=== PATIENT | male | born 1945 | race Caucasian/White ===

== ENCOUNTER 2016-09-30 23:04 | Emergency (ER) | payer MEDICARE, OTHER ==
[2016-09-30 23:34] VITALS: O2SAT 98
[2016-10-01] MEDS ORDERED: Zofran 4 MG/2 ML VIAL IV ONE (00:10)
[2016-10-01] MEDS ORDERED: MORPHINE SULFATE 4 MG INJ IV ONE ×2 (00:10→00:24)
[2016-10-01] MEDS ORDERED: Zofran 4 MG/2 ML VIAL ONE (00:13)
[2016-10-01] MEDS ORDERED: MORPHINE SULFATE 4 MG INJ ONE ×2 (00:13→00:43)
[2016-10-01] MEDS ORDERED: Sodium Chloride 0.9% 1000 ML 1,000 ML ONE (00:13)
[2016-10-01] MEDS ORDERED: Sodium Chloride 0.9% 1000 ML 1,000 ML IV SCH (00:15)
--- NOTE | 2016-10-01 00:23 | ERPHSYRPT ---
- History of Present Illness Time Seen by Provider: 09/30/16 23:47 Source: patient, family () Patient Subjective Stated Complaint: reports having back surgery today per Dr. De Guzman and since awaking from anesthesia he has had unbearable right leg pain that radiates down the foot - states that he has had his post-op medication and does not feel any better Triage Nursing Assessment: ambulatory to treatment area with cane and assistance from - unsteady, limping gait - moves all extremities with some rigidity and disability but moderate strength. alert/oriented - cantakerous affect. skin flushed/warm/dry - no rash/injury appreciated - bandage to incision site CDI with no appreciated drainage. pt unable to lay down flat Physician History: CC: right leg pain Hx: 71 y/o patient of Dr De Guzman had back surgery yesterday at [facility]. He went home this AM. He had right leg pain and numbness after awakening from surgery. In the hospital it was helped by morphine. Normal urination. No fever or chills. Went home this AM. Pain in right leg and numbness prevents sleep and persists. Rated as severe. No fall or new injury. The back pain is now gone. Uses pain tablets at home. Timing/Duration: yesterday Severity: severe Allergies/Adverse Reactions: No Known Drug Allergies Allergy (Verified 09/30/16 23:33) Home Medications: Bupropion HCl [Wellbutrin Xl] 300 mg PO DAILY 01/11/15 [History] Gemfibrozil 600 mg [Lopid 600 mg] 600 mg PO BID 01/11/15 [History] Lisinopril [Zestril] 2.5 mg PO DAILY 01/11/15 [History] Metformin HCl 850 mg PO DAILY 01/11/15 [History] Omeprazole 20 MG [Prilosec 20 mg] 20 mg PO DAILY 01/11/15 [History] Oxcarbazepine 300 mg [Trileptal 300 MG Tablet] 300 mg PO DAILY 01/11/15 [ History] Pramipexole Di-HCl [Mirapex] 5 mg PO HS 01/11/15 [History] Acetaminophen with Codeine [Tylenol #3 (Acetaminophen-Cod #3) Tablet] 1 ea DAILY 08/16/15 [History] Aspirin [Aspir-Low] 81 mg DAILY 08/16/15 [History] Hx Tetanus, Diphtheria Vaccination/Date Given: Yes Hx Influenza Vaccination/Date Given: No Hx Pneumococcal Vaccination/Date Given: No Immunizations Up to Date: Yes - Review of Systems Constitutional: Malaise, No Fever, No Chills Eyes: No Symptoms Ears, Nose, & Throat: No Symptoms Respiratory: No Cough, No Dyspnea Cardiac: No Chest Pain Abdominal/Gastrointestinal: No Abdominal Pain, No Nausea, No Vomiting Genitourinary Symptoms: No Dysuria, No Hematuria Musculoskeletal: No Back Pain (gone) Skin: No Rash Neurological: Parasthesia (right leg), No Focal Weakness, No Headache All Other Systems: Reviewed and Negative - Past Medical History Pertinent Past Medical History: Yes Neurological History: No Pertinent History ENT History: No Pertinent History Cardiac History: Hypertension, Peripheral Vascular Disease Respiratory History: No Pertinent History Endocrine Medical History: Diabetes Type II Musculoskeletal History: Arthritis GI Medical History: No Pertinent History History: No Pertinent History Psycho-Social History: No Pertinent History Male Reproductive Disorders: No Pertinent History Other Medical History: RLS - Past Surgical History Past Surgical History: Yes Neuro Surgical History: No Pertinent History Cardiac: Cardiac Catheterization, Other Respiratory: No Pertinent History Gastrointestinal: No Pertinent History Genitourinary: No Pertinent History Musculoskeletal: Other Male Surgical History: No Pertinent History Other Surgical History: [facility] back surgery with cyst removal and spur shaved,heart caths and cardiac ablation 15-20yrs ago,BACK SURG 08/03 - Social History Smoking Status: Never smoker How long have you smoked: 55 Exposure to second hand smoke: No Alcohol Use: None Drug Use: none Patient Lives Alone: No - Nursing Vital Signs Nursing Vital Signs: Initial Vital Signs Temperature 99.8 F Temperature Source Rectal Pulse Rate 58 Respiratory Rate 20 Blood Pressure [Right Arm] 101/37 Pain Intensity 7 - Physical Exam General Appearance: alert Eye Exam: PERRL/EOMI Ears, Nose, Throat Exam: moist mucous membranes Neck Exam: normal inspection, non-tender, supple Respiratory Exam: normal breath sounds Cardiovascular Exam: regular rate/rhythm Gastrointestinal/Abdomen Exam: soft, No tenderness, No distention Male Genitalia Exam: normal genitalia Rectal Exam: normal rectal tone Back Exam: normal inspection (stapled incision appears well without redness or drng) Extremity Exam: normal inspection, normal range of motion Neurologic Exam: alert, oriented x 3, cooperative, billet inspector II-XII nml as tested, sensory deficit (subjective right leg sensory decreased), No motor deficits Skin Exam: warm, dry, No rash SpO2 Interpretation: normal SpO2: 98 Oxygen Delivery: Room Air - Course Nursing assessment & vital signs reviewed: Yes Ordered Tests: Active Orders 24 hr Category Date Time Status Clean Catch Urine Specimen STAT Care 10/01/16 00:11 Active IV Insertion STAT Care 10/01/16 00:08 Active BMP Stat Lab 10/01/16 00:10 Completed CBC W DIFF Stat Lab 10/01/16 00:10 Completed UA W/RFX UR CULTURE Stat Lab 10/01/16 00:11 Ordered Medication Summary Generic Name Dose Route Start Last Admin Trade Name Freq PRN Reason Stop Dose Admin Sodium Chloride 1,000 mls @ 100 mls/hr 10/01/16 00:15 10/01/16 00:21 Sodium Chloride 0.9% 1000 Ml IV 10/31/16 00:14 100 mls/hr .Q10H MELITA Administration Discontinued Medications Generic Name Dose Route Start Last Admin Trade Name Freq PRN Reason Stop Dose Admin Diphenhydramine HCl 25 mg 10/01/16 00:24 10/01/16 00:46 Benadryl 50 Mg/Ml IV 10/01/16 00:25 25 mg STAT ONE Administration Diphenhydramine HCl Confirm 10/01/16 00:43 Benadryl 50 Mg/Ml Administered 10/01/16 00:44 Dose 50 mg .ROUTE .STK-MED ONE Morphine Sulfate 4 mg 10/01/16 00:10 10/01/16 00:21 Morphine Sulfate 4 Mg Inj IV 10/01/16 00:11 4 mg STAT ONE Administration Morphine Sulfate Confirm 10/01/16 00:13 Morphine Sulfate 4 Mg Inj Administered 10/01/16 00:14 Dose 4 mg .ROUTE .STK-MED ONE Morphine Sulfate 4 mg 10/01/16 00:24 10/01/16 00:46 Morphine Sulfate 4 Mg Inj IV 10/01/16 00:25 4 mg STAT ONE Administration Morphine Sulfate Confirm 10/01/16 00:43 Morphine Sulfate 4 Mg Inj Administered 10/01/16 00:44 Dose 4 mg .ROUTE .STK-MED ONE Ondansetron HCl 4 mg 10/01/16 00:10 10/01/16 00:21 Zofran 4 Mg/2 Ml Vial IV 10/01/16 00:11 4 mg STAT ONE Administration Ondansetron HCl Confirm 10/01/16 00:13 Zofran 4 Mg/2 Ml Vial Administered 10/01/16 00:14 Dose 4 mg .ROUTE .STK-MED ONE Lab/Rad Data: Laboratory Result Diagrams 10/01/16 00:10 10/01/16 00:10 Laboratory Results 10/01/16 10/01/16 Range/Units 00:10 00:10 WBC 9.7 (4.0-10.5) K/mm3 RBC 3.48 L (4.1-5.6) M/mm3 Hgb 10.7 L (12.5-18.0) gm/dl Hct 32.2 L (42-50) % MCV 92.5 (78-100) fl MCH 30.7 (26-32) pg MCHC 33.2 (32-36) g/dl RDW 13.8 (11.5-14.0) % Plt Count 180 (150-450) K/mm3 MPV 10.6 H (6-9.5) fl Gran % 67.8 H (36.0-66.0) % Lymphocytes % 16.8 L (24.0-44.0) % Monocytes % 12.1 H (0.0-12.0) % Eosinophils % 3.0 (0.00-5.0) % Basophils % 0.3 (0.0-0.4) % Basophils # 0.03 (0-0.4) Sodium 140 (136-145) mEq/L Potassium 4.0 (3.5-5.1) mEq/L Chloride 107 (98-107) mEq/L Carbon Dioxide 25.9 (21-32) mEq/L Anion Gap 11.4 (5-15) MEQ/L BUN 19 (9-20) mg/dL Creatinine 0.81 (0.55-1.30) mg/dl Estimated GFR > 60 ML/MIN Glucose 150 H (70-110) MG/DL Calcium 7.7 L (8.5-10.1) mg/dL - Progress Progress Note: 06/14/17 00:57 Pt was medicated. He has ambulated to BR. He wants to go home and feels better. CAlled Dr De Guzman. Pt will go home and call office in AM with report and to obtain further instructions. Counseled pt/family regarding: lab results, diagnosis, need for follow-up - Departure Time of Disposition: 00:58 Departure Disposition: Home Clinical Impression: post lumbar surgery right leg pain Neuropraxia of right lower extremity Qualifiers: Encounter type: initial encounter Qualified Code(s): S84.91XA - Injury of unspecified nerve at lower leg level, right leg, initial encounter Condition: Stable Critical Care Time: No Referrals: NOREEN DE GUZMAN [ACTIVE STAFF] - Instructions: Back Pain With Sciatica Additional Instructions: No driving and stay with family. Take your norco as already directed. Call Dr De Guzman office in AM for further instructions and to obtain close follow up. Return for fever, worsening, trouble urinatiing, or concerns.
[2016-10-01] MEDS ORDERED: BENADRYL 50 MG/ML IV ONE (00:24)
[2016-10-01 00:30] LABS: BASOPHIL % 0.3 % (0.0-0.4); Granulocytes % 67.8 % (36.0-66.0); Lymphocytes % 16.8 % (24.0-44.0); Mean Cell Volume 92.5 fl (78-100); Mean Corpuscular Hemoglobin 30.7 pg (26-32); Mean Platelet Volume 10.6 fl (6-9.5); Monocytes % 12.1 % (0.0-12.0); Platelet Count 180 K/mm3 (150-450); Red Blood Count 3.48 M/mm3 (4.1-5.6); Red Cell Distribution Width 13.8 % (11.5-14.0); White Blood Count 9.7 K/mm3 (4.0-10.5)
[2016-10-01 00:40] LABS: ANION GAP 11.4 MEQ/L (5-15); BLOOD UREA NITROGEN 19 mg/dL (9-20); CHLORIDE 107 mEq/L (98-107); Carbon Dioxide 25.9 mEq/L (21-32); Glucose 150 MG/DL (70-110); SODIUM 140 mEq/L (136-145)
[2016-10-01] MEDS ORDERED: BENADRYL 50 MG/ML ONE (00:43)
[2016-10-01 00:53] VITALS: BP 101/37; PULSE 58
[2016-10-01 01:15] LABS: ADD URINE CULTURE? NO (NO); COMPLETE URINE MICROSCOPIC? YES; Collection Type CLEAN CATCH; Epithelial Cells FEW /HPF (FEW); Ph 5.5 (5-6)
== END 2016-10-01 01:26 | disposition home or self-care (01) ==
LOC: ED 23:04
DX: S84.91XA Injury of unspecified nerve at lower leg level, right leg, initial encounter (principal); Z98.890 Other specified postprocedural states; Z79.899 Other long term (current) drug therapy; I10 Essential (primary) hypertension; E11.9 Type 2 diabetes mellitus without complications
CPT/HCPCS: 36000; 36415; 80048; 81000; 85025; 96360; 96361; 96374; 96375; 99284; J1200; J2270; J2405

== ENCOUNTER 2016-10-21 03:40 | Emergency (ER) | payer MEDICARE, OTHER ==
[2012-01-21 13:41] VITALS: BP 129/70
--- NOTE | 2016-10-21 04:13 | ERPHSYRPT ---
- History of Present Illness Time Seen by Provider: 10/21/16 03:57 Source: patient Exam Limitations: no limitations Patient Subjective Stated Complaint: norco at 0100 Triage Nursing Assessment: pt alert and oriented, answers questions approp. pt ambulatory with limping gait noted. uses cane for ambulation. respirations nonlabored with lungs cta. back with large bandage noted. pt states was changed today. pt states he has infected surgical site. no drainage noted on drsg. cap refill, pedal pulse wnl. pt c/o pins and needles sensation in rt foot and sesitivity. Physician History: PT HAD LOW BACK SURGERY BY DR PALAFOX ON 09/29/16, 10/01/16 AND 10/03/16. PT HAS BEEN ON NORCO SINCE FOR RIGHT LOWER EXTREMITY PAIN BUT RAN OUT THIS AM AND IS REQUESTING PAIN PILLS UNTIL HIS APPOINTMENT WITH DR PALAFOX IN 2 DAYS. PT STATES HE HAS HAD TINGLING IN HIS RIGHT FOOT SINCE SURGERY. PT DENIES FEVER, VOMITING, CHEST PAIN, SHORTNESS OF AIR, ABDOMINAL PAIN. Allergies/Adverse Reactions: No Known Drug Allergies Allergy (Verified 10/18/16 06:21) Home Medications: Bupropion HCl [Wellbutrin Xl] 300 mg PO DAILY 01/11/15 [History] Gemfibrozil 600 mg [Lopid 600 mg] 600 mg PO DAILY 01/11/15 [History] Lisinopril [Zestril] 2.5 mg PO DAILY 01/11/15 [History] Metformin HCl 850 mg PO DAILY 01/11/15 [History] Omeprazole 20 MG [Prilosec 20 mg] 20 mg PO DAILY 01/11/15 [History] Oxcarbazepine 300 mg [Trileptal 300 MG Tablet] 300 mg PO DAILY 01/11/15 [ History] Pramipexole Di-HCl [Mirapex] 5 mg PO HS 01/11/15 [History] Acetaminophen with Codeine [Tylenol #3 (Acetaminophen-Cod #3) Tablet] 1 ea BID 08/16/15 [History] Aspirin [Aspir-Low] 81 mg DAILY 08/16/15 [History] Hx Tetanus, Diphtheria Vaccination/Date Given: Yes Hx Influenza Vaccination/Date Given: No Hx Pneumococcal Vaccination/Date Given: No Immunizations Up to Date: Yes - Review of Systems Musculoskeletal: Other (RIGHT LOWER EXTREMITY PAIN) All Other Systems: Reviewed and Negative - Past Medical History Pertinent Past Medical History: Yes Neurological History: No Pertinent History ENT History: Cataracts Cardiac History: High Cholesterol, Hypertension, Peripheral Vascular Disease Respiratory History: No Pertinent History Endocrine Medical History: Diabetes Type II Musculoskeletal History: Arthritis, Degenerative Disk Disease GI Medical History: No Pertinent History History: No Pertinent History Psycho-Social History: No Pertinent History Male Reproductive Disorders: Prostate Cancer Other Medical History: RLS - Past Surgical History Past Surgical History: Yes Neuro Surgical History: No Pertinent History Cardiac: Cardiac Catheterization, Other Respiratory: No Pertinent History Gastrointestinal: No Pertinent History Genitourinary: No Pertinent History Musculoskeletal: Other Male Surgical History: No Pertinent History Other Surgical History: [facility] with cyst removal and spur shaved,heart caths and cardiac ablation 15-20yrs ago,BACK SURG 08/03, back surgery 2013, 09/29/16,09/30/16,10/01/16 back surgery r/t infection in surgical site. bilar rcr - Social History Smoking Status: Current every day smoker How long have you smoked: 55 years Exposure to second hand smoke: Yes Alcohol Use: None Drug Use: none Patient Lives Alone: No - Nursing Vital Signs Nursing Vital Signs: Initial Vital Signs Temperature 98.0 F Temperature Source Oral Pulse Rate 98 Respiratory Rate 22 Blood Pressure [Right Arm] 132/84 Pain Intensity 10 - Physical Exam General Appearance: alert Eye Exam: PERRL/EOMI Ears, Nose, Throat Exam: pharynx normal, moist mucous membranes Neck Exam: normal inspection Respiratory Exam: lungs clear Cardiovascular Exam: normal heart sounds Gastrointestinal/Abdomen Exam: soft, normal bowel sounds Back Exam: other (HEALING VERTICAL MIDLINE INCISION OVER LUMBAR SPINE WITHOUT EXUDATE OR ERYTHEMA.) Extremity Exam: normal inspection, normal range of motion, No swelling Neurologic Exam: alert, cooperative Skin Exam: warm, dry SpO2 Interpretation: normal SpO2: 100 Oxygen Delivery: Room Air - Course Nursing assessment & vital signs reviewed: Yes - Departure Time of Disposition: 04:18 Departure Disposition: Home Clinical Impression: RIGHT LOWER EXTREMITY PAIN, S/P LOW BACK SURGERY(X3) SEPTEMBER 2016. Condition: Stable Critical Care Time: No Instructions: Chronic Pain -- Adult Additional Instructions: FOLLOW UP WITH DR PALAFOX ON 10/23/16 PRE-SCHEDULED. DO NOT LIFT, BEND OR TWIST TORSO. Prescriptions: Hydrocodone Bit/Acetaminophen [[employer] 7.5-325 Tablet] 1 each PO Q6H PRN PRN #14 tablet PRN Reason: Pain
[2016-10-21] MEDS ORDERED: NORCO 5/325 MG PO ONE (04:18)
[2016-10-21] MEDS ORDERED: Hydromorphone 1 mg/ml Ampule IM ONE (04:19)
[2016-10-21] MEDS ORDERED: Phenergan 25 MG INJ IV ONE (04:19)
[2016-10-21] MEDS ORDERED: Phenergan 25 MG INJ IM ONE (04:23)
[2016-10-21] MEDS ORDERED: Hydromorphone 1 mg/ml Ampule ONE (04:24)
[2016-10-21] MEDS ORDERED: Phenergan 25 MG INJ ONE (04:24)
[2016-10-21] MEDS ORDERED: NORCO 5/325 MG ONE (04:24)
[2016-10-21 04:55] VITALS: BP 116/47; PULSE 85; O2SAT 98
== END 2016-10-21 04:56 | disposition home or self-care (01) ==
LOC: ED 03:40
DX: M79.604 Pain in right leg (principal); Z98.890 Other specified postprocedural states
CPT/HCPCS: 96372; 99284; J1170; J2550; A9270-GY

== ENCOUNTER 2016-10-23 03:05 | Emergency (ER) | payer MEDICARE, OTHER ==
[2012-01-21 13:41] VITALS: BP 129/70
[2016-10-23] MEDS ORDERED: Hydromorphone 1 mg/ml Ampule IM ONE (03:23)
[2016-10-23] MEDS ORDERED: DECADRON 10MG INJ. IM ONE (03:25)
[2016-10-23] MEDS ORDERED: Phenergan 25 MG INJ IM ONE (03:25)
[2016-10-23] MEDS ORDERED: DECADRON 10MG INJ. ONE (03:32)
[2016-10-23] MEDS ORDERED: Hydromorphone 1 mg/ml Ampule ONE (03:32)
[2016-10-23] MEDS ORDERED: Phenergan 25 MG INJ ONE (03:32)
--- NOTE | 2016-10-23 03:34 | ERPHSYRPT ---
- History of Present Illness Time Seen by Provider: 10/23/16 03:28 Source: patient, family Exam Limitations: no limitations Patient Subjective Stated Complaint: pt states he has increased pain from his lower back down his rt leg. Triage Nursing Assessment: pt alert and oriented, asnwers questions approp. pt transfers to stretcher from bed with minimal assist. respirations nonlabored iwht lungs cta. skin warm and dry. drsg to lower back clean and dry- dated at 1700. pedal pulse, cap refill to rt foot wnl. Physician History: The patient is a 71-year-old male with his complaining of severe low back pain radiating down his right leg for the last several days. He had back surgery on September 29, , and . There were problems with the initial back surgery and thinks had to be repeated. He now has an infection in his low back that is being treated twice today with vancomycin injections by IV. The back pain has been increasing and is severe. He ran out of his analgesics given to him by the back surgeon and he came into the ER on October 20 for more narcotics. At that time he was given an IM Dilaudid 1 mg and Phenergan 12.5 mg with good relief. He requests a similar pain relief tonight. In about 12 hours he visits his back surgeon. His past medical history is significant for back pain with back surgery, diabetes, hypertension, hyperlipidemia, and depression. Timing/Duration: today, worse Method of Injury: other (back surgery) Quality: sharp Back Pain Location: lumbar spine Back Pain Radiation: upper legs, lower legs Severity of Pain-Max: severe Severity of Pain-Current: severe Modifying Factors: Improves With: pain medication Associated Symptoms: denies symptoms Previous symptoms: same symptoms as today Allergies/Adverse Reactions: No Known Drug Allergies Allergy (Verified 10/23/16 03:20) Home Medications: Bupropion HCl [Wellbutrin Xl] 300 mg PO DAILY 01/11/15 [History] Gemfibrozil 600 mg [Lopid 600 mg] 600 mg PO DAILY 01/11/15 [History] Lisinopril [Zestril] 2.5 mg PO DAILY 01/11/15 [History] Metformin HCl 850 mg PO DAILY 01/11/15 [History] Omeprazole 20 MG [Prilosec 20 mg] 20 mg PO DAILY 01/11/15 [History] Oxcarbazepine 300 mg [Trileptal 300 MG Tablet] 300 mg PO DAILY 01/11/15 [ History] Pramipexole Di-HCl [Mirapex] 5 mg PO HS 01/11/15 [History] Acetaminophen with Codeine [Tylenol #3 (Acetaminophen-Cod #3) Tablet] 1 ea BID 08/16/15 [History] Aspirin [Aspir-Low] 81 mg DAILY 08/16/15 [History] Hx Tetanus, Diphtheria Vaccination/Date Given: Yes Hx Influenza Vaccination/Date Given: No Hx Pneumococcal Vaccination/Date Given: No Immunizations Up to Date: Yes - Review of Systems Constitutional: No Fever, No Chills Eyes: No Symptoms Ears, Nose, & Throat: No Symptoms Respiratory: No Cough, No Dyspnea Cardiac: No Chest Pain, No Edema, No Syncope Abdominal/Gastrointestinal: No Abdominal Pain, No Nausea, No Vomiting, No Diarrhea Genitourinary Symptoms: No Dysuria Musculoskeletal: Back Pain Skin: No Rash Neurological: No Dizziness, No Focal Weakness, No Sensory Changes Psychological: No Symptoms Endocrine: No Symptoms Hematologic/Lymphatic: No Symptoms Immunological/Allergic: No Symptoms All Other Systems: Reviewed and Negative - Past Medical History Pertinent Past Medical History: Yes Neurological History: No Pertinent History ENT History: Cataracts Cardiac History: High Cholesterol, Hypertension, Peripheral Vascular Disease Respiratory History: No Pertinent History Endocrine Medical History: Diabetes Type II Musculoskeletal History: Arthritis, Degenerative Disk Disease GI Medical History: No Pertinent History History: No Pertinent History Psycho-Social History: No Pertinent History Male Reproductive Disorders: Prostate Cancer Other Medical History: RLS - Past Surgical History Past Surgical History: Yes Neuro Surgical History: No Pertinent History Cardiac: Cardiac Catheterization, Other Respiratory: No Pertinent History Gastrointestinal: No Pertinent History Genitourinary: No Pertinent History Musculoskeletal: Other Male Surgical History: No Pertinent History Other Surgical History: [facility] with cyst removal and spur shaved,heart caths and cardiac ablation 15-20yrs ago,BACK SURG 08/03, back surgery 2013, 09/29/16,09/30/16,10/01/16 back surgery r/t infection in surgical site. bilar rcr - Social History Smoking Status: Current every day smoker How long have you smoked: 55 years Exposure to second hand smoke: Yes Alcohol Use: None Drug Use: none Patient Lives Alone: No - Nursing Vital Signs Nursing Vital Signs: Initial Vital Signs Temperature 97.7 F Temperature Source Oral Pulse Rate 97 Respiratory Rate 22 Blood Pressure [Right Arm] 162/70 Pain Intensity [Right Foot] 10 Pain Intensity 10 - Physical Exam General Appearance: moderate distress Eye Exam: PERRL/EOMI, eyes nml inspection Ears, Nose, Throat Exam: normal ENT inspection Neck Exam: normal inspection, non-tender, supple, full range of motion, No meningismus, No midline tenderness Respiratory Exam: normal breath sounds, lungs clear, No respiratory distress Cardiovascular Exam: regular rate/rhythm, normal heart sounds Gastrointestinal Exam: soft, No tenderness, No mass Rectal Exam: not done Back Exam: other (Examination of the low back reveals a bandage over the low back from the prior surgery.) Extremity Exam: limited range of motion (There is limited straight leg raise the right leg to about 25 or 30.), No calf tenderness, No pedal edema Neurologic Exam: alert, oriented x 3, cooperative, optimization specialist II-XII nml as tested, normal mood/affect, nml station & gait, sensation nml, No motor deficits Skin Exam: normal color, warm, dry, No rash SpO2 Interpretation: normal SpO2: 98 Oxygen Delivery: Room Air Ordered Tests: Medication Summary Generic Name Dose Route Start Last Admin Trade Name Juanita PRN Reason Stop Dose Admin Dexamethasone Sodium Phosphate 10 mg 10/23/16 03:25 Decadron 10mg Inj. IM 10/23/16 03:26 STAT ONE Hydromorphone HCl 1 mg 10/23/16 03:23 Hydromorphone 1 Mg/Ml Ampule IM 10/23/16 03:24 STAT ONE Promethazine HCl 25 mg 10/23/16 03:25 Phenergan 25 Mg Inj IM 10/23/16 03:26 STAT ONE - Progress Progress: improved Progress Note: 10/23/16 03:35 After IM injections of Decadron 10 mg, Phenergan 25 mg, and Dilaudid 1 mg, patient is beginning to feel better. Counseled pt/family regarding: diagnosis, need for follow-up - Departure Time of Disposition: 03:35 Departure Disposition: Home Clinical Impression: Back pain Condition: Stable Critical Care Time: No Additional Instructions: You are having back pain that is associated with recent back surgery. The [place] as you have been taking have not been enough to give adequate pain relief. You were given Dilaudid 1 mg, Phenergan 25 mg, and Decadron 10 mg by IM injection in the ER. Continue to take the [place] as directed if needed. Follow-up later today at 3 PM as scheduled with your back doctor. Continue to obtain the twice a day antibiotic therapy for your infection. Do not hesitate to return to the ER if condition worsens significantly.
[2016-10-23 04:07] VITALS: BP 135/67; PULSE 83; O2SAT 96
== END 2016-10-23 04:06 | disposition home or self-care (01) ==
LOC: ED 03:05
DX: M54.9 Dorsalgia, unspecified (principal); M54.5 Low back pain; Z98.890 Other specified postprocedural states; E11.9 Type 2 diabetes mellitus without complications; I10 Essential (primary) hypertension; E78.5 Hyperlipidemia, unspecified; F32.9 Major depressive disorder, single episode, unspecified; Z79.899 Other long term (current) drug therapy; Z79.84 Long term (current) use of oral hypoglycemic drugs; E78.00 Pure hypercholesterolemia, unspecified
CPT/HCPCS: 96372; 99284; J1100; J1170; J2550

== ENCOUNTER 2016-10-27 13:10 | Observation (INO) | payer MEDICARE, OTHER ==
[2016-10-27] MEDS ORDERED: DILAUDID 2 MG INJECTION IV STA (13:25)
--- NOTE | 2016-10-27 13:25 | ERPHSYRPT ---
- History of Present Illness Time Seen by Provider: 10/27/16 13:20 Source: patient, family, EMS Exam Limitations: no limitations Physician History: The patient is a 71-year-old male accompanied by his who arrives by ambulance complaining of severe low back pain. I saw the same patient on October 23 for the same problem. He was treated at that time with dexamethasone 10 mg, Dilaudid 1 mg, and Phenergan 25 mg by IV with good temporary results. The patient had back surgery on September 29, , and . There were problems with the initial surgery on the that resulted in infection and having the hardware removed from his back. He is being treated twice a day with vancomycin IV for the infection. He tells me that he is to see the back surgeon tomorrow. His past medical history is significant for back pain with back surgery and infection, diabetes, hypertension, hyperlipidemia, depression, and anxiety. Timing/Duration: today Method of Injury: prior injury, twisted Quality: sharp Back Pain Location: lumbar spine Severity of Pain-Max: severe Severity of Pain-Current: severe Modifying Factors: Improves With: pain medication Associated Symptoms: lower back pain Previous symptoms: same symptoms as today Allergies/Adverse Reactions: No Known Drug Allergies Allergy (Verified 10/23/16 03:20) Home Medications: Bupropion HCl [Wellbutrin Xl] 150 mg PO DAILY 01/11/15 [History] Lisinopril [Zestril] 2.5 mg PO DAILY 01/11/15 [History] Metformin HCl 850 mg PO BID 01/11/15 [History] Omeprazole 20 MG [Prilosec 20 mg] 20 mg PO DAILY 01/11/15 [History] Oxcarbazepine 300 mg [Trileptal 300 MG Tablet] 300 mg PO TID 01/11/15 [ History] Pramipexole Di-HCl [Mirapex] 1 tab PO HS 01/11/15 [History] Aspirin [Aspir-Low] 81 mg PO DAILY 08/16/15 [History] Lorazepam 1 mg [Ativan 1 MG] 1 mg PO HS 10/27/16 [History] Tamsulosin HCl 0.4 mg [Flomax 0.4 MG] 0.4 mg PO HS 10/27/16 [History] Tizanidine HCl 4 mg [Zanaflex 4 MG] 4 mg PO Q8H 10/27/16 [History] Hx Tetanus, Diphtheria Vaccination/Date Given: Yes Hx Influenza Vaccination/Date Given: No Hx Pneumococcal Vaccination/Date Given: No - Review of Systems Constitutional: No No Symptoms, No Fever, No Chills Eyes: No Symptoms Ears, Nose, & Throat: No Symptoms Respiratory: No Cough, No Dyspnea Cardiac: No Chest Pain, No Edema, No Syncope Abdominal/Gastrointestinal: No Abdominal Pain, No Nausea, No Vomiting, No Diarrhea Genitourinary Symptoms: No Dysuria Musculoskeletal: Back Pain Skin: No Rash Neurological: No Dizziness, No Focal Weakness, No Sensory Changes Psychological: No Symptoms Endocrine: No Symptoms Hematologic/Lymphatic: No Symptoms Immunological/Allergic: No Symptoms All Other Systems: Reviewed and Negative - Past Medical History Pertinent Past Medical History: Yes Neurological History: No Pertinent History ENT History: Cataracts Cardiac History: High Cholesterol, Hypertension, Peripheral Vascular Disease Respiratory History: No Pertinent History Endocrine Medical History: Diabetes Type II Musculoskeletal History: Arthritis, Degenerative Disk Disease GI Medical History: No Pertinent History History: No Pertinent History Psycho-Social History: No Pertinent History Male Reproductive Disorders: Prostate Cancer Other Medical History: RLS - Past Surgical History Past Surgical History: Yes Neuro Surgical History: No Pertinent History Cardiac: Cardiac Catheterization, Other Respiratory: No Pertinent History Gastrointestinal: No Pertinent History Genitourinary: No Pertinent History Musculoskeletal: Other Male Surgical History: No Pertinent History Other Surgical History: july states back surgery with cyst removal and spur shaved,heart caths and cardiac ablation 15-20yrs ago,BACK SURG 08/03, back surgery 2013, 09/29/16,09/30/16,10/01/16 back surgery r/t infection in surgical site. bilar rcr - Social History Smoking Status: Current every day smoker How long have you smoked: 55 years Exposure to second hand smoke: Yes Alcohol Use: None Drug Use: none Patient Lives Alone: No - Nursing Vital Signs Nursing Vital Signs: Initial Vital Signs Temperature 99.5 F Temperature Source Oral Pulse Rate 82 Respiratory Rate 18 Blood Pressure [Right Arm] 148/72 Pain Intensity 8 - Physical Exam General Appearance: severe distress Eye Exam: PERRL/EOMI, eyes nml inspection Ears, Nose, Throat Exam: normal ENT inspection Neck Exam: normal inspection, non-tender, supple, full range of motion, No meningismus, No midline tenderness Respiratory Exam: normal breath sounds, lungs clear, No respiratory distress Cardiovascular Exam: regular rate/rhythm, normal heart sounds Gastrointestinal Exam: soft, No tenderness, No mass Rectal Exam: not done Back Exam: vertebral tenderness, point tenderness Extremity Exam: normal inspection, normal range of motion, No calf tenderness, No pedal edema Neurologic Exam: alert, oriented x 3, cooperative, 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 tested, normal mood/affect, nml station & gait, sensation nml, No motor deficits Skin Exam: normal color, warm, dry, No rash SpO2 Interpretation: normal Ordered Tests: Active Orders 24 hr Category Date Time Status BMP Stat Lab 10/27/16 13:43 Completed CBC W DIFF Stat Lab 10/27/16 13:43 Completed Medication Summary Discontinued Medications Generic Name Dose Route Start Last Admin Trade Name Freq PRN Reason Stop Dose Admin Diazepam 10 mg 10/27/16 14:10 10/27/16 14:13 Valium 10 Mg/2 Ml Syringe IV 10/27/16 14:11 10 mg STAT ONE Administration Diazepam Confirm 10/27/16 14:12 Valium 10 Mg/2 Ml Syringe Administered 10/27/16 14:13 Dose 10 mg .ROUTE .STK-MED ONE Hydromorphone HCl 2 mg 10/27/16 13:25 10/27/16 13:45 Dilaudid 2 Mg Injection IV 10/27/16 13:26 2 mg Q4H PRN STA Administration Hydromorphone HCl Confirm 10/27/16 13:31 Hydromorphone 1 Mg/Ml Ampule Administered 10/27/16 13:32 Dose 2 mg .ROUTE .STK-MED ONE Lorazepam 2 mg 10/27/16 14:04 10/27/16 14:24 Ativan 2 Mg/1 Ml Vial IV 10/27/16 14:05 Not Given STAT ONE Promethazine HCl 25 mg 10/27/16 13:26 10/27/16 13:35 Phenergan 25 Mg Inj IV 10/27/16 13:27 25 mg STAT ONE Administration Promethazine HCl Confirm 10/27/16 13:31 Phenergan 25 Mg Inj Administered 10/27/16 13:32 Dose 25 mg .ROUTE .STK-MED ONE Lab/Rad Data: Laboratory Result Diagrams 10/27/16 13:43 10/27/16 13:43 Laboratory Results 10/27/16 10/27/16 Range/Units 13:43 13:43 WBC 9.8 (4.0-10.5) K/mm3 RBC 3.66 L (4.1-5.6) M/mm3 Hgb 10.7 L (12.5-18.0) gm/dl Hct 33.3 L (42-50) % MCV 91.0 (78-100) fl MCH 29.2 (26-32) pg MCHC 32.1 (32-36) g/dl RDW 14.2 H (11.5-14.0) % Plt Count 289 (150-450) K/mm3 MPV 9.7 H (6-9.5) fl Gran % 78.1 H (36.0-66.0) % Lymphocytes % 12.3 L (24.0-44.0) % Monocytes % 7.1 (0.0-12.0) % Eosinophils % 2.2 (0.00-5.0) % Basophils % 0.3 (0.0-0.4) % Basophils # 0.03 (0-0.4) Sodium 140 (136-145) mEq/L Potassium 4.2 (3.5-5.1) mEq/L Chloride 105 (98-107) mEq/L Carbon Dioxide 23.0 (21-32) mEq/L Anion Gap 16.2 H (5-15) MEQ/L BUN 26 H (9-20) mg/dL Creatinine 1.08 (0.55-1.30) mg/dl Estimated GFR > 60 ML/MIN Glucose 207 H (70-110) MG/DL Calcium 9.1 (8.5-10.1) mg/dL - Progress Progress: improved, pain not gone completely Progress Note: 10/27/16 15:02 Pt care discussed with Dr Haider and Dr Ryan, and pt to be admitted for pain control. Dr Haider to see pt tomorrow. Discussed with .: Shelby Will see patient in: hospital (observation) Counseled pt/family regarding: diagnosis - Departure Time of Disposition: 15:03 Departure Disposition: Observation (per DR Ryan) Clinical Impression: Back pain Condition: Stable Critical Care Time: No
[2016-10-27] MEDS ORDERED: Phenergan 25 MG INJ IV ONE (13:26)
[2016-10-27] MEDS ORDERED: Hydromorphone 1 mg/ml Ampule ONE (13:31)
[2016-10-27] MEDS ORDERED: Phenergan 25 MG INJ ONE (13:31)
[2016-10-27] MEDS ORDERED: Ativan 2 MG/1 ML VIAL IV ONE (14:04)
[2016-10-27 14:07] LABS: BASOPHIL % 0.3 % (0.0-0.4); Eosinophil % 2.2 % (0.00-5.0); Granulocytes % 78.1 % (36.0-66.0); Lymphocytes % 12.3 % (24.0-44.0); Mean Corpuscular Hemoglobin 29.2 pg (26-32); Mean Platelet Volume 9.7 fl (6-9.5); Monocytes % 7.1 % (0.0-12.0); Platelet Count 289 K/mm3 (150-450); Red Blood Count 3.66 M/mm3 (4.1-5.6); Red Cell Distribution Width 14.2 % (11.5-14.0); White Blood Count 9.8 K/mm3 (4.0-10.5)
[2016-10-27 14:09] LABS: ANION GAP 16.2 MEQ/L (5-15); BLOOD UREA NITROGEN 26 mg/dL (9-20); CHLORIDE 105 mEq/L (98-107); Glucose 207 MG/DL (70-110); Potassium 4.2 mEq/L (3.5-5.1); SODIUM 140 mEq/L (136-145)
[2016-10-27] MEDS ORDERED: VALIUM 10 MG/2 ML SYRINGE IV ONE (14:10)
[2016-10-27] MEDS ORDERED: VALIUM 10 MG/2 ML SYRINGE ONE (14:12)
[2016-10-27] MEDS ORDERED: Zofran 4 MG/2 ML VIAL IV PRN (15:57)
[2016-10-27] MEDS: Morphine PCA 1 MG/ML 30 ML IV PRN (16:38)
[2016-10-27] MEDS: VALIUM 10 MG/2 ML SYRINGE IV PRN ×2 (17:30→22:10)
[2016-10-27] MEDS: VANCOCIN 1 GM VIAL*** 1.25 GM in Sodium Chloride 0.9% 250 ML 250 ML IV SCH (17:54)
[2016-10-27] MEDS ORDERED: Wellbutrin SR 150 MG ONE (21:49)
[2016-10-27] MEDS ORDERED: Wellbutrin XL 150 MG PO ONE (22:00)
[2016-10-27] MEDS ORDERED: Protonix 40MG Tablet PO ONE (22:00)
[2016-10-27] MEDS ORDERED: Trileptal 300 MG Tablet PO ONE (22:00)
[2016-10-27] MEDS ORDERED: Zanaflex 4 MG PO SCH (22:00)
[2016-10-27] MEDS ORDERED: Zestril 5 MG PO ONE (22:00)
[2016-10-27] MEDS: Flomax 0.4 MG PO SCH (22:07)
[2016-10-27] MEDS: Mirapex 0.5 MG Tablet PO SCH (22:07)
[2016-10-27] MEDS ORDERED: Trileptal 300 MG Tablet ONE (22:21)
[2016-10-27] MEDS: Ativan 1 MG PO SCH (22:27)
--- NOTE | 2016-10-27 23:35 | PCM.HP ---
History of Present Illness - Chief Complaint Chief Complaint: back pain History of Present Illness: is a 71 year old male.came to ER with back pain - Review of Systems Constitutional: No Fever, No Chills Eyes: No Symptoms Ears, Nose, & Throat: No Symptoms Respiratory: No Cough, No Short Of Breath Cardiac: No Chest Pain, No Edema, No Syncope Abdominal/Gastrointestinal: No Abdominal Pain, No Nausea, No Vomiting, No Diarrhea Genitourinary Symptoms: No Dysuria Musculoskeletal: Back Pain, No Neck Pain Skin: No Rash Neurological: No Dizziness, No Focal Weakness, No Sensory Changes Psychological: No Symptoms Endocrine: No Symptoms Hematologic/Lymphatic: No Symptoms Immunological/Allergic: No Symptoms Medications & Allergies Home Medications: Home Medication List Bupropion HCl [Wellbutrin Xl] 150 mg PO DAILY 01/11/15 [History Confirmed ] Lisinopril [Zestril] 2.5 mg PO DAILY 01/11/15 [History Confirmed 10/27/16] Metformin HCl 850 mg PO DAILY 01/11/15 [History Confirmed 10/27/16] Omeprazole 20 MG [Prilosec 20 mg] 20 mg PO DAILY 01/11/15 [History Confirmed 02/03] Oxcarbazepine 300 mg [Trileptal 300 MG Tablet] 300 mg PO DAILY 01/11/15 [ History Confirmed 10/27/16] Pramipexole Di-HCl [Mirapex] 1 tab PO HS 01/11/15 [History Confirmed 10/27/16] Aspirin [Aspir-Low] 81 mg PO DAILY 08/16/15 [History Confirmed 10/27/16] Hydrocodone/Acetaminophen [[place] 5-325 Tablet] 1 each PO Q6H PRN 10/27/16 [ History Confirmed 10/27/16] Lorazepam 1 mg [Ativan 1 MG] 1 mg PO HS 10/27/16 [History Confirmed ] Tamsulosin HCl 0.4 mg [Flomax 0.4 MG] 0.4 mg PO HS 10/27/16 [History Confirmed 10/27/16] Tizanidine HCl 4 mg [Zanaflex 4 MG] 4 mg PO HS 10/27/16 [History Confirmed 10/27/16] Allergies/Adverse Reactions: Allergies Allergy/AdvReac Type Severity Reaction Status Date / Time No Known Drug Allergies Allergy Verified 10/23/16 03:20 - Past Medical History Past Medical History: Yes Neurological History: No Pertinent History ENT History: Cataracts Cardiac History: High Cholesterol, Hypertension, Peripheral Vascular Disease Respiratory History: No Pertinent History Endocrine Medical History: Diabetes Type II Musculoskelatal History: Arthritis, Degenerative Disk Disease GI Medical History: No Pertinent History History: No Pertinent History Pyscho-Social History: No Pertinent History Male Reproductive Disorders: Prostate Cancer Comment: heart ablation 20 years ago - Past Surgical History Past Surgical History: Yes Neuro Surgical History: No Pertinent History Cardiac History: Cardiac Catheterization, Other Respiratory Surgery: No Pertinent History GI Surgical History: No Pertinent History Genitourinary Surgical Hx: No Pertinent History Musculskeletal Surgical Hx: Other Male Surgical History: No Pertinent History Other Surgical History: july states back surgery with cyst removal and spur shaved,heart caths and cardiac ablation 15-20yrs ago,BACK SURG 08/03, back surgery 2013, 09/29/16,09/30/16,10/01/16 back surgery r/t infection in surgical site. bilar rcr - Social History Smoking Status: Current every day smoker How long have you smoked: 55 Exposure to second hand smoke: Yes Alcohol: None Drug Use: none - Physical Exam Vital Signs: Vital Signs - 24 hr Temp Pulse Resp BP Pulse Ox 10/27/16 20:30 97.9 F 77 24 127/61 97 10/27/16 17:00 97.6 F 80 16 132/5 97 10/27/16 16:38 97 10/27/16 14:26 98 10/27/16 14:24 82 18 148/72 98 10/27/16 13:11 99.5 F 93 H 20 150/59 98 Oxygen-Last 24 hours O2 Percentage 2 Liters = 28% O2 Percentage 2 Liters = 28% General Appearance: no apparent distress, alert Neurologic Exam: alert, oriented x 3, cooperative, normal mood/affect, nml cerebellar function, nml station & gait, sensation nml, No motor deficits Eye Exam: PERRL/EOMI, eyes nml inspection Ears, Nose, Throat Exam: normal ENT inspection, TMs normal, pharynx normal, moist mucous membranes Neck Exam: normal inspection, non-tender, supple, full range of motion Respiratory Exam: normal breath sounds, lungs clear, No respiratory distress Cardiovascular Exam: regular rate/rhythm, normal heart sounds, normal peripheral pulses Gastrointestinal/Abdomen Exam: soft, normal bowel sounds, No tenderness, No mass Back Exam: normal inspection, normal range of motion, No CVA tenderness, No vertebral tenderness Extremity Exam: normal inspection, normal range of motion, pelvis stable Skin Exam: normal color, warm, dry, No rash Lymphatic Exam: No adenopathy Assessment/Plan (1) Back pain Current Visit: Yes Status: Acute Qualifiers: Back pain location: low back pain Chronicity: acute Back pain laterality : bilateral Sciatica presence: with sciatica Sciatica laterality: bilateral sciatica Qualified Code(s): M54.42 - Lumbago with sciatica, left side; M54.41 - Lumbago with sciatica, right side Code(s): M54.9 - DORSALGIA, UNSPECIFIED (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
[2016-10-28] MEDS: Morphine PCA 1 MG/ML 30 ML IV PRN ×3 (00:04→22:20)
[2016-10-28] MEDS: NORCO 5/325 MG PO PRN ×2 (01:58→10:13)
[2016-10-28] MEDS: VANCOCIN 1 GM VIAL*** 1.25 GM in Sodium Chloride 0.9% 250 ML 250 ML IV SCH ×2 (05:45→17:42)
[2016-10-28 07:12] LABS: BASOPHIL % 0.3 % (0.0-0.4); Eosinophil % 3.2 % (0.00-5.0); Granulocytes % 66.8 % (36.0-66.0); Lymphocytes % 17.9 % (24.0-44.0); Mean Cell Volume 90.6 fl (78-100); Mean Platelet Volume 10.1 fl (6-9.5); Monocytes % 11.8 % (0.0-12.0); Platelet Count 279 K/mm3 (150-450); Red Blood Count 3.85 M/mm3 (4.1-5.6); Red Cell Distribution Width 14.2 % (11.5-14.0); White Blood Count 10.6 K/mm3 (4.0-10.5)
[2016-10-28 07:17] LABS: Mean Corpuscular Hemoglobin 29.3 pg (26-32)
[2016-10-28 07:30] LABS: ANION GAP 15.2 MEQ/L (5-15); BLOOD UREA NITROGEN 17 mg/dL (9-20); CHLORIDE 102 mEq/L (98-107); Carbon Dioxide 27.3 mEq/L (21-32); Glucose 132 MG/DL (70-110); Potassium 4.7 mEq/L (3.5-5.1); SODIUM 140 mEq/L (136-145)
[2016-10-28] MEDS ORDERED: PHARMACY DOSING REQUIRED: MORPHINE PCA IV ONE (09:18)
[2016-10-28] MEDS ORDERED: MORPHINE SULFATE 4 MG INJ IV PRN (09:43)
[2016-10-28] MEDS ORDERED: ECOTRIN 81 MG PO SCH (10:00)
[2016-10-28] MEDS: Glucophage 850 MG PO SCH (11:52)
[2016-10-28] MEDS: Sodium Chloride 0.9% 500 ML 500 ML IV SCH (15:51)
--- NOTE | 2016-10-28 16:46 | XRAY ---
Exam: CT of the lumbar spine with IV contrast from 10/28/2016. CTDI: 45.22 Comparison: 3 view lumbar spine series from 10/14/2016 and MRI of the lumbar spine without IV contrast from 05/15/2011. Indication: Long history of low back pain, history of prior laminectomy and 2 other "back surgeries", complains of right hip pain and low back pain. Technique: Axial images were obtained throughout the lumbar spine during automated injection of 80 cc of Isovue-370 contrast material. Reconstructed coronal and sagittal images were created and reviewed. In addition, angled axial images were obtained parallel to each interspace from T12-L1 down to L5-S1. Findings: A spacer device is seen overlying the left aspect of L5-S1. It appears there has been a hemilaminectomy at L5 on the left. There has been prior resection of the L4 and L5 spinous processes with partial resection of the L3 spinous process. There is increased soft tissue thickening in the posterior lower lumbar soft tissues across the midline. In addition, I note an elongated elliptical soft tissue fluid pocket containing some bubbles of air density within it, centered about 1.5 cm deep to the posterior skin surface in the midline extending from the lower level of L3 down to the upper aspect of L5. On sagittal image #31 this measures about 5.3 cm in length and a maximum of 1.45 cm in AP depth. On the coronal images, this measures about 1.0 cm in maximum width. Correlate clinically as to whether this represents expected postoperative changes. A soft tissue abscess or infected hematoma cannot be excluded from a radiographic standpoint. I am told of the patient's last lumbar surgery was 09/29/2016. On the sagittal images, there is mild narrowing of the L2-L3 interspace height associated with vacuum phenomena and marginal vertebral endplate spurring suggesting mild degenerative disc disease at this level. There is also evidence of moderate to marked degenerative disc disease along the right side of L5-S1 manifested by significant interspace narrowing, vacuum disc phenomena, sclerosis of the opposing endplates, and prominent spurring. The L3-L4 and L4-L5 interspace heights appear fairly well-maintained. I note a small amount of vacuum phenomena within the anterior right aspect of the L-1L2 disc indicating early degenerative disc disease at this level. In addition, I believe there is slight anterior subluxation of the L3 vertebral body with respect at both L-2 and L4 on midline sagittal image #31. In retrospect, I believe this is unchanged from the plain films of 10/14/2016. No definite spondylolysis is seen. There is a suggestion of subtle anterolisthesis of L4 over L5 on the midline sagittal images as well representing no change. Some vacuum disc phenomena and posterior vertebral endplate spurring are seen at L5-S1. Atherosclerotic vascular calcification is seen within the abdominal aorta. No aneurysm is seen. At T12-L1, prominent anterior lateral vertebral endplate spurring is seen. The disc and thecal sac appear unremarkable. No disc protrusion or central canal stenosis is seen. The neural foramen appear patent bilaterally. Some vacuum phenomena is seen at the right costovertebral angle. At L1-L2, I note mild circumferential bulging of the disc with some vacuum phenomena anterior laterally on the right and moderate anterior lateral vertebral endplate spurring. Advanced facet arthropathy is seen posteriorly. I see no focal disc protrusion, but there appears to be a mild central canal spinal stenosis at L1-L2. See axial image #11 of series #202. The lateral foramen appear open. At L2-L3, there is about 3 mm anterior subluxation of L3 with respect to L2, as seen earlier. I also note mild to moderate degenerative disc disease with central vacuum disc phenomena and marginal vertebral endplate spurring. On axial images #10 through #14 there appears to be a large posterior disc extrusion which causes severe central canal stenosis and marked effacement upon the anterior left aspect of the spinal sac, most pronounced on axial image #12 and #13 of series #203. This large disc extrusion is also seen on sagittal images #31 through #33. Hypertrophy of the ligamentum flavum and mild facet joint arthropathy are seen. The neural foramen above the disc level appear open, although there is marked compromise of the lower aspect of the neural foramen at the disc level due to hypertrophic spurring/bony changes. For example, see sagittal image #24 on the right and sagittal image #11 on the left. At L3-L4, there is again noted to be minimal anterior subluxation of L3 over L4. Moderate diffuse bulging of the disc is seen. I note marked facet joint arthropathy bilaterally. I do not see a disc protrusion, but the spinal sac reveals a mild to moderate central canal stenosis. For example, the spinal sac measures about 12 mm in AP dimension and 10 mm in width on angled axial image #9 of series #204. Again, the neural foramen above the disc level appear open, but there is marked compromise of the inferior aspect of the L3-L4 neural foramen at the disc level due to the bulging disc and hypertrophic bony changes. At L4-L5, there is moderate diffuse bulging of the disc. Marked posterior facet joint arthropathy is seen. There is mild relative diastasis of the left L4-L5 facet joint. There appears to be marked hypertrophy of the ligamentum flavum and a marked central canal stenosis, best seen on angled axial images #11 and #12. The left neural foramen appears open above the disc level, although there is compromise of the inferior aspect of the left L4-L5 neural foramen due to the bulging disc and hypertrophic facet joint changes at the disc level. The right neural foramen is at least mildly narrowed above the disc level, but markedly compromised at its inferior aspect at the disc level due to the bulging L4-L5 disc and significant marginal spurring of the vertebral endplates and facet joint. At L5-S1, I again see a spacer device posteriorly on the left, extensive vacuum disc phenomena within the right aspect of L5-S1, and prominent marginal vertebral endplate spurring. There is extensive high attenuation soft tissue density with a couple bubbles of air occluding the right neural foramen and right lateral recess which could be due to herniated disc and/or fibrosis. See angled axial images #2 through #9 on the right. This soft tissue density causes some mass effect upon the anterior right aspect of the thecal sac. I believe there is a marked central canal spinal stenosis at this level measuring about 7.6 mm in AP dimension and 8.5 mm in width on angled axial image #11 of series #206. The left neural foramen appears unremarkable. The right S1 nerve root is not well delineated below the L5-S1 level. I note some air density within the distal right S1 nerve root path. The left S1 nerve root appears unremarkable. Impression: 1. There is an elongated fluid pocket containing some bubbles of air within it posterior to the lower lumbar spine near the midline centered at the L4 level. I'm told the patient's prior surgery was 09/29/2016. Correlate clinically as to whether this represents expected postoperative changes. From an imaging standpoint,, a soft tissue abscess or infected hematoma cannot be excluded. 2. There is minimal anterior subluxation of L3 with respect to L2 and L4 which I believe is unchanged. There is also a suggestion of slight anterior subluxation of L4 over L5 which I believe is unchanged. No spondylolysis is seen. This is believed to be due to degenerative changes. 3. There is mild to moderate degenerative disc disease at L2-L3 and marked degenerative disc disease along the right aspect of L5-S1. 4. At L2-L3, there appears to be a large left posterior lateral disc extrusion, as described above. This is causing a severe central lumbar canal spinal stenosis at this level. 5. At L5-S1, there is extensive high attenuation soft tissue density with some bubbles of air occluding the lateral recess on the right as well as the right neural foramen. For example, see axial images number or and #5 of series #206. This may represent recurrent disc herniation and/or fibrosis. Correlate clinically. I also note indistinctness of the right S1 nerve root with some bubbles of air along its distribution. 6. Multilevel lumbar canal spinal stenosis is seen, as described above. 7. Evidence of lower lumbar spine surgery, as described above.
--- NOTE | 2016-10-28 21:50 | PCM.NOTE ---
Date and Time: 10/28/162148 Subjective Assessment: c/o pain in right leg, overall pain is improved - Review of Systems Constitutional: No Fever, No Chills Eyes: No Symptoms Ears, Nose, & Throat: No Symptoms Respiratory: No Cough, No Short Of Breath Cardiac: No Chest Pain, No Edema, No Syncope Abdominal/Gastrointestinal: No Abdominal Pain, No Nausea, No Vomiting, No Diarrhea Genitourinary Symptoms: No Dysuria Musculoskeletal: Back Pain, No Neck Pain Skin: No Symptoms, No Rash Neurological: No Dizziness, No Focal Weakness, No Sensory Changes Psychological: No Symptoms Endocrine: No Symptoms Hematologic/Lymphatic: No Symptoms Immunological/Allergic: No Symptoms Objective Exam General Appearance: no apparent distress, alert Neurologic Exam: alert, oriented x 3, cooperative, normal mood/affect, nml cerebellar function, sensation nml, No motor deficits Skin Exam: normal color, warm, dry Eye Exam: PERRL, EOMI, eyes nml inspection Ears, Nose, Throat Exam: normal ENT inspection, pharynx normal, moist mucous membranes Neck Exam: normal inspection, non-tender, supple, full range of motion Respiratory Exam: normal breath sounds, lungs clear, No respiratory distress Cardiovascular Exam: regular rate/rhythm, normal heart sounds Gastrointestinal/Abdomen Exam: soft, No tenderness, No mass Extremity Exam: normal inspection, normal range of motion, parasthesia (right lower extrimity) Back Exam: normal inspection, normal range of motion, No CVA tenderness, No vertebral tenderness Male Genitalia Exam: deferred Rectal Exam: deferred OBJECTIVE DATA Vital Signs: Vital Signs - 24 hr Temp Pulse Resp BP Pulse Ox 10/28/16 19:36 99.4 F 103 H 17 131/61 94 L 10/28/16 16:00 99.1 F 92 H 18 128/63 93 L 10/28/16 15:51 92 L 10/28/16 12:22 98.3 F 98 H 22 146/65 92 L 10/28/16 07:50 98.1 F 88 22 117/58 93 L 10/28/16 04:04 95 10/28/16 04:00 98.3 F 95 H 18 127/58 95 10/28/16 00:38 94 L 10/28/16 00:04 97 10/28/16 00:00 98.7 F 92 H 22 146/65 93 L Pain Assessment - Last Documented Pain Intensity 0 Pain Scale Used 0-10 Pain Scale Intake and Output: Intake & Output 10/26/16 10/27/16 10/28/16 10/29/16 11:59 11:59 11:59 11:59 Intake Total 1023 1199 Output Total 2450 1050 Balance -1427 149 Weight 80.331 kg Lab Results: Accuchecks Date 10/28/16 Date 10/28/16 Date 10/28/16 Time 16:30 Time 11:30 Time 07:30 Accucheck Value: 132 Accucheck Value: 162 Accucheck Value: 140 Lab Results-Last 24 Hours 10/28/16 10/28/16 10/28/16 Range/Units 05:00 05:00 05:00 WBC 10.6 H (4.0-10.5) K/mm3 RBC 3.85 L (4.1-5.6) M/mm3 Hgb 11.3 L (12.5-18.0) gm/dl Hct 34.9 L (42-50) % MCV 90.6 (78-100) fl MCH 29.3 (26-32) pg MCHC 32.4 (32-36) g/dl RDW 14.2 H (11.5-14.0) % Plt Count 279 (150-450) K/mm3 MPV 10.1 H (6-9.5) fl Gran % 66.8 H (36.0-66.0) % Lymphocytes % 17.9 L (24.0-44.0) % Monocytes % 11.8 (0.0-12.0) % Eosinophils % 3.2 (0.00-5.0) % Basophils % 0.3 (0.0-0.4) % Basophils # 0.03 (0-0.4) ESR 65 H (0-15) mm/hr Sodium 140 (136-145) mEq/L Potassium 4.7 (3.5-5.1) mEq/L Chloride 102 (98-107) mEq/L Carbon Dioxide 27.3 (21-32) mEq/L Anion Gap 15.2 H (5-15) MEQ/L BUN 17 (9-20) mg/dL Creatinine 0.90 (0.55-1.30) mg/dl Estimated GFR > 60 ML/MIN Glucose 132 H (70-110) MG/DL Calcium 9.2 (8.5-10.1) mg/dL Vancomycin Trough (10-20) UG/ML 10/28/16 Range/Units 17:45 WBC (4.0-10.5) K/mm3 RBC (4.1-5.6) M/mm3 Hgb (12.5-18.0) gm/dl Hct (42-50) % MCV (78-100) fl MCH (26-32) pg MCHC (32-36) g/dl RDW (11.5-14.0) % Plt Count (150-450) K/mm3 MPV (6-9.5) fl Gran % (36.0-66.0) % Lymphocytes % (24.0-44.0) % Monocytes % (0.0-12.0) % Eosinophils % (0.00-5.0) % Basophils % (0.0-0.4) % Basophils # (0-0.4) ESR (0-15) mm/hr Sodium (136-145) mEq/L Potassium (3.5-5.1) mEq/L Chloride (98-107) mEq/L Carbon Dioxide (21-32) mEq/L Anion Gap (5-15) MEQ/L BUN (9-20) mg/dL Creatinine (0.55-1.30) mg/dl Estimated GFR ML/MIN Glucose (70-110) MG/DL Calcium (8.5-10.1) mg/dL Vancomycin Trough 12.6 (10-20) UG/ML Radiology Exams: Radiology Procedures Category Date Time Status LUMBAR SPINE WITH [CT] Urgent Exams 10/28/16 12:37 Completed Assessment/Plan (1) Back pain Current Visit: Yes Status: Acute Qualifiers: Back pain location: low back pain Chronicity: acute Back pain laterality : bilateral Sciatica presence: with sciatica Sciatica laterality: bilateral sciatica Qualified Code(s): M54.42 - Lumbago with sciatica, left side; M54.41 - Lumbago with sciatica, right side Code(s): M54.9 - DORSALGIA, UNSPECIFIED (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
[2016-10-28] MEDS ORDERED: Trileptal 300 MG Tablet PO SCH (22:00)
[2016-10-28] MEDS ORDERED: BUPROPION HCL 150 MG PO SCH (22:00)
[2016-10-28] MEDS ORDERED: Protonix 40MG Tablet PO SCH (22:00)
[2016-10-28] MEDS ORDERED: NON-FORMULARY ITEM (Omeprazole 20 Mg [Prilosec 20 Mg] 20 MG) PO SCH (22:00)
[2016-10-28] MEDS ORDERED: NON-FORMULARY ITEM (Lisinopril [Zestril] 2.5 MG) PO SCH (22:00)
[2016-10-28] MEDS ORDERED: Zanaflex 4 MG PO SCH (22:00)
[2016-10-28] MEDS ORDERED: Zestril 5 MG PO SCH (22:00)
[2016-10-28] MEDS ORDERED: Wellbutrin XL 150 MG PO SCH (22:00)
[2016-10-28] MEDS ORDERED: NovoLOG Insulin SQ PRN (22:09)
[2016-10-28] MEDS: Ativan 1 MG PO SCH (22:37)
[2016-10-28] MEDS: Flomax 0.4 MG PO SCH (22:37)
[2016-10-28] MEDS: Mirapex 0.5 MG Tablet PO SCH (22:37)
[2016-10-29] MEDS: VANCOCIN 1 GM VIAL*** 1.25 GM in Sodium Chloride 0.9% 250 ML 250 ML IV SCH (05:18)
[2016-10-29] MEDS: Morphine PCA 1 MG/ML 30 ML IV PRN ×2 (08:21→15:35)
[2016-10-29] MEDS: Glucophage 850 MG PO SCH (12:33)
[2016-10-29 12:58] VITALS: BP 128/60; PULSE 114
[2016-10-29] MEDS: Sodium Chloride 0.9% 500 ML 500 ML IV SCH (13:00)
[2016-10-29] MEDS: NORCO 5/325 MG PO PRN (14:57)
[2016-10-29 15:38] VITALS: O2SAT 94
== END 2016-10-29 15:30 | disposition short-term general hospital (02) ==
LOC: ED 13:10 → MED SURG 15:54
PROVIDERS: ADMIT General Practice; ATTEND General Practice
DX: M54.42 Lumbago with sciatica, left side (principal); M54.41 Lumbago with sciatica, right side; S84.91XA Injury of unspecified nerve at lower leg level, right leg, initial encounter; I10 Essential (primary) hypertension; E11.9 Type 2 diabetes mellitus without complications; Z79.4 Long term (current) use of insulin; E78.5 Hyperlipidemia, unspecified; Z79.899 Other long term (current) drug therapy; Z85.46 Personal history of malignant neoplasm of prostate; I73.9 Peripheral vascular disease, unspecified
CPT/HCPCS: 36415; 72131; 80048; 80202; 82962; 85025; 85652; 86140; 93268; 94760; 96365; 96366; 96374; 96375; 99285; G0378; J1170; J2270; J2405; J2550; J3360; J3370; A9270-GY

== ENCOUNTER 2016-11-06 17:36 | Emergency (ER) | payer MEDICARE, OTHER ==
[2016-11-06] MEDS ORDERED: TYLENOL 325 MG PO STA (18:06)
--- NOTE | 2016-11-06 18:12 | ERPHSYRPT ---
- History of Present Illness Time Seen by Provider: 11/06/16 18:00 Source: patient, old records, other (Dr Palafox) Exam Limitations: no limitations Physician History: patient brought to ED from [facility] because of fever and tachycardia; Dr Palafox called ahead and gave a report; patient had L/S surgery- developed a wound infection; hardware taken out; started on VAnc; [facility]; doing well at home; visiting rn noted fever today; went to infusion ; nurses concerned because had fever and tachycardia; patient feels the best he has in months; no pain or paraesthsias; no travel; no esposures; no symptoms; today in car hasd some nausea and dry heaves thatr resolved and feels good now Timing/Duration: today, gradual onset Fever Severity: moderate Fever Therapy ADJUDICATION SPECIALIST: none Associated Symptoms: denies symptoms International travel in last 2 weeks: No Allergies/Adverse Reactions: No Known Drug Allergies Allergy (Verified 10/23/16 03:20) Home Medications: Bupropion HCl [Wellbutrin Xl] 150 mg PO DAILY 01/11/15 [History] Lisinopril [Zestril] 2.5 mg PO DAILY 01/11/15 [History] Metformin HCl 850 mg PO DAILY 01/11/15 [History] Omeprazole 20 MG [Prilosec 20 mg] 20 mg PO DAILY 01/11/15 [History] Oxcarbazepine 300 mg [Trileptal 300 MG Tablet] 300 mg PO DAILY 01/11/15 [ History] Pramipexole Di-HCl [Mirapex] 1 tab PO HS 01/11/15 [History] Aspirin [Aspir-Low] 81 mg PO DAILY 08/16/15 [History] Hydrocodone/Acetaminophen [[place] 5-325 Tablet] 1 each PO Q6H PRN 10/27/16 [ History] Lorazepam 1 mg [Ativan 1 MG] 1 mg PO HS 10/27/16 [History] Tamsulosin HCl 0.4 mg [Flomax 0.4 MG] 0.4 mg PO HS 10/27/16 [History] Tizanidine HCl 4 mg [Zanaflex 4 MG] 4 mg PO HS 10/27/16 [History] Hx Tetanus, Diphtheria Vaccination/Date Given: Yes Hx Influenza Vaccination/Date Given: No Hx Pneumococcal Vaccination/Date Given: No - Review of Systems Constitutional: Fever Eyes: No Symptoms Ears, Nose, & Throat: No Symptoms Respiratory: No Cough, No Dyspnea, No Wheezing Cardiac: No Chest Pain, No Edema, No Palpitations, No Syncope Abdominal/Gastrointestinal: Nausea, No Abdominal Pain, No Vomiting, No Diarrhea Genitourinary Symptoms: Urgency, No Dysuria, No Hesitancy, No Incontinence Musculoskeletal: No Symptoms Skin: Other (possible wound infection) Neurological: No Symptoms Psychological: No Symptoms Endocrine: No Symptoms Hematologic/Lymphatic: No Symptoms Immunological/Allergic: No Symptoms - Past Medical History Pertinent Past Medical History: Yes Neurological History: No Pertinent History ENT History: Cataracts Cardiac History: High Cholesterol, Hypertension, Peripheral Vascular Disease Respiratory History: No Pertinent History Endocrine Medical History: Diabetes Type II Musculoskeletal History: Arthritis, Degenerative Disk Disease GI Medical History: No Pertinent History History: No Pertinent History Psycho-Social History: No Pertinent History Male Reproductive Disorders: Prostate Cancer Other Medical History: heart ablation 20 years ago - Past Surgical History Past Surgical History: Yes Neuro Surgical History: No Pertinent History Cardiac: Cardiac Catheterization, Other Respiratory: No Pertinent History Gastrointestinal: No Pertinent History Genitourinary: No Pertinent History Musculoskeletal: Other Male Surgical History: No Pertinent History Other Surgical History: july states back surgery with cyst removal and spur shaved,heart caths and cardiac ablation 15-20yrs ago,BACK SURG 08/03, back surgery 2013, 09/29/16,09/30/16,10/01/16 back surgery r/t infection in surgical site. bilar rcr - Social History Smoking Status: Current every day smoker How long have you smoked: 55 Exposure to second hand smoke: Yes Alcohol Use: None Drug Use: none Patient Lives Alone: No Significant Family History: no pertinent family hx - Nursing Vital Signs Nursing Vital Signs: Initial Vital Signs Pulse Rate 98 H 11/06/16 17:36 Respiratory Rate 20 11/06/16 17:36 Blood Pressure 146/59 11/06/16 17:36 O2 Sat by Pulse Oximetry 98 11/06/16 17:36 Pain Scale Pain Intensity 0 - Physical Exam General Appearance: mild distress, alert Eye Exam: PERRL/EOMI, eyes nml inspection, No photophobia ENT Exam: normal ENT inspection, no apparent trauma, hearing grossly normal, TMs normal, pharynx normal, airway intact Neck Exam: normal inspection, non-tender, supple, full range of motion, trachea midline, No JVD, No Brudzinski's sign Respiratory Exam: normal breath sounds, chest non-tender, lungs clear, no respiratory distress, No crackles/rales, No rhonchi, No stridor, No wheezing Cardiovascular/Chest Exam: normal heart sounds, regular rate/rhythm, normal peripheral pulses, tachycardia, No murmur Gastrointestinal/Abdominal Exam: soft, non tender, no guarding, no organomegaly , no pulsatile mass, normal bowel sounds, No rebound Rectal Exam: deferred Extremity Exam: non-tender, normal range of motion, normal inspection, normal capillary refill, no calf tenderness, no pedal edema Neurologic Exam: alert, oriented x 3, cooperative, printing roller handler II-XII nml as tested, normal mood/affect, nml cerebellar function, sensation nml Skin Exam: normal color, warm, dry, other (incision healing well; non-tender; no d/c no redness), No rash Lymphatic: No adenopathy - Course Nursing assessment & vital signs reviewed: Yes - Radiology Exams Chest X-ray Interpretation: Interpreted by me, Negative, No Pneumonia, No Pneumothorax , Nml Heart Size, No Infiltrates Ordered Tests: Active Orders 24 hr Category Date Time Status Accucheck STAT Care 11/06/16 18:06 Active Stamp Maker STAT Care 11/06/16 18:06 Active IV Insertion STAT Care 11/06/16 18:21 Active Pulse Oximetry (ED) STAT Care 11/06/16 18:06 Active Re-Check Vital Signs STAT Care 11/06/16 18:06 Active Rectal Temperature STAT Care 11/06/16 18:06 Active CHEST 1 VIEW (PORTABLE) Stat Exams 11/06/16 18:06 Taken BLOOD CULTURE Stat Lab 11/06/16 18:30 Received CBC W DIFF Stat Lab 11/06/16 18:20 Completed CMP Stat Lab 11/06/16 18:20 Completed CULTURE,URINE Stat Lab 11/06/16 18:20 Received Lactic Acid Stat Lab 11/06/16 18:06 Completed UA W/ MICROSCOPIC Stat Lab 11/06/16 18:20 Completed Medication Summary Generic Name Dose Route Start Last Admin Trade Name Freq PRN Reason Stop Dose Admin Sodium Chloride 1,000 mls @ 500 mls/hr 11/06/16 18:15 11/06/16 18:20 Sodium Chloride 0.9% 1000 Ml IV 12/06/16 18:14 100 mls/hr .Q2H MELITA Administration Discontinued Medications Generic Name Dose Route Start Last Admin Trade Name Juanita PRN Reason Stop Dose Admin Acetaminophen 650 mg 11/06/16 18:06 11/06/16 18:19 Tylenol 325 Mg PO 11/06/16 18:07 650 mg STAT STA Administration Acetaminophen Confirm 11/06/16 18:15 Tylenol 325 Mg Administered 11/06/16 18:16 Dose 650 mg .ROUTE .[employer] ONE Lab/Rad Data: Laboratory Result Diagrams 11/06/16 18:20 11/06/16 18:20 Laboratory Results 11/06/16 11/06/16 11/06/16 Range/Units 18:20 18:20 18:20 WBC 11.3 H (4.0-10.5) K/mm3 RBC 3.12 L (4.1-5.6) M/mm3 Hgb 9.1 L (12.5-18.0) gm/dl Hct 27.8 L (42-50) % MCV 89.1 (78-100) fl MCH 29.1 (26-32) pg MCHC 32.7 (32-36) g/dl RDW 14.4 H (11.5-14.0) % Plt Count 220 (150-450) K/mm3 MPV 9.8 H (6-9.5) fl Gran % 87.5 H (36.0-66.0) % Lymphocytes % 6.8 L (24.0-44.0) % Monocytes % 4.7 (0.0-12.0) % Eosinophils % 0.8 (0.00-5.0) % Basophils % 0.2 (0.0-0.4) % Basophils # 0.02 (0-0.4) Sodium 133 L (136-145) mEq/L Potassium 3.8 (3.5-5.1) mEq/L Chloride 98 (98-107) mEq/L Carbon Dioxide 24.6 (21-32) mEq/L Anion Gap 14.3 (5-15) MEQ/L BUN 23 H (9-20) mg/dL Creatinine 0.96 (0.55-1.30) mg/dl Estimated GFR > 60 ML/MIN Glucose 147 H (70-110) MG/DL Lactic Acid (0.4-2.0) Calcium 8.8 (8.5-10.1) mg/dL Total Bilirubin 0.20 (0.2-1.0) mg/dL AST 12 L (15-37) U/L ALT 16 (12-78) U/L Alkaline Phosphatase 83 (46-116) U/L Serum Total Protein 6.8 (6.4-8.2) gm/dL Albumin 2.6 L (3.4-5.0) g/dL Ur Collection Type CLEAN CATCH Urine Color YELLOW (YELLOW) Urine Appearance CLOUDY (CLEAR) Urine pH 5.0 (5-6) Ur Specific [place] 1.020 (1.005-1.025) Urine Protein 30 (Negative) Urine Ketones NEGATIVE (NEGATIVE) Urine Blood 50 (0-5) Yair/ul Urine Nitrite POSITIVE (NEGATIVE) Urine Bilirubin NEGATIVE (NEGATIVE) Urine Urobilinogen NORMAL (0-1) mg/dL Ur Leukocyte Esterase 2+ (NEGATIVE) Urine Microscopic RBC 5-10 (0-2) /HPF Urine Microscopic WBC 25-50 (0-5) /HPF Ur Epithelial Cells FEW (FEW) /HPF Urine Bacteria MANY (NEGATIVE) /HPF Urine Glucose 100 (NEGATIVE) mg/dL Specimen Received 11/06/16 1830 11/06/16 Range/Units 18:06 WBC (4.0-10.5) K/mm3 RBC (4.1-5.6) M/mm3 Hgb (12.5-18.0) gm/dl Hct (42-50) % MCV (78-100) fl MCH (26-32) pg MCHC (32-36) g/dl RDW (11.5-14.0) % Plt Count (150-450) K/mm3 MPV (6-9.5) fl Gran % (36.0-66.0) % Lymphocytes % (24.0-44.0) % Monocytes % (0.0-12.0) % Eosinophils % (0.00-5.0) % Basophils % (0.0-0.4) % Basophils # (0-0.4) Sodium (136-145) mEq/L Potassium (3.5-5.1) mEq/L Chloride (98-107) mEq/L Carbon Dioxide (21-32) mEq/L Anion Gap (5-15) MEQ/L BUN (9-20) mg/dL Creatinine (0.55-1.30) mg/dl Estimated GFR ML/MIN Glucose (70-110) MG/DL Lactic Acid 1.9 (0.4-2.0) Calcium (8.5-10.1) mg/dL Total Bilirubin (0.2-1.0) mg/dL AST (15-37) U/L ALT (12-78) U/L Alkaline Phosphatase (46-116) U/L Serum Total Protein (6.4-8.2) gm/dL Albumin (3.4-5.0) g/dL Ur Collection Type Urine Color (YELLOW) Urine Appearance (CLEAR) Urine pH (5-6) Ur Specific [place] (1.005-1.025) Urine Protein (Negative) Urine Ketones (NEGATIVE) Urine Blood (0-5) Yair/ul Urine Nitrite (NEGATIVE) Urine Bilirubin (NEGATIVE) Urine Urobilinogen (0-1) mg/dL Ur Leukocyte Esterase (NEGATIVE) Urine Microscopic RBC (0-2) /HPF Urine Microscopic WBC (0-5) /HPF Ur Epithelial Cells (FEW) /HPF Urine Bacteria (NEGATIVE) /HPF Urine Glucose (NEGATIVE) mg/dL Specimen Received reviewed - Progress Progress: improved (with iv fluids and meds), re-examined (after lab and xr done ) Progress Note: 11/06/16 18:14 will do septic workup and follow up with Dr Palafox and recheck 11/06/16 18:45 started IV for hydration and in case septic; CBC wbc 11.3 Hb 9.1 and Hct 27.8 slight shift; gave tylenol for fever; lactic 1.9; will monitor and recheck 11/06/16 19:34 VAnc infusion still going; at bedside; patietn looks and feels better after tylenol and IV fluids; Dr Palafox paged for disposition; UA shows infection - patient had catheter when hospitalized; VS improved and normal; fever gone; color good; no complaints at this time. 11/06/16 19:42 Dr Palafox consulted and patient will be hydrated and Vanc infusion finished; patient will be released on Zofran for N&V and Bactrim to cover the UTI; he is to continue other meds and treatments as before and keep all appts and RT if problems; treatment plan and instructions given to patient and he understand and concurs Discussed with Dr.: Meliza (Called with report ) Counseled pt/family regarding: lab results, diagnosis, need for follow-up, rad results - Departure Time of Disposition: 20:15 Departure Disposition: Home Clinical Impression: FUO (fever of unknown origin), UTI (urinary tract infection) Condition: Stable Critical Care Time: No Referrals: MATIAS DWYER [Primary Care Provider] - NOREEN PALAFOX [ACTIVE STAFF] - Instructions: Fever (Symptom) -- Adult, Urinary Tract Infection (UTI) Additional Instructions: continue home meds and treatments including infusion; keep all appts; RT if problems; take tylenol or motrin for fever Follow-up with family doctor as directed. Call for appointment. Return if any problems. If you smoke please stop. Call or follow up with your family doctor for assistance if you need it to stop. Please wear your seatbelt when driving. Have a nice day. Thank you for allowing us to participate in your care today. :o) Dr Alvaro Sanchez Prescriptions: Ondansetron [Zofran Odt] 4 mg PO Q4-6HPRN PRN #10 tab.rapdis PRN Reason: Nausea Smz/Tmp Ds Tablet [Bactrim Ds Tablet] 1 udtab PO BID #20 tablet
[2016-11-06] MEDS ORDERED: Sodium Chloride 0.9% 1000 ML 1,000 ML ONE (18:15)
[2016-11-06] MEDS ORDERED: Sodium Chloride 0.9% 1000 ML 1,000 ML IV SCH (18:15)
[2016-11-06] MEDS ORDERED: TYLENOL 325 MG ONE (18:15)
[2016-11-06 18:34] LABS: BASOPHIL % 0.2 % (0.0-0.4); Eosinophil % 0.8 % (0.00-5.0); Granulocytes % 87.5 % (36.0-66.0); Lymphocytes % 6.8 % (24.0-44.0); Mean Cell Volume 89.1 fl (78-100); Mean Platelet Volume 9.8 fl (6-9.5); Monocytes % 4.7 % (0.0-12.0); Platelet Count 220 K/mm3 (150-450); Red Blood Count 3.12 M/mm3 (4.1-5.6); Red Cell Distribution Width 14.4 % (11.5-14.0); White Blood Count 11.3 K/mm3 (4.0-10.5)
[2016-11-06 18:41] LABS: Mean Corpuscular Hemoglobin 29.1 pg (26-32)
[2016-11-06 18:58] LABS: ALBUMIN 2.6 g/dL (3.4-5.0); ALKALINE PHOSPHATASE 83 U/L (46-116); ANION GAP 14.3 MEQ/L (5-15); BLOOD UREA NITROGEN 23 mg/dL (9-20); Bacteria MANY /HPF (NEGATIVE); Bilirubin NEGATIVE (NEGATIVE); Blood 50 Ery/ul (0-5); CHLORIDE 98 mEq/L (98-107); COMPLETE URINE MICROSCOPIC? YES; Carbon Dioxide 24.6 mEq/L (21-32); Collection Type CLEAN CATCH; Epithelial Cells FEW /HPF (FEW); Glucose 100 mg/dL (NEGATIVE); Glucose 147 MG/DL (70-110); Leukocyte Esterase 2+ (NEGATIVE); Potassium 3.8 mEq/L (3.5-5.1); SGOT/AST 12 U/L (15-37); SGPT/ALT 16 U/L (12-78); SODIUM 133 mEq/L (136-145); Total Protein 6.8 gm/dL (6.4-8.2); WBC 25-50 /HPF (0-5)
[2016-11-06 18:59] LABS: ADD URINE CULTURE? NO (NO)
[2016-11-06 21:16] VITALS: BP 146/66; PULSE 90; O2SAT 97
--- NOTE | 2016-11-07 08:58 | XRAY ---
Indication: Fever unknown origin. Comparison: February 03, 2016. Portable chest remains hyperinflated without focal infiltrate, consolidation, or large effusion. Heart and mediastinal structures within normal limits for AP portable technique. New left arm PICC line with the tip projecting over the SVC. Bony thorax intact again with mild degenerative changes. Impression: Stable nonacute chest with new left arm PICC line.
== END 2016-11-06 21:14 | disposition home or self-care (01) ==
LOC: ED 17:36
DX: R50.9 Fever, unspecified (principal); N39.0 Urinary tract infection, site not specified; R00.0 Tachycardia, unspecified; Z98.890 Other specified postprocedural states; E78.00 Pure hypercholesterolemia, unspecified; I10 Essential (primary) hypertension; E11.9 Type 2 diabetes mellitus without complications
CPT/HCPCS: 36000; 36415; 71010; 80053; 81000; 82962; 83605; 85025; 87040; 87077; 87086; 87186; 93041; 96360; 96361; 96365; 99284; 99285; A9270-GY

== ENCOUNTER 2017-01-24 01:43 | Observation (INO) | payer MEDICARE, OTHER ==
[2017-01-24] MEDS ORDERED: Ativan 2 MG/1 ML VIAL IV ONE ×2 (01:51→02:06)
[2017-01-24] MEDS ORDERED: Sodium Chloride 0.9% 1000 ML 1,000 ML IV STA ×3 (01:51→02:23)
[2017-01-24] MEDS ORDERED: Ativan 2 MG/1 ML VIAL ONE ×2 (01:53→02:07)
[2017-01-24] MEDS ORDERED: Sodium Chloride 0.9% 1000 ML 1,000 ML ONE ×4 (01:55→03:20)
--- NOTE | 2017-01-24 02:18 | ERPHSYRPT ---
- History of Present Illness Time Seen by Provider: 01/24/17 02:13 Source: family, EMS Exam Limitations: clinical condition Patient Subjective Stated Complaint: per ems pt has been confused and combative. states pt was hitting himself in the face and saying he wants to go the shop. told ems that pt started lyrica tonight. Triage Nursing Assessment: pt awake and alert. will answer some questions, oriented to person only. pt combative and uncooperative at this time. repetitive speech. handcuffs on bilat per law enforcement. indentations noted to bilat wrists. pt pulling at handcuffs and hitting himself. Physician History: 71-year-old male with significant past medical history of back surgery complicated with methicillin-resistant Staphylococcus aureus infection followed by 6 weeks of vancomycin therapy, was recently seen by primary care physician and was started on lady, for his generalized muscle ache and leg cramps. First dose was given tonight and after that in couple hours patient started complaining of headache and confusion and become combative, so his called him up ambulance and was brought into the emergency room. In the emergency room. Patient was combative and complaining of headache initially. Patient was restrained for initial treatment, 2 mg IV, lorazepam. But patient become much more alert and responsive and was able to answer all the questions. His main complaint was leg cramps and headache. Timing/Duration: today Character of Deficits: other Deficits: no difficulties Baseline/Normal Cognition: alert but confused Current Cognition: alert but confused Associated Symptoms: confusion, muscle spasms, headache, No slurred speech, No trouble walking, No chest pain Allergies/Adverse Reactions: No Known Drug Allergies Allergy (Verified 10/23/16 03:20) Home Medications: Bupropion HCl [Wellbutrin Xl] 150 mg PO HS 01/11/15 [History] Lisinopril [Zestril] 2.5 mg PO HS 01/11/15 [History] Metformin HCl 850 mg PO DAILY 01/11/15 [History] Omeprazole 20 MG [Prilosec 20 mg] 20 mg PO HS 01/11/15 [History] Oxcarbazepine 300 mg [Trileptal 300 MG Tablet] 300 mg PO HS 01/11/15 [ History] Pramipexole Di-HCl [Mirapex] 1 tab PO HS 01/11/15 [History] Tamsulosin HCl 0.4 mg [Flomax 0.4 MG] 0.4 mg PO HS 10/27/16 [History] Tizanidine HCl 4 mg [Zanaflex 4 MG] 4 mg PO HS 10/27/16 [History] Gemfibrozil 600 mg [Lopid 600 mg] 600 mg PO HS 01/24/17 [History] Hydrocodone Bit/Acetaminophen [Hydrocodon-Acetaminoph 7.5-325] 1 each PO Q6H PRN PRN 01/24/17 [History] Magnesium Oxide 400 mg [Mag-Ox 400] 400 mg PO HS 01/24/17 [History] Tizanidine HCl 4 mg [Zanaflex 4 MG] 4 mg PO HS 01/24/17 [History] Hx Tetanus, Diphtheria Vaccination/Date Given: Yes Hx Influenza Vaccination/Date Given: No Hx Pneumococcal Vaccination/Date Given: No Immunizations Up to Date: Yes - Review of Systems Constitutional: Malaise Eyes: No Symptoms Ears, Nose, & Throat: No Symptoms Respiratory: No Cough, No Dyspnea Cardiac: No Chest Pain, No Edema, No Syncope Abdominal/Gastrointestinal: No Abdominal Pain, No Nausea, No Vomiting, No Diarrhea Genitourinary Symptoms: No Dysuria Musculoskeletal: No Back Pain, No Neck Pain Skin: No Symptoms, No Rash Neurological: Irritability, No Dizziness, No Focal Weakness, No Sensory Changes Psychological: No Symptoms Endocrine: No Symptoms All Other Systems: Reviewed and Negative - Past Medical History Pertinent Past Medical History: Yes Neurological History: No Pertinent History ENT History: Cataracts Cardiac History: High Cholesterol, Hypertension, Peripheral Vascular Disease Respiratory History: No Pertinent History Endocrine Medical History: Diabetes Type II Musculoskeletal History: Arthritis, Degenerative Disk Disease GI Medical History: No Pertinent History History: No Pertinent History Psycho-Social History: No Pertinent History Male Reproductive Disorders: Prostate Cancer Other Medical History: heart ablation 20 years ago. pt unable to give hx at this time - Past Surgical History Past Surgical History: Yes Neuro Surgical History: No Pertinent History Cardiac: Cardiac Catheterization, Other Respiratory: No Pertinent History Gastrointestinal: No Pertinent History Genitourinary: No Pertinent History Musculoskeletal: Other Male Surgical History: No Pertinent History Other Surgical History: july states back surgery with cyst removal and spur shaved,heart caths and cardiac ablation 15-20yrs ago,BACK SURG 08/03, back surgery 2013, 09/29/16,09/30/16,10/01/16 back surgery r/t infection in surgical site. bilar rcr - Social History Smoking Status: Current every day smoker How long have you smoked: 55 Exposure to second hand smoke: Yes Alcohol Use: None Drug Use: none Patient Lives Alone: No Significant Family History: no pertinent family hx - Nursing Vital Signs Nursing Vital Signs: Initial Vital Signs Pulse Rate 85 01/24/17 01:57 Respiratory Rate 24 01/24/17 01:57 Blood Pressure 144/60 01/24/17 01:57 O2 Sat by Pulse Oximetry 97 01/24/17 01:57 - Preet Coma Scale Best Eye Response ([place]): (4) open spontaneously Best Verbal Response ([place]): (5) oriented Best Motor Response ([place]): (6) obeys commands Preet Total: 15 - Physical Exam General Appearance: no apparent distress, alert Eye Exam: bilateral eye: PERRL, EOMI Ears, Nose, Throat Exam: normal ENT inspection, moist mucous membranes Neck Exam: normal inspection, non-tender, supple Respiratory: normal breath sounds, lungs clear, airway intact, No respiratory distress Cardiovascular: regular rate/rhythm, No edema Gastrointestinal: soft, No tenderness, No distention Back Exam: normal inspection Extremity Exam: normal inspection, No pedal edema Mental Status: alert, oriented x 3, 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 Exam: normal speech, PERRL, tongue midline Motor/Sensory: no motor deficit, no sensory deficit Skin Exam: normal color, warm, dry, No rash SpO2 Interpretation: normal SpO2: 97 Oxygen Delivery: Room Air - Course Nursing assessment & vital signs reviewed: Yes EKG Interpreted by Me: Sinus Rhythm - Radiology Exams Chest X-ray Interpretation: Reviewed by me - CT Exams Head CT Interpretation: Tele-radiologist Report Ordered Tests: Active Orders 24 hr Category Date Time Status Accucheck STAT Care 01/24/17 01:51 Active EKG-ER Only STAT Care 01/24/17 01:51 Active Oxygen-ED Only NASAL CANNULA 2 lpm Care 01/24/17 01:51 Active CHEST 1 VIEW (PORTABLE) Stat Exams 01/24/17 01:52 Taken HEAD WITHOUT CONTRAST [CT] Stat Exams 01/24/17 01:52 Taken BLOOD CULTURE Stat Lab 01/24/17 02:10 Received CBC W DIFF Stat Lab 01/24/17 02:14 Completed CMP Stat Lab 01/24/17 02:14 Completed CULTURE,URINE Stat Lab 01/24/17 01:51 Ordered Lactic Acid Stat Lab 01/24/17 02:15 Results UA W/RFX UR CULTURE Stat Lab 01/24/17 01:51 Ordered Medication Summary Generic Name Dose Route Start Last Admin Trade Name Freq PRN Reason Stop Dose Admin Vancomycin HCl 250 mls @ 167 mls/hr 01/24/17 02:22 01/24/17 03:03 Vancomycin 1gm/ Ns 250ml IV 01/24/17 03:51 167 mls/hr STAT ONE Administration Sodium Chloride 1,000 mls @ 100 mls/hr 01/24/17 02:30 01/24/17 03:21 Sodium Chloride 0.9% 1000 Ml IV 02/23/17 02:29 100 mls/hr .Q10H MELITA Administration Discontinued Medications Generic Name Dose Route Start Last Admin Trade Name Freq PRN Reason Stop Dose Admin Sodium Chloride 1,000 mls @ 999 mls/hr 01/24/17 01:51 01/24/17 01:56 Sodium Chloride 0.9% 1000 Ml IV 01/24/17 02:51 999 mls/hr .Q1H1M STA Administration Sodium Chloride Confirm 01/24/17 01:55 Sodium Chloride 0.9% 1000 Ml Administered 01/24/17 01:56 Dose 1,000 mls @ ud .ROUTE .STK-MED ONE Sodium Chloride 1,000 mls @ 999 mls/hr 01/24/17 02:09 01/24/17 02:17 Sodium Chloride 0.9% 1000 Ml IV 01/24/17 03:09 999 mls/hr .Q1H1M STA Administration Sodium Chloride Confirm 01/24/17 02:13 Sodium Chloride 0.9% 1000 Ml Administered 01/24/17 02:14 Dose 1,000 mls @ ud .ROUTE .STK-MED ONE Meropenem 1 g/ Sodium Chloride 100 mls @ 200 mls/hr 01/24/17 02:21 01/24/17 03:03 IV 01/24/17 02:50 200 mls/hr STAT ONE Administration Sodium Chloride 1,000 mls @ 999 mls/hr 01/24/17 02:23 01/24/17 03:20 Sodium Chloride 0.9% 1000 Ml IV 01/24/17 03:23 999 mls/hr .Q1H1M STA Administration Vancomycin HCl Confirm 01/24/17 02:26 Vancomycin 1gm/ Ns 250ml Administered 01/24/17 02:27 Dose 250 mls @ ud IV .STK-MED ONE Sodium Chloride Confirm 01/24/17 02:28 Sodium Chloride 0.9% 100 Ml Ivpb Administered 01/24/17 02:29 Dose 100 mls @ ud IV .STK-MED ONE Lorazepam 2 mg 01/24/17 01:51 01/24/17 01:56 Ativan 2 Mg/1 Ml Vial IV 01/24/17 01:52 2 mg STAT ONE Administration Lorazepam Confirm 01/24/17 01:53 Ativan 2 Mg/1 Ml Vial Administered 01/24/17 01:54 Dose 2 mg .ROUTE .STK-MED ONE Lorazepam 1 mg 01/24/17 02:06 01/24/17 02:09 Ativan 2 Mg/1 Ml Vial IV 01/24/17 02:07 1 mg STAT ONE Administration Lorazepam Confirm 01/24/17 02:07 Ativan 2 Mg/1 Ml Vial Administered 01/24/17 02:08 Dose 2 mg .ROUTE .STK-MED ONE Meropenem Confirm 01/24/17 02:27 Merrem 1 Gm Administered 01/24/17 02:28 Dose 1 g IV .STK-MED ONE Lab/Rad Data: Laboratory Result Diagrams 01/24/17 02:14 01/24/17 02:14 Laboratory Results 01/24/17 01/24/17 01/24/17 Range/Units 02:15 02:14 02:14 WBC 10.1 (4.0-10.5) K/mm3 RBC 4.09 L (4.1-5.6) M/mm3 Hgb 11.3 L (12.5-18.0) gm/dl Hct 34.6 L (42-50) % MCV 84.6 (78-100) fl MCH 27.6 (26-32) pg MCHC 32.7 (32-36) g/dl RDW 16.3 H (11.5-14.0) % Plt Count 212 (150-450) K/mm3 MPV 9.5 (6-9.5) fl Gran % 65.8 (36.0-66.0) % Lymphocytes % 20.5 L (24.0-44.0) % Monocytes % 10.9 (0.0-12.0) % Eosinophils % 2.5 (0.00-5.0) % Basophils % 0.3 (0.0-0.4) % Basophils # 0.03 (0-0.4) Sodium 143 (136-145) mEq/L Potassium 3.6 (3.5-5.1) mEq/L Chloride 109 H (98-107) mEq/L Carbon Dioxide 24.8 (21-32) mEq/L Anion Gap 12.6 (5-15) MEQ/L BUN 21 H (9-20) mg/dL Creatinine 0.90 (0.55-1.30) mg/dl Estimated GFR > 60 ML/MIN Glucose 104 (70-110) MG/DL Lactic Acid 4.6 H (0.4-2.0) Calcium 8.7 (8.5-10.1) mg/dL Total Bilirubin 0.10 L (0.2-1.0) mg/dL AST 21 (15-37) U/L ALT 21 (12-78) U/L Alkaline Phosphatase 99 (46-116) U/L Serum Total Protein 6.6 (6.4-8.2) gm/dL Albumin 3.5 (3.4-5.0) g/dL - Progress Progress: improved Progress Note: 01/24/17 03:27 doing better, confusion improved Discussed with : Hermelindo Dwyer Will see patient in: hospital (observation) Counseled pt/family regarding: lab results, diagnosis, need for follow-up, rad results - Departure Time of Disposition: 03:28 Departure Disposition: Observation Clinical Impression: Confusion caused by a drug Condition: Fair Critical Care Time: Yes Critical Care Time(excluding separately billable procedures): 30-74 minutes Referrals: MATIAS DWYER [Primary Care Provider] -
[2017-01-24 02:20] LABS: Lactic Acid 4.6 (0.4-2.0)
[2017-01-24] MEDS ORDERED: Merrem 1 GM 1 G in Sodium Chloride 100ML MINI-BAG PLUS 100 ML IV ONE (02:21)
[2017-01-24 02:22] LABS: BASOPHIL % 0.3 % (0.0-0.4); Eosinophil % 2.5 % (0.00-5.0); Granulocytes % 65.8 % (36.0-66.0); Lymphocytes % 20.5 % (24.0-44.0); Mean Cell Volume 84.6 fl (78-100); Mean Corpuscular Hemoglobin 27.6 pg (26-32); Mean Platelet Volume 9.5 fl (6-9.5); Monocytes % 10.9 % (0.0-12.0); Platelet Count 212 K/mm3 (150-450); Red Blood Count 4.09 M/mm3 (4.1-5.6); Red Cell Distribution Width 16.3 % (11.5-14.0); White Blood Count 10.1 K/mm3 (4.0-10.5)
[2017-01-24] MEDS ORDERED: Vancomycin 1GM/ Ns 250ML*** 250 ML IV ONE ×2 (02:22→02:26)
[2017-01-24] MEDS ORDERED: Merrem 1 GM IV ONE (02:27)
[2017-01-24] MEDS ORDERED: Sodium Chloride 0.9% 100 ML IVPB 100 ML IV ONE (02:28)
[2017-01-24] MEDS ORDERED: Sodium Chloride 0.9% 1000 ML 1,000 ML IV SCH ×2 (02:30→04:55)
[2017-01-24 02:45] LABS: ALBUMIN 3.5 g/dL (3.4-5.0); ALKALINE PHOSPHATASE 99 U/L (46-116); ANION GAP 12.6 MEQ/L (5-15); BLOOD UREA NITROGEN 21 mg/dL (9-20); CHLORIDE 109 mEq/L (98-107); Carbon Dioxide 24.8 mEq/L (21-32); Glucose 104 MG/DL (70-110); Potassium 3.6 mEq/L (3.5-5.1); SGOT/AST 21 U/L (15-37); SGPT/ALT 21 U/L (12-78); SODIUM 143 mEq/L (136-145); Total Protein 6.6 gm/dL (6.4-8.2)
[2017-01-24 03:44] LABS: ADD URINE CULTURE? NO (NO); Bilirubin NEGATIVE (NEGATIVE); Blood NEGATIVE Ery/ul (0-5); COMPLETE URINE MICROSCOPIC? NO; Collection Type CATH; Glucose NEGATIVE (NEGATIVE); Leukocyte Esterase NEGATIVE (NEGATIVE)
[2017-01-24] MEDS ORDERED: TYLENOL 325 MG PO PRN (04:55)
--- NOTE | 2017-01-24 07:08 | PCM.HP ---
History of Present Illness - Chief Complaint Chief Complaint: confusion for 5-6 hours History of Present Illness: 71-year-old male with significant past medical history of back surgery complicated with methicillin-resistant Staphylococcus aureus infection followed by 6 weeks of vancomycin therapy, was recently seen by primary care physician and was started on lady, for his generalized muscle ache and leg cramps. First dose was given tonight and after that in couple hours patient started complaining of headache and confusion and become combative, so his called him up ambulance and was brought into the emergency room. In the emergency room. Patient was combative and complaining of headache initially. Patient was restrained for initial treatment, 2 mg IV, lorazepam. But patient become much more alert and responsive and was able to answer all the questions. His main complaint was leg cramps and headache. - Review of Systems Constitutional: No Fever, No Chills Eyes: No Symptoms Ears, Nose, & Throat: No Symptoms Respiratory: No Cough, No Short Of Breath Cardiac: No Chest Pain, No Edema, No Syncope Abdominal/Gastrointestinal: No Abdominal Pain, No Nausea, No Vomiting, No Diarrhea Genitourinary Symptoms: No Dysuria Musculoskeletal: No Back Pain, No Neck Pain Skin: No Rash Neurological: No Dizziness, No Focal Weakness, No Sensory Changes Psychological: No Symptoms Endocrine: No Symptoms Hematologic/Lymphatic: No Symptoms Immunological/Allergic: No Symptoms Medications & Allergies Home Medications: Home Medication List Bupropion HCl [Wellbutrin Xl] 150 mg PO HS 01/11/15 [History Confirmed 01/24/17] Lisinopril [Zestril] 2.5 mg PO HS 01/11/15 [History Confirmed 01/24/17] Metformin HCl 850 mg PO DAILY 01/11/15 [History Confirmed 01/24/17] Omeprazole 20 MG [Prilosec 20 mg] 20 mg PO HS 01/11/15 [History Confirmed ] Oxcarbazepine 300 mg [Trileptal 300 MG Tablet] 300 mg PO HS 01/11/15 [ History Confirmed 01/24/17] Pramipexole Di-HCl [Mirapex] 1 tab PO HS 01/11/15 [History Confirmed 01/24/17] Tamsulosin HCl 0.4 mg [Flomax 0.4 MG] 0.4 mg PO HS 10/27/16 [History Confirmed 01/24/17] Tizanidine HCl 4 mg [Zanaflex 4 MG] 4 mg PO HS 10/27/16 [History Confirmed 01/24/17] Gemfibrozil 600 mg [Lopid 600 mg] 600 mg PO HS 01/24/17 [History Confirmed 01/24/17] Hydrocodone Bit/Acetaminophen [Hydrocodon-Acetaminoph 7.5-325] 1 each PO Q6H PRN PRN 01/24/17 [History Confirmed 01/24/17] Magnesium Oxide 400 mg [Mag-Ox 400] 400 mg PO HS 01/24/17 [History Confirmed 01/24/17] Pregabalin [Lyrica 100Mg] 100 mg PO UD 01/24/17 [History Confirmed 01/24/17] Tizanidine HCl 4 mg [Zanaflex 4 MG] 4 mg PO HS 01/24/17 [History Confirmed 01/24/17] Allergies/Adverse Reactions: Allergies Allergy/AdvReac Type Severity Reaction Status Date / Time No Known Drug Allergies Allergy Verified 10/23/16 03:20 - Past Medical History Past Medical History: Yes Neurological History: No Pertinent History ENT History: Cataracts Cardiac History: High Cholesterol, Hypertension, Peripheral Vascular Disease Respiratory History: No Pertinent History Endocrine Medical History: Diabetes Type II Musculoskelatal History: Arthritis, Degenerative Disk Disease GI Medical History: No Pertinent History History: No Pertinent History Pyscho-Social History: No Pertinent History Male Reproductive Disorders: Prostate Cancer Comment: heart ablation 20 years ago. pt unable to give hx at this time - Past Surgical History Past Surgical History: Yes Neuro Surgical History: No Pertinent History Cardiac History: Cardiac Catheterization, Other Respiratory Surgery: No Pertinent History GI Surgical History: No Pertinent History Genitourinary Surgical Hx: No Pertinent History Musculskeletal Surgical Hx: Other Male Surgical History: No Pertinent History Other Surgical History: july states back surgery with cyst removal and spur shaved,heart caths and cardiac ablation 15-20yrs ago,BACK SURG 08/03, back surgery 2013, 09/29/16,09/30/16,10/01/16 back surgery r/t infection in surgical site. bilar rcr - Social History Smoking Status: Current every day smoker How long have you smoked: 55 Exposure to second hand smoke: Yes Alcohol: None Drug Use: none Significant Family History: no pertinent family hx - Physical Exam Vital Signs: Vital Signs - 24 hr Temp Pulse Resp BP Pulse Ox 01/24/17 05:00 97.7 F 80 17 127/59 93 L 01/24/17 04:51 97.7 F 80 17 127/59 93 L 01/24/17 03:28 97 01/24/17 03:17 76 16 146/64 98 01/24/17 01:57 85 24 144/60 97 Oxygen-Last 24 hours O2 Percentage 2 Liters = 28% O2 Percentage 2 Liters = 28% General Appearance: no apparent distress, alert Neurologic Exam: alert, oriented x 3, cooperative, normal mood/affect, nml cerebellar function, nml station & gait, sensation nml, No motor deficits Eye Exam: PERRL/EOMI, eyes nml inspection Ears, Nose, Throat Exam: normal ENT inspection, TMs normal, pharynx normal, moist mucous membranes Neck Exam: normal inspection, non-tender, supple, full range of motion Respiratory Exam: normal breath sounds, lungs clear, No respiratory distress Cardiovascular Exam: regular rate/rhythm, normal heart sounds, normal peripheral pulses Gastrointestinal/Abdomen Exam: soft, normal bowel sounds, No tenderness, No mass Back Exam: normal inspection, normal range of motion, No CVA tenderness, No vertebral tenderness Extremity Exam: normal inspection, normal range of motion, pelvis stable Skin Exam: normal color, warm, dry, No rash Lymphatic Exam: No adenopathy Results - Labs Lab/Micro Results: Lab Results-Last 24 Hours 01/24/17 Range/Units 05:10 Lactic Acid 1.6 (0.4-2.0) Assessment/Plan (1) Confusion caused by a drug Current Visit: Yes Status: Acute Assessment & Plan: resolving Last Vital Signs Temp 97.7 F 01/24/17 05:00 Pulse 80 01/24/17 05:00 Resp 17 01/24/17 05:00 BP 127/59 01/24/17 05:00 Pulse Ox 93 L 01/24/17 05:00 Allergies No Known Drug Allergies Allergy (Verified 10/23/16 03:20) Active Medications Acetaminophen (Tylenol 325 Mg) 650 mg PO Q4H PRN PRN PRN Reason: PAIN AND/OR FEVER Stop: 02/23/17 04:54 Sodium Chloride (Sodium Chloride 0.9% 1000 Ml) 1,000 mls @ 100 mls/hr IV .Q10H MELITA Stop: 02/23/17 04:54 Intake & Output 01/23/17 01/24/17 11:59 11:59 Weight 78.103 kg Orders 01/24/17 01:52 CHEST 1 VIEW (PORTABLE) Stat HEAD WITHOUT CONTRAST [CT] Stat 01/24/17 02:10 BLOOD CULTURE Stat 01/24/17 03:40 CULTURE,URINE Stat 01/24/17 04:55 Accucheck ACHS Admission/Status Order ROUTINE Code Status Order ROUTINE Fall Protocol ROUTINE IV Care Q6H Miscellaneous Nursing Order ROUTINE Neuro Checks Q2H Mary Khan ROUTINE Acetaminophen 325 mg [Tylenol 325 mg] 650 mg PO Q4H PRN PRN NaCl 0.9% 1000 ml [Sodium Chloride 0.9% 1000 ML] 1,000 ml IV 100 mls/hr 01/24/17 Breakfast 1800 Calorie ADA Lab Tests 01/24/17 01/24/17 01/24/17 02:14 02:14 02:15 WBC 10.1 RBC 4.09 L Hgb 11.3 L Hct 34.6 L MCV 84.6 MCH 27.6 MCHC 32.7 RDW 16.3 H Plt Count 212 MPV 9.5 Gran % 65.8 Lymphocytes % 20.5 L Monocytes % 10.9 Eosinophils % 2.5 Basophils % 0.3 Basophils # 0.03 Sodium 143 Potassium 3.6 Chloride 109 H Carbon Dioxide 24.8 Anion Gap 12.6 BUN 21 H Creatinine 0.90 Estimated GFR > 60 Glucose 104 Lactic Acid 4.6 H Calcium 8.7 Total Bilirubin 0.10 L AST 21 ALT 21 Alkaline Phosphatase 99 Serum Total Protein 6.6 Albumin 3.5 Ur Collection Type Urine Color Urine Appearance Urine pH Ur Specific [place] Urine Protein Urine Ketones Urine Blood Urine Nitrite Urine Bilirubin Urine Urobilinogen Ur Leukocyte Esterase Urine Culture Reflexed Urine Glucose Specimen Received 01/24/17 01/24/17 03:40 05:10 WBC RBC Hgb Hct MCV MCH MCHC RDW Plt Count MPV Gran % Lymphocytes % Monocytes % Eosinophils % Basophils % Basophils # Sodium Potassium Chloride Carbon Dioxide Anion Gap BUN Creatinine Estimated GFR Glucose Lactic Acid 1.6 Calcium Total Bilirubin AST ALT Alkaline Phosphatase Serum Total Protein Albumin Ur Collection Type CATH Urine Color YELLOW Urine Appearance CLEAR Urine pH 5.0 Ur Specific [place] 1.015 Urine Protein NEGATIVE Urine Ketones NEGATIVE Urine Blood NEGATIVE Urine Nitrite NEGATIVE Urine Bilirubin NEGATIVE Urine Urobilinogen NORMAL Ur Leukocyte Esterase NEGATIVE Urine Culture Reflexed NO Urine Glucose NEGATIVE Specimen Received [id number] Code(s): F19.921 - OTH PSYCHOACTIVE SUBSTANCE USE, UNSP W INTOX W DELIRIUM (2) Type 2 diabetes mellitus treated without insulin Current Visit: Yes Status: Chronic Code(s): E11.9 - TYPE 2 DIABETES MELLITUS WITHOUT COMPLICATIONS
[2017-01-24] MEDS ORDERED: NORCO 7.5/325 MG TAB PO PRN (08:51)
--- NOTE | 2017-01-24 09:38 | XRAY ---
Indication: Confusion. Multiple contiguous axial images obtained through the head without contrast. Comparison: November 26, 2015. Study slightly degraded by motion artifact even with repeat CT. Stable age-appropriate global atrophy and minimal periventricular degenerative micro-ischemia. No acute intracranial hemorrhage, abnormal extra-axial fluid collection, or mass effect. Fourth ventricle is midline without hydrocephalus. Bony calvarium intact. Mild mucosal thickening of both ethmoid and maxillary sinuses. Mastoid air cells clear. Impression: 1. Stable nonacute senile brain. 2. Incidental paranasal sinus disease. Comment: Preliminary interpretation was made by [facility]. No discrepancy. CTDI 59.13
--- NOTE | 2017-01-24 09:38 | XRAY ---
Indication: Confusion. Comparison: November 06, 2016. Portable chest remains hyperinflated and clear. Heart is not enlarged. Bony thorax intact again with mild osteopenia, degenerative changes, and left shoulder surgery. Impression: Stable nonacute chest with chronic features.
[2017-01-24] MEDS ORDERED: Glucophage 850 MG PO SCH (10:00)
[2017-01-24 12:26] VITALS: BP 117/84; PULSE 70; O2SAT 94
[2017-01-24] MEDS ORDERED: Wellbutrin XL 150 MG PO SCH (22:00)
[2017-01-24] MEDS ORDERED: NON-FORMULARY ITEM (Omeprazole 20 Mg [Prilosec 20 Mg] 20 MG) PO SCH (22:00)
[2017-01-24] MEDS ORDERED: Zanaflex 4 MG PO SCH (22:00)
[2017-01-24] MEDS ORDERED: Protonix 40MG Tablet PO SCH (22:00)
[2017-01-24] MEDS ORDERED: MAG-OX 400 PO SCH (22:00)
[2017-01-24] MEDS ORDERED: PRAMIPEXOLE DI HCL PO SCH (22:00)
[2017-01-24] MEDS ORDERED: BUPROPION HCL 150 MG PO SCH (22:00)
[2017-01-24] MEDS ORDERED: Zestril 5 MG PO SCH (22:00)
[2017-01-24] MEDS ORDERED: Trileptal 300 MG Tablet PO SCH (22:00)
[2017-01-24] MEDS ORDERED: LOPID 600 MG PO SCH (22:00)
[2017-01-24] MEDS ORDERED: Flomax 0.4 MG PO SCH (22:00)
[2017-01-24] MEDS ORDERED: Mirapex 0.5 MG Tablet PO SCH (22:00)
[2017-01-24] MEDS ORDERED: NON-FORMULARY ITEM (Lisinopril [Zestril] 2.5 MG) PO SCH (22:00)
== END 2017-01-24 13:50 | disposition home or self-care (01) ==
LOC: ED 01:43 → MED SURG 04:33
PROVIDERS: ADMIT General Practice; ATTEND General Practice
DX: R41.0 Disorientation, unspecified (principal); R51 Headache; T42.6X5A Adverse effect of other antiepileptic and sedative-hypnotic drugs, initial encounter; Y92.009 Unspecified place in unspecified non-institutional (private) residence as the place of occurrence of the external cause; R25.2 Cramp and spasm; E11.9 Type 2 diabetes mellitus without complications
CPT/HCPCS: 36000; 36415; 70450; 71010; 80053; 81002; 82962; 83605; 85025; 87040; 87086; 93005; 96360; 96361; 96365; 96366; 96368; 96374; 96376; 99285; G0378; J2060; J3370; A9270-GY

== ENCOUNTER 2020-03-02 18:23 | Emergency (ER) | payer MEDICARE, OTHER ==
[2020-03-02] MEDS ORDERED: Adacel Vial IM ONE ×2 (18:30→19:26)
[2020-03-02 18:33] VITALS: O2SAT 98
--- NOTE | 2020-03-02 18:36 | ERPHSYRPT ---
<ALESSANDRO,RAUL - Last Filed: 03/02/20 19:52> - History of Present Illness Source: patient, family Exam Limitations: no limitations Occurred: just prior to arrival Severity: moderate Head Injury Location: parietal Method of Injury: fell Loss of Consciousness: no loss of consciousness Associated Symptoms: abdominal pain Hx Tetanus, Diphtheria Vaccination/Date Given: Yes Hx Influenza Vaccination/Date Given: No Hx Pneumococcal Vaccination/Date Given: No <MIKE PINTO - Last Filed: 03/04/20 08:43> - History of Present Illness Time Seen by Provider: 03/02/20 18:25 Physician History: 74 years old male with history of hypertension, hyperlipidemia, diabetes mellitus, issues with balance, multiple falls in the past presented in the ER after he tried to get up and lost his balance, fell, on the way down hit his head against a TV stand causing a laceration on the top of the head without loss of consciousness. He is complaining of mild dull aching headache around area of laceration. There was bleeding initially but stopped with applying pressure. He denies any neck pain chest pain palpitations or shortness of breath. He was able to get up and ambulate immediately after that. Denies any dizziness or lightheadedness before or after the fall. Patient is complaining of mild right- sided flank pain which according to him he hit his elbow against it while going down. No nausea or vomiting. Abdominal pain is mild and hurts only with palpation. (MIKE PINTO) Allergies/Adverse Reactions: No Known Drug Allergies Allergy (Verified 10/23/16 03:20) Home Medications: Bupropion HCl [Wellbutrin Xl] 150 mg PO HS 01/11/15 [History] Metformin HCl 850 mg PO DAILY 01/11/15 [History] Omeprazole 20 MG [Prilosec 20 mg] 20 mg PO HS 01/11/15 [History] Oxcarbazepine 300 mg [Trileptal 300 MG Tablet] 300 mg PO HS 01/11/15 [History] Pramipexole Di-HCl [Mirapex] 1 tab PO HS 01/11/15 [History] lisinopriL [Zestril] 2.5 mg PO HS 01/11/15 [History] Tamsulosin HCl 0.4 mg [Flomax 0.4 MG] 0.4 mg PO HS 10/27/16 [History] Gemfibrozil 600 mg [Lopid 600 mg] 600 mg PO HS 01/24/17 [History] Hydrocodone Bit/Acetaminophen [Hydrocodon-Acetaminoph 7.5-325] 1 each PO Q6H PRN PRN 01/24/17 [History] Magnesium Oxide 400 mg [Mag-Ox 400] 400 mg PO HS 01/24/17 [History] Tizanidine HCl 4 mg [Zanaflex 4 MG] 4 mg PO HS 01/24/17 [History] - Review of Systems Constitutional: No Symptoms Eyes: No Symptoms Ears, Nose, & Throat: No Symptoms Respiratory: No Symptoms Cardiac: No Symptoms Abdominal/Gastrointestinal: Abdominal Pain Genitourinary Symptoms: No Symptoms Skin: Skin Lesions Neurological: Headache Psychological: No Symptoms Endocrine: No Symptoms Hematologic/Lymphatic: No Symptoms Immunological/Allergic: No Symptoms <MIKE PINTO - Last Filed: 03/04/20 08:43> - Past Medical History Pertinent Past Medical History: Yes Neurological History: No Pertinent History ENT History: Cataracts Cardiac History: High Cholesterol, Hypertension, Peripheral Vascular Disease Respiratory History: No Pertinent History Endocrine Medical History: Diabetes Type II Musculoskeletal History: Arthritis, Degenerative Disk Disease GI Medical History: No Pertinent History History: No Pertinent History Psycho-Social History: No Pertinent History Male Reproductive Disorders: Prostate Cancer Other Medical History: heart ablation 20 years ago. pt unable to give hx at this time - Past Surgical History Past Surgical History: Yes Neuro Surgical History: No Pertinent History Cardiac: Cardiac Catheterization, Other Respiratory: No Pertinent History Gastrointestinal: No Pertinent History Genitourinary: No Pertinent History Musculoskeletal: Other Male Surgical History: No Pertinent History Other Surgical History: july states back surgery with cyst removal and spur shaved,heart caths and cardiac ablation 15-20yrs ago,BACK SURG 08/03, back surgery 2013, 09/29/16,09/30/16,10/01/16 back surgery r/t infection in surgical site. bilar rcr - Social History Smoking Status: Current every day smoker How long have you smoked: 55 Exposure to second hand smoke: Yes Alcohol Use: None Drug Use: none Patient Lives Alone: No Significant Family History: no pertinent family hx <RAINA PINTOR - Last Filed: 03/04/20 08:43> - Preet Coma Score Best Eye Response ([place]): (4) open spontaneously Best Verbal Response ([place]): (5) oriented Best Motor Response ([place]): (6) obeys commands [place] Total: 15 - Physical Exam General Appearance: no apparent distress, alert Head Injury: lacerations (5 cm old laceration in the mid posterior parietal area with no active bleeding or spurting. 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 dumper Exam: normal hearing, normal speech, PERRL Coordination/Gait Exam: normal finger to nose, normal cerebellar function, abnormal gait Motor/Sensory Exam: no motor deficit, no sensory deficit, no pronator drift Skin Exam: normal color SpO2 Interpretation: normal O2 Delivery: Room Air <RAINA PINTOR - Last Filed: 03/04/20 08:43> - Nursing Vital Signs Nursing Vital Signs: Initial Vital Signs Temperature 97.8 F 03/02/20 18:29 Pulse Rate 75 03/02/20 18:29 Respiratory Rate 20 03/02/20 18:29 Blood Pressure 153/77 03/02/20 18:29 O2 Sat by Pulse Oximetry 98 03/02/20 18:29 Pain Scale Pain Intensity 2 Procedures - Laceration/Wound Repair Parietal Wound Location: head Wound Length (cm): 5 Wound's Depth, Shape: superficial Wound Explored: clean Irrigated: Yes Hibiclens Prep: Yes Wound Repaired With: Steri-strips, Dermabond <RAUL FRANCOIS - Last Filed: 03/02/20 19:52> - Course Nursing assessment & vital signs reviewed: Yes - CT Exams Head CT Interpretation: Tele-radiologist Report (negative), No Fracture Cervical Spine CT Interpretation: Tele-radiologist Report, No Fracture <ALESSANDRO,RAUL - Last Filed: 03/02/20 19:52> Ordered Tests: Medication Summary Discontinued Medications Generic Name Dose Route Start Last Admin Trade Name Freq PRN Reason Stop Dose Admin Diphtheria/Tetanus/Acell Pertussis 0.5 ml 03/02/20 18:30 03/02/20 19:27 Adacel Vial IM 03/02/20 18:31 0.5 ml .ONCE ONE Administration Diphtheria/Tetanus/Acell Pertussis Confirm 03/02/20 19:26 Adacel Vial Administered 03/02/20 19:27 Dose 0.5 ml IM .STK-MED ONE Lab/Rad Data: Laboratory Result Diagrams 03/02/20 19:25 03/02/20 19:25 Laboratory Results 03/02/20 03/02/20 03/02/20 Range/Units 19:55 19:25 19:25 WBC (4.0-10.5) K/mm3 RBC (4.1-5.6) M/mm3 Hgb (12.5-18.0) gm/dl Hct (42-50) % MCV (78-100) fl MCH (26-32) pg MCHC (32-36) g/dl RDW (11.5-14.0) % Plt Count (150-450) K/mm3 MPV (7.5-11.0) fl Gran % (36.0-66.0) % Eos # (Auto) (0-0.5) Absolute Lymphs (auto) (1.0-4.6) Absolute Monos (auto) (0.0-1.3) Lymphocytes % (24.0-44.0) % Monocytes % (0.0-12.0) % Eosinophils % (0.00-5.0) % Basophils % (0.0-0.4) % Absolute Granulocytes (1.4-6.9) Basophils # (0-0.4) Sodium 136 L (137-145) mmol/L Potassium 4.3 (3.5-5.1) mmol/L Chloride 104 (98-107) mmol/L Carbon Dioxide 24 (22-30) mmol/L Anion Gap 12.8 (5-15) MEQ/L BUN 18 (9-20) mg/dL Creatinine 0.64 L (0.66-1.25) mg/dL Estimated GFR > 60.0 ML/MIN Glucose 212 H (74-106) mg/dL Calcium 9.3 (8.4-10.2) mg/dL Total Bilirubin 0.20 (0.2-1.3) mg/dL AST 22 (17-59) U/L ALT 18 (0-50) U/L Alkaline Phosphatase 123 (38-126) U/L Troponin I < 0.012 (0.000-0.034) ng/mL Serum Total Protein 7.5 (6.3-8.2) g/dL Albumin 4.4 (3.5-5.0) g/dL Urine Color STRAW (YELLOW) Urine Appearance CLEAR (CLEAR) Urine pH 5.0 (5-6) Ur Specific [place] 1.009 (1.005-1.025) Urine Protein NEGATIVE (Negative) Urine Ketones NEGATIVE (NEGATIVE) Urine Blood NEGATIVE (0-5) Yair/ul Urine Nitrite NEGATIVE (NEGATIVE) Urine Bilirubin NEGATIVE (NEGATIVE) Urine Urobilinogen NEGATIVE (0-1) mg/dL Ur Leukocyte Esterase NEGATIVE (NEGATIVE) Urine WBC (Auto) NONE (0-5) /HPF Urine RBC (Auto) NONE (0-2) /HPF U Epithel Cells (Auto) NONE (FEW) /HPF Urine Bacteria (Auto) NONE (NEGATIVE) /HPF Urine Culture Reflexed NO (NO) Urine Glucose 50 (NEGATIVE) mg/dL 03/02/20 Range/Units 19:25 WBC 7.8 (4.0-10.5) K/mm3 RBC 4.28 (4.1-5.6) M/mm3 Hgb 12.9 (12.5-18.0) gm/dl Hct 38.9 L (42-50) % MCV 90.9 (78-100) fl MCH 30.1 (26-32) pg MCHC 33.2 (32-36) g/dl RDW 13.9 (11.5-14.0) % Plt Count 220 (150-450) K/mm3 MPV 10.0 (7.5-11.0) fl Gran % 58.3 (36.0-66.0) % Eos # (Auto) 0.28 (0-0.5) Absolute Lymphs (auto) 2.14 (1.0-4.6) Absolute Monos (auto) 0.77 (0.0-1.3) Lymphocytes % 27.6 (24.0-44.0) % Monocytes % 9.9 (0.0-12.0) % Eosinophils % 3.6 (0.00-5.0) % Basophils % 0.6 (0.0-0.4) % Absolute Granulocytes 4.52 (1.4-6.9) Basophils # 0.05 (0-0.4) Sodium (137-145) mmol/L Potassium (3.5-5.1) mmol/L Chloride (98-107) mmol/L Carbon Dioxide (22-30) mmol/L Anion Gap (5-15) MEQ/L BUN (9-20) mg/dL Creatinine (0.66-1.25) mg/dL Estimated GFR ML/MIN Glucose (74-106) mg/dL Calcium (8.4-10.2) mg/dL Total Bilirubin (0.2-1.3) mg/dL AST (17-59) U/L ALT (0-50) U/L Alkaline Phosphatase (38-126) U/L Troponin I (0.000-0.034) ng/mL Serum Total Protein (6.3-8.2) g/dL Albumin (3.5-5.0) g/dL Urine Color (YELLOW) Urine Appearance (CLEAR) Urine pH (5-6) Ur Specific [place] (1.005-1.025) Urine Protein (Negative) Urine Ketones (NEGATIVE) Urine Blood (0-5) Yair/ul Urine Nitrite (NEGATIVE) Urine Bilirubin (NEGATIVE) Urine Urobilinogen (0-1) mg/dL Ur Leukocyte Esterase (NEGATIVE) Urine WBC (Auto) (0-5) /HPF Urine RBC (Auto) (0-2) /HPF U Epithel Cells (Auto) (FEW) /HPF Urine Bacteria (Auto) (NEGATIVE) /HPF Urine Culture Reflexed (NO) Urine Glucose (NEGATIVE) mg/dL - Progress Progress: improved Counseled pt/family regarding: lab results, diagnosis, need for follow-up, rad results <RAUL FRANCOIS - Last Filed: 03/02/20 19:52> <MIKE PINTO - Last Filed: 03/04/20 08:43> - Progress Progress Note: 03/02/20 18:56 Work-up is pending care is transferred to Dr. Francois at shift change. (MIKE PINTO) - Departure Departure Disposition: Home Critical Care Time: No <RAUL FRANCOIS - Last Filed: 03/02/20 19:52> <MIKE PINTO - Last Filed: 03/04/20 08:43> - Departure Clinical Impression: Abrasion head Qualifiers: Encounter type: initial encounter Qualified Code(s): S00.91XA - Abrasion of unspecified part of head, initial encounter Head injury without concussion or intracranial hemorrhage Qualifiers: Encounter type: initial encounter Qualified Code(s): S09.90XA - Unspecified injury of head, initial encounter Fall at home Qualifiers: Encounter type: initial encounter Qualified Code(s): W19.XXXA - Unspecified fall, initial encounter Laceration of head Qualifiers: Encounter type: initial encounter Location of open wound of head: scalp Foreign body presence: without foreign body Qualified Code(s): S01.01XA - Laceration without foreign body of scalp, initial encounter Condition: Stable Referrals: MATIAS DWYER [Primary Care Provider] - Instructions: Contusion (DC), Preventing Falls Additional Instructions: Discharge/Care Plan LAWRENCE MCGEE was seen on 03/02/20 in the Emergency Room. The patient was counseled regarding Diagnosis,Lab results, Imaging studies, need for follow up and when to return to the Emergency Room. Prescriptions given: Discharge Note I have spoken with the patient and/or caregivers. I have explained the patient's condition, diagnosis and treatment plan based on the information available to me at this time. I have answered the patient's and/or caregiver's questions and addressed any concerns. The patient and/or caregivers have as good understanding of the patient's diagnosis, condition and treatment plan as can be expected at this point. The vital signs have been stable. The patient's condition is stable and appropriate for discharge from the emergency department. The patient will pursue further outpatient evaluation with the primary care physician or other designated or consulting physician as outlined in the discharge instructions. The patient and/or caregivers are agreeable to this plan of care and follow-up instructions have been explained in detail. The patient and/or caregivers have received these instruction. The patient/and or caregivers are aware that any significant change in condition or worsening of symptoms should prompt an immediate return to this or the closest emergency department or call 911. LAWRENCE MCGEE was seen on 03/02/20 n the Emergency Room. At that time you were treated for an emergent condition, during your visit Laboratory, Radiology and/or other procedures may have been ordered. It is very important that you follow-up with your Primary Care Physician MATIAS DWYER within the next 24-48 hours to review your Emergency Room visit and the final results of testing that was ordered. Some test results such as Urine Cultures, Blood Cultures, and other cultures if ordered will not be finalized for 24-48 hours. If you do not have a Primary Care Provider please call the medical records department at [phone] ext [phone] to obtain a copy of your results or you may sign into our patient portal to obtain these results by visiting us @ [email or web address] and completing the following steps: 1. Click on the Patient Portal link 2. Click the Patient Self Enrollment Link to complete the enrollment form and entering your 3. Once the enrollment form is completed you will receive an email with a temporary ID and password at the email address you provided. 4. Next choose a user name and password. Your user name must be at least 4 c haracters long and your password must be at least 4 characters long. 5. Choose a security question from the list and provide your answer to the question. If you already have signed into the Health Portal you may access your Health Care Information 10/11 by the following steps: 1. Login to our website @ [email or web address] 2. Enter your original user name and password. FAQS The [facility] Health Portal is an online tool that contains your Lab Results, Radiology Reports, Visit History, Discharge Instructions and Health Summary Lab and Radiology Results will not be available for 72 hours on the portal. The Portal is a secure site, passwords are encryted and URLs are re-written so they cannot be copied and pasted. You and authorized family members are the only ones who can access your Portal. Also there is a timeout feature that protects your information if you leave the Portal page open. If you have technical difficulty please use the Contact Us link on the page this will allow you to submit any questions you have regarding the Portal or you may contact the Medical Record Department at [phone] ext [phone].
[2020-03-02 19:29] LABS: Absolute Neutrophil Ct (ANC) 4.52 (1.4-6.9); BASOPHIL % 0.6 % (0.0-0.4); Basophil (Absolute #) 0.05 (0-0.4); Eosinophil % 3.6 % (0.00-5.0); Eosinophil (Absolute #) 0.28 (0-0.5); Hematocrit 38.9 % (42-50); Hemoglobin 12.9 gm/dl (12.5-18.0); Lymphocyte (Absolute #) 2.14 (1.0-4.6); Lymphocytes % 27.6 % (24.0-44.0); Mean Cell Volume 90.9 fl (78-100); Mean Corpuscular Hemoglobin 30.1 pg (26-32); Mean Corpuscular Hgb Concent. 33.2 g/dl (32-36); Monocyte (Absolute #) 0.77 (0.0-1.3); Monocytes % 9.9 % (0.0-12.0); Neutrophil % 58.3 % (36.0-66.0); Platelet Count 220 K/mm3 (150-450); Red Blood Count 4.28 M/mm3 (4.1-5.6); Red Cell Distribution Width 13.9 % (11.5-14.0); White Blood Count 7.8 K/mm3 (4.0-10.5)
[2020-03-02 19:40] LABS: ALBUMIN 4.4 g/dL (3.5-5.0); ALKALINE PHOSPHATASE 123 U/L (38-126); ANION GAP 12.8 MEQ/L (5-15); BLOOD UREA NITROGEN 18 mg/dL (9-20); CHLORIDE 104 mmol/L (98-107); Calcium 9.3 mg/dL (8.4-10.2); Carbon Dioxide 24 mmol/L (22-30); Creatinine 1 0.64 mg/dL (0.66-1.25); EST GLOMERULAR FILTRATION RATE > 60.0 ML/MIN; Glucose 212 mg/dL (74-106); Potassium 4.3 mmol/L (3.5-5.1); SGOT/AST 22 U/L (17-59); SGPT/ALT 18 U/L (0-50); SODIUM 136 mmol/L (137-145); Total Protein 7.5 g/dL (6.3-8.2)
[2020-03-02 20:01] LABS: Appearance CLEAR (CLEAR); Bilirubin NEGATIVE (NEGATIVE); Blood NEGATIVE Ery/ul (0-5); Glucose 50 mg/dL (NEGATIVE); Ketones NEGATIVE (NEGATIVE); Leukocyte Esterase NEGATIVE (NEGATIVE); Nitrite NEGATIVE (NEGATIVE); Protein,Urine Dip NEGATIVE (Negative); Specific Gravity 1.009 (1.005-1.025); Urobilinogen NEGATIVE mg/dL (0-1)
[2020-03-02 20:11] VITALS: PULSE 74
[2020-03-02 20:25] VITALS: BP 154/69
--- NOTE | 2020-03-03 07:43 | XRAY ---
Indication: Neck and shoulder pain following fall. Multiple contiguous axial images obtained through the cervical spine. Sagittal and coronal reformatted images obtained. Comparison: None. 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 No acute fracture, suspicious bony lesions, or spinal canal stenosis. Mild/moderate multilevel endplate spurring and C5-C6/C7-T1 degenerative vacuum disc phenomena. Also mild/moderate multilevel bilateral degenerative facet hypertrophy, left greater than right. Sagittal and coronal reformatted images demonstrate normal alignment with C6-T1 disc space loss. No acute compression fracture, subluxation, or jumped facet. Normal appearing craniocervical junction. Visualized noncontrasted soft tissues demonstrates moderate scattered carotid calcifications bilaterally. Lung apices demonstrate bilateral subpleural cystic changes. Impression: 1. Negative acute fracture/subluxation. 2. Incidental multilevel degenerative changes, nonunited posterior arch C1, and scattered carotid calcifications.
--- NOTE | 2020-03-03 07:44 | XRAY ---
Indication: Head injury/laceration following fall. Multiple contiguous axial images obtained through the head without contrast. Comparison: January 24, 2017. Stable age-appropriate global atrophy and minimal periventricular degenerative micro-ischemia. No acute internal hemorrhage, abnormal extra-axial fluid collection, or mass effect. Fourth ventricle is midline without hydrocephalus. Bony calvarium intact. Remains mild mucosal thickening of both maxillary sinuses. Mastoid air cells are clear. Impression: 1. Continued nonacute senile brain. 2. Incidental paranasal sinus disease.
--- NOTE | 2020-03-03 07:51 | XRAY ---
Indication: Status post fall. Comparison: September 21, 2019. Portable chest remains clear. Heart is not enlarged again with vascular calcifications. Bony thorax intact again with mild osteopenia, degenerative changes, and left shoulder surgery. No new/acute findings. Impression: Nonacute chest with chronic features.
== END 2020-03-02 20:19 | disposition home or self-care (01) ==
LOC: ED 18:23
DX: S01.01XA Laceration without foreign body of scalp, initial encounter (principal); S00.81XA Abrasion of other part of head, initial encounter; W18.30XA Fall on same level, unspecified, initial encounter; I10 Essential (primary) hypertension; E78.5 Hyperlipidemia, unspecified; E11.9 Type 2 diabetes mellitus without complications; R51.9 Headache, unspecified; R10.31 Right lower quadrant pain; Z91.81 History of falling; Z79.899 Other long term (current) drug therapy; F17.210 Nicotine dependence, cigarettes, uncomplicated
CPT/HCPCS: 36000; 36415; 70450; 71045; 72125; 80053; 81001; 84484; 85025; 90471; 90715; 93005; 99284

== ENCOUNTER 2021-02-17 21:13 | Emergency (ER) | payer MEDICARE, OTHER ==
[2021-02-17] MEDS ORDERED: Sodium Chloride 0.9% 1000 ML 1,000 ML IV STA (21:25)
[2021-02-17] MEDS ORDERED: Zofran 4 MG/2 ML VIAL IV ONE (21:25)
[2021-02-17] MEDS ORDERED: Hydromorphone 1 mg/ml Injection IV ONE (21:25)
--- NOTE | 2021-02-17 21:38 | ERPHSYRPT ---
- History of Present Illness Time Seen by Provider: 02/17/21 21:15 Source: patient Exam Limitations: no limitations Physician History: Location: head Quality: laceration Radiation: none Severity: moderate Duration: today Timing: after fall this evening Modifying factors/associated signs and symptoms: none tried Patient had a mechanical fall just prior to arrival. He is on a blood thinner. He is unsure what blood thinner. Patient has a large contusion over his fo rehead. He arrives in a c-collar and backboarded. Also complains of left shoulder and left humerus pain. He believes that he is up-to-date on his tetanus shot. He complains of no other injuries. No chest pain, shortness of breath, abdominal pain, back pain. Timing/Duration: today Severity: moderate Modifying Factors: Improves With: other Associated Symptoms: denies symptoms Allergies/Adverse Reactions: pregabalin [From Lyrica] Allergy (Severe, Verified 02/17/21 21:17) Difficulty Breathing Home Medications: Omeprazole 20 MG [Prilosec 20 mg] 20 mg PO HS 01/11/15 [History] Pramipexole Di-HCl [Mirapex] 1 tab PO HS 01/11/15 [History] Tamsulosin HCl 0.4 mg [Flomax 0.4 MG] 0.4 mg PO HS 10/27/16 [History] Gemfibrozil 600 mg [Lopid 600 mg] 600 mg PO BID 01/24/17 [History] Aspirin EC 81 mg [Ecotrin 81 mg] 81 mg PO DAILY 02/17/21 [History] Diltiazem HCl [Dilt-Xr] 120 mg PO DAILY 02/17/21 [History] Duloxetine HCl 60 mg PO DAILY 02/17/21 [History] Glimepiride 2 mg [Amaryl 2 MG] 2 mg PO DAILY 02/17/21 [History] Metformin HCl [Metformin ER Osmotic] 1,000 mg PO BID 02/17/21 [History] Methocarbamol 500 mg [Robaxin 500 MG] 500 mg PO QID PRN 02/17/21 [History] Tolterodine Tartrate [Tolterodine Tartrate ER] 4 mg PO DAILY 02/17/21 [History] Hx Tetanus, Diphtheria Vaccination/Date Given: Yes Hx Influenza Vaccination/Date Given: No Hx Pneumococcal Vaccination/Date Given: No - Review of Systems Constitutional: Other (Large head contusion, left arm pain), No Fever, No Chills Eyes: No Symptoms Ears, Nose, & Throat: No Symptoms Respiratory: No Cough, No Dyspnea Cardiac: No Chest Pain, No Edema, No Syncope Abdominal/Gastrointestinal: No Abdominal Pain, No Nausea, No Vomiting, No Diarrhea Genitourinary Symptoms: No Dysuria Musculoskeletal: Other Skin: No Rash Neurological: No Dizziness, No Focal Weakness, No Sensory Changes Psychological: No Symptoms Endocrine: No Symptoms All Other Systems: Reviewed and Negative - Past Medical History Pertinent Past Medical History: Yes Neurological History: No Pertinent History ENT History: Cataracts Cardiac History: High Cholesterol, Hypertension, Peripheral Vascular Disease Respiratory History: No Pertinent History Endocrine Medical History: Diabetes Type II Musculoskeletal History: Arthritis, Degenerative Disk Disease GI Medical History: No Pertinent History History: No Pertinent History Psycho-Social History: No Pertinent History Male Reproductive Disorders: Prostate Cancer Other Medical History: heart ablation 20 years ago. pt unable to give hx at this time - Past Surgical History Past Surgical History: Yes Neuro Surgical History: No Pertinent History Cardiac: Cardiac Catheterization, Other Respiratory: No Pertinent History Gastrointestinal: No Pertinent History Genitourinary: No Pertinent History Musculoskeletal: Other Male Surgical History: No Pertinent History Other Surgical History: july states back surgery with cyst removal and spur shaved,heart caths and cardiac ablation 15-20yrs ago,BACK SURG 08/03, back surgery 2013, 09/29/16,09/30/16,10/01/16 back surgery r/t infection in surgical site. bilar rcr - Social History Smoking Status: Current every day smoker How long have you smoked: 55 Exposure to second hand smoke: Yes Alcohol Use: None Drug Use: none Patient Lives Alone: No Significant Family History: no pertinent family hx - Nursing Vital Signs Nursing Vital Signs: Initial Vital Signs Temperature 98.6 F 02/17/21 21:15 Pulse Rate 70 02/17/21 21:15 Respiratory Rate 20 02/17/21 21:15 Blood Pressure 161/74 02/17/21 21:15 O2 Sat by Pulse Oximetry 95 02/17/21 21:15 Pain Scale Pain Intensity 6 - Physical Exam SpO2 Interpretation: normal Comments: 10/31/21 21:36 Physical Exam Vitals signsand nursing notereviewed. Constitutional: Appearance: he is well-developed. HENT: Head: Normocephalicand atraumatic. Eyes: Conjunctiva/sclera: Conjunctivae normal. Neck: Musculoskeletal: Normal range of motion. Trachea: No tracheal deviation. Cardiovascular: Rate and Rhythm: Normal rate. Pulmonary: Effort: Pulmonary effort is normal. Norespiratory distress. Abdominal: Palpations: Abdomen is soft. Musculoskeletal: General: No deformity. Skin: General: Skin is warmand dry. Neurological: Mental Status: he is alertand oriented to person, place, and time. Psychiatric: Behavior: Behaviornormal. Large forehead contusion, with laceration. No T-spine, L-spine, C-spine tenderness. No step-offs no deformities. Left humerus tenderness, left elbow tenderness with no obvious deformities. Full range of motion with pain. 2+ distal pulses. 02/18/21 00:07 7 cm laceration on the forehead with surrounding road rash, abrasion Procedures - Laceration/Wound Repair Face Time of Procedure: 00:07 Wound Location: face Wound Length (cm): 7 Wound's Depth, Shape: stellate Wound Explored: clean Irrigated: Yes Hibiclens Prep: Yes Anesthesia: 1% lidocaine w/ Epi Wound Debrided: minimal Wound Repaired With: sutures Suture Size/Type: 5-0, 4-0, chromic gut, ethilon Number of Sutures: 17 Layer Closure?: Yes Deep Layer Suture Size/Type: 4:0, chromic Number Deep Layer Sutures: 3 Sterile Dressing Applied?: Yes - Course Nursing assessment & vital signs reviewed: Yes Ordered Tests: Active Orders 24 hr Category Date Time Status EKG-ER Only STAT Care 02/17/21 21:25 Active IV Insertion STAT Care 02/17/21 21:25 Active NPO (ED) STAT Care 02/17/21 21:25 Active ABDOMEN AND PELVIS W CONTRAST [CT] Stat Exams 02/17/21 21:25 Taken CERVICAL SPINE WO CONTRAST [CT] Stat Exams 02/17/21 21:24 Taken CHEST WITH CONTRAST [CT] Stat Exams 02/17/21 21:25 Taken ELBOW (2 VIEW) Stat Exams 02/17/21 Taken HEAD WITHOUT CONTRAST [CT] Stat Exams 02/17/21 21:24 Taken HUMERUS Stat Exams 02/17/21 Taken CBC W DIFF Stat Lab 02/17/21 21:46 Completed CMP Stat Lab 02/17/21 21:46 Completed Medication Summary Discontinued Medications Generic Name Dose Route Start Last Admin Trade Name Juanita PRN Reason Stop Dose Admin Hydromorphone HCl 1 mg 02/17/21 21:25 02/17/21 21:49 Hydromorphone 1 Mg/1ml Inj 1 Mg/Ml Syringe IV 02/17/21 21:26 1 mg STAT ONE Administration Hydromorphone HCl Confirm 02/17/21 21:46 Hydromorphone 1 Mg/1ml Inj 1 Mg/Ml Syringe Administered 02/17/21 21:47 Dose 1 mg .ROUTE .STK-MED ONE Sodium Chloride 1,000 mls @ 999 mls/hr 02/17/21 21:25 Sodium Chloride 0.9% 1000 Ml IV 02/17/21 22:25 .Q1H1M STA Lidocaine/Epinephrine Confirm 02/17/21 23:22 Lidocaine Hcl/Epinephrine 1% 20 Ml Administered 02/17/21 23:23 Dose 20 ml .ROUTE .STK-MED ONE Ondansetron HCl 4 mg 02/17/21 21:25 02/17/21 21:48 Ondansetron Hcl 4 Mg/2 Ml Vial IV 02/17/21 21:26 4 mg STAT ONE Administration Ondansetron HCl Confirm 02/17/21 21:46 Ondansetron Hcl 4 Mg/2 Ml Vial Administered 02/17/21 21:47 Dose 4 mg .ROUTE .STK-MED ONE Lab/Rad Data: Laboratory Result Diagrams 02/17/21 21:46 02/17/21 21:46 Laboratory Results 02/17/21 02/17/21 Range/Units 21:46 21:46 WBC 9.3 (4.0-10.5) K/mm3 RBC 3.90 L (4.1-5.6) M/mm3 Hgb 11.6 L (12.5-18.0) gm/dl Hct 35.3 L (42-50) % MCV 90.5 (78-100) fl MCH 29.7 (26-32) pg MCHC 32.9 (32-36) g/dl RDW 13.7 (11.5-14.0) % Plt Count 194 (150-450) K/mm3 MPV 9.8 (7.5-11.0) fl Gran % 60.0 (36.0-66.0) % Eos # (Auto) 0.23 (0-0.5) Absolute Lymphs (auto) 2.58 (1.0-4.6) Absolute Monos (auto) 0.83 (0.0-1.3) Lymphocytes % 27.9 (24.0-44.0) % Monocytes % 9.0 (0.0-12.0) % Eosinophils % 2.5 (0.00-5.0) % Basophils % 0.6 (0.0-0.4) % Absolute Granulocytes 5.56 (1.4-6.9) Basophils # 0.06 (0-0.4) Sodium 138 (137-145) mmol/L Potassium 4.3 (3.5-5.1) mmol/L Chloride 107 (98-107) mmol/L Carbon Dioxide 21 L (22-30) mmol/L Anion Gap 14.7 (5-15) MEQ/L BUN 25 H (9-20) mg/dL Creatinine 0.78 (0.66-1.25) mg/dL Estimated GFR > 60.0 ML/MIN Glucose 170 H (74-106) mg/dL Calcium 8.6 (8.4-10.2) mg/dL Total Bilirubin 0.30 (0.2-1.3) mg/dL AST 27 (17-59) U/L ALT 22 (0-50) U/L Alkaline Phosphatase 96 (38-126) U/L Serum Total Protein 6.6 (6.3-8.2) g/dL Albumin 3.9 (3.5-5.0) g/dL - Progress Progress: improved Progress Note: 02/17/21 21:37 We will obtain head CT, CT C-spine, CT chest abdomen pelvis given the degree of injury. X-rays left humerus and left elbow. Fluids, pain control, basic labs and EKG. 02/18/21 00:08 Imaging returned mostly negative outside of a minimally displaced fracture of the left sublime tubercle of the left elbow. Will place patient in a sling he can follow-up with our orthopedic surgeons here. Head laceration was repaired. See procedure note for full details. X-ray demonstrated no fracture of the humerus. CT scans were read as normal by radiology. Patient overall feeling improved. Most likely has a concussion as well. Will discharge patient home at this point in time.. I had my usual head injury conversation with patient and family. I discussed return precautions, follow-up, and when to see a primary care provider. I had an in depth conversation on expectations, prognosis, and strict return precautions. No return to sports or strenuous exertion until follow up and clearance. - Departure Departure Disposition: Home Clinical Impression: Facial laceration, Concussion, Elbow fracture, left Condition: Stable Critical Care Time: No Referrals: MATIAS DWYER [Primary Care Provider] - Instructions: Contusion (DC), Preventing Falls Additional Instructions: CR orthopedic follow-up in the next 1 to 2 days for elbow reexam and possible splint placement.
[2021-02-17] MEDS ORDERED: Hydromorphone 1 mg/ml Injection ONE (21:46)
[2021-02-17] MEDS ORDERED: Zofran 4 MG/2 ML VIAL ONE (21:46)
[2021-02-17 21:50] LABS: Absolute Neutrophil Ct (ANC) 5.56 (1.4-6.9); BASOPHIL % 0.6 % (0.0-0.4); Basophil (Absolute #) 0.06 (0-0.4); Eosinophil % 2.5 % (0.00-5.0); Eosinophil (Absolute #) 0.23 (0-0.5); Hematocrit 35.3 % (42-50); Hemoglobin 11.6 gm/dl (12.5-18.0); Lymphocyte (Absolute #) 2.58 (1.0-4.6); Lymphocytes % 27.9 % (24.0-44.0); Mean Cell Volume 90.5 fl (78-100); Mean Corpuscular Hemoglobin 29.7 pg (26-32); Mean Corpuscular Hgb Concent. 32.9 g/dl (32-36); Mean Platelet Volume 9.8 fl (7.5-11.0); Monocyte (Absolute #) 0.83 (0.0-1.3); Platelet Count 194 K/mm3 (150-450); Red Cell Distribution Width 13.7 % (11.5-14.0); White Blood Count 9.3 K/mm3 (4.0-10.5)
[2021-02-17 22:01] LABS: ALBUMIN 3.9 g/dL (3.5-5.0); ALKALINE PHOSPHATASE 96 U/L (38-126); ANION GAP 14.7 MEQ/L (5-15); BLOOD UREA NITROGEN 25 mg/dL (9-20); CHLORIDE 107 mmol/L (98-107); Calcium 8.6 mg/dL (8.4-10.2); Carbon Dioxide 21 mmol/L (22-30); Creatinine 1 0.78 mg/dL (0.66-1.25); EST GLOMERULAR FILTRATION RATE > 60.0 ML/MIN; Glucose 170 mg/dL (74-106); Potassium 4.3 mmol/L (3.5-5.1); SGOT/AST 27 U/L (17-59); SGPT/ALT 22 U/L (0-50); SODIUM 138 mmol/L (137-145); Total Protein 6.6 g/dL (6.3-8.2)
[2021-02-17] MEDS ORDERED: XYLOCAINE 1%/Epi 1:100000 MDV 20 ML ONE (23:22)
[2021-02-18 01:15] VITALS: O2SAT 97
[2021-02-18 01:17] VITALS: BP 141/82; PULSE 74
--- NOTE | 2021-02-18 08:49 | XRAY ---
Indication: Pain following fall. Comparison: None 2 view left humerus demonstrates osteopenia, previous rotator cuff repair surgery, moderate acromioclavicular degenerative arthropathy, tiny distal acromial spur, and small medial epicondyle heterotopic ossification. No other bony, articular, or soft tissue abnormalities. Elbow reported separately. Comment: Preliminary interpretation made by C. No critical discrepancy.
--- NOTE | 2021-02-18 08:49 | XRAY ---
Indication: Pain following fall. Comparison: None 2 view left elbow demonstrates tiny nondisplaced fracture coronoid process. Elsewhere incidental osteopenia and small medial epicondyle heterotopic ossification. No other bony, articular, or soft tissue abnormalities. Humerus reported separately. Comment: Preliminary interpretation made by C. No critical discrepancy.
--- NOTE | 2021-02-18 08:51 | XRAY ---
Indication: Trauma following fall. Multiple contiguous axial images obtained through the head without contrast. Comparison: November 29, 2020. Grossly stable age-appropriate global atrophy and minimal periventricular degenerative micro-ischemia. No acute intracranial hemorrhage, abnormal extra-axial fluid collection, or mass effect. Fourth ventricle is midline without hydrocephalus. New moderate right frontal scalp hematoma. Bony calvarium intact. Moderate right maxillary and minimal left maxillary sinus mucosal thickening. Mastoid air cells are clear. Impression: 1. New right frontal scalp hematoma. No underlying fracture or acute intracranial abnormalities. 2. Continue normal aging brain and incidental paranasal sinus disease. Comment: Preliminary interpretation made by [facility]. No critical discrepancy.
--- NOTE | 2021-02-18 08:53 | XRAY ---
Indication: Trauma following fall. Multiple contiguous axial images obtained through the cervical spine. Sagittal and coronal reformatted images obtained. Comparison: March 02, 2020. Axial images again demonstrates normal variant for nonunited posterior arch of C1. No acute fracture, suspicious bony lesions, or spinal canal stenosis. There remains mild/moderate multilevel endplate spurring and multilevel bilateral degenerative facet hypertrophy. Sagittal and coronal reformatted images demonstrates normal alignment with stable C6-T1 degenerative disc space loss. No acute compression fracture, subluxation, or jumped facet. Normal appearing craniocervical junction. Visualized noncontrasted soft tissues again demonstrates moderate bilateral carotid calcifications and biapical subpleural cystic changes. Impression: 1. Continued negative acute fracture/subluxation. 2. Again incidental multilevel degenerative changes, nonunited posterior arch C1, and scattered carotid calcifications. Comment: Preliminary interpretation made by C. No critical discrepancy.
--- NOTE | 2021-02-18 08:57 | XRAY ---
Indication: Trauma following fall. Multiple contiguous axial images obtained through the chest using 80 cc Isovue 370 contrast. Comparison: September 26, 2019. Lungs are inflated again with minimal biapical subpleural cystic changes and tiny right upper lobe calcified granuloma. New minimal bilateral dependent atelectasis. No new pulmonary mass/nodule, infiltrate, or effusion. Heart is not enlarged. Aorta remains mildly arteriosclerotic without aneurysm/dissection. Stable tiny mediastinal calcified nodes. No pathologic mediastinal/hilar lymphadenopathy. Bony thorax again demonstrates osteopenia and moderate degenerative changes throughout the spine. CT abdomen/pelvis reported separately. Impression: 1. Stable minimal biapical subpleural cystic changes, chronic bony findings, and old granulomatous disease. 2. Remaining CT chest with contrast exam is negative. Comment: Preliminary interpretation made by [facility]. No critical discrepancy.
--- NOTE | 2021-02-18 09:01 | XRAY ---
Indication: Trauma following fall. Multiple contiguous axial images obtained through the abdomen and pelvis using 80 cc Isovue 370 contrast. Comparison: CT abdomen September 26, 2019. CT chest reported separately. Noncontrasted stomach and bowel loops appear nonobstructed. There is now mild diffuse scattered colonic fecal debris throughout. No free fluid/air. Urinary bladder moderately distended concerning for outlet obstruction versus neurogenic bladder. Again mild diffuse fatty liver and previous cholecystectomy. Remaining liver, pancreas, spleen, adrenal glands, kidneys, ureters, and bladder are unremarkable. There remains moderate scattered aortoiliac calcifications. No AAA or pathologic retroperitoneal lymphadenopathy. Osseous structures again demonstrates osteopenia, moderate degenerative changes throughout the thoracolumbar spine, and L5-S1 posterior fusion hardware. Incidental left total hip arthroplasty with intact bipolar prosthesis. Impression: 1. New diffuse fecal stasis. 2. Moderately distended urinary bladder. Rule out outlet obstruction versus neurogenic bladder. 3. Again fatty liver and chronic bony findings. Comment: Preliminary interpretation made by C. No critical discrepancy.
== END 2021-02-18 01:15 | disposition home or self-care (01) ==
LOC: ED 21:13
DX: S01.81XA Laceration without foreign body of other part of head, initial encounter (principal); S06.0X9A Concussion with loss of consciousness of unspecified duration, initial encounter; W18.30XA Fall on same level, unspecified, initial encounter; Y93.9 Activity, unspecified; S42.402A Unspecified fracture of lower end of left humerus, initial encounter for closed fracture; I73.9 Peripheral vascular disease, unspecified; M79.602 Pain in left arm; E11.9 Type 2 diabetes mellitus without complications; Z79.01 Long term (current) use of anticoagulants
CPT/HCPCS: 12014; 36000; 36415; 70450; 71260; 72125; 73060; 73070; 74177; 80053; 85025; 93005; 96374; 96375; 99285; J1170; J2405

== ENCOUNTER 2021-03-16 08:27 | Emergency (ER) | payer MEDICARE, OTHER ==
[2021-03-16 09:46] VITALS: BP 142/72
[2021-03-16 09:46] LABS: Absolute Neutrophil Ct (ANC) 8.07 (1.4-6.9); BASOPHIL % 0.5 % (0.0-0.4); Basophil (Absolute #) 0.06 (0-0.4); Eosinophil % 2.9 % (0.00-5.0); Eosinophil (Absolute #) 0.38 (0-0.5); Hematocrit 39.6 % (42-50); Hemoglobin 12.8 gm/dl (12.5-18.0); Lymphocyte (Absolute #) 3.19 (1.0-4.6); Lymphocytes % 24.6 % (24.0-44.0); Mean Cell Volume 89.8 fl (78-100); Mean Corpuscular Hgb Concent. 32.3 g/dl (32-36); Mean Platelet Volume 10.3 fl (7.5-11.0); Monocyte (Absolute #) 1.28 (0.0-1.3); Monocytes % 9.9 % (0.0-12.0); Neutrophil % 62.1 % (36.0-66.0); Platelet Count 231 K/mm3 (150-450); Red Blood Count 4.41 M/mm3 (4.1-5.6)
[2021-03-16 09:50] LABS: ALBUMIN 4.6 g/dL (3.5-5.0); ALKALINE PHOSPHATASE 126 U/L (38-126); ANION GAP 16.6 MEQ/L (5-15); BLOOD UREA NITROGEN 38 mg/dL (9-20); CHLORIDE 107 mmol/L (98-107); Calcium 9.5 mg/dL (8.4-10.2); Carbon Dioxide 19 mmol/L (22-30); Creatinine 1 0.97 mg/dL (0.66-1.25); EST GLOMERULAR FILTRATION RATE > 60.0 ML/MIN; Glucose 203 mg/dL (74-106); Potassium 3.9 mmol/L (3.5-5.1); SGOT/AST 29 U/L (17-59); SGPT/ALT 27 U/L (0-50); SODIUM 139 mmol/L (137-145); Total Protein 7.7 g/dL (6.3-8.2)
[2021-03-16 10:30] VITALS: PULSE 78; O2SAT 98
--- NOTE | 2021-03-16 18:06 | XRAY ---
Indication: Weakness and pain. Bilateral hand and feet numbness. Comparison: March 02, 2020. PA/lateral chest remains clear. Heart and mediastinal structures within normal limits. Bony thorax intact again with mild osteopenia, degenerative changes, and left shoulder surgery. Impression: Continued nonacute chest with chronic features.
--- NOTE | 2021-03-16 18:09 | XRAY ---
Indication: Weakness. Bilateral hand and feet numbness. Multiple contiguous axial images obtained through the head without contrast. Comparison: February 17, 2021. There remains grossly stable age-appropriate global atrophy and minimal periventricular degenerative micro-ischemia. No acute intracranial hemorrhage, abnormal extra-axial fluid collection, or mass effect. Fourth ventricle is midline without hydrocephalus. Bony calvarium intact. Again mild mucosal thickening both maxillary sinuses. Mastoid air cells are clear. Impression: Continued nonacute senile brain with incidental paranasal sinus disease. Comment: Preliminary interpretation made by [facility]. No critical discrepancy.
--- NOTE | 2021-03-20 10:06 | ER REPORT ---
HISTORY OF PRESENT ILLNESS: He was in the emergency room. They had called up and asked that I see him there and I met him there. I have known him for quite a few years. He said he could not walk or use his hands. He denied any fever, chills, exposure to COVID. He had COVID vaccines some time ago. He just feels tired. It started three weeks ago with feeling of tingling and burning in his feet and that he got so he was having trouble controlling them and has to use walking cane often. Now the last two days his hands are shaking and trembling. He has a hard time picking up a fork and eating. He denies any real pain in his neck, chest or abdomen. He never had any spells like this. No trauma. Vital signs are all normal. He had CT of the head which was normal. The CBC and CMP was normal. On neurological exam his contact center representative was about equal about half of what it used to be, I believe. His reflexes are slightly decreased. He is only able to get off of the cart in the emergency room with great difficulty but he could walk out of the hospital. We discussed possibly Guillain-[place] Syndrome and will try to get him in to see a neurologist. It is Thursday morning right now and it would be impossible right now. Appointment in April was the earliest they could get one. I would probably try [facility] on Thursday. He is stable now. I told him if he became short of breath get an ambulance and return to the emergency room. 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
== END 2021-03-16 10:31 | disposition home or self-care (01) ==
LOC: ED 08:27
DX: M50.00 Cervical disc disorder with myelopathy, unspecified cervical region (principal); R26.2 Difficulty in walking, not elsewhere classified; G83.9 Paralytic syndrome, unspecified
CPT/HCPCS: 36415; 70460; 71046; 80053; 85025; 99284

== ENCOUNTER 2021-05-24 16:02 | Emergency (ER) | payer MEDICARE, OTHER ==
[2021-05-24 16:21] VITALS: BP 99/64; PULSE 89; O2SAT 98
--- NOTE | 2021-05-24 16:53 | ERPHSYRPT ---
- History of Present Illness Time Seen by Provider: 05/24/21 16:49 Source: patient Exam Limitations: no limitations Patient Subjective Stated Complaint: Pt had his right hip replaced last week by Dr. Don and today he fell injuring the hip and his right knee Triage Nursing Assessment: Pt brought to the ER by his son, hypotensive, rates pain as 9/10, right knee swollen with yellow bruising, right leg edema, severe pain when attempting to stand, pulses normal, denies hitting head or LOC, denies any other issues Physician History: Patient is a 75-year-old male who had a right hip replacement 1 week ago. He fell at home and presents with a complaint of pain primarily in the right hip and in the right knee. He denies other injury. Method of Injury: fell Occurred: just prior to arrival Quality: aching Severity of Pain-Max: moderate Severity of Pain-Current: moderate Lower Extremities Pain: hip: right, knee: right Modifying Factors: Improves With: movement Associated Symptoms: unable to bear weight Allergies/Adverse Reactions: pregabalin [From Lyrica] Allergy (Severe, Verified 05/24/21 16:21) Difficulty Breathing Home Medications: Omeprazole 20 MG [Prilosec 20 mg] 20 mg PO HS 01/11/15 [History] Pramipexole Di-HCl [Mirapex] 1 tab PO HS 01/11/15 [History] Tamsulosin HCl 0.4 mg [Flomax 0.4 MG] 0.4 mg PO HS 10/27/16 [History] Gemfibrozil 600 mg [Lopid 600 mg] 600 mg PO BID 01/24/17 [History] Aspirin EC 81 mg [Ecotrin 81 mg] 81 mg PO DAILY 02/17/21 [History] Diltiazem HCl [Dilt-Xr] 120 mg PO DAILY 02/17/21 [History] Duloxetine HCl 60 mg PO DAILY 02/17/21 [History] Glimepiride 2 mg [Amaryl 2 MG] 2 mg PO DAILY 02/17/21 [History] Metformin HCl [Metformin ER Osmotic] 1,000 mg PO BID 02/17/21 [History] Methocarbamol 500 mg [Robaxin 500 MG] 500 mg PO QID PRN 02/17/21 [History] Tolterodine Tartrate [Tolterodine Tartrate ER] 4 mg PO DAILY 02/17/21 [History] Hx Tetanus, Diphtheria Vaccination/Date Given: Yes Hx Influenza Vaccination/Date Given: No Hx Pneumococcal Vaccination/Date Given: No Travel Risk - International Travel Have you traveled outside of the country in past 3 weeks: No - Coronavirus Screening Are you exhibiting any of the following symptoms?: No Close contact with a COVID-19 positive Pt in past 14-21 Days: No - Vaccine Status Have you recieved a Covid-19 vaccination: Yes [employer]: Moderna - Vaccination Dates Date of 2cond Vaccination (if applicable): UNKNOWN Comment: Patient states he has had both shots of Moderna and is waiting to get booster but doesn't remember dates. - Past Medical History Pertinent Past Medical History: Yes Neurological History: Other ENT History: Cataracts Cardiac History: Arrhythmia, Hypertension Respiratory History: COPD Endocrine Medical History: Diabetes Type II Musculoskeletal History: Other GI Medical History: No Pertinent History History: No Pertinent History Psycho-Social History: No Pertinent History Male Reproductive Disorders: Prostate Cancer Other Medical History: HX CARDIAC ABLATION; R EDWAR - Past Surgical History Past Surgical History: Yes Neuro Surgical History: No Pertinent History Cardiac: Cardiac Catheterization, Other Respiratory: No Pertinent History Gastrointestinal: No Pertinent History Genitourinary: No Pertinent History Musculoskeletal: Other Male Surgical History: No Pertinent History Other Surgical History: july states back surgery with cyst removal and spur shaved,heart caths and cardiac ablation 15-20yrs ago,BACK SURG 08/03, back surgery 2013, 09/29/16,09/30/16,10/01/16 back surgery r/t infection in surgical site. bilar rcr - Social History Smoking Status: Current every day smoker How long have you smoked: 55 Exposure to second hand smoke: Yes Alcohol Use: None Drug Use: none Patient Lives Alone: No Significant Family History: no pertinent family hx - Nursing Vital Signs Nursing Vital Signs: Initial Vital Signs Temperature 97.1 F 05/24/21 16:11 Pulse Rate 89 05/24/21 16:11 Blood Pressure 99/64 05/24/21 16:11 O2 Sat by Pulse Oximetry 98 05/24/21 16:11 Pain Scale Pain Intensity 9 - Physical Exam General Appearance: alert Eyes, Ears, Nose, Throat Exam: moist mucous membranes Neck Exam: non-tender, supple Cardiovascular/Respiratory Exam: chest non-tender, normal breath sounds, regular rate/rhythm, no respiratory distress Gastrointestinal/Abdominal Exam: non-tender, guarding Back Exam: normal inspection, No vertebral tenderness Hips Exam: right: bone tenderness, limited range of motion, pain Knees Exam: right knee: bone tenderness, pain, swelling Ankle Exam: right ankle: non-tender, normal inspection, normal range of motion, no evidence of injury Foot Exam: right foot: non-tender, normal inspection, normal range of motion, no evidence of injury Neuro/Tendon Exam: normal sensation, normal motor functions Mental Status Exam: alert, oriented x 3, cooperative Skin Exam: normal color, warm, dry SpO2: 98 - Course Nursing assessment & vital signs reviewed: Yes - Radiology Exams Other X-ray Interpretation: Interpreted by me (X-rays of the patient's pelvis hip femur and knee on the right demonstrate no obvious fracture or dislocation.) Ordered Tests: Active Orders 24 hr Category Date Time Status FEMUR Stat Exams 05/24/21 17:10 Taken HIP UNI (2V) INCL PEL IF DONE Stat Exams 05/24/21 17:10 Taken KNEE (1 OR 2 VIEW) Stat Exams 05/24/21 17:10 Taken - Progress Progress: unchanged, pain not gone completely - Departure Departure Disposition: Home Clinical Impression: Contusion of right hip, Contusion of right knee Condition: Stable Critical Care Time: No Referrals: MATIAS DWYER [Primary Care Provider] - Follow up/PCP as directed Additional Instructions: Patient sees his orthopedic surgeon on Thursday morning we will supplement his pain medicine until then. Prescriptions: Oxycodone HCl/Acetaminophen [Percocet 7.5-325 mg Tablet] 1 each PO Q6H 3 Days #12 tablet MDD 4
--- NOTE | 2021-05-24 18:12 | XRAY ---
Indication: Pain following fall. Status post hip surgery one week. Comparison: None 2 view right femur demonstrates osteopenia, total hip arthroplasty with intact bipolar prosthesis/acetabular screws, lateral hip drainage tubing with cutaneous yasmany, minimal tricompartmental knee degenerative changes, and mild scattered vascular calcifications. No other bony, articular, or soft tissue abnormalities.
--- NOTE | 2021-05-24 18:12 | XRAY ---
Indication: Pain following fall. Status post hip surgery one week. Comparison: None 2 view right knee demonstrates osteopenia, minimal tricompartmental knee degenerative changes, and mild scattered vascular calcifications. No other bony, articular, or soft tissue abnormalities.
--- NOTE | 2021-05-24 18:15 | XRAY ---
Indication: Pain following fall. Status post hip surgery one week. Comparison: None AP pelvis and 2 view right hip demonstrates osteopenia, bilateral total hip arthroplasty with intact bipolar prosthesis/acetabular screws, moderate lower lumbar degenerative spondylosis, lumbosacral junction fusion hardware, and right lateral drainage tubing with cutaneous yasmany. No other bony, articular, or soft tissue abnormalities.
== END 2021-05-24 18:11 | disposition home or self-care (01) ==
LOC: ED 16:02
DX: S70.01XA Contusion of right hip, initial encounter (principal); S80.01XA Contusion of right knee, initial encounter; W19.XXXA Unspecified fall, initial encounter; Y92.009 Unspecified place in unspecified non-institutional (private) residence as the place of occurrence of the external cause; Z96.641 Presence of right artificial hip joint; I10 Essential (primary) hypertension; E11.9 Type 2 diabetes mellitus without complications; Z79.84 Long term (current) use of oral hypoglycemic drugs; J44.9 Chronic obstructive pulmonary disease, unspecified; Z72.0 Tobacco use; Z79.899 Other long term (current) drug therapy; Z79.891 Long term (current) use of opiate analgesic
CPT/HCPCS: 73502; 73552; 73560; 99283

== ENCOUNTER 2021-11-04 03:46 | Inpatient (IN) | payer MEDICARE, OTHER ==
[2021-11-04] MEDS ORDERED: Zithromax 500 MG/ 250 ML NaCl Premix 500 MG/250 ML IVPB IV STA (04:00)
[2021-11-04] MEDS ORDERED: DUONEB 0.5-3 MG/3 ml Neb IH ONE ×2 (04:00→04:18)
[2021-11-04] MEDS ORDERED: PIPERACILLIN/TAZOBACTAM 3.375 GM in Sodium Chloride 100ML MINI-BAG PLUS 100 ML IV ONE (04:01)
[2021-11-04] MEDS ORDERED: Sodium Chloride 0.9% 500 ML 500 ML IV ONE ×3 (04:02→06:40)
[2021-11-04] MEDS ORDERED: PIPERACILLIN/TAZOBACTAM IV ONE (04:09)
[2021-11-04] MEDS ORDERED: Sodium Chloride 100ML MINI-BAG PLUS 100 ML IV ONE (04:10)
[2021-11-04] MEDS ORDERED: FEVERALL 650 MG PR STA (04:12)
[2021-11-04] MEDS ORDERED: Sodium Chloride 0.9% 1000 ML 1,000 ML IV STA (04:12)
[2021-11-04 04:14] LABS: A-aADO2 70; ABG HEMOGLOBIN 12.7; ABG POTASSIUM 3.3 (3.5-5.1); ABG SITE LEFT RADIAL; ALLEN TEST OK? YES; ARTERIAL BLD GAS O2 SATURATION 96.6 % (95-100); ARTERIAL BLOOD GAS BASE EXCESS 1.6 (-2.0-2.0); ARTERIAL BLOOD GAS FIO2 28 %; ARTERIAL BLOOD GAS PCO2 33 mmHg (35-45); ARTERIAL BLOOD GAS PO2 88 mmHg (75-100); ARTERIAL BLOOD GAS pH 7.48 (7.35-7.45); CARBOXYHEMOGLOBIN 0.1 % THgb (0.0-6.9); HCO3- 24.6 (22-28); HGB O2 SAT 96.1 g/dF (94-100); Methhemoglobin 0.3 % (1.4-1.5)
[2021-11-04] MEDS ORDERED: Sodium Chloride 0.9% 1000 ML 1,000 ML ONE (04:19)
[2021-11-04] MEDS ORDERED: FEVERALL 650 MG ONE (04:29)
[2021-11-04 04:30] LABS: Absolute Neutrophil Ct (ANC) 5.41 x10^3/uL (1.4-6.9); Basophil (Absolute #) 0.04 x10^3/uL (0-0.4); Eosinophil % 1.4 % (0.00-5.0); Hematocrit 37.2 % (42-50); Hemoglobin 11.9 g/dL (12.5-18.0); Lymphocyte (Absolute #) 0.73 x10^3/uL (1.0-4.6); Lymphocytes % 10.4 % (24.0-44.0); Mean Cell Volume 80.3 fL (78-100); Mean Corpuscular Hemoglobin 25.7 pg (26-32); Mean Platelet Volume 9.9 fL (7.5-11.0); Monocyte (Absolute #) 0.69 x10^3/uL (0.0-1.3); Monocytes % 9.9 % (0.0-12.0); Neutrophil % 77.4 % (36.0-66.0); Platelet Count 186 x10^3/uL (150-450); Red Blood Count 4.63 x10^6/uL (4.1-5.6); Red Cell Distribution Width 17.4 % (11.5-14.0)
[2021-11-04] MEDS ORDERED: Zithromax 500 MG/ 250 ML NaCl Premix 500 MG/250 ML IVPB IV ONE (04:43)
[2021-11-04 04:51] LABS: ALBUMIN 3.6 g/dL (3.5-5.0); ALKALINE PHOSPHATASE 75 U/L (38-126); ANION GAP 12.2 MEQ/L (5-15); BLOOD UREA NITROGEN 20 mg/dL (9-20); CHLORIDE 102 mmol/L (98-107); Calcium 8.4 mg/dL (8.4-10.2); Carbon Dioxide 22 mmol/L (22-30); Creatinine 1 1.03 mg/dL (0.66-1.25); EST GLOMERULAR FILTRATION RATE > 60.0 ML/MIN; Glucose 108 mg/dL (74-106); MAGNESIUM 1.4 mg/dL (1.6-2.3); NT PRO BNP 2050 pg/mL (0-1800); Potassium 3.7 mmol/L (3.5-5.1); SGOT/AST 45 U/L (17-59); SGPT/ALT 18 U/L (0-50); SODIUM 132 mmol/L (137-145); Total Protein 6.9 g/dL (6.3-8.2)
[2021-11-04 05:06] LABS: INFLUENZA A NEGATIVE (NEGATIVE); INFLUENZA B NEGATIVE (NEGATIVE); RESPIRATORY SYNCTIAL VIRUS NEGATIVE (Negative)
[2021-11-04 05:27] LABS: SARS-CoV-2 Xpert Express POSITIVE (NEGATIVE)
[2021-11-04] MEDS ORDERED: REMDESIVIR 200 MG in Sodium Chloride 0.9% 250 ML 250 ML IV ONE (05:32)
[2021-11-04] MEDS ORDERED: Magnesium 1 Gm / 100 Ml D5W*** 200 ML IV ONE (06:00)
[2021-11-04] MEDS: Magnesium 1 Gm / 100 Ml D5W*** 100 ML IV SCH ×2 (06:05→06:37)
--- NOTE | 2021-11-04 06:44 | ERPHSYRPT ---
- History of Present Illness Time Seen by Provider: 11/04/21 03:55 Source: patient, EMS Exam Limitations: clinical condition Patient Subjective Stated Complaint: per ems, pt has been awake for last 3 days, unable to sleep. has been feeling unwell and short of breath for last 4 days. increasingly short of breath tonight Triage Nursing Assessment: pt very drowsy, wakes to name. answers questions approp, falls back asleep very quickly. respirations irregular. lung sounds diminished. skin clammy, pale. heart rate irregular, afib on monitor. Physician History: 76-year-old male with history of hypertension, hyperlipidemia, atrial fibrillation, diabetes mellitus presented to the ER via EMS with 4-day history of progressively increasing cough and shortness of breath along with fever and chills. Patient has a fever of 101 on presentation to the ER. He has received DuoNeb and Solu-Medrol in route to ER. Patient per report is not able to sleep well for the last 3 days and currently feeling sleepy, arousable to verbal commands and answers questions appropriately and falls back asleep. Denies any chest pain but shortness of breath. No nausea or vomiting reported. Patient is maintaining oxygen saturation around mid 90s and little tachypneic, placed on 2 L for comfort. Patient is in A. fib rate in low 100s Timing/Duration: day(s) (4), gradual onset, worse Activities at Onset: rest Severity of Dyspnea-Max: moderate Severity of Dyspnea-Current: moderate Possible Cause: unknown cause Modifying Factors: Improves With: exertion. Worsens With: coughing Associated Symptoms: cough, fever, chills, heaviness, productive cough, tightnes s Allergies/Adverse Reactions: pregabalin [From Lyrica] Allergy (Severe, Verified 11/04/21 04:31) Difficulty Breathing Home Medications: Omeprazole 20 MG [Prilosec 20 mg] 20 mg PO HS 01/11/15 [History] Pramipexole Di-HCl [Mirapex] 1 tab PO HS 01/11/15 [History] Gemfibrozil [Lopid] 600 mg PO BID 01/24/17 [History] Aspirin EC 81 mg [Ecotrin 81 mg] 81 mg PO HS 02/17/21 [History] Duloxetine HCl 60 mg PO HS 02/17/21 [History] Glimepiride 2 mg [Amaryl 2 MG] 2 mg PO HS 02/17/21 [History] Metformin HCl [Metformin ER Osmotic] 1,000 mg PO BID 02/17/21 [History] dilTIAZem HCL [Diltiazem 24Hr ER (Xr)] 120 mg PO HS 11/04/21 [History] Hx Tetanus, Diphtheria Vaccination/Date Given: Yes Hx Influenza Vaccination/Date Given: No Hx Pneumococcal Vaccination/Date Given: No Immunizations Up to Date: Yes Travel Risk - International Travel Have you traveled outside of the country in past 3 weeks: No - Coronavirus Screening Are you exhibiting any of the following symptoms?: Yes Symptoms: Fever, Cough: New Onset, Shortness of Breath Close contact with a COVID-19 positive Pt in past 14-21 Days: No - Vaccine Status Have you recieved a Covid-19 vaccination: Yes Physical Education Specialist: Moderna - Vaccination Dates Date of 2cond Vaccination (if applicable): UNKNOWN - Review of Systems Constitutional: No Symptoms All Other Systems: Unable due to condition - Past Medical History Pertinent Past Medical History: Yes Neurological History: Other ENT History: Cataracts Cardiac History: Arrhythmia, Hypertension Respiratory History: COPD Endocrine Medical History: Diabetes Type II Musculoskeletal History: Other GI Medical History: No Pertinent History History: No Pertinent History Psycho-Social History: No Pertinent History Male Reproductive Disorders: Prostate Cancer Other Medical History: HX CARDIAC ABLATION; R EDWAR - Past Surgical History Past Surgical History: Yes Neuro Surgical History: No Pertinent History Cardiac: Cardiac Catheterization, Other Respiratory: No Pertinent History Gastrointestinal: No Pertinent History Genitourinary: No Pertinent History Musculoskeletal: Other Male Surgical History: No Pertinent History Other Surgical History: july states back surgery with cyst removal and spur shaved,heart caths and cardiac ablation 15-20yrs ago,BACK SURG 08/03, back surgery 2013, 09/29/16,09/30/16,10/01/16 back surgery r/t infection in surgical site. bilar rcr - Social History Smoking Status: Current every day smoker How long have you smoked: 55 Exposure to second hand smoke: Yes Alcohol Use: None Drug Use: none Patient Lives Alone: No Significant Family History: no pertinent family hx - Nursing Vital Signs Nursing Vital Signs: Initial Vital Signs Temperature 101.9 F 11/04/21 03:48 Pulse Rate 109 H 11/04/21 03:48 Respiratory Rate 20 11/04/21 03:48 Blood Pressure 85/59 11/04/21 03:48 O2 Sat by Pulse Oximetry 95 11/04/21 03:48 Pain Scale Pain Intensity 0 - Physical Exam General Appearance: mild distress Eye Exam: PERRL/EOMI, eyes nml inspection Ears, Nose, Throat Exam: hearing grossly normal, pharyngeal erythema Neck Exam: normal inspection, supple, full range of motion Respiratory Exam: diminished breath sounds, crackles/rales, rhonchi, wheezing Cardiovascular/Chest Exam: normal heart sounds, tachycardia, irregular Abdominal/Gastrointestinal Exam: soft, No tenderness Extremity Exam: non-tender, normal range of motion Neurologic Exam: alert, oriented x 3, cooperative Skin Exam: normal color SpO2 Interpretation: normal SpO2: 95 O2 Delivery: Room Air - Course EKG Interpreted by Me: RATE (101), A-fib, NORMAL INTERVALS, Right Bundle Branch Block, Non-specific ST Changes Ordered Tests: Medication Summary Discontinued Medications Generic Name Dose Route Start Last Admin Trade Name Juanita PRN Reason Stop Dose Admin Acetaminophen 975 mg 11/04/21 04:12 11/04/21 04:29 Acetaminophen 650 Mg Supp.Rect IN 11/04/21 04:13 975 mg STAT STA Administration Acetaminophen Confirm 11/04/21 04:29 Acetaminophen 650 Mg Supp.Rect Administered 11/04/21 04:30 Dose 1,300 mg .ROUTE .STK-MED ONE Albuterol/Ipratropium 3 ml 11/04/21 04:00 11/04/21 04:24 Ipratropium/Albuterol Sulfate 3 Ml Ampul.Neb IH 11/04/21 04:01 3 ml STAT ONE Administration Albuterol/Ipratropium Confirm 11/04/21 04:18 Ipratropium/Albuterol Sulfate 3 Ml Ampul.Neb Administered 11/04/21 04:19 Dose 3 ml IH .STK-MED ONE Albuterol/Ipratropium 3 ml 11/04/21 09:32 11/04/21 11:53 Ipratropium/Albuterol Sulfate 3 Ml Ampul.Neb IH 12/04/21 09:31 3 ml Q4HRT MELITA Administration Albuterol/Ipratropium 3 ml 11/05/21 10:00 11/06/21 07:25 Ipratropium/Albuterol Sulfate 3 Ml Ampul.Neb IH 12/05/21 09:59 3 ml DAILY MELITA Administration Albuterol/Ipratropium Confirm 11/05/21 06:50 Ipratropium/Albuterol Sulfate 3 Ml Ampul.Neb Administered 11/05/21 06:51 Dose 3 ml IH .STK-MED ONE Dexamethasone Sodium Phosphate 6 mg 11/04/21 12:00 11/06/21 08:22 Dexamethasone Sod Phosphate 10 Mg/Ml IV 12/04/21 11:59 6 mg DAILY MELITA Administration Diltiazem HCl 120 mg 11/04/21 22:00 11/05/21 21:34 Diltiazem Hcl Cd 120 Mg Cap.Sr.24h PO 12/04/21 21:59 120 mg HS MELITA Administration Duloxetine HCl 60 mg 11/04/21 15:00 11/04/21 15:36 Duloxetine Hcl 30 Mg Cap PO 12/04/21 14:59 Not Given DAILY MELITA Duloxetine HCl 60 mg 11/04/21 22:00 11/05/21 21:35 Duloxetine Hcl 30 Mg Cap PO 12/04/21 21:59 60 mg HS MELITA Administration Enoxaparin Sodium 40 mg 11/04/21 10:00 11/06/21 08:21 Enoxaparin Sodium 40 Mg/0.4 Ml Syringe SQ 12/04/21 09:59 40 mg DAILY MELITA Administration Gemfibrozil 600 mg 11/04/21 22:00 11/06/21 08:22 Gemfibrozil 600 Mg Tablet PO 12/04/21 21:59 600 mg BID MELITA Administration Glimepiride 2 mg 11/04/21 22:00 11/05/21 21:35 Glimepiride 2 Mg Tablet PO 12/04/21 21:59 2 mg HS MELITA Administration Azithromycin 500 mg in 250 mls @ 250 mls/hr 11/04/21 04:00 11/04/21 06:12 Zithromax 500 Mg/ 250 Ml Nacl Premix IV 11/04/21 04:59 Infused STAT STA Infusion Piperacillin Sod/Tazobactam 100 mls @ 200 mls/hr 11/04/21 04:01 11/04/21 04:13 Sod 3.375 gm/ Sodium Chloride IV 11/04/21 04:30 200 mls/hr STAT ONE Administration Sodium Chloride 500 mls @ 500 mls/hr 11/04/21 04:02 11/04/21 04:12 Sodium Chloride 0.9% 500 Ml IV 11/04/21 05:01 Not Given .Q1H ONE Sodium Chloride Confirm 11/04/21 04:10 Sodium Chloride 100ml Mini-Bag Plus Administered 11/04/21 04:11 Dose 100 mls @ ud IV .STK-MED ONE Sodium Chloride Confirm 11/04/21 04:10 Sodium Chloride 0.9% 500 Ml Administered 11/04/21 04:11 Dose 500 mls @ ud IV .STK-MED ONE Sodium Chloride 1,000 mls @ 999 mls/hr 11/04/21 04:12 11/04/21 06:13 Sodium Chloride 0.9% 1000 Ml IV 11/04/21 05:12 Infused .Q1H1M STA Infusion Sodium Chloride Confirm 11/04/21 04:19 Sodium Chloride 0.9% 1000 Ml Administered 11/04/21 04:20 Dose 1,000 mls @ ud .ROUTE .STK-MED ONE Azithromycin Confirm 11/04/21 04:43 Zithromax 500 Mg/ 250 Ml Nacl Premix Administered 11/04/21 04:44 Dose 500 mg in 250 mls @ ud IV .STK-MED ONE Remdesivir 200 mg/ Sodium 250 mls @ 125 mls/hr 11/04/21 05:32 11/04/21 06:05 Chloride IV 11/04/21 07:31 125 mls/hr ONCE ONE Administration Magnesium Sulfate/Dextrose 100 mls @ 100 mls/hr 11/04/21 05:45 11/04/21 06:37 Magnesium 1 Gm / 100 Ml D5w IV 11/04/21 07:44 100 mls/hr Q1H MELITA Administration Sodium Chloride 500 mls @ 500 mls/hr 11/04/21 06:40 11/04/21 06:41 Sodium Chloride 0.9% 500 Ml IV 11/04/21 07:39 500 mls/hr .Q1H ONE Administration Magnesium Sulfate/Dextrose Confirm 11/04/21 06:00 Magnesium 1 Gm / 100 Ml D5w Administered 11/04/21 06:01 Dose 200 mls @ ud IV .STK-MED ONE Azithromycin 500 mg in 250 mls @ 250 mls/hr 11/04/21 22:00 11/04/21 22:14 Zithromax 500 Mg/ 250 Ml Nacl Premix IV 12/04/21 21:59 250 mls/hr HS MELITA Administration Piperacillin Sod/Tazobactam 100 mls @ 200 mls/hr 11/04/21 12:00 11/05/21 05:54 Sod 3.375 gm/ Sodium Chloride IV 11/07/21 11:59 200 mls/hr Q6HT MELITA Administration Remdesivir 100 mg/ Sodium 100 mls @ 100 mls/hr 11/05/21 10:00 11/06/21 08:21 Chloride IV 11/08/21 10:59 100 mls/hr DAILY MELITA Administration Insulin Human Lispro 0 unit 11/04/21 09:32 11/05/21 21:34 Insulin Lispro 1 Unit SQ 12/04/21 09:31 6 unit UD PRN Administration HYPERGLYCEMIA Lorazepam 0.5 mg 11/04/21 15:52 11/05/21 21:34 Lorazepam 0.5 Mg Tablet PO 12/04/21 15:51 0.5 mg TID PRN PRN Administration ANXIETY Metformin HCl 1,000 mg 11/04/21 17:00 11/06/21 08:21 Metformin Hcl Er 500 Mg Tab PO 12/04/21 16:59 1,000 mg BIDWM MELITA Administration Pantoprazole Sodium 40 mg 11/04/21 10:00 11/04/21 12:06 Pantoprazole 40 Mg Vial IV 12/04/21 09:59 40 mg Q24H10 MELITA Administration Pantoprazole Sodium 40 mg 11/04/21 22:00 11/05/21 21:35 Protonix (Pantoprazole) 40 Mg Tablet PO 12/04/21 21:59 40 mg HS MELITA Administration Piperacillin Sod/Tazobactam Sod Confirm 11/04/21 04:09 Piperacillin/Tazobactam Sodium 3.375 Gm Vial Administered 11/04/21 04:10 Dose 3.375 gm IV .STK-MED ONE Pramipexole Dihydrochloride 1 mg 11/04/21 22:00 11/05/21 21:35 Pramipexole Di-Hcl 0.5 Mg Tab PO 12/04/21 21:59 1 mg HS MELITA Administration Lab/Rad Data: Laboratory Result Diagrams 11/04/21 04:20 11/04/21 04:20 Laboratory Results 11/04/21 11/04/21 11/04/21 Range/Units 07:49 07:20 06:17 WBC (4.0-10.5) x10^3/uL RBC (4.1-5.6) x10^6/uL Hgb (12.5-18.0) g/dL Hct (42-50) % MCV (78-100) fL MCH (26-32) pg MCHC (32-36) g/dL RDW (11.5-14.0) % Plt Count (150-450) x10^3/uL MPV (7.5-11.0) fL Gran % (36.0-66.0) % Immature Gran % (Auto) (0.00-0.4) % Nucleat RBC Rel Count (0.00-0.1) % Eos # (Auto) (0-0.5) x10^3/uL Immature Gran # (Auto) (0.00-0.03) x10^3u/L Absolute Lymphs (auto) (1.0-4.6) x10^3/uL Absolute Monos (auto) (0.0-1.3) x10^3/uL Absolute Nucleated RBC (0.00-0.01) x10^3u/L Lymphocytes % (24.0-44.0) % Monocytes % (0.0-12.0) % Eosinophils % (0.00-5.0) % Basophils % (0.0-0.4) % Absolute Granulocytes (1.4-6.9) x10^3/uL Basophils # (0-0.4) x10^3/uL D-Dimer 0.81 H* (0.0-0.50) mg/L Puncture Site pCO2 (35-45) mmHg pO2 (75-100) mmHg Base Excess (-2.0-2.0) O2 Saturation (94-100) g/dF ABG pH (7.35-7.45) ABG HCO3 (22-28) ABG O2 Sat (Measured) (95-100) % Greg Test A-a Gradient a/A Ratio Hemoglobin Carboxyhemoglobin (0.0-6.9) % THgb Methemoglobin (1.4-1.5) % Potassium (3.5-5.1) Temperature C POC O2 Flow Rate % Sodium (137-145) mmol/L Chloride (98-107) mmol/L Carbon Dioxide (22-30) mmol/L Anion Gap (5-15) MEQ/L BUN (9-20) mg/dL Creatinine (0.66-1.25) mg/dL Estimated GFR ML/MIN Glucose (74-106) mg/dL Lactic Acid (0.4-2.0) Calcium (8.4-10.2) mg/dL Magnesium (1.6-2.3) mg/dL Total Bilirubin (0.2-1.3) mg/dL AST (17-59) U/L ALT (0-50) U/L Alkaline Phosphatase (38-126) U/L Troponin I 0.043 H* (0.000-0.034) ng/mL NT-Pro-B Natriuret Pep (0-1800) pg/mL Serum Total Protein (6.3-8.2) g/dL Albumin (3.5-5.0) g/dL Procalcitonin (0.030-0.080) ng/mL Urinalys Dipstick Clnc MAIN LAB Urine Color YELLOW (YELLOW) Urine Appearance CLEAR (CLEAR) Urine pH 5.5 (5-6) Ur Specific Mcclure 1.015 (1.005-1.025) POC Urine Protein Conf TRACE (Negative) Urine Ketones NEGATIVE (NEGATIVE) Urine Nitrite NEGATIVE (NEGATIVE) Urine Bilirubin NEGATIVE (NEGATIVE) Urine Urobilinogen 0.2 (0-1) mg/dL Urine Leukocytes NEGATIVE (NEGATIVE) Urine WBC (Auto) NONE (0-5) /HPF Urine RBC (Auto) NONE (0-2) /HPF U Epithel Cells (Auto) NONE (FEW) /HPF Urine Bacteria (Auto) NONE (NEGATIVE) /HPF Urine RBC NEGATIVE (0-5) Yair/ul Ur Culture Indicated? NO Urine Glucose NEGATIVE (NEGATIVE) mg/dL Influenza Type A Ag (NEGATIVE) Influenza Type B Ag (NEGATIVE) RSV (PCR) (Negative) SARS-CoV-2 (PCR) (NEGATIVE) 11/04/21 11/04/21 11/04/21 Range/Units 04:25 04:20 04:20 WBC (4.0-10.5) x10^3/uL RBC (4.1-5.6) x10^6/uL Hgb (12.5-18.0) g/dL Hct (42-50) % MCV (78-100) fL MCH (26-32) pg MCHC (32-36) g/dL RDW (11.5-14.0) % Plt Count (150-450) x10^3/uL MPV (7.5-11.0) fL Gran % (36.0-66.0) % Immature Gran % (Auto) (0.00-0.4) % Nucleat RBC Rel Count (0.00-0.1) % Eos # (Auto) (0-0.5) x10^3/uL Immature Gran # (Auto) (0.00-0.03) x10^3u/L Absolute Lymphs (auto) (1.0-4.6) x10^3/uL Absolute Monos (auto) (0.0-1.3) x10^3/uL Absolute Nucleated RBC (0.00-0.01) x10^3u/L Lymphocytes % (24.0-44.0) % Monocytes % (0.0-12.0) % Eosinophils % (0.00-5.0) % Basophils % (0.0-0.4) % Absolute Granulocytes (1.4-6.9) x10^3/uL Basophils # (0-0.4) x10^3/uL D-Dimer (0.0-0.50) mg/L Puncture Site pCO2 (35-45) mmHg pO2 (75-100) mmHg Base Excess (-2.0-2.0) O2 Saturation (94-100) g/dF ABG pH (7.35-7.45) ABG HCO3 (22-28) ABG O2 Sat (Measured) (95-100) % Greg Test A-a Gradient a/A Ratio Hemoglobin Carboxyhemoglobin (0.0-6.9) % THgb Methemoglobin (1.4-1.5) % Potassium 3.7 (3.5-5.1) Temperature C POC O2 Flow Rate % Sodium 132 L (137-145) mmol/L Chloride 102 (98-107) mmol/L Carbon Dioxide 22 (22-30) mmol/L Anion Gap 12.2 (5-15) MEQ/L BUN 20 (9-20) mg/dL Creatinine 1.03 (0.66-1.25) mg/dL Estimated GFR > 60.0 ML/MIN Glucose 108 H (74-106) mg/dL Lactic Acid (0.4-2.0) Calcium 8.4 (8.4-10.2) mg/dL Magnesium 1.4 L (1.6-2.3) mg/dL Total Bilirubin 0.70 (0.2-1.3) mg/dL AST 45 (17-59) U/L ALT 18 (0-50) U/L Alkaline Phosphatase 75 (38-126) U/L Troponin I (0.000-0.034) ng/mL NT-Pro-B Natriuret Pep 2050 H (0-1800) pg/mL Serum Total Protein 6.9 (6.3-8.2) g/dL Albumin 3.6 (3.5-5.0) g/dL Procalcitonin 0.145 H (0.030-0.080) ng/mL Urinalys Dipstick Clnc Urine Color (YELLOW) Urine Appearance (CLEAR) Urine pH (5-6) Ur Specific Mcclure (1.005-1.025) POC Urine Protein Conf (Negative) Urine Ketones (NEGATIVE) Urine Nitrite (NEGATIVE) Urine Bilirubin (NEGATIVE) Urine Urobilinogen (0-1) mg/dL Urine Leukocytes (NEGATIVE) Urine WBC (Auto) (0-5) /HPF Urine RBC (Auto) (0-2) /HPF U Epithel Cells (Auto) (FEW) /HPF Urine Bacteria (Auto) (NEGATIVE) /HPF Urine RBC (0-5) Yair/ul Ur Culture Indicated? Urine Glucose (NEGATIVE) mg/dL Influenza Type A Ag NEGATIVE (NEGATIVE) Influenza Type B Ag NEGATIVE (NEGATIVE) RSV (PCR) NEGATIVE (Negative) SARS-CoV-2 (PCR) POSITIVE A (NEGATIVE) 11/04/21 11/04/21 11/04/21 Range/Units 04:20 04:20 04:02 WBC 7.0 (4.0-10.5) x10^3/uL RBC 4.63 (4.1-5.6) x10^6/uL Hgb 11.9 L (12.5-18.0) g/dL Hct 37.2 L (42-50) % MCV 80.3 (78-100) fL MCH 25.7 L (26-32) pg MCHC 32.0 (32-36) g/dL RDW 17.4 H (11.5-14.0) % Plt Count 186 (150-450) x10^3/uL MPV 9.9 (7.5-11.0) fL Gran % 77.4 H (36.0-66.0) % Immature Gran % (Auto) 0.3 (0.00-0.4) % Nucleat RBC Rel Count 0.0 (0.00-0.1) % Eos # (Auto) 0.10 (0-0.5) x10^3/uL Immature Gran # (Auto) 0.02 (0.00-0.03) x10^3u/L Absolute Lymphs (auto) 0.73 L (1.0-4.6) x10^3/uL Absolute Monos (auto) 0.69 (0.0-1.3) x10^3/uL Absolute Nucleated RBC 0.00 (0.00-0.01) x10^3u/L Lymphocytes % 10.4 L (24.0-44.0) % Monocytes % 9.9 (0.0-12.0) % Eosinophils % 1.4 (0.00-5.0) % Basophils % 0.6 (0.0-0.4) % Absolute Granulocytes 5.41 (1.4-6.9) x10^3/uL Basophils # 0.04 (0-0.4) x10^3/uL D-Dimer (0.0-0.50) mg/L Puncture Site LEFT RADIAL pCO2 33 L (35-45) mmHg pO2 88 (75-100) mmHg Base Excess 1.6 (-2.0-2.0) O2 Saturation 96.1 (94-100) g/dF ABG pH 7.48 H (7.35-7.45) ABG HCO3 24.6 (22-28) ABG O2 Sat (Measured) 96.6 (95-100) % Greg Test YES A-a Gradient 70 a/A Ratio 0.56 Hemoglobin 12.7 Carboxyhemoglobin 0.1 (0.0-6.9) % THgb Methemoglobin 0.3 L (1.4-1.5) % Potassium 3.3 L (3.5-5.1) Temperature 37.0 C POC O2 Flow Rate 28 % Sodium (137-145) mmol/L Chloride (98-107) mmol/L Carbon Dioxide (22-30) mmol/L Anion Gap (5-15) MEQ/L BUN (9-20) mg/dL Creatinine (0.66-1.25) mg/dL Estimated GFR ML/MIN Glucose (74-106) mg/dL Lactic Acid 1.0 (0.4-2.0) Calcium (8.4-10.2) mg/dL Magnesium (1.6-2.3) mg/dL Total Bilirubin (0.2-1.3) mg/dL AST (17-59) U/L ALT (0-50) U/L Alkaline Phosphatase (38-126) U/L Troponin I 0.045 H* (0.000-0.034) ng/mL NT-Pro-B Natriuret Pep (0-1800) pg/mL Serum Total Protein (6.3-8.2) g/dL Albumin (3.5-5.0) g/dL Procalcitonin (0.030-0.080) ng/mL Urinalys Dipstick Clnc Urine Color (YELLOW) Urine Appearance (CLEAR) Urine pH (5-6) Ur Specific Mcclure (1.005-1.025) POC Urine Protein Conf (Negative) Urine Ketones (NEGATIVE) Urine Nitrite (NEGATIVE) Urine Bilirubin (NEGATIVE) Urine Urobilinogen (0-1) mg/dL Urine Leukocytes (NEGATIVE) Urine WBC (Auto) (0-5) /HPF Urine RBC (Auto) (0-2) /HPF U Epithel Cells (Auto) (FEW) /HPF Urine Bacteria (Auto) (NEGATIVE) /HPF Urine RBC (0-5) Yair/ul Ur Culture Indicated? Urine Glucose (NEGATIVE) mg/dL Influenza Type A Ag (NEGATIVE) Influenza Type B Ag (NEGATIVE) RSV (PCR) (Negative) SARS-CoV-2 (PCR) (NEGATIVE) - Progress Progress: improved Air Movement: fair Progress Note: 11/04/21 06:50 76-year-old is evaluated for worsening difficulty breathing and fever. Patient is a little tachypneic and placed on 2 L oxygen. Chest x-ray showed bilateral airspace disease consistent with pneumonia. He is given a dose of antibiotic. Patient was hypotensive and given fluid bolus and pressures currently 97/64. Has normal white count, elevated procalcitonin and mildly elevated troponin 0.[address] elevations. Patient has history of A. fib and currently in A. fib with rate in low 100s, I would not start him on amiodarone/Cardizem because I think it is more of a sepsis driven and will give fluids and once infectious element is better it will improve. Given replacement for hypomagnesemia. Patient has elevated D-dimer, CTA is being ordered. Patient CODE STATUS is DNR confirmed by patient and over the phone. Blood Culture(s) Obtained: Yes Antibiotics given: Yes Discussed with : Ruthann Will see patient in: hospital (full admit) Counseled pt/family regarding: lab results, diagnosis, rad results - Departure Departure Disposition: In-patient Admission Clinical Impression: Pneumonia due to COVID-19 virus, Sepsis, Hypomagnesemia, Elevated troponin Condition: Fair Critical Care Time: Yes Critical Care Time(excluding separately billable procedures): Critical 30-74 mins
[2021-11-04 07:59] LABS: Appearance CLEAR (CLEAR); Bilirubin NEGATIVE (NEGATIVE); Dipstick done @ ? MAIN LAB; Glucose NEGATIVE (NEGATIVE); Ketones NEGATIVE (NEGATIVE); Nitrite NEGATIVE (NEGATIVE); Ph 5.5 (5-6); Protein,Urine Dip TRACE (Negative); RBC NEGATIVE Ery/ul (0-5); Specific Gravity 1.015 (1.005-1.025); Urobilinogen 0.2 mg/dL (0-1)
[2021-11-04 08:04] LABS: Urine Cultured Indicated? NO
--- NOTE | 2021-11-04 08:48 | XRAY ---
Indication: Positive cove 19. Pulmonary embolus. Multiple contiguous axial images obtained through the chest using 100 cc Isovue 370 contrast and PE protocol. Comparison: February 17, 2021 Good opacification of the pulmonary arteries to include the lobar and segmental branches. No pulmonary embolus. Heart not enlarged. Aorta again mildly arteriosclerotic without aneurysm/dissection. No pathologic mediastinal/hilar lymphadenopathy. Lungs again demonstrates scattered peripheral fibrosis/scarring and tiny right upper lobe calcified granuloma. Right upper lobe demonstrates new 8 mm noncalcified nodule (image 22, series 3). No other pulmonary mass, infiltrate, effusion, or pneumothorax. Bony thorax intact again with osteopenia and flowing osteophytes throughout the spine. Limited upper abdomen again demonstrates fatty liver and cholecystectomy clips. Impression: 1. Negative pulmonary embolus. No acute cardiopulmonary abnormalities. 2. New 8 mm indeterminant right upper lobe noncalcified nodule. 3. Again scattered pulmonary fibrosis/scarring, fatty liver, chronic bony findings, and old granulomatous disease.
--- NOTE | 2021-11-04 08:50 | XRAY ---
Indication: Fever, cough, and short of breath. Comparison: September 07, 2021 Portable chest less inflated crowding both lung bases. Remaining heart and lungs unremarkable. Bony thorax intact again with mild osteopenia and moderate degenerative changes. No new/acute findings.
[2021-11-04] MEDS ORDERED: DUONEB 0.5-3 MG/3 ml Neb IH SCH (09:32)
[2021-11-04] MEDS ORDERED: PROTONIX 40 MG IV IV SCH (10:00)
[2021-11-04] MEDS ORDERED: Decadron 4 MG INJ IV SCH (12:00)
[2021-11-04] MEDS: ENOXAPARIN SODIUM SQ SCH (12:06)
[2021-11-04] MEDS: DECADRON 10MG INJ. IV SCH (12:07)
[2021-11-04] MEDS: PIPERACILLIN/TAZOBACTAM 3.375 GM in Sodium Chloride 100ML MINI-BAG PLUS 100 ML IV SCH ×2 (12:07→17:42)
[2021-11-04] MEDS: HUMALOG SQ PRN ×3 (12:52→21:37)
--- NOTE | 2021-11-04 14:21 | CONS ---
CONSULT DATE: 11/04/2021 HISTORY: Preet Zepeda is a 76-year-old male who had been admitted to [facility] with complaints of shortness of breath. The patient had tested positive COVID. In addition, he had a CT chest revealed a new 8 mm right upper lobe nodule. The patient has been started with standard therapy including Remdesivir, steroids and antibiotics. He does report "feeling better". He also had marginal positive troponins which have been trending. At the time of my evaluation, the patient is awake, comfortable. He is on nasal cannula at 2 liters, able to carry out conversation. Voices no new complaints. PAST MEDICAL HISTORY: Positive for history of hypertension, dyslipidemia, diabetes mellitus, gastroesophageal reflux disease and restless leg syndrome. PAST SURGICAL HISTORY: No recent surgery. PERSONAL AND SOCIAL HISTORY: Nonsmoker. MEDICATIONS: Home and current medications are reviewed. ALLERGIES: ALLERGIES NOTED. PHYSICAL EXAMINATION: This is a middle aged male who appears comfortable at rest, able to carry out a conversation. Vital signs noted. HEENT: Normocephalic. Small oropharynx. NECK: Supple. CVS: First and second heart sounds are normal, regular, rhythmic. RESPIRATORY: Shows diminished breath sounds but fairly clear to auscultation. ABDOMEN: Obese. EXTREMITIES: No significant edema is noted. LABORATORY DATA AND TESTS: Labs and radiology tests were reviewed. ASSESSMENT: This is a 76-year-old male admitted with: 1) Shortness of breath secondary to acute hypoxic respiratory failure. 2) COVID-19 with viral pneumonitis. 3) Lung nodule, new since last study and will require follow up/PET scan? 4) Comorbidities listed above. RECOMMENDATIONS: 1) I agree with present treatment. 2) Will likely wean off of supplemental oxygen prior to being discharged. Follow up in outpatient in two weeks. 3) Deep vein thrombosis and GI prophylaxis, continue other supportive care as needed. I will await clinical improvement. Discussed with the patient and nurses.
[2021-11-04] MEDS ORDERED: Cymbalta 30 MG Capsule PO SCH (15:00)
--- NOTE | 2021-11-04 15:17 | PCM.HP ---
History of Present Illness - Chief Complaint Chief Complaint: COVID Pneumonia; Sepsis History of Present Illness: is a 76 year old male patient of Dr Hermelindo Menendez who presented to ER via EMS gradual onset of shortness of breath ,cough and fever and weakness. Covid test positive. PMHx includes HTN,HLD,A-fib(S/P Cardiac ablation)COPD,NIDDM2,Hx tretment for prostate cancer. Patient is admitted to [facility] telemetery bed for Tx with Remdesivir. - Review of Systems Constitutional: Fever, Chills, Lethargy Eyes: No Symptoms Ears, Nose, & Throat: Nose Congestion Respiratory: Cough, Short Of Breath Cardiac: Palpitations Abdominal/Gastrointestinal: No Symptoms Genitourinary Symptoms: Other (nocturia,chronic) Musculoskeletal: Arthralgias Skin: No Symptoms Neurological: No Symptoms Psychological: No Symptoms Endocrine: No Symptoms Hematologic/Lymphatic: No Symptoms Immunological/Allergic: No Symptoms Medications & Allergies Home Medications: Home Medication List Omeprazole 20 MG [Prilosec 20 mg] 20 mg PO HS 01/11/15 [History Confirmed 11/08/21] Pramipexole Di-HCl [Mirapex] 1 tab PO HS 01/11/15 [History Confirmed 11/08/21] Gemfibrozil [Lopid] 600 mg PO BID 01/24/17 [History Confirmed 11/08/21] Aspirin EC 81 mg [Ecotrin 81 mg] 81 mg PO HS 02/17/21 [History Confirmed 11/08/21] Duloxetine HCl 60 mg PO HS 02/17/21 [History Confirmed 11/08/21] Glimepiride 2 mg [Amaryl 2 MG] 2 mg PO HS 02/17/21 [History Confirmed 11/08/21] Metformin HCl [Metformin ER Osmotic] 1,000 mg PO BID 02/17/21 [History Confirmed 11/08/21] dilTIAZem HCL [Diltiazem 24Hr ER (Xr)] 120 mg PO HS 11/04/21 [History Confirmed 11/08/21] Clopidogrel Bisulfate [Plavix] 75 mg PO DAILY 90 Days #90 tablet 11/09/21 [Rx] Allergies/Adverse Reactions: Allergies Allergy/AdvReac Type Severity Reaction Status Date / Time pregabalin [From Lyrica] Allergy Severe Difficulty Verified 11/08/21 19:33 Breathing - Past Medical History Past Medical History: Yes Neurological History: Other ENT History: Cataracts Cardiac History: Arrhythmia, Hypertension Respiratory History: COPD Endocrine Medical History: Diabetes Type II Musculoskelatal History: Other GI Medical History: No Pertinent History History: No Pertinent History Pyscho-Social History: No Pertinent History Male Reproductive Disorders: Prostate Cancer Comment: HX CARDIAC ABLATION; R EDWAR - Past Surgical History Past Surgical History: Yes Neuro Surgical History: No Pertinent History Cardiac History: Cardiac Catheterization, Other Respiratory Surgery: No Pertinent History GI Surgical History: No Pertinent History Genitourinary Surgical Hx: No Pertinent History Musculskeletal Surgical Hx: Other Male Surgical History: No Pertinent History Other Surgical History: july states back surgery with cyst removal and spur shaved,heart caths and cardiac ablation 15-20yrs ago,BACK SURG 08/03, back surgery 2013, 09/29/16,09/30/16,10/01/16 back surgery r/t infection in surgical site. bilar rcr - Social History Smoking Status: Current every day smoker How long have you smoked: 55 Exposure to second hand smoke: Yes Alcohol: None Drug Use: none Significant Family History: no pertinent family hx - Physical Exam Vital Signs: Vital Signs - 24 hr Temp Pulse Resp BP Pulse Ox 11/04/21 14:00 19 11/04/21 13:50 94 H 23 99 11/04/21 12:08 96 11/04/21 12:00 97.5 F 95 H 19 112/74 97 11/04/21 11:54 103 H 14 96 11/04/21 10:37 98.0 F 93 H 24 124/73 99 11/04/21 09:06 93 H 18 117/71 94 L 11/04/21 08:06 90 26 H 100/75 100 11/04/21 07:06 94 H 23 104/59 91 L 11/04/21 06:56 95 11/04/21 06:24 100 H 24 87/51 95 11/04/21 05:59 118 H 28 H 90/42 94 L 11/04/21 05:25 115 H 21 95/58 99 11/04/21 05:05 115 H 26 H 90/66 95 11/04/21 04:32 116 H 24 86/62 98 11/04/21 04:24 103 H 35 H 99 11/04/21 03:48 101.9 F 109 H 20 85/59 95 General Appearance: no apparent distress, lethargy Neurologic Exam: alert, oriented x 3, cooperative, normal mood/affect Eye Exam: eyes nml inspection Ears, Nose, Throat Exam: normal ENT inspection, moist mucous membranes Neck Exam: normal inspection Respiratory Exam: chest tenderness (no rales or ronchi or wheeze), diminished breath sounds (bases) Cardiovascular Exam: tachycardia (100), irregular Gastrointestinal/Abdomen Exam: soft (nontender) Rectal Exam: not done Back Exam: normal inspection Skin Exam: warm, dry, pale Results - Labs Lab/Micro Results: Lab Results-Last 24 Hours 11/04/21 11/04/21 11/04/21 Range/Units 04:02 04:20 04:20 WBC 7.0 (4.0-10.5) x10^3/uL RBC 4.63 (4.1-5.6) x10^6/uL Hgb 11.9 L (12.5-18.0) g/dL Hct 37.2 L (42-50) % MCV 80.3 (78-100) fL MCH 25.7 L (26-32) pg MCHC 32.0 (32-36) g/dL RDW 17.4 H (11.5-14.0) % Plt Count 186 (150-450) x10^3/uL MPV 9.9 (7.5-11.0) fL Gran % 77.4 H (36.0-66.0) % Immature Gran % (Auto) 0.3 (0.00-0.4) % Nucleat RBC Rel Count 0.0 (0.00-0.1) % Eos # (Auto) 0.10 (0-0.5) x10^3/uL Immature Gran # (Auto) 0.02 (0.00-0.03) x10^3u/L Absolute Lymphs (auto) 0.73 L (1.0-4.6) x10^3/uL Absolute Monos (auto) 0.69 (0.0-1.3) x10^3/uL Absolute Nucleated RBC 0.00 (0.00-0.01) x10^3u/L Lymphocytes % 10.4 L (24.0-44.0) % Monocytes % 9.9 (0.0-12.0) % Eosinophils % 1.4 (0.00-5.0) % Basophils % 0.6 (0.0-0.4) % Absolute Granulocytes 5.41 (1.4-6.9) x10^3/uL Basophils # 0.04 (0-0.4) x10^3/uL D-Dimer (0.0-0.50) mg/L Puncture Site LEFT RADIAL pCO2 33 L (35-45) mmHg pO2 88 (75-100) mmHg Base Excess 1.6 (-2.0-2.0) O2 Saturation 96.1 (94-100) g/dF ABG pH 7.48 H (7.35-7.45) ABG HCO3 24.6 (22-28) ABG O2 Sat (Measured) 96.6 (95-100) % Greg Test YES A-a Gradient 70 a/A Ratio 0.56 Hemoglobin 12.7 Carboxyhemoglobin 0.1 (0.0-6.9) % THgb Methemoglobin 0.3 L (1.4-1.5) % Potassium 3.3 L (3.5-5.1) Temperature 37.0 C POC O2 Flow Rate 28 % Sodium (137-145) mmol/L Chloride (98-107) mmol/L Carbon Dioxide (22-30) mmol/L Anion Gap (5-15) MEQ/L BUN (9-20) mg/dL Creatinine (0.66-1.25) mg/dL Estimated GFR ML/MIN Glucose (74-106) mg/dL POC Glucometer (74 to 106) mg/dL Lactic Acid 1.0 (0.4-2.0) Calcium (8.4-10.2) mg/dL Magnesium (1.6-2.3) mg/dL Total Bilirubin (0.2-1.3) mg/dL AST (17-59) U/L ALT (0-50) U/L Alkaline Phosphatase (38-126) U/L Troponin I 0.045 H* (0.000-0.034) ng/mL NT-Pro-B Natriuret Pep (0-1800) pg/mL Serum Total Protein (6.3-8.2) g/dL Albumin (3.5-5.0) g/dL Procalcitonin (0.030-0.080) ng/mL Urinalys Dipstick Clnc Urine Color (YELLOW) Urine Appearance (CLEAR) Urine pH (5-6) Ur Specific Ronan (1.005-1.025) POC Urine Protein Conf (Negative) Urine Ketones (NEGATIVE) Urine Nitrite (NEGATIVE) Urine Bilirubin (NEGATIVE) Urine Urobilinogen (0-1) mg/dL Urine Leukocytes (NEGATIVE) Urine WBC (Auto) (0-5) /HPF Urine RBC (Auto) (0-2) /HPF U Epithel Cells (Auto) (FEW) /HPF Urine Bacteria (Auto) (NEGATIVE) /HPF Urine RBC (0-5) Yair/ul Ur Culture Indicated? Urine Glucose (NEGATIVE) mg/dL Influenza Type A Ag (NEGATIVE) Influenza Type B Ag (NEGATIVE) RSV (PCR) (Negative) SARS-CoV-2 (PCR) (NEGATIVE) 11/04/21 11/04/21 11/04/21 Range/Units 04:20 04:20 04:25 WBC (4.0-10.5) x10^3/uL RBC (4.1-5.6) x10^6/uL Hgb (12.5-18.0) g/dL Hct (42-50) % MCV (78-100) fL MCH (26-32) pg MCHC (32-36) g/dL RDW (11.5-14.0) % Plt Count (150-450) x10^3/uL MPV (7.5-11.0) fL Gran % (36.0-66.0) % Immature Gran % (Auto) (0.00-0.4) % Nucleat RBC Rel Count (0.00-0.1) % Eos # (Auto) (0-0.5) x10^3/uL Immature Gran # (Auto) (0.00-0.03) x10^3u/L Absolute Lymphs (auto) (1.0-4.6) x10^3/uL Absolute Monos (auto) (0.0-1.3) x10^3/uL Absolute Nucleated RBC (0.00-0.01) x10^3u/L Lymphocytes % (24.0-44.0) % Monocytes % (0.0-12.0) % Eosinophils % (0.00-5.0) % Basophils % (0.0-0.4) % Absolute Granulocytes (1.4-6.9) x10^3/uL Basophils # (0-0.4) x10^3/uL D-Dimer (0.0-0.50) mg/L Puncture Site pCO2 (35-45) mmHg pO2 (75-100) mmHg Base Excess (-2.0-2.0) O2 Saturation (94-100) g/dF ABG pH (7.35-7.45) ABG HCO3 (22-28) ABG O2 Sat (Measured) (95-100) % Greg Test A-a Gradient a/A Ratio Hemoglobin Carboxyhemoglobin (0.0-6.9) % THgb Methemoglobin (1.4-1.5) % Potassium 3.7 (3.5-5.1) Temperature C POC O2 Flow Rate % Sodium 132 L (137-145) mmol/L Chloride 102 (98-107) mmol/L Carbon Dioxide 22 (22-30) mmol/L Anion Gap 12.2 (5-15) MEQ/L BUN 20 (9-20) mg/dL Creatinine 1.03 (0.66-1.25) mg/dL Estimated GFR > 60.0 ML/MIN Glucose 108 H (74-106) mg/dL POC Glucometer (74 to 106) mg/dL Lactic Acid (0.4-2.0) Calcium 8.4 (8.4-10.2) mg/dL Magnesium 1.4 L (1.6-2.3) mg/dL Total Bilirubin 0.70 (0.2-1.3) mg/dL AST 45 (17-59) U/L ALT 18 (0-50) U/L Alkaline Phosphatase 75 (38-126) U/L Troponin I (0.000-0.034) ng/mL NT-Pro-B Natriuret Pep 2050 H (0-1800) pg/mL Serum Total Protein 6.9 (6.3-8.2) g/dL Albumin 3.6 (3.5-5.0) g/dL Procalcitonin 0.145 H (0.030-0.080) ng/mL Urinalys Dipstick Clnc Urine Color (YELLOW) Urine Appearance (CLEAR) Urine pH (5-6) Ur Specific Ronan (1.005-1.025) POC Urine Protein Conf (Negative) Urine Ketones (NEGATIVE) Urine Nitrite (NEGATIVE) Urine Bilirubin (NEGATIVE) Urine Urobilinogen (0-1) mg/dL Urine Leukocytes (NEGATIVE) Urine WBC (Auto) (0-5) /HPF Urine RBC (Auto) (0-2) /HPF U Epithel Cells (Auto) (FEW) /HPF Urine Bacteria (Auto) (NEGATIVE) /HPF Urine RBC (0-5) Yair/ul Ur Culture Indicated? Urine Glucose (NEGATIVE) mg/dL Influenza Type A Ag NEGATIVE (NEGATIVE) Influenza Type B Ag NEGATIVE (NEGATIVE) RSV (PCR) NEGATIVE (Negative) SARS-CoV-2 (PCR) POSITIVE A (NEGATIVE) 11/04/21 11/04/21 11/04/21 Range/Units 06:17 07:20 07:49 WBC (4.0-10.5) x10^3/uL RBC (4.1-5.6) x10^6/uL Hgb (12.5-18.0) g/dL Hct (42-50) % MCV (78-100) fL MCH (26-32) pg MCHC (32-36) g/dL RDW (11.5-14.0) % Plt Count (150-450) x10^3/uL MPV (7.5-11.0) fL Gran % (36.0-66.0) % Immature Gran % (Auto) (0.00-0.4) % Nucleat RBC Rel Count (0.00-0.1) % Eos # (Auto) (0-0.5) x10^3/uL Immature Gran # (Auto) (0.00-0.03) x10^3u/L Absolute Lymphs (auto) (1.0-4.6) x10^3/uL Absolute Monos (auto) (0.0-1.3) x10^3/uL Absolute Nucleated RBC (0.00-0.01) x10^3u/L Lymphocytes % (24.0-44.0) % Monocytes % (0.0-12.0) % Eosinophils % (0.00-5.0) % Basophils % (0.0-0.4) % Absolute Granulocytes (1.4-6.9) x10^3/uL Basophils # (0-0.4) x10^3/uL D-Dimer 0.81 H* (0.0-0.50) mg/L Puncture Site pCO2 (35-45) mmHg pO2 (75-100) mmHg Base Excess (-2.0-2.0) O2 Saturation (94-100) g/dF ABG pH (7.35-7.45) ABG HCO3 (22-28) ABG O2 Sat (Measured) (95-100) % Greg Test A-a Gradient a/A Ratio Hemoglobin Carboxyhemoglobin (0.0-6.9) % THgb Methemoglobin (1.4-1.5) % Potassium (3.5-5.1) Temperature C POC O2 Flow Rate % Sodium (137-145) mmol/L Chloride (98-107) mmol/L Carbon Dioxide (22-30) mmol/L Anion Gap (5-15) MEQ/L BUN (9-20) mg/dL Creatinine (0.66-1.25) mg/dL Estimated GFR ML/MIN Glucose (74-106) mg/dL POC Glucometer (74 to 106) mg/dL Lactic Acid (0.4-2.0) Calcium (8.4-10.2) mg/dL Magnesium (1.6-2.3) mg/dL Total Bilirubin (0.2-1.3) mg/dL AST (17-59) U/L ALT (0-50) U/L Alkaline Phosphatase (38-126) U/L Troponin I 0.043 H* (0.000-0.034) ng/mL NT-Pro-B Natriuret Pep (0-1800) pg/mL Serum Total Protein (6.3-8.2) g/dL Albumin (3.5-5.0) g/dL Procalcitonin (0.030-0.080) ng/mL Urinalys Dipstick Clnc MAIN LAB Urine Color YELLOW (YELLOW) Urine Appearance CLEAR (CLEAR) Urine pH 5.5 (5-6) Ur Specific Ronan 1.015 (1.005-1.025) POC Urine Protein Conf TRACE (Negative) Urine Ketones NEGATIVE (NEGATIVE) Urine Nitrite NEGATIVE (NEGATIVE) Urine Bilirubin NEGATIVE (NEGATIVE) Urine Urobilinogen 0.2 (0-1) mg/dL Urine Leukocytes NEGATIVE (NEGATIVE) Urine WBC (Auto) NONE (0-5) /HPF Urine RBC (Auto) NONE (0-2) /HPF U Epithel Cells (Auto) NONE (FEW) /HPF Urine Bacteria (Auto) NONE (NEGATIVE) /HPF Urine RBC NEGATIVE (0-5) Yair/ul Ur Culture Indicated? NO Urine Glucose NEGATIVE (NEGATIVE) mg/dL Influenza Type A Ag (NEGATIVE) Influenza Type B Ag (NEGATIVE) RSV (PCR) (Negative) SARS-CoV-2 (PCR) (NEGATIVE) 11/04/21 11/04/21 11/04/21 Range/Units 10:00 12:17 13:20 WBC (4.0-10.5) x10^3/uL RBC (4.1-5.6) x10^6/uL Hgb (12.5-18.0) g/dL Hct (42-50) % MCV (78-100) fL MCH (26-32) pg MCHC (32-36) g/dL RDW (11.5-14.0) % Plt Count (150-450) x10^3/uL MPV (7.5-11.0) fL Gran % (36.0-66.0) % Immature Gran % (Auto) (0.00-0.4) % Nucleat RBC Rel Count (0.00-0.1) % Eos # (Auto) (0-0.5) x10^3/uL Immature Gran # (Auto) (0.00-0.03) x10^3u/L Absolute Lymphs (auto) (1.0-4.6) x10^3/uL Absolute Monos (auto) (0.0-1.3) x10^3/uL Absolute Nucleated RBC (0.00-0.01) x10^3u/L Lymphocytes % (24.0-44.0) % Monocytes % (0.0-12.0) % Eosinophils % (0.00-5.0) % Basophils % (0.0-0.4) % Absolute Granulocytes (1.4-6.9) x10^3/uL Basophils # (0-0.4) x10^3/uL D-Dimer (0.0-0.50) mg/L Puncture Site pCO2 (35-45) mmHg pO2 (75-100) mmHg Base Excess (-2.0-2.0) O2 Saturation (94-100) g/dF ABG pH (7.35-7.45) ABG HCO3 (22-28) ABG O2 Sat (Measured) (95-100) % Greg Test A-a Gradient a/A Ratio Hemoglobin Carboxyhemoglobin (0.0-6.9) % THgb Methemoglobin (1.4-1.5) % Potassium (3.5-5.1) Temperature C POC O2 Flow Rate % Sodium (137-145) mmol/L Chloride (98-107) mmol/L Carbon Dioxide (22-30) mmol/L Anion Gap (5-15) MEQ/L BUN (9-20) mg/dL Creatinine (0.66-1.25) mg/dL Estimated GFR ML/MIN Glucose (74-106) mg/dL POC Glucometer 242 H (74 to 106) mg/dL Lactic Acid (0.4-2.0) Calcium (8.4-10.2) mg/dL Magnesium (1.6-2.3) mg/dL Total Bilirubin (0.2-1.3) mg/dL AST (17-59) U/L ALT (0-50) U/L Alkaline Phosphatase (38-126) U/L Troponin I 0.033 0.021 (0.000-0.034) ng/mL NT-Pro-B Natriuret Pep (0-1800) pg/mL Serum Total Protein (6.3-8.2) g/dL Albumin (3.5-5.0) g/dL Procalcitonin (0.030-0.080) ng/mL Urinalys Dipstick Clnc Urine Color (YELLOW) Urine Appearance (CLEAR) Urine pH (5-6) Ur Specific Ronan (1.005-1.025) POC Urine Protein Conf (Negative) Urine Ketones (NEGATIVE) Urine Nitrite (NEGATIVE) Urine Bilirubin (NEGATIVE) Urine Urobilinogen (0-1) mg/dL Urine Leukocytes (NEGATIVE) Urine WBC (Auto) (0-5) /HPF Urine RBC (Auto) (0-2) /HPF U Epithel Cells (Auto) (FEW) /HPF Urine Bacteria (Auto) (NEGATIVE) /HPF Urine RBC (0-5) Yair/ul Ur Culture Indicated? Urine Glucose (NEGATIVE) mg/dL Influenza Type A Ag (NEGATIVE) Influenza Type B Ag (NEGATIVE) RSV (PCR) (Negative) SARS-CoV-2 (PCR) (NEGATIVE) - Radiology Impressions Radiology Exams & Impressions: Radiology Procedures Category Date Time Status CHEST 1 VIEW (PORTABLE) Stat Exams 11/04/21 04:00 Completed CHEST WITH CONTRAST [CT] Stat Exams 11/04/21 06:53 Completed - Other Procedures and Tests Respiratory Therapy 11/04/21 09:32 Oxygen Nasal Cannula 2 lpm 11/04/21 11:28 Respiratory Therapy Assessment DAILY Assessment/Plan (1) COVID Status: Acute Assessment & Plan: admitted for Hydration and IV Remdesivir - see protocol orders signed. Code(s): U07.1 - COVID-19 (2) Atrial fibrillation Status: Chronic Assessment & Plan: monitor rate ,continue Diltiazem,Lovenox started Code(s): I48.91 - UNSPECIFIED ATRIAL FIBRILLATION (3) DM2 (diabetes mellitus, type 2) Status: Acute Qualifiers: Diabetes mellitus correction insulin use: without filler leaf cutter long use Assessment & Plan: continue po meds ,SS if needed - monitor (4) COPD (chronic obstructive pulmonary disease) Status: Chronic (5) Hx of malignant neoplasm of prostate Status: Resolved Code(s): Z85.46 - PERSONAL HISTORY OF MALIGNANT NEOPLASM OF PROSTATE
[2021-11-04] MEDS ORDERED: Ativan 0.5 MG PO PRN (15:52)
[2021-11-04] MEDS: Glucophage XR 500 MG PO SCH (17:41)
[2021-11-04] MEDS: Mirapex 0.5 MG Tablet PO SCH (21:38)
[2021-11-04] MEDS: Cardizem CD PO SCH (21:38)
[2021-11-04] MEDS: Amaryl 2 MG PO SCH (21:38)
[2021-11-04] MEDS: Cymbalta 30 MG Capsule PO SCH (21:38)
[2021-11-04] MEDS: Protonix 40MG Tablet PO SCH (21:38)
[2021-11-04] MEDS: LOPID PO SCH (21:39)
[2021-11-04] MEDS ORDERED: DILTIAZEM HCL 120 MG PO SCH (22:00)
[2021-11-04] MEDS ORDERED: NON-FORMULARY ITEM (Metformin Hcl [Metformin Er Osmotic] 1,000 MG Tab.Er.24) PO SCH (22:00)
[2021-11-04] MEDS ORDERED: NON-FORMULARY ITEM (Omeprazole 20 Mg [Prilosec 20 Mg] 20 MG Capsule.Dr) PO SCH (22:00)
[2021-11-04] MEDS ORDERED: Zithromax 500 MG/ 250 ML NaCl Premix 500 MG/250 ML IVPB IV SCH (22:00)
[2021-11-04] MEDS ORDERED: PRAMIPEXOLE DI HCL 1.5 MG PO SCH (22:00)
[2021-11-05] MEDS: PIPERACILLIN/TAZOBACTAM 3.375 GM in Sodium Chloride 100ML MINI-BAG PLUS 100 ML IV SCH ×2 (00:47→05:54)
[2021-11-05 04:26] LABS: Absolute Neutrophil Ct (ANC) 6.78 x10^3/uL (1.4-6.9); Basophil (Absolute #) 0.01 x10^3/uL (0-0.4); Eosinophil (Absolute #) 0 x10^3/uL (0-0.5); Hematocrit 39.6 % (42-50); Hemoglobin 12.6 g/dL (12.5-18.0); Lymphocyte (Absolute #) 1.12 x10^3/uL (1.0-4.6); Lymphocytes % 12.7 % (24.0-44.0); Mean Cell Volume 80.5 fL (78-100); Mean Corpuscular Hemoglobin 25.6 pg (26-32); Mean Corpuscular Hgb Concent. 31.8 g/dL (32-36); Mean Platelet Volume 10.3 fL (7.5-11.0); Monocyte (Absolute #) 0.87 x10^3/uL (0.0-1.3); Monocytes % 9.9 % (0.0-12.0); Platelet Count 201 x10^3/uL (150-450); Red Blood Count 4.92 x10^6/uL (4.1-5.6); Red Cell Distribution Width 17.9 % (11.5-14.0); White Blood Count 8.8 x10^3/uL (4.0-10.5)
[2021-11-05 04:40] LABS: ALBUMIN 3.5 g/dL (3.5-5.0); ALKALINE PHOSPHATASE 81 U/L (38-126); ANION GAP 14.5 MEQ/L (5-15); BLOOD UREA NITROGEN 28 mg/dL (9-20); CHLORIDE 106 mmol/L (98-107); Calcium 8.5 mg/dL (8.4-10.2); Carbon Dioxide 20 mmol/L (22-30); Creatinine 1 0.93 mg/dL (0.66-1.25); EST GLOMERULAR FILTRATION RATE > 60.0 ML/MIN; Glucose 146 mg/dL (74-106); Potassium 4.1 mmol/L (3.5-5.1); SGOT/AST 37 U/L (17-59); SGPT/ALT 24 U/L (0-50); SODIUM 136 mmol/L (137-145); Total Protein 6.7 g/dL (6.3-8.2)
[2021-11-05] MEDS ORDERED: DUONEB 0.5-3 MG/3 ml Neb IH ONE (06:50)
[2021-11-05] MEDS: DUONEB 0.5-3 MG/3 ml Neb IH SCH (07:16)
[2021-11-05] MEDS: Glucophage XR 500 MG PO SCH ×2 (07:22→16:19)
[2021-11-05] MEDS: DECADRON 10MG INJ. IV SCH (08:01)
[2021-11-05] MEDS: ENOXAPARIN SODIUM SQ SCH (08:02)
[2021-11-05] MEDS: LOPID PO SCH ×2 (08:03→21:36)
[2021-11-05] MEDS: REMDESIVIR 100 MG in Sodium Chloride 100ML MINI-BAG PLUS 100 ML IV SCH (08:05)
[2021-11-05] MEDS ORDERED: NON-FORMULARY ITEM (Duloxetine Hcl [Duloxetine Hcl] 60 MG Capsule.Dr) PO SCH (10:00)
--- NOTE | 2021-11-05 17:54 | PCM.NOTE ---
Date and Time: 11/05/211747 Subjective Assessment: Patient continues to improve ,energy level is good . Heart rate mild tachycardia when up in the room. Denies dyspnea or chest pain. O2 sats above 90% on RA. Appetite is good. Has had 2 doses of Remdesivir,will consider discharge home after 3rd dose tomorrow morning. Objective Exam General Appearance: no apparent distress Neurologic Exam: alert, oriented x 3, cooperative, normal mood/affect Skin Exam: normal color, warm, dry Neck Exam: non-tender Respiratory Exam: normal breath sounds Cardiovascular Exam: regular rate/rhythm Gastrointestinal/Abdomen Exam: soft (nontender) Extremity Exam: normal inspection OBJECTIVE DATA Vital Signs: Vital Signs - 24 hr Temp Pulse Resp BP Pulse Ox 11/05/21 15:46 116 H 18 105/78 93 L 11/05/21 13:39 18 11/05/21 11:35 97.1 F 107 H 18 105/78 96 11/05/21 10:00 18 11/05/21 07:30 93 H 16 97 11/05/21 07:18 88 16 95 11/05/21 06:00 107 H 16 94 L 11/05/21 04:00 97.1 F 107 H 22 131/85 91 L 11/05/21 02:00 106 H 22 95 11/04/21 23:56 109 H 24 11/04/21 23:10 97.1 F 105 H 24 103/66 95 11/04/21 22:00 17 11/04/21 20:44 113 H 17 95 11/04/21 20:00 98.2 F 106 H 14 128/82 94 L 11/04/21 19:00 92 L 11/04/21 18:00 102 H 23 95 Pain Assessment - Last Documented Pain Intensity 0 Intake and Output: Intake & Output 11/03/21 11/04/21 11/05/21 11/06/21 11:59 11:59 11:59 11:59 Intake Total 1452 Output Total 1999 Balance -548 Weight 84.1 kg Lab Results: Lab Results-Last 24 Hours 11/04/21 11/05/21 11/05/21 Range/Units 20:19 04:17 04:17 WBC 8.8 (4.0-10.5) x10^3/uL RBC 4.92 (4.1-5.6) x10^6/uL Hgb 12.6 (12.5-18.0) g/dL Hct 39.6 L (42-50) % MCV 80.5 (78-100) fL MCH 25.6 L (26-32) pg MCHC 31.8 L (32-36) g/dL RDW 17.9 H (11.5-14.0) % Plt Count 201 (150-450) x10^3/uL MPV 10.3 (7.5-11.0) fL Gran % 77.0 H (36.0-66.0) % Immature Gran % (Auto) 0.3 (0.00-0.4) % Nucleat RBC Rel Count 0.0 (0.00-0.1) % Eos # (Auto) 0 (0-0.5) x10^3/uL Immature Gran # (Auto) 0.03 (0.00-0.03) x10^3u/L Absolute Lymphs (auto) 1.12 (1.0-4.6) x10^3/uL Absolute Monos (auto) 0.87 (0.0-1.3) x10^3/uL Absolute Nucleated RBC 0.00 (0.00-0.01) x10^3u/L Lymphocytes % 12.7 L (24.0-44.0) % Monocytes % 9.9 (0.0-12.0) % Eosinophils % 0.0 (0.00-5.0) % Basophils % 0.1 (0.0-0.4) % Absolute Granulocytes 6.78 (1.4-6.9) x10^3/uL Basophils # 0.01 (0-0.4) x10^3/uL Sodium 136 L (137-145) mmol/L Potassium 4.1 (3.5-5.1) mmol/L Chloride 106 (98-107) mmol/L Carbon Dioxide 20 L (22-30) mmol/L Anion Gap 14.5 (5-15) MEQ/L BUN 28 H (9-20) mg/dL Creatinine 0.93 (0.66-1.25) mg/dL Estimated GFR > 60.0 ML/MIN Glucose 146 H (74-106) mg/dL POC Glucometer 323 H (74 to 106) mg/dL Hemoglobin A1c (4.5-6.0) % Calcium 8.5 (8.4-10.2) mg/dL Magnesium (1.6-2.3) mg/dL Total Bilirubin 0.40 (0.2-1.3) mg/dL AST 37 (17-59) U/L ALT 24 (0-50) U/L Alkaline Phosphatase 81 (38-126) U/L NT-Pro-B Natriuret Pep (0-1800) pg/mL Serum Total Protein 6.7 (6.3-8.2) g/dL Albumin 3.5 (3.5-5.0) g/dL 11/05/21 11/05/21 11/05/21 Range/Units 04:17 04:17 08:35 WBC (4.0-10.5) x10^3/uL RBC (4.1-5.6) x10^6/uL Hgb (12.5-18.0) g/dL Hct (42-50) % MCV (78-100) fL MCH (26-32) pg MCHC (32-36) g/dL RDW (11.5-14.0) % Plt Count (150-450) x10^3/uL MPV (7.5-11.0) fL Gran % (36.0-66.0) % Immature Gran % (Auto) (0.00-0.4) % Nucleat RBC Rel Count (0.00-0.1) % Eos # (Auto) (0-0.5) x10^3/uL Immature Gran # (Auto) (0.00-0.03) x10^3u/L Absolute Lymphs (auto) (1.0-4.6) x10^3/uL Absolute Monos (auto) (0.0-1.3) x10^3/uL Absolute Nucleated RBC (0.00-0.01) x10^3u/L Lymphocytes % (24.0-44.0) % Monocytes % (0.0-12.0) % Eosinophils % (0.00-5.0) % Basophils % (0.0-0.4) % Absolute Granulocytes (1.4-6.9) x10^3/uL Basophils # (0-0.4) x10^3/uL Sodium (137-145) mmol/L Potassium (3.5-5.1) mmol/L Chloride (98-107) mmol/L Carbon Dioxide (22-30) mmol/L Anion Gap (5-15) MEQ/L BUN (9-20) mg/dL Creatinine (0.66-1.25) mg/dL Estimated GFR ML/MIN Glucose (74-106) mg/dL POC Glucometer (74 to 106) mg/dL Hemoglobin A1c 7.27 H (4.5-6.0) % Calcium (8.4-10.2) mg/dL Magnesium 2.0 (1.6-2.3) mg/dL Total Bilirubin (0.2-1.3) mg/dL AST (17-59) U/L ALT (0-50) U/L Alkaline Phosphatase (38-126) U/L NT-Pro-B Natriuret Pep 2640 H (0-1800) pg/mL Serum Total Protein (6.3-8.2) g/dL Albumin (3.5-5.0) g/dL 11/05/21 Range/Units 11:29 WBC (4.0-10.5) x10^3/uL RBC (4.1-5.6) x10^6/uL Hgb (12.5-18.0) g/dL Hct (42-50) % MCV (78-100) fL MCH (26-32) pg MCHC (32-36) g/dL RDW (11.5-14.0) % Plt Count (150-450) x10^3/uL MPV (7.5-11.0) fL Gran % (36.0-66.0) % Immature Gran % (Auto) (0.00-0.4) % Nucleat RBC Rel Count (0.00-0.1) % Eos # (Auto) (0-0.5) x10^3/uL Immature Gran # (Auto) (0.00-0.03) x10^3u/L Absolute Lymphs (auto) (1.0-4.6) x10^3/uL Absolute Monos (auto) (0.0-1.3) x10^3/uL Absolute Nucleated RBC (0.00-0.01) x10^3u/L Lymphocytes % (24.0-44.0) % Monocytes % (0.0-12.0) % Eosinophils % (0.00-5.0) % Basophils % (0.0-0.4) % Absolute Granulocytes (1.4-6.9) x10^3/uL Basophils # (0-0.4) x10^3/uL Sodium (137-145) mmol/L Potassium (3.5-5.1) mmol/L Chloride (98-107) mmol/L Carbon Dioxide (22-30) mmol/L Anion Gap (5-15) MEQ/L BUN (9-20) mg/dL Creatinine (0.66-1.25) mg/dL Estimated GFR ML/MIN Glucose (74-106) mg/dL POC Glucometer 229 H (74 to 106) mg/dL Hemoglobin A1c (4.5-6.0) % Calcium (8.4-10.2) mg/dL Magnesium (1.6-2.3) mg/dL Total Bilirubin (0.2-1.3) mg/dL AST (17-59) U/L ALT (0-50) U/L Alkaline Phosphatase (38-126) U/L NT-Pro-B Natriuret Pep (0-1800) pg/mL Serum Total Protein (6.3-8.2) g/dL Albumin (3.5-5.0) g/dL Radiology Exams: Radiology Procedures Category Date Time Status CHEST 1 VIEW (PORTABLE) Stat Exams 11/04/21 04:00 Completed CHEST WITH CONTRAST [CT] Stat Exams 11/04/21 06:53 Completed Assessment/Plan (1) COVID Status: Acute Assessment & Plan: responding well to Remdisivir,continue current care. Code(s): U07.1 - COVID-19 (2) DM2 (diabetes mellitus, type 2) Status: Acute Qualifiers: Diabetes mellitus fci insulin use: without remote computer terminal operator use Assessment & Plan: monitor ,continue oral meds (3) Chronic a-fib Status: Chronic Assessment & Plan: on Lovenox in Hosp Code(s): I48.20 - CHRONIC ATRIAL FIBRILLATION, UNSPECIFIED (4) Hx of malignant neoplasm of prostate Status: Resolved Code(s): Z85.46 - PERSONAL HISTORY OF MALIGNANT NEOPLASM OF PROSTATE
[2021-11-05] MEDS: HUMALOG SQ PRN (21:34)
[2021-11-05] MEDS: Cardizem CD PO SCH (21:34)
[2021-11-05] MEDS: Mirapex 0.5 MG Tablet PO SCH (21:35)
[2021-11-05] MEDS: Cymbalta 30 MG Capsule PO SCH (21:35)
[2021-11-05] MEDS: Protonix 40MG Tablet PO SCH (21:35)
[2021-11-05] MEDS: Amaryl 2 MG PO SCH (21:35)
[2021-11-06 04:46] LABS: Absolute Neutrophil Ct (ANC) 12.72 x10^3/uL (1.4-6.9); Basophil (Absolute #) 0.02 x10^3/uL (0-0.4); Eosinophil % 0.1 % (0.00-5.0); Eosinophil (Absolute #) 0.01 x10^3/uL (0-0.5); Hematocrit 41.8 % (42-50); Hemoglobin 13.2 g/dL (12.5-18.0); Lymphocyte (Absolute #) 1.91 x10^3/uL (1.0-4.6); Lymphocytes % 12.2 % (24.0-44.0); Mean Corpuscular Hemoglobin 25.6 pg (26-32); Mean Corpuscular Hgb Concent. 31.6 g/dL (32-36); Mean Platelet Volume 10.7 fL (7.5-11.0); Monocyte (Absolute #) 0.96 x10^3/uL (0.0-1.3); Monocytes % 6.1 % (0.0-12.0); Neutrophil % 80.9 % (36.0-66.0); Platelet Count 230 x10^3/uL (150-450); Red Blood Count 5.16 x10^6/uL (4.1-5.6); Red Cell Distribution Width 18.4 % (11.5-14.0); White Blood Count 15.7 x10^3/uL (4.0-10.5)
[2021-11-06 05:03] LABS: ALBUMIN 3.6 g/dL (3.5-5.0); ALKALINE PHOSPHATASE 93 U/L (38-126); ANION GAP 13.6 MEQ/L (5-15); BLOOD UREA NITROGEN 29 mg/dL (9-20); CHLORIDE 105 mmol/L (98-107); Calcium 8.7 mg/dL (8.4-10.2); Carbon Dioxide 22 mmol/L (22-30); Creatinine 1 1.05 mg/dL (0.66-1.25); EST GLOMERULAR FILTRATION RATE > 60.0 ML/MIN; Glucose 97 mg/dL (74-106); Potassium 4.4 mmol/L (3.5-5.1); SGOT/AST 45 U/L (17-59); SGPT/ALT 30 U/L (0-50); SODIUM 136 mmol/L (137-145)
[2021-11-06] MEDS: DUONEB 0.5-3 MG/3 ml Neb IH SCH (07:25)
[2021-11-06] MEDS: Glucophage XR 500 MG PO SCH (08:21)
[2021-11-06] MEDS: ENOXAPARIN SODIUM SQ SCH (08:21)
[2021-11-06] MEDS: REMDESIVIR 100 MG in Sodium Chloride 100ML MINI-BAG PLUS 100 ML IV SCH (08:21)
[2021-11-06] MEDS: LOPID PO SCH (08:22)
[2021-11-06] MEDS: DECADRON 10MG INJ. IV SCH (08:22)
[2021-11-06 08:58] VITALS: BP 124/78; PULSE 104
[2021-11-07 07:45] VITALS: O2SAT 95
== END 2021-11-06 10:07 | disposition home or self-care (01) | DRG 177 ==
LOC: ED 03:46 → MED SURG 09:31
PROVIDERS: ADMIT Family Medicine; ATTEND Family Medicine
DX: U07.1 COVID-19 (principal); J18.9 Pneumonia, unspecified organism; J96.01 Acute respiratory failure with hypoxia; I48.91 Unspecified atrial fibrillation; R91.1 Solitary pulmonary nodule; R77.8 Other specified abnormalities of plasma proteins; I10 Essential (primary) hypertension; E11.9 Type 2 diabetes mellitus without complications; E78.5 Hyperlipidemia, unspecified; Z79.899 Other long term (current) drug therapy; Z20.828 Contact with and (suspected) exposure to other viral communicable diseases; Z85.46 Personal history of malignant neoplasm of prostate; Z72.0 Tobacco use; J44.9 Chronic obstructive pulmonary disease, unspecified; R00.0 Tachycardia, unspecified
CPT/HCPCS: 0241U; 36000; 36415; 36600; 71045; 71260; 80053; 81015; 82375; 82803; 82947; 83036; 83605; 83735; 83880; 84145; 84484; 85025; 85379; 87040; 93005; 93041; 94640; 94762; 96360; 96361; 96365; 99285; 99291; J0248; J0456; J1100; J1650; J1817; J3475; A9270-GY

== ENCOUNTER 2021-11-08 19:28 | Observation (INO) | payer MEDICARE, OTHER ==
--- NOTE | 2021-11-08 19:36 | ERPHSYRPT ---
- History of Present Illness Time Seen by Provider: 11/08/21 19:36 Source: patient Exam Limitations: clinical condition Physician History: This is a 76-year-old white male patient who was discharged from this hospital yesterday and diagnosed with COVID-19 infection. Patient was working out in his barn in the heat today all day per her report. Patient's spouse contacted 911 and ambulance service found the patient drowsy upon arrival. Patient's complaint of shortness of air and weakness. Patient's blood sugar at scene was 173. Room air oxygenation level upon arrival to our facility is 92%. After 3 L oxygen via nasal cannula increased to 95%. Patient is confused upon arrival to emergency department but denies abdominal pain denies chest pain. Patient has a history of gastroesophageal reflux disease, hypertension, atrial fibrillation, COPD and diabetes. Timing/Duration: today Severity: moderate Associated Symptoms: shortness of breath, weakness, No abdominal pain, No chest pain, No fever, No syncope Allergies/Adverse Reactions: pregabalin [From Lyrica] Allergy (Severe, Verified 11/08/21 19:33) Difficulty Breathing Home Medications: Omeprazole 20 MG [Prilosec 20 mg] 20 mg PO HS 01/11/15 [History] Pramipexole Di-HCl [Mirapex] 1 tab PO HS 01/11/15 [History] Gemfibrozil [Lopid] 600 mg PO BID 01/24/17 [History] Aspirin EC 81 mg [Ecotrin 81 mg] 81 mg PO HS 02/17/21 [History] Duloxetine HCl 60 mg PO HS 02/17/21 [History] Glimepiride 2 mg [Amaryl 2 MG] 2 mg PO HS 02/17/21 [History] Metformin HCl [Metformin ER Osmotic] 1,000 mg PO BID 02/17/21 [History] dilTIAZem HCL [Diltiazem 24Hr ER (Xr)] 120 mg PO HS 11/04/21 [History] Hx Tetanus, Diphtheria Vaccination/Date Given: Yes Hx Influenza Vaccination/Date Given: No Hx Pneumococcal Vaccination/Date Given: No Travel Risk - International Travel Have you traveled outside of the country in past 3 weeks: No - Coronavirus Screening Are you exhibiting any of the following symptoms?: Yes Symptoms: Shortness of Breath - Vaccine Status Have you recieved a Covid-19 vaccination: Yes [employer]: Moderna - Vaccination Dates Date of 2cond Vaccination (if applicable): UNKNOWN - Review of Systems Constitutional: Weakness Eyes: No Symptoms Ears, Nose, & Throat: No Symptoms Respiratory: Dyspnea Cardiac: No Symptoms Abdominal/Gastrointestinal: No Symptoms Genitourinary Symptoms: No Symptoms Musculoskeletal: No Symptoms Skin: No Symptoms Neurological: No Symptoms Psychological: No Symptoms Endocrine: No Symptoms Hematologic/Lymphatic: No Symptoms Immunological/Allergic: No Symptoms All Other Systems: Reviewed and Negative - Past Medical History Pertinent Past Medical History: Yes Neurological History: Other ENT History: Cataracts Cardiac History: Arrhythmia, Hypertension Respiratory History: COPD Endocrine Medical History: Diabetes Type II Musculoskeletal History: Other GI Medical History: No Pertinent History History: No Pertinent History Psycho-Social History: No Pertinent History Male Reproductive Disorders: Prostate Cancer Other Medical History: HX CARDIAC ABLATION; R EDWAR - Past Surgical History Past Surgical History: Yes Neuro Surgical History: No Pertinent History Cardiac: Cardiac Catheterization, Other Respiratory: No Pertinent History Gastrointestinal: No Pertinent History Genitourinary: No Pertinent History Musculoskeletal: Other Male Surgical History: No Pertinent History Other Surgical History: july states back surgery with cyst removal and spur shaved,heart caths and cardiac ablation 15-20yrs ago,BACK SURG 08/03, back surgery 2013, 09/29/16,09/30/16,10/01/16 back surgery r/t infection in surgical site. bilar rcr - Social History Smoking Status: Current every day smoker How long have you smoked: 55 Exposure to second hand smoke: Yes Alcohol Use: None Drug Use: none Patient Lives Alone: No Significant Family History: no pertinent family hx - Nursing Vital Signs Nursing Vital Signs: Initial Vital Signs Temperature 98.1 F 11/08/21 19:36 Pulse Rate 107 H 11/08/21 19:36 Respiratory Rate 26 H 11/08/21 19:36 Blood Pressure 127/77 11/08/21 19:36 O2 Sat by Pulse Oximetry 95 11/08/21 19:36 Pain Scale Pain Intensity 0 - Physical Exam General Appearance: mild distress, alert, anxiety Eye Exam: PERRL/EOMI, eyes nml inspection Ears, Nose, Throat Exam: normal ENT inspection, moist mucous membranes Neck Exam: normal inspection, non-tender, supple, full range of motion Respiratory Exam: normal breath sounds, lungs clear, airway intact, No chest tenderness, No respiratory distress Cardiovascular Exam: tachycardia Gastrointestinal/Abdomen Exam: soft, normal bowel sounds, No tenderness Rectal Exam: not done Back Exam: normal inspection, normal range of motion, No CVA tenderness, No vertebral tenderness Extremity Exam: normal inspection, normal range of motion, pelvis stable Neurologic Exam: alert, oriented x 3, 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 Changes when compared to twelve-lead EKG dated 11/04/2021.) Ordered Tests: Active Orders 24 hr Category Date Time Status EKG-ER Only STAT Care 11/08/21 19:58 Active NPO (ED) STAT Care 11/08/21 19:58 Active Pulse Oximetry (ED) STAT Care 11/08/21 19:58 Active HEAD WITHOUT CONTRAST [CT] Stat Exams 11/08/21 20:00 Completed BLOOD CULTURE Stat Lab 11/08/21 20:42 Received CBC W DIFF Stat Lab 11/08/21 20:42 Completed CMP Stat Lab 11/08/21 20:42 Completed Lactic Acid Stat Lab 11/08/21 22:21 Completed TROPONIN Q3H Lab 11/08/21 20:42 Completed TROPONIN Q3H Lab 11/08/21 23:12 Received UA W/RFX CULTURE Stat Lab 11/08/21 22:24 Completed Transfer Order Routine Transfer 11/08/21 Ordered Medication Summary Generic Name Dose Route Start Last Admin Trade Name Freq PRN Reason Stop Dose Admin Sodium Chloride 1,000 mls @ 250 mls/hr 11/08/21 22:30 11/08/21 23:14 Sodium Chloride 0.9% 1000 Ml IV 12/08/21 22:29 100 mls/hr .Q4H MELITA Infusion Discontinued Medications Generic Name Dose Route Start Last Admin Trade Name Freq PRN Reason Stop Dose Admin Enoxaparin Sodium 80 mg 11/08/21 23:11 Enoxaparin Sodium 80 Mg/0.8 Ml Syringe SQ 11/08/21 23:12 STAT ONE Sodium Chloride 1,000 mls @ 999 mls/hr 11/08/21 19:58 11/08/21 21:06 Sodium Chloride 0.9% 1000 Ml IV 11/08/21 20:58 Infused .Q1H1M STA Infusion Sodium Chloride Confirm 11/08/21 20:02 Sodium Chloride 0.9% 1000 Ml Administered 11/08/21 20:03 Dose 1,000 mls @ ud .ROUTE .STK-MED ONE Lab/Rad Data: Laboratory Result Diagrams 11/08/21 20:42 11/08/21 20:42 Laboratory Results 11/08/21 11/08/21 11/08/21 Range/Units 22:24 22:21 20:42 WBC (4.0-10.5) x10^3/uL RBC (4.1-5.6) x10^6/uL Hgb (12.5-18.0) g/dL Hct (42-50) % MCV (78-100) fL MCH (26-32) pg MCHC (32-36) g/dL RDW (11.5-14.0) % Plt Count (150-450) x10^3/uL MPV (7.5-11.0) fL Gran % (36.0-66.0) % Immature Gran % (Auto) (0.00-0.4) % Nucleat RBC Rel Count (0.00-0.1) % Eos # (Auto) (0-0.5) x10^3/uL Immature Gran # (Auto) (0.00-0.03) x10^3u/L Absolute Lymphs (auto) (1.0-4.6) x10^3/uL Absolute Monos (auto) (0.0-1.3) x10^3/uL Absolute Nucleated RBC (0.00-0.01) x10^3u/L Lymphocytes % (24.0-44.0) % Monocytes % (0.0-12.0) % Eosinophils % (0.00-5.0) % Basophils % (0.0-0.4) % Absolute Granulocytes (1.4-6.9) x10^3/uL Basophils # (0-0.4) x10^3/uL Sodium (137-145) mmol/L Potassium (3.5-5.1) mmol/L Chloride (98-107) mmol/L Carbon Dioxide (22-30) mmol/L Anion Gap (5-15) MEQ/L BUN (9-20) mg/dL Creatinine (0.66-1.25) mg/dL Estimated GFR ML/MIN Glucose (74-106) mg/dL Lactic Acid 1.7 (0.4-2.0) Calcium (8.4-10.2) mg/dL Total Bilirubin (0.2-1.3) mg/dL AST (17-59) U/L ALT (0-50) U/L Alkaline Phosphatase (38-126) U/L Troponin I 0.021 (0.000-0.034) ng/mL Serum Total Protein (6.3-8.2) g/dL Albumin (3.5-5.0) g/dL Urinalys Dipstick Clnc MAIN LAB Urine Color YELLOW (YELLOW) Urine Appearance CLEAR (CLEAR) Urine pH 5.5 (5-6) Ur Specific [place] 1.025 (1.005-1.025) POC Urine Protein Conf 100 (Negative) Urine Ketones NEGATIVE (NEGATIVE) Urine Nitrite NEGATIVE (NEGATIVE) Urine Bilirubin NEGATIVE (NEGATIVE) Urine Urobilinogen 0.2 (0-1) mg/dL Urine Leukocytes NEGATIVE (NEGATIVE) Urine WBC (Auto) NONE (0-5) /HPF Urine RBC (Auto) NONE (0-2) /HPF U Epithel Cells (Auto) NONE (FEW) /HPF Urine Bacteria (Auto) NONE (NEGATIVE) /HPF Urine RBC NEGATIVE (0-5) Yair/ul Urine Mucus (Auto) SLIGHT (NEGATIVE) /HPF Ur Culture Indicated? NO Urine Glucose NEGATIVE (NEGATIVE) mg/dL 11/08/21 11/08/21 Range/Units 20:42 20:42 WBC 11.9 H (4.0-10.5) x10^3/uL RBC 5.50 (4.1-5.6) x10^6/uL Hgb 14.0 (12.5-18.0) g/dL Hct 44.8 (42-50) % MCV 81.5 (78-100) fL MCH 25.5 L (26-32) pg MCHC 31.3 L (32-36) g/dL RDW 18.4 H (11.5-14.0) % Plt Count 220 (150-450) x10^3/uL MPV 10.0 (7.5-11.0) fL Gran % 69.8 H (36.0-66.0) % Immature Gran % (Auto) 0.8 H (0.00-0.4) % Nucleat RBC Rel Count 0.0 (0.00-0.1) % Eos # (Auto) 0.15 (0-0.5) x10^3/uL Immature Gran # (Auto) 0.09 H (0.00-0.03) x10^3u/L Absolute Lymphs (auto) 2.22 (1.0-4.6) x10^3/uL Absolute Monos (auto) 1.08 (0.0-1.3) x10^3/uL Absolute Nucleated RBC 0.00 (0.00-0.01) x10^3u/L Lymphocytes % 18.7 L (24.0-44.0) % Monocytes % 9.1 (0.0-12.0) % Eosinophils % 1.3 (0.00-5.0) % Basophils % 0.3 (0.0-0.4) % Absolute Granulocytes 8.32 H (1.4-6.9) x10^3/uL Basophils # 0.04 (0-0.4) x10^3/uL Sodium 140 (137-145) mmol/L Potassium 3.6 (3.5-5.1) mmol/L Chloride 105 (98-107) mmol/L Carbon Dioxide 25 (22-30) mmol/L Anion Gap 13.5 (5-15) MEQ/L BUN 22 H (9-20) mg/dL Creatinine 1.16 (0.66-1.25) mg/dL Estimated GFR > 60.0 ML/MIN Glucose 132 H (74-106) mg/dL Lactic Acid (0.4-2.0) Calcium 8.4 (8.4-10.2) mg/dL Total Bilirubin 0.60 (0.2-1.3) mg/dL AST 24 (17-59) U/L ALT 24 (0-50) U/L Alkaline Phosphatase 100 (38-126) U/L Troponin I (0.000-0.034) ng/mL Serum Total Protein 7.1 (6.3-8.2) g/dL Albumin 3.7 (3.5-5.0) g/dL Urinalys Dipstick Clnc Urine Color (YELLOW) Urine Appearance (CLEAR) Urine pH (5-6) Ur Specific [place] (1.005-1.025) POC Urine Protein Conf (Negative) Urine Ketones (NEGATIVE) Urine Nitrite (NEGATIVE) Urine Bilirubin (NEGATIVE) Urine Urobilinogen (0-1) mg/dL Urine Leukocytes (NEGATIVE) Urine WBC (Auto) (0-5) /HPF Urine RBC (Auto) (0-2) /HPF U Epithel Cells (Auto) (FEW) /HPF Urine Bacteria (Auto) (NEGATIVE) /HPF Urine RBC (0-5) Yair/ul Urine Mucus (Auto) (NEGATIVE) /HPF Ur Culture Indicated? Urine Glucose (NEGATIVE) mg/dL - Progress Progress: improved, re-examined Progress Note: 11/08/21 23:03 CAT scan of the head without contrast shows no acute intracranial abnormality. Medical decision making: This patient has COVID-19 infection. He was out in the heat for long period of time today and he was drowsy and lethargic for extended period of time before ambulance was contacted by the patient's spouse earlier this afternoon. She thought he might be dehydrated and therefore he was brought into the emergency department. Patient is diabetic and he was becoming less drowsy with IV hydration. Upon entrance into the emergency department he is in atrial fibrillation and this is a chronic arrhythmia problem for him. His heart rate is now normal but he is still in atrial fibrillation. His blood pressure is adequate. His oxygenation on 3 L oxygen is now 98%. I reexamined him and he is still weak. His neurologic exam is nonfocal. He does not have any acute intracranial abnormality. He seems to be aphasic. 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 I spoke with Dr. Garcia. We will give him a dose of Lovenox here in the emergency department and then repeat that in 12 hours. We will continue with IV hydration but at a lower rate. We will continue oxygen supplementation. We will repeat labs in the morning. Dr. Garcia will reassess him in approximately 8 to 9:00 in the morning on 11/09/2021. And already received remdesivir during his last hospitalization that started on 11/04/2021. Discussed with DrBrisa: Dina Counseled pt/family regarding: lab results, diagnosis, rad results - Departure Departure Disposition: Observation Clinical Impression: Atrial fibrillation, Confusion, Aphasia Condition: Fair Critical Care Time: No Referrals: MATIAS DWYER [ACTIVE STAFF] - Follow up/PCP as directed
[2021-11-08] MEDS ORDERED: Sodium Chloride 0.9% 1000 ML 1,000 ML IV STA (19:58)
[2021-11-08] MEDS ORDERED: Sodium Chloride 0.9% 1000 ML 1,000 ML ONE ×2 (20:02→22:19)
[2021-11-08 20:45] LABS: Absolute Neutrophil Ct (ANC) 8.32 x10^3/uL (1.4-6.9); Basophil (Absolute #) 0.04 x10^3/uL (0-0.4); Eosinophil % 1.3 % (0.00-5.0); Eosinophil (Absolute #) 0.15 x10^3/uL (0-0.5); Hematocrit 44.8 % (42-50); Lymphocyte (Absolute #) 2.22 x10^3/uL (1.0-4.6); Lymphocytes % 18.7 % (24.0-44.0); Mean Cell Volume 81.5 fL (78-100); Mean Corpuscular Hemoglobin 25.5 pg (26-32); Mean Corpuscular Hgb Concent. 31.3 g/dL (32-36); Monocyte (Absolute #) 1.08 x10^3/uL (0.0-1.3); Monocytes % 9.1 % (0.0-12.0); Neutrophil % 69.8 % (36.0-66.0); Platelet Count 220 x10^3/uL (150-450); Red Cell Distribution Width 18.4 % (11.5-14.0); White Blood Count 11.9 x10^3/uL (4.0-10.5)
[2021-11-08 20:58] LABS: ALBUMIN 3.7 g/dL (3.5-5.0); ALKALINE PHOSPHATASE 100 U/L (38-126); ANION GAP 13.5 MEQ/L (5-15); BLOOD UREA NITROGEN 22 mg/dL (9-20); CHLORIDE 105 mmol/L (98-107); Calcium 8.4 mg/dL (8.4-10.2); Carbon Dioxide 25 mmol/L (22-30); Creatinine 1 1.16 mg/dL (0.66-1.25); EST GLOMERULAR FILTRATION RATE > 60.0 ML/MIN; Glucose 132 mg/dL (74-106); Potassium 3.6 mmol/L (3.5-5.1); SGOT/AST 24 U/L (17-59); SGPT/ALT 24 U/L (0-50); SODIUM 140 mmol/L (137-145); Total Protein 7.1 g/dL (6.3-8.2)
[2021-11-08] MEDS ORDERED: Sodium Chloride 0.9% 1000 ML 1,000 ML IV SCH (22:30)
[2021-11-08 22:33] LABS: Appearance CLEAR (CLEAR); Bilirubin NEGATIVE (NEGATIVE); Dipstick done @ ? MAIN LAB; Glucose NEGATIVE (NEGATIVE); Ketones NEGATIVE (NEGATIVE); Nitrite NEGATIVE (NEGATIVE); Ph 5.5 (5-6); Protein,Urine Dip 100 (Negative); RBC NEGATIVE Ery/ul (0-5); Specific Gravity 1.025 (1.005-1.025); Urobilinogen 0.2 mg/dL (0-1)
[2021-11-08 22:34] LABS: Mucus SLIGHT /HPF (NEGATIVE); Urine Cultured Indicated? NO
--- NOTE | 2021-11-08 22:48 | XRAY ---
Indication: Altered mental status. Weakness. Stroke symptoms. Positive Covid 19. Multiple contiguous axial images obtained through the head without contrast. Comparison: March 16, 2021 Again age-appropriate global atrophy and minimal periventricular degenerative micro-ischemia. No acute intracranial hemorrhage, abnormal extra-axial fluid collection, or mass effect. Fourth ventricle is midline without hydrocephalus. Bony calvarium intact. Again mild mucosal thickening both maxillary sinuses. Mastoid air cells are clear. Impression: Continued nonacute senile brain with incidental paranasal sinus disease. Comment: Preliminary interpretation made by [facility]. No critical discrepancy.
[2021-11-08] MEDS ORDERED: ENOXAPARIN SODIUM SQ ONE ×2 (23:11→23:22)
[2021-11-09] MEDS ORDERED: HUMULIN R SQ PRN (00:14)
[2021-11-09] MEDS ORDERED: Zofran 4 MG/2 ML VIAL IV PRN (00:14)
[2021-11-09] MEDS ORDERED: TYLENOL 325 MG PO PRN (00:14)
[2021-11-09] MEDS ORDERED: Sodium Chloride 0.9% 1000 ML 1,000 ML IV SCH (00:14)
[2021-11-09 05:52] LABS: Absolute Neutrophil Ct (ANC) 6.65 x10^3/uL (1.4-6.9); Basophil (Absolute #) 0.04 x10^3/uL (0-0.4); Eosinophil % 1.7 % (0.00-5.0); Eosinophil (Absolute #) 0.17 x10^3/uL (0-0.5); Hematocrit 44.4 % (42-50); Lymphocyte (Absolute #) 2.24 x10^3/uL (1.0-4.6); Mean Cell Volume 80.7 fL (78-100); Mean Corpuscular Hemoglobin 25.5 pg (26-32); Mean Corpuscular Hgb Concent. 31.5 g/dL (32-36); Mean Platelet Volume 10.5 fL (7.5-11.0); Monocytes % 9.8 % (0.0-12.0); Neutrophil % 65.4 % (36.0-66.0); Platelet Count 213 x10^3/uL (150-450); Red Cell Distribution Width 18.6 % (11.5-14.0); White Blood Count 10.2 x10^3/uL (4.0-10.5)
[2021-11-09 06:08] LABS: ALBUMIN 3.3 g/dL (3.5-5.0); ALKALINE PHOSPHATASE 85 U/L (38-126); ANION GAP 12.9 MEQ/L (5-15); BLOOD UREA NITROGEN 18 mg/dL (9-20); CHLORIDE 109 mmol/L (98-107); Calcium 8.1 mg/dL (8.4-10.2); Carbon Dioxide 22 mmol/L (22-30); Creatinine 1 0.88 mg/dL (0.66-1.25); EST GLOMERULAR FILTRATION RATE > 60.0 ML/MIN; Glucose 155 mg/dL (74-106); NT PRO BNP 2020 pg/mL (0-1800); Potassium 3.6 mmol/L (3.5-5.1); SGOT/AST 21 U/L (17-59); SGPT/ALT 20 U/L (0-50); SODIUM 140 mmol/L (137-145); Total Protein 6.3 g/dL (6.3-8.2)
[2021-11-09] MEDS ORDERED: DUONEB 0.5-3 MG/3 ml Neb IH SCH (07:00)
[2021-11-09 07:30] VITALS: BP 140/99
[2021-11-09 09:56] VITALS: PULSE 118; O2SAT 95
[2021-11-09] MEDS ORDERED: ENOXAPARIN SODIUM SQ ONE (10:00)
[2021-11-09] MEDS ORDERED: ECOTRIN 81 MG PO SCH (10:00)
[2021-11-09] MEDS ORDERED: Cardizem CD PO SCH (10:00)
--- NOTE | 2021-11-11 11:59 | SSS ---
DISCHARGE DIAGNOSES: 1) EXPRESSIVE APHASIA. 2) ATRIAL FIBRILLATION. 3) COVID INFECTION. HISTORY: The patient is a 76-year-old white male patient who apparently had been in the hospital and released the day before with history of COVID infection. He then received Remdesivir and Decadron while he was in the hospital but was doing well enough that they felt he could be discharged home. Apparently upon discharge home, the patient decided to spend the entire day out in his barn in the heat working on whatever. The patient's found him to be somewhat staring off and decreased level of responsiveness and basically having expressive aphasia in the emergency room. The patient is known to have atrial fibrillation. He is on aspirin but no other blood thinners. In his own words, he could not afford the medication as it was $800 to $900 a month for what was apparently Eliquis prescription. He therefore has been on no blood thinner other than the aspirin. PAST MEDICAL/SURGICAL HISTORY: The patient's medical history is otherwise significant for diabetes mellitus type II, depression, hyperlipidemia, gastroesophageal reflux disease. The patient previously had issues with cataracts. He had cardiac ablation for the atrial fibrillation. He has chronic obstructive pulmonary disease, history of prostate cancer. He also previously had back surgery apparently multiple times. HOME MEDICATIONS: Aspirin 81 mg a day, diltiazem extended release 120 mg at night, duloxetine 60 mg at night, gemfibrozil 600 mg b.i.d., Amaryl 2 mg at night, Metformin 1,000 mg b.i.d., omeprazole 20 mg daily and Mirapex 1 tablet at night. ALLERGIES: LYRICA. PHYSICAL EXAMINATION: The patient's initial vital signs showed a temperature 98.1F, pulse 107, respiratory rate 26 and blood pressure 127/77. O2 saturation 95%. HEENT: Normocephalic, atraumatic. Pupils equal round reactive to light. Extraocular movements appears to be intact. Oropharynx appeared to be slightly dry. NECK: Supple without lymphadenopathy, thyromegaly or JVD. CHEST: Clear to auscultation. HEART: Irregular, the rhythm is atrial fibrillation with rate between 60-100 during his entire stay. ABDOMEN: Soft. No palpable masses. EXTREMITIES: Without cyanosis, clubbing or edema. NEUROLOGIC: The patient appears to be alert and oriented x3. He has good movement of his arms and legs although he does have an expressive aphasia which did improve during our visit with him to be able to express that he has improved since yesterday and did appear to improve with our conversation with the patient and his ability to communicate was improving but he did still have an obvious expressive aphasia. LAB DATA AND TESTS: The patient's evaluations in the emergency room revealed atrial fibrillation with controlled response. His white count was 11.9, hemoglobin 14.0, PLT count 220,000. He had normal UA with specific gravity of 1.025. He had metabolic panel showing BUN 22, creatinine 1.16, glucose 132 nonfasting. Electrolytes were normal. Liver enzymes were normal. He had earlier tested positive for COVID which was not repeated. He had a lactic acid of 1.7. Troponin 0.021. CT scan of the brain showed no acute intracranial abnormality. HOSPITAL COURSE: The patient was given IV fluids which afterwards he did improve and began to be more responsive. By this morning, his expressive aphasia appeared to be improving. He had no other stroke symptoms. The patient is requesting to go home at this point. We will give him Plavix at 75 mg daily. He received Lovenox previously. He is to continue his aspirin and other medications as noted previously in the H&P. He has a follow up appointment to see Dr. Westbrook in three days. We are unable to provide for him MRI at this time. We have discussed with him the importance of follow up for MRI and evaluation of his intracranial blood flow. He is to stay indoors and he has reported that he will stay out of the heat and push fluids. His will be made aware of the decisions that we have made as well prior to him being discharged home.
== END 2021-11-09 10:36 | disposition home or self-care (01) ==
LOC: ED 19:28 → MED SURG 11-09 00:08
PROVIDERS: ADMIT Family Medicine; ATTEND Family Medicine
DX: R47.01 Aphasia (principal); I48.91 Unspecified atrial fibrillation; U07.1 COVID-19; I10 Essential (primary) hypertension; E11.9 Type 2 diabetes mellitus without complications; F32.A Depression, unspecified; E78.5 Hyperlipidemia, unspecified; J44.9 Chronic obstructive pulmonary disease, unspecified; Z85.46 Personal history of malignant neoplasm of prostate; Z79.899 Other long term (current) drug therapy; Z79.01 Long term (current) use of anticoagulants; Z72.0 Tobacco use
CPT/HCPCS: 36000; 36415; 70450; 80053; 81015; 82947; 83605; 83880; 84484; 85025; 87040; 93005; 93268; 94640; 94760; 94762; 96372; 99285; G0378; J1650; A9270-GY

== ENCOUNTER 2021-12-03 02:33 | Emergency (ER) | payer MEDICARE ==
[2021-12-03 02:52] VITALS: O2SAT 98
[2021-12-03] MEDS ORDERED: ZOFRAN ODT 4 MG PO ONE (03:00)
[2021-12-03] MEDS ORDERED: MORPHINE SULFATE 4 MG INJ IM ONE (03:00)
[2021-12-03] MEDS ORDERED: MORPHINE SULFATE 4 MG INJ ONE (03:02)
[2021-12-03] MEDS ORDERED: ZOFRAN ODT 4 MG ONE (03:02)
[2021-12-03] MEDS ORDERED: PERCOCET TABLET 5/325MG PO STA (03:24)
--- NOTE | 2021-12-03 03:24 | ERPHSYRPT ---
- History of Present Illness Time Seen by Provider: 12/03/21 02:55 Source: patient Exam Limitations: no limitations Patient Subjective Stated Complaint: pt states he fell after he tripped on a rug. hit lt side on corner of [place] cabinet. c/o pain in left lower ribs. pt states it hurts the most when he takes a deep breath. Triage Nursing Assessment: no visible bruising noted on chest. pt sob on exhertion. afib on heart monitor. pt states he has had afib for 25 years Physician History: This is a 76-year-old white male patient of Dr. Westbrook who was walking in his home and his foot got caught on the rug and he fell forward into the corner of it [place] cabinet hitting his left lower ribs. Patient has pain in this area and it hurts worse to take a deep breath. This occurred approximate 11 PM. Patient has a history of atrial fibrillation and is on Coumadin. He also has a history of gastroesophageal reflux disease, hypertension, COPD and diabetes. Patient did not take any medication for his pain. Occurred: just prior to arrival Reason for Fall: tripped Injuries/Pain Location: chest (Left lower ribs) Loss of Consciousness: no loss of consciousness Severity of Pain-Max: moderate Severity of Pain-Current: moderate Modifying Factors: Improves With: movement, other (Deep breath worsens) Associated Symptoms (Fall): shortness of breath (With deep breath) Allergies/Adverse Reactions: pregabalin [From Lyrica] Allergy (Severe, Verified 11/08/21 19:33) Difficulty Breathing Home Medications: Omeprazole 20 MG [Prilosec 20 mg] 20 mg PO HS 01/11/15 [History] Pramipexole Di-HCl [Mirapex] 1 tab PO HS 01/11/15 [History] Gemfibrozil [Lopid] 600 mg PO BID 01/24/17 [History] Aspirin EC 81 mg [Ecotrin 81 mg] 81 mg PO HS 02/17/21 [History] Duloxetine HCl 60 mg PO HS 02/17/21 [History] Glimepiride 2 mg [Amaryl 2 MG] 2 mg PO HS 02/17/21 [History] Metformin HCl [Metformin ER Osmotic] 1,000 mg PO BID 02/17/21 [History] dilTIAZem HCL [Diltiazem 24Hr ER (Xr)] 120 mg PO HS 11/04/21 [History] Hx Tetanus, Diphtheria Vaccination/Date Given: No Hx Influenza Vaccination/Date Given: No Hx Pneumococcal Vaccination/Date Given: No Immunizations Up to Date: Yes Travel Risk - International Travel Have you traveled outside of the country in past 3 weeks: No - Coronavirus Screening Are you exhibiting any of the following symptoms?: No Close contact with a COVID-19 positive Pt in past 14-21 Days: No - Vaccine Status Have you recieved a Covid-19 vaccination: Yes Office Correspondent: Moderna - Vaccination Dates Date of 2cond Vaccination (if applicable): 10/08 - Review of Systems Constitutional: No Symptoms Eyes: No Symptoms Ears, Nose, & Throat: No Symptoms Respiratory: No Symptoms Cardiac: No Symptoms Abdominal/Gastrointestinal: No Symptoms Genitourinary Symptoms: No Symptoms Musculoskeletal: Fall, Other (Left lower rib pain) Skin: No Symptoms Neurological: No Symptoms Psychological: No Symptoms Endocrine: No Symptoms Hematologic/Lymphatic: No Symptoms Immunological/Allergic: No Symptoms All Other Systems: Reviewed and Negative - Past Medical History Pertinent Past Medical History: Yes Neurological History: Other ENT History: Cataracts Cardiac History: Arrhythmia, Hypertension Respiratory History: COPD Endocrine Medical History: Diabetes Type II Musculoskeletal History: Other GI Medical History: No Pertinent History History: No Pertinent History Psycho-Social History: No Pertinent History Male Reproductive Disorders: Prostate Cancer Other Medical History: HX CARDIAC ABLATION; R EDWAR - Past Surgical History Past Surgical History: Yes Neuro Surgical History: No Pertinent History Cardiac: Cardiac Catheterization, Other Respiratory: No Pertinent History Gastrointestinal: No Pertinent History Genitourinary: No Pertinent History Musculoskeletal: Other Male Surgical History: No Pertinent History Other Surgical History: july states back surgery with cyst removal and spur shaved,heart caths and cardiac ablation 15-20yrs ago,BACK SURG 08/03, back surgery 2013, 09/29/16,09/30/16,10/01/16 back surgery r/t infection in surgical site. bilar rcr - Social History Smoking Status: Current every day smoker How long have you smoked: 55 Exposure to second hand smoke: No Alcohol Use: None Drug Use: none Patient Lives Alone: No Significant Family History: no pertinent family hx - Nursing Vital Signs Nursing Vital Signs: Initial Vital Signs Temperature 98.1 F 12/03/21 02:38 Pulse Rate 131 H 12/03/21 02:38 Respiratory Rate 20 12/03/21 02:38 Blood Pressure 101/88 12/03/21 02:38 O2 Sat by Pulse Oximetry 98 12/03/21 02:38 Pain Scale Pain Intensity 5 - Preet Coma Score Best Eye Response ([place]): (4) open spontaneously Best Verbal Response (Preet): (5) oriented Best Motor Response (Preet): (6) obeys commands Preet Total: 15 - Physical Exam General Appearance: no apparent distress, alert, anxiety Head Injury: no evidence of injury Eye Exam: PERRL/EOMI, eyes nml inspection ENT Exam: airway nml, nml ext.inspection Neck Exam: supple, trachea midline, full range of motion, normal alignment, normal inspection Respiratory/Chest Exam: chest tenderness (Left lower rib pain), normal breath sounds, rib tenderness (Left lower ribs), No respiratory distress, No ecchymosis, No crepitus Cardiovascular Exam: irregular Gastrointestinal Exam: soft, normal bowel sounds, No tenderness Rectal Exam: not done Back Exam: normal inspection, normal range of motion, No CVA tenderness, No vertebral tenderness Extremity Exam: normal inspection, normal range of motion, pelvis stable Neurologic Exam: alert, oriented x 3, cooperative, 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, normal mood/affect, nml cerebellar function, nml station & gait, sensation nml Skin Exam: normal color, warm, dry SpO2 Interpretation: normal SpO2: 98 O2 Delivery: Room Air - Course Nursing assessment & vital signs reviewed: Yes Ordered Tests: Active Orders 24 hr Category Date Time Status CHEST WITHOUT CONTRAST [CT] Stat Exams 12/03/21 02:59 Taken Medication Summary Discontinued Medications Generic Name Dose Route Start Last Admin Trade Name Freq PRN Reason Stop Dose Admin Morphine Sulfate 4 mg 12/03/21 03:00 12/03/21 03:03 Morphine Sulfate 4 Mg/Ml Injection IM 12/03/21 03:01 4 mg STAT ONE Administration Morphine Sulfate Confirm 12/03/21 03:02 Morphine Sulfate 4 Mg/Ml Injection Administered 12/03/21 03:03 Dose 4 mg .ROUTE .STK-MED ONE Ondansetron HCl 4 mg 12/03/21 03:00 12/03/21 03:03 Zofran 4 Mg/Udtablet Orally Disintegrating PO 12/03/21 03:01 4 mg STAT ONE Administration Ondansetron HCl Confirm 12/03/21 03:02 Zofran 4 Mg/Udtablet Orally Disintegrating Administered 12/03/21 03:03 Dose 4 mg .ROUTE .STK-MED ONE Oxycodone/Acetaminophen 2 tab 12/03/21 03:24 Oxycodone Hcl/Apap 5 Mg/325 Mg Tablet PO 12/03/21 03:25 SENT HOME W/ PATIENT STA - Progress Progress: improved Progress Note: 12/03/21 04:06 CT of the chest without contrast shows no acute rib fractures. There is a right upper lobe nodule that is increased in size and malignancy is within the differential. This was discussed with the patient prior to discharge. He was told he needs to follow-up with this with his primary care provider. There is left lower lobe alveolar opacities present. Counseled pt/family regarding: diagnosis, need for follow-up, rad results - Departure Departure Disposition: Home Clinical Impression: Opacity of lung on imaging study, Right upper lobe pulmonary nodule, Contusion of rib on left side Condition: Stable Critical Care Time: No Referrals: RACIEL WESTBROOK DO [Primary Care Provider] - Follow up/PCP as directed Additional Instructions: Ice pack to the tender area 3 times a day for the next 48 hours. Take your pain medicine as prescribed. Follow-up with your prescribing provider for persistent symptoms. Prescriptions: Oxycodone HCl/Acetaminophen [Percocet 5-325 mg Tablet] 1 each PO Q8H PRN PRN #6 tablet MDD 3 PRN Reason: Moderate To Severe Pain Levofloxacin [Levaquin 500 MG Tablet] 500 mg PO DAILY #7 tablet
[2021-12-03 04:00] VITALS: BP 110/75
[2021-12-03 04:01] VITALS: PULSE 113
[2021-12-03] MEDS ORDERED: Levofloxacin 500 MG Tablet PO ONE (04:05)
[2021-12-03] MEDS ORDERED: PERCOCET TABLET 5/325MG ONE (04:06)
[2021-12-03] MEDS ORDERED: Levofloxacin 500 MG Tablet ONE (04:13)
--- NOTE | 2021-12-03 08:54 | XRAY ---
Indication: Pain following fall. Multiple contiguous images obtained through the chest without contrast. Comparison: November 04, 2021 Lungs demonstrate new bibasilar dependent atelectasis and left lower lobe patchy airspace disease. Stable scattered fibrosis/scarring and right upper lobe tiny calcified granuloma. Right upper lobe also demonstrates a 10 mm noncalcified nodule anteriorly, previously 8mm. No new pulmonary mass, effusion, or pneumothorax. Heart is not enlarged again with scattered coronary calcifications. Aorta again mildly arteriosclerotic without aneurysm. Stable tiny subcarinal calcified node. No pathologic mediastinal lymphadenopathy. Bony thorax intact again with osteopenia and flowing osteophytes throughout the spine. Limited upper abdomen again demonstrates fatty liver and cholecystectomy clips. Impression: 1. New left lower lobe airspace disease. 2. Minimally increasing right upper lobe noncalcified nodule. PET/CT may yield further information. 3. Again pulmonary fibrosis/scarring, chronic bony findings, fatty liver, and old granulomatous disease. Comment: Preliminary interpretation made by [facility]. No critical discrepancy.
== END 2021-12-03 04:42 | disposition home or self-care (01) ==
LOC: ED 02:33
DX: S20.212A Contusion of left front wall of thorax, initial encounter (principal); W01.190A Fall on same level from slipping, tripping and stumbling with subsequent striking against furniture, initial encounter; Y93.01 Activity, walking, marching and hiking; R91.1 Solitary pulmonary nodule; R91.8 Other nonspecific abnormal finding of lung field; R07.81 Pleurodynia; I10 Essential (primary) hypertension; J44.9 Chronic obstructive pulmonary disease, unspecified; E11.9 Type 2 diabetes mellitus without complications; Z72.0 Tobacco use; Z79.01 Long term (current) use of anticoagulants; Z79.84 Long term (current) use of oral hypoglycemic drugs; Z79.899 Other long term (current) drug therapy; Z79.891 Long term (current) use of opiate analgesic
CPT/HCPCS: 36415; 71250; 85610; 96372; 99211; 99283; J2270; Q0162; A9270-GY; G0463

== ENCOUNTER 2022-08-16 19:33 | Observation (INO) | payer MEDICARE, OTHER ==
[2022-08-16] MEDS ORDERED: DUONEB 0.5-3 MG/3 ml Neb IH ONE ×2 (19:48→19:56)
[2022-08-16] MEDS ORDERED: Zofran 4 MG/2 ML VIAL IV ONE (19:48)
[2022-08-16] MEDS ORDERED: Pepcid 20 MG VIAL IV ONE ×2 (19:48→20:08)
[2022-08-16] MEDS ORDERED: solu-MEDROL 125 MG, Sterile H2O 10 ml 2 ML IV ONE ×2 (19:48)
[2022-08-16] MEDS ORDERED: Nitrostat 0.4 MG (ED) SL ONE ×2 (19:53→20:08)
[2022-08-16] MEDS ORDERED: DILTIAZEM HCL 25 MG/5 ML VIAL IV ONE (19:54)
--- NOTE | 2022-08-16 20:01 | ERPHSYRPT ---
- History of Present Illness Time Seen by Provider: 08/16/22 19:56 Source: patient, family Exam Limitations: no limitations Physician History: Pt is 77 yr old male with Emphysema and SOBreath today CP only when he coughs on right side then radiating to his right back, but also some epigastric feeling, and found to have rapid response 130-140 of Afib - previously known Afib Tx yrs ago with ablation but on Warfarin for protection - no cardiac stents. Previous cholecystectomy by Hx. No fever, No N or V . Chest with bilateral rales and rhonchi greater on Right. Abd soft nontender without peritoneal signs or masses. ext with 2 + edema. No rash. Hx independently confirmed by family member here, and in addition by phone. Discussed risk/benefit of Tx for rapid rate cardizem anti acid meds, NTG , IV antibiotics ; labs - CBC CMP, INR, T4 TSH, Lactate, D dimer, CXR Trop BNP, UA, EKG, Resp flu rsv covid swabs, and reviewed results then discussed with pt and family. And pt / family agree to this workup and treatment as described after discussion as above. Reviewed recent CT from 13 August showing Right lung mass after right lung nodule suspicious now for malignancy - being followed by Dr. AZAM Menendez. Pt advised of this and also discussed meds for pain and cough prescription hydrocodone and celia perles risk/benefit and he wishes to proceed. . No effect from NTG on CP, already had ASA today. Timing/Duration: today Activities at Onset: none Severity of Dyspnea-Max: moderate Severity of Dyspnea-Current: mild Possible Cause: chronic episodes Modifying Factors: Improves With: coughing Associated Symptoms: cough, edema, wheezing Allergies/Adverse Reactions: pregabalin [From Lyrica] Allergy (Severe, Verified 08/16/22 19:52) Difficulty Breathing Home Medications: Omeprazole 20 MG [Prilosec 20 mg] 20 mg PO HS 01/11/15 [History] Pramipexole Di-HCl [Mirapex] 0.5 tab PO HS 01/11/15 [History] Duloxetine HCl 60 mg PO HS 02/17/21 [History] Glimepiride 2 mg [Amaryl 2 MG] 2 mg PO HS 02/17/21 [History] Metformin HCl [Metformin ER Osmotic] 1,000 mg PO HS 02/17/21 [History] Diltiazem HCl [Diltiazem 24Hr ER] 240 mg PO HS 12/10/21 [History] Methocarbamol [Robaxin] 500 mg PO QID PRN PRN 12/10/21 [History] Tamsulosin HCl 0.4 mg [Flomax 0.4 MG] 0.4 mg PO HS 12/10/21 [History] Warfarin Sodium 2.5 mg PO UD 08/16/22 [History] Hx Tetanus, Diphtheria Vaccination/Date Given: No Hx Influenza Vaccination/Date Given: No Hx Pneumococcal Vaccination/Date Given: No Travel Risk - Vaccine Status Have you recieved a Covid-19 vaccination: Yes Wire Spinner: Moderna - Vaccination Dates Date of 2cond Vaccination (if applicable): 10/08 - Review of Systems Constitutional: No Fever, No Chills Eyes: No Symptoms Ears, Nose, & Throat: No Symptoms Respiratory: Cough, Dyspnea, Wheezing Cardiac: Chest Pain (with cough only), No Edema, No Syncope Abdominal/Gastrointestinal: Other (epigastric discomfort), No Abdominal Pain, No Nausea, No Vomiting, No Diarrhea Genitourinary Symptoms: No Dysuria Musculoskeletal: Back Pain, No Neck Pain Skin: No Symptoms, No Rash Neurological: No Dizziness, No Focal Weakness, No Sensory Changes Psychological: No Symptoms Endocrine: No Symptoms Hematologic/Lymphatic: No Symptoms Immunological/Allergic: No Symptoms All Other Systems: Reviewed and Negative - Past Medical History Pertinent Past Medical History: Yes Neurological History: Other ENT History: Cataracts Cardiac History: Arrhythmia, Hypertension Respiratory History: COPD Endocrine Medical History: Diabetes Type II Musculoskeletal History: Other GI Medical History: No Pertinent History History: No Pertinent History Psycho-Social History: No Pertinent History Male Reproductive Disorders: Prostate Cancer Other Medical History: HX CARDIAC ABLATION; R EDWAR - Past Surgical History Past Surgical History: Yes Neuro Surgical History: No Pertinent History Cardiac: Cardiac Catheterization, Other Respiratory: No Pertinent History Gastrointestinal: No Pertinent History Genitourinary: No Pertinent History Musculoskeletal: Other Male Surgical History: No Pertinent History Other Surgical History: july states back surgery with cyst removal and spur shaved,heart caths and cardiac ablation 15-20yrs ago,BACK SURG 08/03, back surgery 2013, 09/29/16,09/30/16,10/01/16 back surgery r/t infection in surgical site. bilar rcr - Social History Smoking Status: Current every day smoker How long have you smoked: 55 Exposure to second hand smoke: No Alcohol Use: None Drug Use: none Patient Lives Alone: No Significant Family History: no pertinent family hx - Nursing Vital Signs Nursing Vital Signs: Initial Vital Signs Temperature 99.6 F 08/16/22 19:38 Pulse Rate 128 H 08/16/22 19:38 Respiratory Rate 26 H 08/16/22 19:38 Blood Pressure 140/95 08/16/22 19:38 O2 Sat by Pulse Oximetry 96 08/16/22 19:38 Pain Scale Pain Intensity [] 2 Pain Intensity 1 - Physical Exam General Appearance: no apparent distress, alert Eye Exam: PERRL/EOMI Ears, Nose, Throat Exam: hearing grossly normal, normal ENT inspection, normal pharynx Neck Exam: normal inspection, non-tender, supple, full range of motion Respiratory Exam: crackles/rales, rhonchi, wheezing Cardiovascular/Chest Exam: normal heart sounds, edema, tachycardia, irregular Abdominal/Gastrointestinal Exam: soft, No tenderness, No distention, No mass Extremity Exam: non-tender, normal range of motion, normal inspection, no calf t enderness, no pedal edema Peripheral Pulses Exam: carotid (R): 2+, carotid (L): 2+, femoral (R): 2+, femoral (L): 2+, dorsalis-pedis (R): 2+, dorsalis-pedis (L): 2+ Neurologic Exam: alert, oriented x 3, cooperative, neurobiologist II-XII nml as tested, sensation nml, No motor deficits Skin Exam: normal color, warm, No dry SpO2 Interpretation: normal SpO2: 97 O2 Delivery: Room Air - Course Nursing assessment & vital signs reviewed: Yes EKG Interpreted by Me: A-fib, Right [place] Deviation, Right Bundle Branch Block, Non-specific ST Changes Rhythm Strip: Atrial Fibrillation - Radiology Exams Chest X-ray Interpretation: Interpreted by me, Reviewed by me, Infiltrates (bilateral infiltrates and RUL mass) - CT Exams Chest CT Interpretation: Tele-radiologist Report, No PE, Other (liver nodules and RUL lung mass and Hilar nodes ) Ordered Tests: Active Orders 24 hr Category Date Time Status Notcher STAT Care 08/16/22 19:51 Active EKG-ER Only STAT Care 08/16/22 19:48 Active IV Insertion STAT Care 08/16/22 19:48 Active Pulse Oximetry (ED) STAT Care 08/16/22 19:48 Active CHEST 1 VIEW (PORTABLE) Stat Exams 08/16/22 20:13 Completed CHEST WITH CONTRAST [CT] Stat Exams 08/16/22 21:17 Completed AMYLASE Stat Lab 08/16/22 20:04 Completed BLOOD CULTURE Stat Lab 08/16/22 20:19 Received CBC W DIFF Stat Lab 08/16/22 20:04 Completed CMP Stat Lab 08/16/22 20:04 Completed D-DIMER QUANTITATIVE Stat Lab 08/16/22 20:04 Completed LIPASE Stat Lab 08/16/22 20:04 Completed Lactic Acid Stat Lab 08/16/22 20:08 Completed Lactic Acid Stat Lab 08/16/22 22:13 Received NT PRO BNPII Stat Lab 08/16/22 20:04 Completed PROTIME WITH INR Stat Lab 08/16/22 20:04 Completed T4 (Thyroxine) Stat Lab 08/16/22 19:53 Completed TROPONIN Q4H Lab 08/16/22 20:04 Completed TROPONIN Q4H Lab 08/17/22 00:00 Ordered TROPONIN Q4H Lab 08/17/22 04:00 Ordered TSH [TSH, 3RD Generation] Stat Lab 08/16/22 19:53 Completed UA W/RFX UR CULTURE Stat Lab 08/16/22 21:57 Completed Respiratory Therapy Assessment DAILY RT 08/16/22 20:15 Active Medication Summary Generic Name Dose Route Start Last Admin Trade Name Freq PRN Reason Stop Dose Admin Sodium Chloride 1,000 mls @ 50 mls/hr 08/16/22 20:00 08/16/22 20:11 Sodium Chloride 0.9% 1000 Ml IV 09/15/22 19:59 50 mls/hr .Q20H MELITA Administration Discontinued Medications Generic Name Dose Route Start Last Admin Trade Name Freq PRN Reason Stop Dose Admin Hydrocodone Bitart/Acetaminophen 15 ml 08/16/22 20:26 08/16/22 20:30 Hydrocodone/Acetaminophen 5 Ml Udcup PO 08/16/22 20:27 15 ml STAT STA Administration Hydrocodone Bitart/Acetaminophen Confirm 08/16/22 20:28 Hydrocodone/Acetaminophen 5 Ml Udcup Administered 08/16/22 20:29 Dose 15 ml .ROUTE .STK-MED ONE Albuterol/Ipratropium 3 ml 08/16/22 19:48 08/16/22 20:00 Ipratropium/Albuterol Sulfate 3 Ml Ampul.Neb IH 08/16/22 19:49 3 ml STAT ONE Administration Albuterol/Ipratropium Confirm 08/16/22 19:56 Ipratropium/Albuterol Sulfate 3 Ml Ampul.Neb Administered 08/16/22 19:57 Dose 3 ml IH .STK-MED ONE Benzonatate 200 mg 08/16/22 20:25 08/16/22 20:30 Benzonatate 100 Mg Capsule PO 08/16/22 20:26 200 mg STAT ONE Administration Benzonatate Confirm 08/16/22 20:29 Benzonatate 100 Mg Capsule Administered 08/16/22 20:30 Dose 200 mg PO .STK-MED ONE Methylprednisolone Sodium 0 mg 08/16/22 19:48 08/16/22 20:17 Succinate 125 mg/ Sterile IV 08/16/22 19:49 125 mg Water 2 ml STAT ONE Administration Diltiazem HCl 10 mg 08/16/22 19:54 Diltiazem 25 Mg/5 Ml Vial IV 08/16/22 19:55 STAT ONE Diltiazem HCl Confirm 08/16/22 20:14 Diltiazem Hcl Iv 5 Mg/Ml Vial Administered 08/16/22 20:15 Dose 50 mg IV .STK-MED ONE Diltiazem HCl 10 mg 08/16/22 20:17 08/16/22 20:24 Diltiazem Hcl Iv 5 Mg/Ml Vial IV 08/16/22 20:18 10 mg STAT ONE Administration Famotidine 20 mg 08/16/22 19:48 08/16/22 20:19 Famotidine 20 Mg/1 Vial IV 08/16/22 19:49 20 mg STAT ONE Administration Famotidine Confirm 08/16/22 20:08 Famotidine 20 Mg/1 Vial Administered 08/16/22 20:09 Dose 20 mg IV .STK-MED ONE Ceftriaxone Sodium/Dextrose 1 g in 50 mls @ 100 mls/hr 08/16/22 20:24 08/16 21:11 Rocephin 1 Gm-D5w 50 Ml Bag IV 08/16/22 20:53 Infused STAT STA Infusion Ceftriaxone Sodium/Dextrose Confirm 08/16/22 20:26 Rocephin 1 Gm-D5w 50 Ml Bag Administered 08/16/22 20:27 Dose 1 g in 50 mls @ ud IV .STK-MED ONE Methylprednisolone Sodium Succinate Confirm 08/16/22 20:08 Methylprednis Sod Succ 125 Mg/2 Ml Vial Administered 08/16/22 20:09 Dose 125 mg .ROUTE .STK-MED ONE Nitroglycerin 0.4 mg 08/16/22 19:53 08/16/22 20:10 Nitroglycerin 0.4 Mg (Ed) 0.4 Mg Tab.Subl SL 08/16/22 19:54 0.4 mg STAT ONE Administration Nitroglycerin Confirm 08/16/22 20:08 Nitroglycerin 0.4 Mg (Ed) 0.4 Mg Tab.Subl Administered 08/16/22 20:09 Dose 0.4 mg SL .STK-MED ONE Ondansetron HCl 4 mg 08/16/22 19:48 08/16/22 20:15 Ondansetron Hcl 4 Mg/2 Ml Vial IV 08/16/22 19:49 4 mg STAT ONE Administration Ondansetron HCl Confirm 08/16/22 20:07 Ondansetron Hcl 4 Mg/2 Ml Vial Administered 08/16/22 20:08 Dose 4 mg .ROUTE .STK-MED ONE Sterile Water Confirm 08/16/22 20:07 Water For Injection,Sterile 10 Ml Vial Administered 08/16/22 20:08 Dose 10 ml IJ .STK-MED ONE Lab/Rad Data: Laboratory Result Diagrams 08/16/22 20:04 08/16/22 20:04 Laboratory Results 08/16/22 08/16/22 08/16/22 Range/Units 21:57 20:08 20:05 WBC (4.0-10.5) x10^3/uL RBC (4.1-5.6) x10^6/uL Hgb (12.5-18.0) g/dL Hct (42-50) % MCV (78-100) fL MCH (26-32) pg MCHC (32-36) g/dL RDW (11.5-14.0) % Plt Count (150-450) x10^3/uL MPV (7.5-11.0) fL Gran % (36.0-66.0) % Immature Gran % (Auto) (0.00-0.4) % Nucleat RBC Rel Count (0.00-0.1) % Eos # (Auto) (0-0.5) x10^3/uL Immature Gran # (Auto) (0.00-0.03) x10^3u/L Absolute Lymphs (auto) (1.0-4.6) x10^3/uL Absolute Monos (auto) (0.0-1.3) x10^3/uL Absolute Nucleated RBC (0.00-0.01) x10^3u/L Lymphocytes % (24.0-44.0) % Monocytes % (0.0-12.0) % Eosinophils % (0.00-5.0) % Basophils % (0.0-0.4) % Absolute Granulocytes (1.4-6.9) x10^3/uL Basophils # (0-0.4) x10^3/uL PT (9.4-12.5) SECONDS INR (0.8-3.0) D-Dimer (0.0-0.50) mg/L Sodium (137-145) mmol/L Potassium (3.5-5.1) mmol/L Chloride (98-107) mmol/L Carbon Dioxide (22-30) mmol/L Anion Gap (5-15) MEQ/L BUN (9-20) mg/dL Creatinine (0.66-1.25) mg/dL Estimated GFR ML/MIN Glucose (74-106) mg/dL Lactic Acid 2.4 H (0.4-2.0) Calcium (8.4-10.2) mg/dL Total Bilirubin (0.2-1.3) mg/dL AST (17-59) U/L ALT (0-50) U/L Alkaline Phosphatase (38-126) U/L Troponin I (0.000-0.034) ng/mL NT-Pro-B Natriuret Pep (<300) pg/mL Serum Total Protein (6.3-8.2) g/dL Albumin (3.5-5.0) g/dL Amylase (30-110) U/L Lipase (23-300) U/L Thyroxine (T4) (5.53-10.96) ug/dL TSH 3rd Generation (0.47-4.68) mIU/L Urine Color Yellow (Yellow) Urine Appearance Clear (Clear) Urine pH 5.5 (4.6-8.0) Ur Specific [place] 1.020 (1.005-1.030) Urine Protein 100 A (Negative) Urine Glucose (UA) Negative (Negative) mg/dL Urine Ketones Negative (Negative) Urine Blood Trace (Negative) Urine Nitrite Negative (Negative) Urine Bilirubin Negative (Negative) Urine Urobilinogen 0.2 (0.2) mg/dL Ur Leukocyte Esterase Negative (Negative) U Hyaline Cast (Auto) NONE SEEN (0-2) /LPF Urine Microscopic RBC 0-2 (0-5) /HPF Urine Microscopic WBC 0-2 (0-5) /HPF Ur Epithelial Cells None Seen (None Seen) /HPF Urine Bacteria None Seen (None Seen) /HPF Urine Culture Reflexed NO (NO) Influenza Type A Ag NEGATIVE (NEGATIVE) Influenza Type B Ag NEGATIVE (NEGATIVE) RSV (PCR) NEGATIVE (NEGATIVE) SARS-CoV-2 (PCR) NEGATIVE (NEGATIVE) 08/16/22 08/16/22 08/16/22 Range/Units 20:04 20:04 20:04 WBC (4.0-10.5) x10^3/uL RBC (4.1-5.6) x10^6/uL Hgb (12.5-18.0) g/dL Hct (42-50) % MCV (78-100) fL MCH (26-32) pg MCHC (32-36) g/dL RDW (11.5-14.0) % Plt Count (150-450) x10^3/uL MPV (7.5-11.0) fL Gran % (36.0-66.0) % Immature Gran % (Auto) (0.00-0.4) % Nucleat RBC Rel Count (0.00-0.1) % Eos # (Auto) (0-0.5) x10^3/uL Immature Gran # (Auto) (0.00-0.03) x10^3u/L Absolute Lymphs (auto) (1.0-4.6) x10^3/uL Absolute Monos (auto) (0.0-1.3) x10^3/uL Absolute Nucleated RBC (0.00-0.01) x10^3u/L Lymphocytes % (24.0-44.0) % Monocytes % (0.0-12.0) % Eosinophils % (0.00-5.0) % Basophils % (0.0-0.4) % Absolute Granulocytes (1.4-6.9) x10^3/uL Basophils # (0-0.4) x10^3/uL PT 25.0 H (9.4-12.5) SECONDS INR 2.45 (0.8-3.0) D-Dimer 1.25 H* (0.0-0.50) mg/L Sodium 140 (137-145) mmol/L Potassium 3.8 (3.5-5.1) mmol/L Chloride 104 (98-107) mmol/L Carbon Dioxide 25 (22-30) mmol/L Anion Gap 14.8 (5-15) MEQ/L BUN 18 (9-20) mg/dL Creatinine 0.95 (0.66-1.25) mg/dL Estimated GFR > 60.0 ML/MIN Glucose 166 H (74-106) mg/dL Lactic Acid (0.4-2.0) Calcium 8.5 (8.4-10.2) mg/dL Total Bilirubin 0.60 (0.2-1.3) mg/dL AST 54 (17-59) U/L ALT 29 (0-50) U/L Alkaline Phosphatase 131 H (38-126) U/L Troponin I 0.043 H* (0.000-0.034) ng/mL NT-Pro-B Natriuret Pep 6340 (<300) pg/mL Serum Total Protein 7.2 (6.3-8.2) g/dL Albumin 3.8 (3.5-5.0) g/dL Amylase 106 (30-110) U/L Lipase 153 (23-300) U/L Thyroxine (T4) (5.53-10.96) ug/dL TSH 3rd Generation (0.47-4.68) mIU/L Urine Color (Yellow) Urine Appearance (Clear) Urine pH (4.6-8.0) Ur Specific [place] (1.005-1.030) Urine Protein (Negative) Urine Glucose (UA) (Negative) mg/dL Urine Ketones (Negative) Urine Blood (Negative) Urine Nitrite (Negative) Urine Bilirubin (Negative) Urine Urobilinogen (0.2) mg/dL Ur Leukocyte Esterase (Negative) U Hyaline Cast (Auto) (0-2) /LPF Urine Microscopic RBC (0-5) /HPF Urine Microscopic WBC (0-5) /HPF Ur Epithelial Cells (None Seen) /HPF Urine Bacteria (None Seen) /HPF Urine Culture Reflexed (NO) Influenza Type A Ag (NEGATIVE) Influenza Type B Ag (NEGATIVE) RSV (PCR) (NEGATIVE) SARS-CoV-2 (PCR) (NEGATIVE) 08/16/22 08/16/22 Range/Units 20:04 19:53 WBC 8.9 (4.0-10.5) x10^3/uL RBC 5.35 (4.1-5.6) x10^6/uL Hgb 14.1 (12.5-18.0) g/dL Hct 43.9 (42-50) % MCV 82.1 (78-100) fL MCH 26.4 (26-32) pg MCHC 32.1 (32-36) g/dL RDW 16.5 H (11.5-14.0) % Plt Count 242 (150-450) x10^3/uL MPV 10.4 (7.5-11.0) fL Gran % 69.0 H (36.0-66.0) % Immature Gran % (Auto) 0.4 (0.00-0.4) % Nucleat RBC Rel Count 0.0 (0.00-0.1) % Eos # (Auto) 0.17 (0-0.5) x10^3/uL Immature Gran # (Auto) 0.04 H (0.00-0.03) x10^3u/L Absolute Lymphs (auto) 1.58 (1.0-4.6) x10^3/uL Absolute Monos (auto) 0.90 (0.0-1.3) x10^3/uL Absolute Nucleated RBC 0.00 (0.00-0.01) x10^3u/L Lymphocytes % 17.8 L (24.0-44.0) % Monocytes % 10.1 (0.0-12.0) % Eosinophils % 1.9 (0.00-5.0) % Basophils % 0.8 (0.0-0.4) % Absolute Granulocytes 6.13 (1.4-6.9) x10^3/uL Basophils # 0.07 (0-0.4) x10^3/uL PT (9.4-12.5) SECONDS INR (0.8-3.0) D-Dimer (0.0-0.50) mg/L Sodium (137-145) mmol/L Potassium (3.5-5.1) mmol/L Chloride (98-107) mmol/L Carbon Dioxide (22-30) mmol/L Anion Gap (5-15) MEQ/L BUN (9-20) mg/dL Creatinine (0.66-1.25) mg/dL Estimated GFR ML/MIN Glucose (74-106) mg/dL Lactic Acid (0.4-2.0) Calcium (8.4-10.2) mg/dL Total Bilirubin (0.2-1.3) mg/dL AST (17-59) U/L ALT (0-50) U/L Alkaline Phosphatase (38-126) U/L Troponin I (0.000-0.034) ng/mL NT-Pro-B Natriuret Pep (<300) pg/mL Serum Total Protein (6.3-8.2) g/dL Albumin (3.5-5.0) g/dL Amylase (30-110) U/L Lipase (23-300) U/L Thyroxine (T4) 7.55 (5.53-10.96) ug/dL TSH 3rd Generation 3.940 (0.47-4.68) mIU/L Urine Color (Yellow) Urine Appearance (Clear) Urine pH (4.6-8.0) Ur Specific [place] (1.005-1.030) Urine Protein (Negative) Urine Glucose (UA) (Negative) mg/dL Urine Ketones (Negative) Urine Blood (Negative) Urine Nitrite (Negative) Urine Bilirubin (Negative) Urine Urobilinogen (0.2) mg/dL Ur Leukocyte Esterase (Negative) U Hyaline Cast (Auto) (0-2) /LPF Urine Microscopic RBC (0-5) /HPF Urine Microscopic WBC (0-5) /HPF Ur Epithelial Cells (None Seen) /HPF Urine Bacteria (None Seen) /HPF Urine Culture Reflexed (NO) Influenza Type A Ag (NEGATIVE) Influenza Type B Ag (NEGATIVE) RSV (PCR) (NEGATIVE) SARS-CoV-2 (PCR) (NEGATIVE) - Progress Progress: improved, re-examined Air Movement: good Progress Note: 08/16/22 20:[address] Elijah pinto and discussed elevated D dimer also with pt including risks and benefits and all agree to proceed with CT PE protocol but pt is thinking about not staying in hospital for his heart concerns and we are still trying to convince him - also discussed with Dr. Nava. 08/16/22 21:20 Discussed with hospitalist and pt the elevated trop and one consideration is that this is a temporary effect from the elevated HR response and not a coronary syndrome, but we also discussed that such cannot be ruled out without further serial trops and obs and pt understands this risk including PA and and has the capacity to make that choice . He also is not clinically short of breath now even with the elevated BNP and is also advised that this could herald a cardiac event as well and states that he understands and accepts this risk also. 08/16/22 23:22 Discussed again with SOn and Pt and was able to convince pt to accept admission after discussion of results and risks/benefits again. Consulted with Dr. Elijah pinto and he has accepted him for obs , rate control and AB exac COPD and to follow trops and BNP. 08/16/22 23:26 08/16/22 23:45 called radiologist for consultation to confirm no PE as report initially was not clear. Blood Culture(s) Obtained: Yes Antibiotics given: Yes Discussed with DrBrisa: Other (Dr. Elijah Pinto) Will see patient in: hospital (observation) Counseled pt/family regarding: lab results, diagnosis, need for follow-up, rad r esults Medical Desision Making - Independent Historian Additional History obtained from: Spouse, Family - External Record(s) Reviewed Records reviewed as a part of evaluation & management: Clinic (our rad reports here from out pt CT) - Discussion of managment Care discussed with:: hospitalist Reviewed:: Test results, Need for additional workup Agreed on:: Treatment plan, need for follow-up Will see patient: in hospital - Diagnostic Testing Diagnostic test were ordered, analyzed, and reviewed by me: Yes Radiological Interpretation: Interpreted by me, Reviewed by me, Discussed w/ radiologist - Risk of complications The pt has a mod risk of morbidity or mortality based on: Need for prescription drug management The pt has a high risk of morbidity or mortality based on: Drug therapy requiring intensive monitoring for toxicity, Decision regarding hospitilization or escalation of hosp level of care - Departure Departure Disposition: Observation Clinical Impression: DM2 (diabetes mellitus, type 2), Chronic a-fib, Afib with acute rapid ventricular respon, Right lung mass on recent CT, Emphysema/COPD, COPD Exacerbation with infiltrates, liver nodules on CT Condition: Stable Critical Care Time: Yes Critical Care Time(excluding separately billable procedures): Critical 30-74 mins (controlling Afib rate with IOV meds) Referrals: [facility] [Primary Care Provider] - Follow up/PCP as directed Instructions: Chronic Obstructive Pulmonary Disease
[2022-08-16] MEDS ORDERED: Sterile H2O 10 ml IJ ONE (20:07)
[2022-08-16] MEDS ORDERED: Zofran 4 MG/2 ML VIAL ONE (20:07)
[2022-08-16] MEDS ORDERED: solu-MEDROL ONE (20:08)
[2022-08-16 20:10] LABS: Absolute Neutrophil Ct (ANC) 6.13 x10^3/uL (1.4-6.9); BASOPHIL % 0.8 % (0.0-0.4); Basophil (Absolute #) 0.07 x10^3/uL (0-0.4); Eosinophil % 1.9 % (0.00-5.0); Eosinophil (Absolute #) 0.17 x10^3/uL (0-0.5); Hematocrit 43.9 % (42-50); Hemoglobin 14.1 g/dL (12.5-18.0); IMMATURE GRAN # 0.04 x10^3u/L (0.00-0.03); IMMATURE GRAN % 0.4 % (0.00-0.4); Lymphocyte (Absolute #) 1.58 x10^3/uL (1.0-4.6); Lymphocytes % 17.8 % (24.0-44.0); Mean Cell Volume 82.1 fL (78-100); Mean Corpuscular Hemoglobin 26.4 pg (26-32); Mean Corpuscular Hgb Concent. 32.1 g/dL (32-36); Mean Platelet Volume 10.4 fL (7.5-11.0); Monocytes % 10.1 % (0.0-12.0); Platelet Count 242 x10^3/uL (150-450); Red Blood Count 5.35 x10^6/uL (4.1-5.6); Red Cell Distribution Width 16.5 % (11.5-14.0); White Blood Count 8.9 x10^3/uL (4.0-10.5)
[2022-08-16] MEDS: Sodium Chloride 0.9% 1000 ML 1,000 ML IV SCH (20:11)
[2022-08-16] MEDS ORDERED: Cardizem IV 50 MG/10 ML IV ONE ×2 (20:14→20:17)
[2022-08-16] MEDS ORDERED: ROCEPHIN 1 Gm-D5w 50 ml Bag** 1 G/50 ML IVPB IV STA (20:24)
[2022-08-16] MEDS ORDERED: Tessalon Perles 100 MG PO ONE ×2 (20:25→20:29)
[2022-08-16] MEDS ORDERED: HYDROCODONE-ACETAMIN 2.5-108/5 ML SOLUTION PO STA (20:26)
[2022-08-16] MEDS ORDERED: ROCEPHIN 1 Gm-D5w 50 ml Bag** 1 G/50 ML IVPB IV ONE (20:26)
[2022-08-16 20:28] LABS: ALBUMIN 3.8 g/dL (3.5-5.0); ALKALINE PHOSPHATASE 131 U/L (38-126); AMYLASE 106 U/L (30-110); BLOOD UREA NITROGEN 18 mg/dL (9-20); Calcium 8.5 mg/dL (8.4-10.2); Creatinine 1 0.95 mg/dL (0.66-1.25); EST GLOMERULAR FILTRATION RATE > 60.0 ML/MIN; Glucose 166 mg/dL (74-106); LIPASE 153 U/L (23-300); Potassium 3.8 mmol/L (3.5-5.1); SGOT/AST 54 U/L (17-59); SGPT/ALT 29 U/L (0-50); SODIUM 140 mmol/L (137-145); Total Protein 7.2 g/dL (6.3-8.2)
[2022-08-16] MEDS ORDERED: HYDROCODONE-ACETAMIN 2.5-108/5 ML SOLUTION ONE (20:28)
[2022-08-16 20:30] LABS: CHLORIDE 104 mmol/L (98-107); Carbon Dioxide 25 mmol/L (22-30)
[2022-08-16 20:31] LABS: ANION GAP 14.8 MEQ/L (5-15)
[2022-08-16 20:40] LABS: TROPONIN 0.043 ng/mL (0.000-0.034)
[2022-08-16 20:42] LABS: INR 2.45 (0.8-3.0)
[2022-08-16 20:45] LABS: INFLUENZA A NEGATIVE (NEGATIVE); INFLUENZA B NEGATIVE (NEGATIVE); RESPIRATORY SYNCTIAL VIRUS NEGATIVE (NEGATIVE); SARS-CoV-2 Xpert Express NEGATIVE (NEGATIVE)
[2022-08-16 20:47] LABS: D-DIMER QUANTITATIVE 1.25 mg/L (0.0-0.50)
[2022-08-16 20:53] LABS: T4 (Thyroxine) 7.55 ug/dL (5.53-10.96); TSH, 3RD Generation 3.94 mIU/L (0.47-4.68)
[2022-08-16] MEDS ORDERED: HOLD METFORMIN PRODUCTS FOR 48 HOURS MC SCH (21:00)
--- NOTE | 2022-08-16 21:15 | XRAY ---
Indication: Short of breath. Comparison: November 04, 2021 Portable chest demonstrates new recent CT proven right upper lobe mass. Remaining heart and lungs again unremarkable with scattered fibrosis/scarring. No new cardiopulmonary abnormalities.
--- NOTE | 2022-08-16 22:27 | XRAY ---
CLINICAL HISTORY:Elevated D dimer SOB with malignancy. R/O PE AND MASS OF CHEST. COMPARISON:CT dated 08/12/2022. TECHNIQUES:Contiguous 3.[address] images of the chest were acquired with administration of intravenous contrast. 80 ml of Inj. Isovue (370 mg) was administered as an intravenous contrast agent. Coronal and sagittal reconstructions were obtained; FINDINGS: Redemonstration of mass with spiculated margins in the anterior segment of the right upper lobe, extending from the hilum to the anterior and mediastinal pleura. It measures about 3.5 x 2.8 x 3.0 cm (CC, AP, T), and it surrounds completely the right superior lobar artery, without evidence of thrombosis or occlusion. These findings are suggestive of malignancy. Bilateral moderate pleural effusion, not evident in prior exam. Calcified nodule in the posterior segment of right upper lobe, most likely corresponding to granuloma. Remaining lungs redemonstrate scattered peripheral fibrosis/scarring again greatest in the lung bases. Several adenomegalies, the largest at pretracheal location (3.7 x 2.7 cm), precarinal (3.5 x 2.5 cm), subcarinal (2 x 1.5 cm), and right hilum (2.2 x 1.5 cm). Stable incidental small subcarinal calcified node. Heart size is normal, and there is no pericardial effusion. Atheromatous calcifications in thoracic aorta and coronary arteries. Patent tracheobronchial tree. Overall decreased bone density. Scanned upper abdomen show hypodense areas in liver. Degenerative changes in the visualized spine, with marginal osteophytes. IMPRESSION: 1. Mass in the right upper lobe, surrounding the right superior lobar artery, extending from the hilum to the pleura suggesting neoplastic lesion. PET-CT is recommended for further evaluation. 2. Mediastinal adenomegalies, largest measuring about 3.7 x 2.7 cm. 3. Bilateral Pleural effusion. 4. Hypodense liver lesions, which require further evaluation to rule out secondary/metastatic lesions. Electronically Signed by: Isael Cabrera MD. (08/16/2022 21:22:51 NECK SKEWER)
[2022-08-16 22:58] LABS: Appearance Clear (Clear); Bacteria None Seen /HPF (None Seen); Bilirubin Negative (Negative); Blood Trace (Negative); Epithelial Cells None Seen /HPF (None Seen); Glucose, Urine Negative (Negative); Hyaline Casts NONE SEEN /LPF (0-2); Ketones Negative (Negative); Leukocyte Esterase Negative (Negative); Nitrite Negative (Negative); Ph 5.5 (4.6-8.0); Protein,Urine Dip 100 (Negative); RBC 0-2 /HPF (0-5); Urobilinogen 0.2 mg/dL (0.2); WBC 0-2 /HPF (0-5)
[2022-08-16 23:00] LABS: ADD URINE CULTURE? NO (NO)
[2022-08-17] MEDS ORDERED: Robaxin PO ONE (00:06)
[2022-08-17] MEDS ORDERED: CARDIZEM DRIP 100 MG/100 ML D5W 100 ML IV ONE (00:16)
[2022-08-17] MEDS ORDERED: Ativan 0.5 MG PO ONE (00:29)
[2022-08-17] MEDS ORDERED: Ativan 2 MG/1 ML VIAL IV ONE (00:32)
[2022-08-17] MEDS ORDERED: Ativan 2 MG/1 ML VIAL ONE (00:33)
[2022-08-17] MEDS ORDERED: HUMALOG SQ PRN ×2 (00:51→16:48)
[2022-08-17] MEDS ORDERED: TYLENOL 325 MG PO PRN (00:51)
[2022-08-17] MEDS ORDERED: Senokot-S Tablet PO PRN (00:51)
[2022-08-17] MEDS ORDERED: Zofran 4 MG/2 ML VIAL IV PRN (00:51)
[2022-08-17] MEDS ORDERED: Ativan 1 MG PO PRN (00:51)
[2022-08-17] MEDS ORDERED: MILK OF MAGNESIA 30 ML PO PRN (00:51)
[2022-08-17] MEDS ORDERED: MAALOX ES 30 ML UNIT DOSE PO PRN (00:51)
[2022-08-17] MEDS: CARDIZEM DRIP 100 MG/100 ML D5W 100 ML IV PRN ×3 (00:58→17:51)
[2022-08-17] MEDS: Sodium Chloride 0.9% 1000 ML 1,000 ML IV SCH (00:59)
[2022-08-17] MEDS ORDERED: MORPHINE SULFATE 4 MG INJ IV PRN (01:08)
[2022-08-17] MEDS ORDERED: MORPHINE SULFATE 2 MG INJ ONE (01:10)
[2022-08-17] MEDS ORDERED: solu-MEDROL ONE ×3 (01:50→16:21)
[2022-08-17] MEDS: solu-MEDROL 60 MG, Sterile H2O 10 ml 2 ML IV SCH ×8 (01:51→17:02)
[2022-08-17] MEDS: DUONEB 0.5-3 MG/3 ml Neb IH SCH ×6 (02:04→22:32)
[2022-08-17] MEDS ORDERED: Versed 50 MG/ 10 Ml MDV ONE (02:18)
[2022-08-17] MEDS ORDERED: Versed 50 MG/ 10 Ml MDV*** 50 MG in Sodium Chloride 0.9% 250 ML 240 ML IV PRN (02:19)
[2022-08-17] MEDS ORDERED: Sodium Chloride 0.9% 250 ML 250 ML IV ONE (02:19)
[2022-08-17 02:25] LABS: A-aADO2 139; ABG HEMOGLOBIN 15.1; ABG POTASSIUM 4.2 (3.5-5.1); ARTERIAL BLD GAS O2 SATURATION 93.8 % (95-100); ARTERIAL BLOOD GAS BASE EXCESS -3.9 (-2.0-2.0); ARTERIAL BLOOD GAS FIO2 36 %; ARTERIAL BLOOD GAS PCO2 32 mmHg (35-45); ARTERIAL BLOOD GAS PO2 78 mmHg (75-100); HCO3- 19.8 (22-28); HGB O2 SAT 93.8 g/dF (94-100); paO2 pAO1 0.36
[2022-08-17 02:26] LABS: ABG SITE RIGHT BRACHIAL
[2022-08-17] MEDS ORDERED: Haldol 5 MG ONE (02:48)
[2022-08-17] MEDS ORDERED: Haldol 5 MG IV ONE (02:51)
[2022-08-17 04:50] LABS: Risk Ratio 2.9
[2022-08-17] MEDS ORDERED: Sterile H2O 10 ml IJ ONE (06:23)
[2022-08-17] MEDS: Pepcid 20 MG VIAL IV SCH ×2 (08:52→21:04)
[2022-08-17] MEDS ORDERED: Ativan 2 MG/1 ML VIAL IV SCH (10:00)
[2022-08-17] MEDS ORDERED: Robaxin PO PRN (13:57)
[2022-08-17 14:02] LABS: Absolute Neutrophil Ct (ANC) 7.44 x10^3/uL (1.4-6.9); BASOPHIL % 0.1 % (0.0-0.4); Basophil (Absolute #) 0.01 x10^3/uL (0-0.4); Eosinophil (Absolute #) 0 x10^3/uL (0-0.5); Hematocrit 44.6 % (42-50); IMMATURE GRAN # 0.04 x10^3u/L (0.00-0.03); IMMATURE GRAN % 0.5 % (0.00-0.4); Lymphocytes % 8.3 % (24.0-44.0); Mean Cell Volume 82.6 fL (78-100); Mean Corpuscular Hemoglobin 25.9 pg (26-32); Mean Corpuscular Hgb Concent. 31.4 g/dL (32-36); Mean Platelet Volume 10.3 fL (7.5-11.0); Monocyte (Absolute #) 0.28 x10^3/uL (0.0-1.3); Monocytes % 3.3 % (0.0-12.0); Neutrophil % 87.8 % (36.0-66.0); Platelet Count 235 x10^3/uL (150-450); Red Cell Distribution Width 17.2 % (11.5-14.0); White Blood Count 8.5 x10^3/uL (4.0-10.5)
--- NOTE | 2022-08-17 14:16 | PCM.NOTE ---
Date and Time: 08/17/22 1410 Subjective Assessment: Patient was admitted by Hospitalist Dr Nava to ICU with afib with RVR on Cardiazem drip . Patient had a rough night disoriented ,thrashing about. Morphine and Ativan on board without improvement. Versed drip started for short period and patient finally relaxed and slept well . I spoke to the Aliza who is unable to come to the hospital due to her health issues. She is aware of the lung and now new liver lesions.Dr Menendez will view the CT and advise and will see patient tomorrow. states to leave the DNR in place as she knows this is what her wishes. Objective Exam General Appearance: lethargy Neurologic Exam: other (awakened briefly and was Ox2 asking to use the bathroom then fell back to sleep. Speech was clear.) Skin Exam: normal color, warm, dry Ears, Nose, Throat Exam: normal ENT inspection Neck Exam: normal inspection Respiratory Exam: diminished breath sounds, crackles/rales (left base) Cardiovascular Exam: other (rate 80s) Gastrointestinal/Abdomen Exam: soft (presents) Extremity Exam: other (no edema,right hand finger amputee) OBJECTIVE DATA Vital Signs: Vital Signs - 24 hr Temp Pulse Resp BP BP Pulse Ox 08/17/22 13:44 81 15 126/73 94 L 08/17/22 12:50 81 18 146/76 93 L 08/17/22 12:00 87 145/69 08/17/22 11:56 87 20 145/69 94 L 08/17/22 11:00 87 20 145/69 94 L 08/17/22 10:31 83 20 95 08/17/22 10:00 88 18 151/99 93 L 08/17/22 09:04 85 156/81 08/17/22 08:00 98 H 163/102 08/17/22 07:30 113 H 08/17/22 06:57 113 H 165/105 08/17/22 06:00 104 H 158/91 08/17/22 05:19 119 H 18 151/78 97 08/17/22 05:00 124 H 18 99 08/17/22 04:00 99 F 112 H 23 138/96 92 L 08/17/22 03:30 100 H 128/75 08/17/22 03:00 103 H 133/74 08/17/22 02:43 143 H 30 H 131/79 92 L 08/17/22 02:23 148/89 08/17/22 02:10 158 H 32 H 91 L 08/17/22 01:42 167 H 123/89 08/17/22 01:32 141 H 124 H 08/17/22 01:14 135 H 134/110 08/17/22 01:00 98.6 F 160 H 32 H 152/99 91 L 08/17/22 00:58 149 H 107/80 08/17/22 00:21 98.3 F 140 H 24 114/81 94 L 08/16/22 23:46 97 08/16/22 23:45 132 H 22 92 L 08/16/22 22:00 108 H 135/79 95 08/16/22 21:00 101 H 16 96 08/16/22 20:34 105 H 20 96 08/16/22 20:00 125 H 21 95 08/16/22 19:48 95 08/16/22 19:38 99.6 F 128 H 26 H 140/95 96 Pain Assessment - Last Documented Pain Intensity [Right Back] 2 Pain Intensity 1 Intake and Output: Intake & Output 08/15/22 08/16/22 08/17/22 08/18/22 11:59 11:59 11:59 11:59 Intake Total 400 Balance 400 Weight 85 kg Lab Results: Lab Results-Last 24 Hours 08/16/22 08/16/22 08/16/22 Range/Units 19:53 20:04 20:04 WBC 8.9 (4.0-10.5) x10^3/uL RBC 5.35 (4.1-5.6) x10^6/uL Hgb 14.1 (12.5-18.0) g/dL Hct 43.9 (42-50) % MCV 82.1 (78-100) fL MCH 26.4 (26-32) pg MCHC 32.1 (32-36) g/dL RDW 16.5 H (11.5-14.0) % Plt Count 242 (150-450) x10^3/uL MPV 10.4 (7.5-11.0) fL Gran % 69.0 H (36.0-66.0) % Immature Gran % (Auto) 0.4 (0.00-0.4) % Nucleat RBC Rel Count 0.0 (0.00-0.1) % Eos # (Auto) 0.17 (0-0.5) x10^3/uL Immature Gran # (Auto) 0.04 H (0.00-0.03) x10^3u/L Absolute Lymphs (auto) 1.58 (1.0-4.6) x10^3/uL Absolute Monos (auto) 0.90 (0.0-1.3) x10^3/uL Absolute Nucleated RBC 0.00 (0.00-0.01) x10^3u/L Lymphocytes % 17.8 L (24.0-44.0) % Monocytes % 10.1 (0.0-12.0) % Eosinophils % 1.9 (0.00-5.0) % Basophils % 0.8 (0.0-0.4) % Absolute Granulocytes 6.13 (1.4-6.9) x10^3/uL Basophils # 0.07 (0-0.4) x10^3/uL PT (9.4-12.5) SECONDS INR (0.8-3.0) D-Dimer (0.0-0.50) mg/L Puncture Site pCO2 (35-45) mmHg pO2 (75-100) mmHg Base Excess (-2.0-2.0) O2 Saturation (94-100) g/dF ABG pH (7.35-7.45) ABG HCO3 (22-28) ABG O2 Sat (Measured) (95-100) % Greg Test A-a Gradient a/A Ratio Hemoglobin Carboxyhemoglobin (0.0-6.9) % THgb Methemoglobin (1.4-1.5) % Temperature C POC O2 Flow Rate % Sodium 140 (137-145) mmol/L Potassium 3.8 (3.5-5.1) mmol/L Chloride 104 (98-107) mmol/L Carbon Dioxide 25 (22-30) mmol/L Anion Gap 14.8 (5-15) MEQ/L BUN 18 (9-20) mg/dL Creatinine 0.95 (0.66-1.25) mg/dL Estimated GFR > 60.0 ML/MIN Glucose 166 H (74-106) mg/dL POC Glucometer (74 to 106) mg/dL Lactic Acid (0.4-2.0) Calcium 8.5 (8.4-10.2) mg/dL Total Bilirubin 0.60 (0.2-1.3) mg/dL AST 54 (17-59) U/L ALT 29 (0-50) U/L Alkaline Phosphatase 131 H (38-126) U/L Troponin I (0.000-0.034) ng/mL NT-Pro-B Natriuret Pep (<300) pg/mL Serum Total Protein 7.2 (6.3-8.2) g/dL Albumin 3.8 (3.5-5.0) g/dL Triglycerides (30-150) mg/dL Cholesterol (50-200) mg/dL LDL Cholesterol (30-100) mg/dL HDL Cholesterol (40-60) mg/dL Heart Disease Risk Ratio Amylase 106 (30-110) U/L Lipase 153 (23-300) U/L Thyroxine (T4) 7.55 (5.53-10.96) ug/dL TSH 3rd Generation 3.940 (0.47-4.68) mIU/L Urine Color (Yellow) Urine Appearance (Clear) Urine pH (4.6-8.0) Ur Specific [place] (1.005-1.030) Urine Protein (Negative) Urine Glucose (UA) (Negative) mg/dL Urine Ketones (Negative) Urine Blood (Negative) Urine Nitrite (Negative) Urine Bilirubin (Negative) Urine Urobilinogen (0.2) mg/dL Ur Leukocyte Esterase (Negative) U Hyaline Cast (Auto) (0-2) /LPF Urine Microscopic RBC (0-5) /HPF Urine Microscopic WBC (0-5) /HPF Ur Epithelial Cells (None Seen) /HPF Urine Bacteria (None Seen) /HPF Urine Culture Reflexed (NO) Influenza Type A Ag (NEGATIVE) Influenza Type B Ag (NEGATIVE) RSV (PCR) (NEGATIVE) SARS-CoV-2 (PCR) (NEGATIVE) 08/16/22 08/16/22 08/16/22 Range/Units 20:04 20:04 20:05 WBC (4.0-10.5) x10^3/uL RBC (4.1-5.6) x10^6/uL Hgb (12.5-18.0) g/dL Hct (42-50) % MCV (78-100) fL MCH (26-32) pg MCHC (32-36) g/dL RDW (11.5-14.0) % Plt Count (150-450) x10^3/uL MPV (7.5-11.0) fL Gran % (36.0-66.0) % Immature Gran % (Auto) (0.00-0.4) % Nucleat RBC Rel Count (0.00-0.1) % Eos # (Auto) (0-0.5) x10^3/uL Immature Gran # (Auto) (0.00-0.03) x10^3u/L Absolute Lymphs (auto) (1.0-4.6) x10^3/uL Absolute Monos (auto) (0.0-1.3) x10^3/uL Absolute Nucleated RBC (0.00-0.01) x10^3u/L Lymphocytes % (24.0-44.0) % Monocytes % (0.0-12.0) % Eosinophils % (0.00-5.0) % Basophils % (0.0-0.4) % Absolute Granulocytes (1.4-6.9) x10^3/uL Basophils # (0-0.4) x10^3/uL PT 25.0 H (9.4-12.5) SECONDS INR 2.45 (0.8-3.0) D-Dimer 1.25 H* (0.0-0.50) mg/L Puncture Site pCO2 (35-45) mmHg pO2 (75-100) mmHg Base Excess (-2.0-2.0) O2 Saturation (94-100) g/dF ABG pH (7.35-7.45) ABG HCO3 (22-28) ABG O2 Sat (Measured) (95-100) % Greg Test A-a Gradient a/A Ratio Hemoglobin Carboxyhemoglobin (0.0-6.9) % THgb Methemoglobin (1.4-1.5) % Temperature C POC O2 Flow Rate % Sodium (137-145) mmol/L Potassium (3.5-5.1) mmol/L Chloride (98-107) mmol/L Carbon Dioxide (22-30) mmol/L Anion Gap (5-15) MEQ/L BUN (9-20) mg/dL Creatinine (0.66-1.25) mg/dL Estimated GFR ML/MIN Glucose (74-106) mg/dL POC Glucometer (74 to 106) mg/dL Lactic Acid (0.4-2.0) Calcium (8.4-10.2) mg/dL Total Bilirubin (0.2-1.3) mg/dL AST (17-59) U/L ALT (0-50) U/L Alkaline Phosphatase (38-126) U/L Troponin I 0.043 H* (0.000-0.034) ng/mL NT-Pro-B Natriuret Pep 6340 (<300) pg/mL Serum Total Protein (6.3-8.2) g/dL Albumin (3.5-5.0) g/dL Triglycerides (30-150) mg/dL Cholesterol (50-200) mg/dL LDL Cholesterol (30-100) mg/dL HDL Cholesterol (40-60) mg/dL Heart Disease Risk Ratio Amylase (30-110) U/L Lipase (23-300) U/L Thyroxine (T4) (5.53-10.96) ug/dL TSH 3rd Generation (0.47-4.68) mIU/L Urine Color (Yellow) Urine Appearance (Clear) Urine pH (4.6-8.0) Ur Specific [place] (1.005-1.030) Urine Protein (Negative) Urine Glucose (UA) (Negative) mg/dL Urine Ketones (Negative) Urine Blood (Negative) Urine Nitrite (Negative) Urine Bilirubin (Negative) Urine Urobilinogen (0.2) mg/dL Ur Leukocyte Esterase (Negative) U Hyaline Cast (Auto) (0-2) /LPF Urine Microscopic RBC (0-5) /HPF Urine Microscopic WBC (0-5) /HPF Ur Epithelial Cells (None Seen) /HPF Urine Bacteria (None Seen) /HPF Urine Culture Reflexed (NO) Influenza Type A Ag NEGATIVE (NEGATIVE) Influenza Type B Ag NEGATIVE (NEGATIVE) RSV (PCR) NEGATIVE (NEGATIVE) SARS-CoV-2 (PCR) NEGATIVE (NEGATIVE) 08/16/22 08/16/22 08/16/22 Range/Units 20:08 21:57 22:13 WBC (4.0-10.5) x10^3/uL RBC (4.1-5.6) x10^6/uL Hgb (12.5-18.0) g/dL Hct (42-50) % MCV (78-100) fL MCH (26-32) pg MCHC (32-36) g/dL RDW (11.5-14.0) % Plt Count (150-450) x10^3/uL MPV (7.5-11.0) fL Gran % (36.0-66.0) % Immature Gran % (Auto) (0.00-0.4) % Nucleat RBC Rel Count (0.00-0.1) % Eos # (Auto) (0-0.5) x10^3/uL Immature Gran # (Auto) (0.00-0.03) x10^3u/L Absolute Lymphs (auto) (1.0-4.6) x10^3/uL Absolute Monos (auto) (0.0-1.3) x10^3/uL Absolute Nucleated RBC (0.00-0.01) x10^3u/L Lymphocytes % (24.0-44.0) % Monocytes % (0.0-12.0) % Eosinophils % (0.00-5.0) % Basophils % (0.0-0.4) % Absolute Granulocytes (1.4-6.9) x10^3/uL Basophils # (0-0.4) x10^3/uL PT (9.4-12.5) SECONDS INR (0.8-3.0) D-Dimer (0.0-0.50) mg/L Puncture Site pCO2 (35-45) mmHg pO2 (75-100) mmHg Base Excess (-2.0-2.0) O2 Saturation (94-100) g/dF ABG pH (7.35-7.45) ABG HCO3 (22-28) ABG O2 Sat (Measured) (95-100) % Greg Test A-a Gradient a/A Ratio Hemoglobin Carboxyhemoglobin (0.0-6.9) % THgb Methemoglobin (1.4-1.5) % Temperature C POC O2 Flow Rate % Sodium (137-145) mmol/L Potassium (3.5-5.1) mmol/L Chloride (98-107) mmol/L Carbon Dioxide (22-30) mmol/L Anion Gap (5-15) MEQ/L BUN (9-20) mg/dL Creatinine (0.66-1.25) mg/dL Estimated GFR ML/MIN Glucose (74-106) mg/dL POC Glucometer (74 to 106) mg/dL Lactic Acid 2.4 H 2.6 H (0.4-2.0) Calcium (8.4-10.2) mg/dL Total Bilirubin (0.2-1.3) mg/dL AST (17-59) U/L ALT (0-50) U/L Alkaline Phosphatase (38-126) U/L Troponin I (0.000-0.034) ng/mL NT-Pro-B Natriuret Pep (<300) pg/mL Serum Total Protein (6.3-8.2) g/dL Albumin (3.5-5.0) g/dL Triglycerides (30-150) mg/dL Cholesterol (50-200) mg/dL LDL Cholesterol (30-100) mg/dL HDL Cholesterol (40-60) mg/dL Heart Disease Risk Ratio Amylase (30-110) U/L Lipase (23-300) U/L Thyroxine (T4) (5.53-10.96) ug/dL TSH 3rd Generation (0.47-4.68) mIU/L Urine Color Yellow (Yellow) Urine Appearance Clear (Clear) Urine pH 5.5 (4.6-8.0) Ur Specific [place] 1.020 (1.005-1.030) Urine Protein 100 A (Negative) Urine Glucose (UA) Negative (Negative) mg/dL Urine Ketones Negative (Negative) Urine Blood Trace (Negative) Urine Nitrite Negative (Negative) Urine Bilirubin Negative (Negative) Urine Urobilinogen 0.2 (0.2) mg/dL Ur Leukocyte Esterase Negative (Negative) U Hyaline Cast (Auto) NONE SEEN (0-2) /LPF Urine Microscopic RBC 0-2 (0-5) /HPF Urine Microscopic WBC 0-2 (0-5) /HPF Ur Epithelial Cells None Seen (None Seen) /HPF Urine Bacteria None Seen (None Seen) /HPF Urine Culture Reflexed NO (NO) Influenza Type A Ag (NEGATIVE) Influenza Type B Ag (NEGATIVE) RSV (PCR) (NEGATIVE) SARS-CoV-2 (PCR) (NEGATIVE) 08/17/22 08/17/22 08/17/22 Range/Units 00:03 00:45 02:07 WBC (4.0-10.5) x10^3/uL RBC (4.1-5.6) x10^6/uL Hgb (12.5-18.0) g/dL Hct (42-50) % MCV (78-100) fL MCH (26-32) pg MCHC (32-36) g/dL RDW (11.5-14.0) % Plt Count (150-450) x10^3/uL MPV (7.5-11.0) fL Gran % (36.0-66.0) % Immature Gran % (Auto) (0.00-0.4) % Nucleat RBC Rel Count (0.00-0.1) % Eos # (Auto) (0-0.5) x10^3/uL Immature Gran # (Auto) (0.00-0.03) x10^3u/L Absolute Lymphs (auto) (1.0-4.6) x10^3/uL Absolute Monos (auto) (0.0-1.3) x10^3/uL Absolute Nucleated RBC (0.00-0.01) x10^3u/L Lymphocytes % (24.0-44.0) % Monocytes % (0.0-12.0) % Eosinophils % (0.00-5.0) % Basophils % (0.0-0.4) % Absolute Granulocytes (1.4-6.9) x10^3/uL Basophils # (0-0.4) x10^3/uL PT (9.4-12.5) SECONDS INR (0.8-3.0) D-Dimer (0.0-0.50) mg/L Puncture Site pCO2 (35-45) mmHg pO2 (75-100) mmHg Base Excess (-2.0-2.0) O2 Saturation (94-100) g/dF ABG pH (7.35-7.45) ABG HCO3 (22-28) ABG O2 Sat (Measured) (95-100) % Greg Test A-a Gradient a/A Ratio Hemoglobin Carboxyhemoglobin (0.0-6.9) % THgb Methemoglobin (1.4-1.5) % Temperature C POC O2 Flow Rate % Sodium (137-145) mmol/L Potassium (3.5-5.1) mmol/L Chloride (98-107) mmol/L Carbon Dioxide (22-30) mmol/L Anion Gap (5-15) MEQ/L BUN (9-20) mg/dL Creatinine (0.66-1.25) mg/dL Estimated GFR ML/MIN Glucose (74-106) mg/dL POC Glucometer 279 H 278 H (74 to 106) mg/dL Lactic Acid (0.4-2.0) Calcium (8.4-10.2) mg/dL Total Bilirubin (0.2-1.3) mg/dL AST (17-59) U/L ALT (0-50) U/L Alkaline Phosphatase (38-126) U/L Troponin I 0.040 H* (0.000-0.034) ng/mL NT-Pro-B Natriuret Pep (<300) pg/mL Serum Total Protein (6.3-8.2) g/dL Albumin (3.5-5.0) g/dL Triglycerides (30-150) mg/dL Cholesterol (50-200) mg/dL LDL Cholesterol (30-100) mg/dL HDL Cholesterol (40-60) mg/dL Heart Disease Risk Ratio Amylase (30-110) U/L Lipase (23-300) U/L Thyroxine (T4) (5.53-10.96) ug/dL TSH 3rd Generation (0.47-4.68) mIU/L Urine Color (Yellow) Urine Appearance (Clear) Urine pH (4.6-8.0) Ur Specific [place] (1.005-1.030) Urine Protein (Negative) Urine Glucose (UA) (Negative) mg/dL Urine Ketones (Negative) Urine Blood (Negative) Urine Nitrite (Negative) Urine Bilirubin (Negative) Urine Urobilinogen (0.2) mg/dL Ur Leukocyte Esterase (Negative) U Hyaline Cast (Auto) (0-2) /LPF Urine Microscopic RBC (0-5) /HPF Urine Microscopic WBC (0-5) /HPF Ur Epithelial Cells (None Seen) /HPF Urine Bacteria (None Seen) /HPF Urine Culture Reflexed (NO) Influenza Type A Ag (NEGATIVE) Influenza Type B Ag (NEGATIVE) RSV (PCR) (NEGATIVE) SARS-CoV-2 (PCR) (NEGATIVE) 08/17/22 08/17/22 08/17/22 Range/Units 02:20 04:14 04:14 WBC (4.0-10.5) x10^3/uL RBC (4.1-5.6) x10^6/uL Hgb (12.5-18.0) g/dL Hct (42-50) % MCV (78-100) fL MCH (26-32) pg MCHC (32-36) g/dL RDW (11.5-14.0) % Plt Count (150-450) x10^3/uL MPV (7.5-11.0) fL Gran % (36.0-66.0) % Immature Gran % (Auto) (0.00-0.4) % Nucleat RBC Rel Count (0.00-0.1) % Eos # (Auto) (0-0.5) x10^3/uL Immature Gran # (Auto) (0.00-0.03) x10^3u/L Absolute Lymphs (auto) (1.0-4.6) x10^3/uL Absolute Monos (auto) (0.0-1.3) x10^3/uL Absolute Nucleated RBC (0.00-0.01) x10^3u/L Lymphocytes % (24.0-44.0) % Monocytes % (0.0-12.0) % Eosinophils % (0.00-5.0) % Basophils % (0.0-0.4) % Absolute Granulocytes (1.4-6.9) x10^3/uL Basophils # (0-0.4) x10^3/uL PT (9.4-12.5) SECONDS INR (0.8-3.0) D-Dimer (0.0-0.50) mg/L Puncture Site RIGHT BRACHIAL pCO2 32 L (35-45) mmHg pO2 78 (75-100) mmHg Base Excess -3.9 L (-2.0-2.0) O2 Saturation 93.8 L (94-100) g/dF ABG pH 7.40 (7.35-7.45) ABG HCO3 19.8 L (22-28) ABG O2 Sat (Measured) 93.8 L (95-100) % Greg Test NOT APPLICABLE A-a Gradient 139 a/A Ratio 0.36 Hemoglobin 15.1 Carboxyhemoglobin 0.0 (0.0-6.9) % THgb Methemoglobin 0.0 L (1.4-1.5) % Temperature 37.0 C POC O2 Flow Rate 36 % Sodium (137-145) mmol/L Potassium 4.2 (3.5-5.1) mmol/L Chloride (98-107) mmol/L Carbon Dioxide (22-30) mmol/L Anion Gap (5-15) MEQ/L BUN (9-20) mg/dL Creatinine (0.66-1.25) mg/dL Estimated GFR ML/MIN Glucose (74-106) mg/dL POC Glucometer (74 to 106) mg/dL Lactic Acid (0.4-2.0) Calcium (8.4-10.2) mg/dL Total Bilirubin (0.2-1.3) mg/dL AST (17-59) U/L ALT (0-50) U/L Alkaline Phosphatase (38-126) U/L Troponin I 0.024 (0.000-0.034) ng/mL NT-Pro-B Natriuret Pep (<300) pg/mL Serum Total Protein (6.3-8.2) g/dL Albumin (3.5-5.0) g/dL Triglycerides 67 (30-150) mg/dL Cholesterol 149 (50-200) mg/dL LDL Cholesterol 85 (30-100) mg/dL HDL Cholesterol 52 (40-60) mg/dL Heart Disease Risk Ratio 2.9 Amylase (30-110) U/L Lipase (23-300) U/L Thyroxine (T4) (5.53-10.96) ug/dL TSH 3rd Generation (0.47-4.68) mIU/L Urine Color (Yellow) Urine Appearance (Clear) Urine pH (4.6-8.0) Ur Specific [place] (1.005-1.030) Urine Protein (Negative) Urine Glucose (UA) (Negative) mg/dL Urine Ketones (Negative) Urine Blood (Negative) Urine Nitrite (Negative) Urine Bilirubin (Negative) Urine Urobilinogen (0.2) mg/dL Ur Leukocyte Esterase (Negative) U Hyaline Cast (Auto) (0-2) /LPF Urine Microscopic RBC (0-5) /HPF Urine Microscopic WBC (0-5) /HPF Ur Epithelial Cells (None Seen) /HPF Urine Bacteria (None Seen) /HPF Urine Culture Reflexed (NO) Influenza Type A Ag (NEGATIVE) Influenza Type B Ag (NEGATIVE) RSV (PCR) (NEGATIVE) SARS-CoV-2 (PCR) (NEGATIVE) 08/17/22 08/17/22 08/17/22 Range/Units 04:59 07:19 11:46 WBC (4.0-10.5) x10^3/uL RBC (4.1-5.6) x10^6/uL Hgb (12.5-18.0) g/dL Hct (42-50) % MCV (78-100) fL MCH (26-32) pg MCHC (32-36) g/dL RDW (11.5-14.0) % Plt Count (150-450) x10^3/uL MPV (7.5-11.0) fL Gran % (36.0-66.0) % Immature Gran % (Auto) (0.00-0.4) % Nucleat RBC Rel Count (0.00-0.1) % Eos # (Auto) (0-0.5) x10^3/uL Immature Gran # (Auto) (0.00-0.03) x10^3u/L Absolute Lymphs (auto) (1.0-4.6) x10^3/uL Absolute Monos (auto) (0.0-1.3) x10^3/uL Absolute Nucleated RBC (0.00-0.01) x10^3u/L Lymphocytes % (24.0-44.0) % Monocytes % (0.0-12.0) % Eosinophils % (0.00-5.0) % Basophils % (0.0-0.4) % Absolute Granulocytes (1.4-6.9) x10^3/uL Basophils # (0-0.4) x10^3/uL PT (9.4-12.5) SECONDS INR (0.8-3.0) D-Dimer (0.0-0.50) mg/L Puncture Site pCO2 (35-45) mmHg pO2 (75-100) mmHg Base Excess (-2.0-2.0) O2 Saturation (94-100) g/dF ABG pH (7.35-7.45) ABG HCO3 (22-28) ABG O2 Sat (Measured) (95-100) % Greg Test A-a Gradient a/A Ratio Hemoglobin Carboxyhemoglobin (0.0-6.9) % THgb Methemoglobin (1.4-1.5) % Temperature C POC O2 Flow Rate % Sodium (137-145) mmol/L Potassium (3.5-5.1) mmol/L Chloride (98-107) mmol/L Carbon Dioxide (22-30) mmol/L Anion Gap (5-15) MEQ/L BUN (9-20) mg/dL Creatinine (0.66-1.25) mg/dL Estimated GFR ML/MIN Glucose (74-106) mg/dL POC Glucometer 327 H 230 H 223 H (74 to 106) mg/dL Lactic Acid (0.4-2.0) Calcium (8.4-10.2) mg/dL Total Bilirubin (0.2-1.3) mg/dL AST (17-59) U/L ALT (0-50) U/L Alkaline Phosphatase (38-126) U/L Troponin I (0.000-0.034) ng/mL NT-Pro-B Natriuret Pep (<300) pg/mL Serum Total Protein (6.3-8.2) g/dL Albumin (3.5-5.0) g/dL Triglycerides (30-150) mg/dL Cholesterol (50-200) mg/dL LDL Cholesterol (30-100) mg/dL HDL Cholesterol (40-60) mg/dL Heart Disease Risk Ratio Amylase (30-110) U/L Lipase (23-300) U/L Thyroxine (T4) (5.53-10.96) ug/dL TSH 3rd Generation (0.47-4.68) mIU/L Urine Color (Yellow) Urine Appearance (Clear) Urine pH (4.6-8.0) Ur Specific [place] (1.005-1.030) Urine Protein (Negative) Urine Glucose (UA) (Negative) mg/dL Urine Ketones (Negative) Urine Blood (Negative) Urine Nitrite (Negative) Urine Bilirubin (Negative) Urine Urobilinogen (0.2) mg/dL Ur Leukocyte Esterase (Negative) U Hyaline Cast (Auto) (0-2) /LPF Urine Microscopic RBC (0-5) /HPF Urine Microscopic WBC (0-5) /HPF Ur Epithelial Cells (None Seen) /HPF Urine Bacteria (None Seen) /HPF Urine Culture Reflexed (NO) Influenza Type A Ag (NEGATIVE) Influenza Type B Ag (NEGATIVE) RSV (PCR) (NEGATIVE) SARS-CoV-2 (PCR) (NEGATIVE) 08/17/22 Range/Units 13:39 WBC 8.5 (4.0-10.5) x10^3/uL RBC 5.40 (4.1-5.6) x10^6/uL Hgb 14.0 (12.5-18.0) g/dL Hct 44.6 (42-50) % MCV 82.6 (78-100) fL MCH 25.9 L (26-32) pg MCHC 31.4 L (32-36) g/dL RDW 17.2 H (11.5-14.0) % Plt Count 235 (150-450) x10^3/uL MPV 10.3 (7.5-11.0) fL Gran % 87.8 H (36.0-66.0) % Immature Gran % (Auto) 0.5 H (0.00-0.4) % Nucleat RBC Rel Count 0.0 (0.00-0.1) % Eos # (Auto) 0 (0-0.5) x10^3/uL Immature Gran # (Auto) 0.04 H (0.00-0.03) x10^3u/L Absolute Lymphs (auto) 0.70 L (1.0-4.6) x10^3/uL Absolute Monos (auto) 0.28 (0.0-1.3) x10^3/uL Absolute Nucleated RBC 0.00 (0.00-0.01) x10^3u/L Lymphocytes % 8.3 L (24.0-44.0) % Monocytes % 3.3 (0.0-12.0) % Eosinophils % 0.0 (0.00-5.0) % Basophils % 0.1 (0.0-0.4) % Absolute Granulocytes 7.44 H (1.4-6.9) x10^3/uL Basophils # 0.01 (0-0.4) x10^3/uL PT (9.4-12.5) SECONDS INR (0.8-3.0) D-Dimer (0.0-0.50) mg/L Puncture Site pCO2 (35-45) mmHg pO2 (75-100) mmHg Base Excess (-2.0-2.0) O2 Saturation (94-100) g/dF ABG pH (7.35-7.45) ABG HCO3 (22-28) ABG O2 Sat (Measured) (95-100) % Greg Test A-a Gradient a/A Ratio Hemoglobin Carboxyhemoglobin (0.0-6.9) % THgb Methemoglobin (1.4-1.5) % Temperature C POC O2 Flow Rate % Sodium (137-145) mmol/L Potassium (3.5-5.1) mmol/L Chloride (98-107) mmol/L Carbon Dioxide (22-30) mmol/L Anion Gap (5-15) MEQ/L BUN (9-20) mg/dL Creatinine (0.66-1.25) mg/dL Estimated GFR ML/MIN Glucose (74-106) mg/dL POC Glucometer (74 to 106) mg/dL Lactic Acid (0.4-2.0) Calcium (8.4-10.2) mg/dL Total Bilirubin (0.2-1.3) mg/dL AST (17-59) U/L ALT (0-50) U/L Alkaline Phosphatase (38-126) U/L Troponin I (0.000-0.034) ng/mL NT-Pro-B Natriuret Pep (<300) pg/mL Serum Total Protein (6.3-8.2) g/dL Albumin (3.5-5.0) g/dL Triglycerides (30-150) mg/dL Cholesterol (50-200) mg/dL LDL Cholesterol (30-100) mg/dL HDL Cholesterol (40-60) mg/dL Heart Disease Risk Ratio Amylase (30-110) U/L Lipase (23-300) U/L Thyroxine (T4) (5.53-10.96) ug/dL TSH 3rd Generation (0.47-4.68) mIU/L Urine Color (Yellow) Urine Appearance (Clear) Urine pH (4.6-8.0) Ur Specific [place] (1.005-1.030) Urine Protein (Negative) Urine Glucose (UA) (Negative) mg/dL Urine Ketones (Negative) Urine Blood (Negative) Urine Nitrite (Negative) Urine Bilirubin (Negative) Urine Urobilinogen (0.2) mg/dL Ur Leukocyte Esterase (Negative) U Hyaline Cast (Auto) (0-2) /LPF Urine Microscopic RBC (0-5) /HPF Urine Microscopic WBC (0-5) /HPF Ur Epithelial Cells (None Seen) /HPF Urine Bacteria (None Seen) /HPF Urine Culture Reflexed (NO) Influenza Type A Ag (NEGATIVE) Influenza Type B Ag (NEGATIVE) RSV (PCR) (NEGATIVE) SARS-CoV-2 (PCR) (NEGATIVE) Radiology Exams: Radiology Procedures Category Date Time Status CHEST 1 VIEW (PORTABLE) Stat Exams 08/16/22 20:13 Completed CHEST WITH CONTRAST [CT] Stat Exams 08/16/22 21:17 Completed Assessment/Plan (1) Atrial fibrillation with RVR Current Visit: Yes Status: Resolved Assessment & Plan: is on Cardiazem drip ,is not alert enough to take po Code(s): I48.91 - UNSPECIFIED ATRIAL FIBRILLATION (2) Right upper lobe pulmonary nodule Current Visit: No Status: Chronic Code(s): R91.1 - SOLITARY PULMONARY NODULE (3) Altered mental status Current Visit: Yes Status: Acute Code(s): R41.82 - ALTERED MENTAL STATUS, UNSPECIFIED (4) COPD exacerbation Current Visit: Yes Status: Acute Code(s): J44.1 - CHRONIC OBSTRUCTIVE PULMONARY DISEASE W (ACUTE) EXACERBATION (5) DM2 (diabetes mellitus, type 2) Current Visit: Yes Status: Chronic Qualifiers: Diabetes mellitus 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
[2022-08-17 14:17] LABS: ALBUMIN 3.9 g/dL (3.5-5.0); ALKALINE PHOSPHATASE 104 U/L (38-126); ANION GAP 13.6 MEQ/L (5-15); BLOOD UREA NITROGEN 16 mg/dL (9-20); CHLORIDE 111 mmol/L (98-107); Calcium 8.6 mg/dL (8.4-10.2); Carbon Dioxide 25 mmol/L (22-30); Creatinine 1 0.73 mg/dL (0.66-1.25); EST GLOMERULAR FILTRATION RATE > 60.0 ML/MIN; Glucose 224 mg/dL (74-106); Potassium 4.2 mmol/L (3.5-5.1); SGOT/AST 40 U/L (17-59); SGPT/ALT 27 U/L (0-50); SODIUM 146 mmol/L (137-145); Total Protein 7.4 g/dL (6.3-8.2)
[2022-08-17] MEDS ORDERED: Ativan 2 MG/1 ML VIAL IV PRN (15:49)
[2022-08-17] MEDS ORDERED: JANTOVEN PO SCH (18:00)
[2022-08-17] MEDS ORDERED: Amaryl 2 MG PO SCH (22:00)
[2022-08-17] MEDS ORDERED: Cardizem CD PO SCH (22:00)
[2022-08-17] MEDS ORDERED: Cymbalta 30 MG Capsule PO SCH (22:00)
[2022-08-17] MEDS ORDERED: ROCEPHIN 1 Gm-D5w 50 ml Bag** 1 G/50 ML IVPB IV SCH (22:00)
[2022-08-17] MEDS ORDERED: NON-FORMULARY ITEM (Metformin Hcl [Metformin Er Osmotic] 1,000 MG Tab.Er.24) PO SCH (22:00)
[2022-08-17] MEDS ORDERED: NON-FORMULARY ITEM (Duloxetine Hcl [Duloxetine Hcl] 60 MG Capsule.Dr) PO SCH (22:00)
[2022-08-17] MEDS ORDERED: NON-FORMULARY ITEM (Diltiazem Hcl [Diltiazem 24hr Er] 240 MG Cap.Sa.24h) PO SCH (22:00)
[2022-08-17] MEDS ORDERED: PROTONIX 40 MG IV IV SCH (22:00)
[2022-08-17] MEDS ORDERED: Protonix 40MG Tablet PO SCH (22:00)
[2022-08-17] MEDS ORDERED: Flomax 0.4 MG PO SCH (22:00)
[2022-08-18] MEDS: solu-MEDROL 60 MG, Sterile H2O 10 ml 2 ML IV SCH ×4 (00:43→05:11)
[2022-08-18] MEDS: DUONEB 0.5-3 MG/3 ml Neb IH SCH ×3 (02:39→11:36)
[2022-08-18 04:44] LABS: Absolute Neutrophil Ct (ANC) 13.48 x10^3/uL (1.4-6.9); BASOPHIL % 0.1 % (0.0-0.4); Basophil (Absolute #) 0.02 x10^3/uL (0-0.4); Eosinophil (Absolute #) 0 x10^3/uL (0-0.5); Hemoglobin 12.8 g/dL (12.5-18.0); IMMATURE GRAN # 0.06 x10^3u/L (0.00-0.03); IMMATURE GRAN % 0.4 % (0.00-0.4); Lymphocyte (Absolute #) 0.73 x10^3/uL (1.0-4.6); Lymphocytes % 4.9 % (24.0-44.0); Mean Cell Volume 81.8 fL (78-100); Mean Corpuscular Hemoglobin 26.2 pg (26-32); Mean Platelet Volume 10.1 fL (7.5-11.0); Monocyte (Absolute #) 0.66 x10^3/uL (0.0-1.3); Monocytes % 4.4 % (0.0-12.0); Neutrophil % 90.2 % (36.0-66.0); Platelet Count 234 x10^3/uL (150-450); Red Blood Count 4.89 x10^6/uL (4.1-5.6); Red Cell Distribution Width 16.8 % (11.5-14.0)
[2022-08-18 04:58] LABS: INR 2.62 (0.8-3.0); PROTIME 26.6 SECONDS (9.4-12.5)
[2022-08-18 05:02] LABS: ALBUMIN 3.7 g/dL (3.5-5.0); ALKALINE PHOSPHATASE 108 U/L (38-126); ANION GAP 15.6 MEQ/L (5-15); BLOOD UREA NITROGEN 20 mg/dL (9-20); CHLORIDE 109 mmol/L (98-107); Calcium 8.4 mg/dL (8.4-10.2); Carbon Dioxide 22 mmol/L (22-30); EST GLOMERULAR FILTRATION RATE > 60.0 ML/MIN; Glucose 258 mg/dL (74-106); Potassium 3.6 mmol/L (3.5-5.1); SGOT/AST 57 U/L (17-59); SGPT/ALT 34 U/L (0-50); SODIUM 142 mmol/L (137-145); Total Protein 7.2 g/dL (6.3-8.2)
[2022-08-18] MEDS: Pepcid 20 MG VIAL IV SCH (10:50)
[2022-08-18 11:19] VITALS: BP 126/73
[2022-08-18 11:42] VITALS: PULSE 98; O2SAT 95
--- NOTE | 2022-08-18 12:22 | PCM.DCORD ---
- Discharge Disposition: Home, Self-Care Condition: Stable Prescriptions: New Prednisone 10 mg [Deltasone 10 mg] 10 mg PO DAILY #6 tablet Continue Glimepiride 2 mg [Amaryl 2 MG] 1 mg PO HS Metformin HCl [Metformin ER Osmotic] 1,000 mg PO HS Duloxetine HCl 60 mg PO HS Tamsulosin HCl 0.4 mg [Flomax 0.4 MG] 0.4 mg PO HS Diltiazem HCl [Diltiazem 24Hr ER] 240 mg PO HS Methocarbamol [Robaxin] 500 mg PO QID PRN PRN PRN Reason: restless leg Warfarin Sodium 2.5 mg PO UD PANTOPRAZOLE 40 mg Tablet [Protonix 40MG Tablet] 40 mg PO HS Additional Instructions: continue to follow up with [facility]. Do not return to work until Dr Dwyer releases you. Follow up with: GABRIEL DWYER [ACTIVE STAFF] - 08/20/22 4:00 pm RACIEL ETIENNE DO [ACTIVE STAFF] -
[2022-08-18] MEDS ORDERED: Glucophage XR 500 MG PO SCH (22:00)
[2022-08-20] MEDS ORDERED: JANTOVEN PO SCH (18:00)
== END 2022-08-18 13:20 | disposition home or self-care (01) ==
LOC: ED 19:33 → ICU 08-17 00:35
PROVIDERS: ADMIT Family Medicine; ATTEND Family Medicine
DX: I48.20 Chronic atrial fibrillation, unspecified (principal); R91.1 Solitary pulmonary nodule; R41.82 Altered mental status, unspecified; I10 Essential (primary) hypertension; J44.1 Chronic obstructive pulmonary disease with (acute) exacerbation; E11.9 Type 2 diabetes mellitus without complications; Z79.899 Other long term (current) drug therapy; Z79.01 Long term (current) use of anticoagulants; Z20.828 Contact with and (suspected) exposure to other viral communicable diseases; Z85.46 Personal history of malignant neoplasm of prostate; Z72.0 Tobacco use
CPT/HCPCS: 0241U; 36000; 36415; 36600; 71045; 71260; 80053; 80061; 81001; 82150; 82375; 82803; 82947; 83036; 83605; 83690; 83721; 83880; 84436; 84443; 84484; 85025; 85379; 85610; 86698; 87040; 93005; 93041; 93268; 94640; 94760; 96365; 96374; 96375; 99285; 99291; G0378; J0696; J1630; J1817; J2060; J2250; J2270; J2405; J2930; A9270-GY

== ENCOUNTER 2022-09-16 17:39 | Emergency (ER) | payer MEDICARE, OTHER ==
--- NOTE | 2022-09-16 17:53 | ERPHSYRPT ---
- History of Present Illness Time Seen by Provider: 09/16/22 17:52 Source: patient, EMS Exam Limitations: clinical condition Physician History: This is a 77-year-old male patient of Dr. Guillaume who was recently diagnosed with lung cancer. He has an appointment tomorrow to see what type of lung cancer he has and the plan of care and management will they take to treat it. Patient is a daily smoker of cigarettes and he has a [id number] smoking history. Today, the patient was found outside in an open [id number] bulldozer where he was working out in the heat all day. Patient does not typically drink water but does drink Gatorade. Patient was very weak. He arrives at the emergency department by ambulance service who provided independent history of this patient. Patient denies chest pain. He denies abdominal pain. He has a chronic nonproductive cough. Patient has a history of atrial fibrillation and he is on Coumadin and diltiazem. He is diabetic. He has a history of gastroesophageal reflux disease, hypertension and COPD. He has had a cardiac a blation in the past. Timing/Duration: today Severity: moderate Associated Symptoms: cough, weakness (Chronic), No shortness of breath, No chest pain, No fever Allergies/Adverse Reactions: pregabalin [From Lyrica] Allergy (Severe, Verified 09/16/22 17:47) Difficulty Breathing Home Medications: Duloxetine HCl 60 mg PO HS 02/17/21 [History] Glimepiride 2 mg [Amaryl 2 MG] 1 mg PO HS 02/17/21 [History] Metformin HCl [Metformin ER Osmotic] 1,000 mg PO HS 02/17/21 [History] Methocarbamol [Robaxin] 500 mg PO QID PRN PRN 12/10/21 [History] Tamsulosin HCl 0.4 mg [Flomax 0.4 MG] 0.4 mg PO HS 12/10/21 [History] dilTIAZem HCL [Diltiazem 24Hr ER] 240 mg PO HS 12/10/21 [History] Warfarin Sodium 2.5 mg PO UD 08/16/22 [History] PANTOPRAZOLE 40 mg Tablet [Protonix 40MG Tablet] 40 mg PO HS 08/17/22 [History] Hx Tetanus, Diphtheria Vaccination/Date Given: No Hx Influenza Vaccination/Date Given: No Hx Pneumococcal Vaccination/Date Given: No Travel Risk - International Travel Have you traveled outside of the country in past 3 weeks: No - Coronavirus Screening Are you exhibiting any of the following symptoms?: No Close contact with a COVID-19 positive Pt in past 14-21 Days: No - Vaccine Status Have you recieved a Covid-19 vaccination: Yes Gate Clerk: Moderna - Vaccination Dates Date of 2cond Vaccination (if applicable): 10/08 - Review of Systems Constitutional: Weakness Eyes: No Symptoms Ears, Nose, & Throat: No Symptoms Respiratory: Cough Cardiac: No Symptoms (Chronic) Abdominal/Gastrointestinal: No Symptoms Genitourinary Symptoms: No Symptoms Musculoskeletal: No Symptoms Skin: No Symptoms Neurological: No Symptoms Psychological: No Symptoms Endocrine: No Symptoms Hematologic/Lymphatic: No Symptoms Immunological/Allergic: No Symptoms All Other Systems: Reviewed and Negative - Past Medical History Pertinent Past Medical History: Yes Neurological History: Other ENT History: Cataracts Cardiac History: Arrhythmia, Hypertension Respiratory History: COPD, Lung Cancer Endocrine Medical History: Diabetes Type II Musculoskeletal History: Other GI Medical History: No Pertinent History History: No Pertinent History Psycho-Social History: No Pertinent History Male Reproductive Disorders: Prostate Cancer Other Medical History: HX CARDIAC ABLATION; R EDWAR - Past Surgical History Past Surgical History: Yes Neuro Surgical History: No Pertinent History Cardiac: Cardiac Catheterization, Other Respiratory: No Pertinent History Gastrointestinal: No Pertinent History Genitourinary: No Pertinent History Musculoskeletal: Other Male Surgical History: No Pertinent History Other Surgical History: july states back surgery with cyst removal and spur shaved,heart caths and cardiac ablation 15-20yrs ago,BACK SURG 08/03, back surgery 2013, 09/29/16,09/30/16,10/01/16 back surgery r/t infection in surgical site. bilar rcr - Social History Smoking Status: Current every day smoker How long have you smoked: 55 Exposure to second hand smoke: No Alcohol Use: None Drug Use: none Patient Lives Alone: No Significant Family History: no pertinent family hx - Nursing Vital Signs Nursing Vital Signs: Initial Vital Signs Temperature 97.0 F 09/16/22 17:56 Pulse Rate 91 H 09/16/22 17:56 Respiratory Rate 22 09/16/22 17:56 Blood Pressure 104/75 09/16/22 17:56 O2 Sat by Pulse Oximetry 99 09/16/22 17:56 Pain Scale Pain Intensity 0 - Physical Exam General Appearance: mild distress, alert, anxiety Eye Exam: PERRL/EOMI, eyes nml inspection Ears, Nose, Throat Exam: dry mucous membranes Neck Exam: normal inspection, non-tender, supple, full range of motion Respiratory Exam: normal breath sounds, lungs clear, airway intact, No chest tenderness, No respiratory distress Cardiovascular Exam: regular rate/rhythm, normal heart sounds, normal peripheral pulses Gastrointestinal/Abdomen Exam: soft, normal bowel sounds, No tenderness Rectal Exam: not done Back Exam: normal inspection, normal range of motion, No CVA tenderness, No lashae tebral tenderness Extremity Exam: normal inspection, normal range of motion, pelvis stable Neurologic Exam: alert, oriented x 3, 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, 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, normal mood/affect Skin Exam: normal color, warm, dry Lymphatic Exam: No adenopathy SpO2 Interpretation: normal O2 Delivery: Room Air - Course Nursing assessment & vital signs reviewed: Yes EKG Interpreted by Me: RATE (107), A-fib, NORMAL INTERVALS, Right Bundle Branch Block, NORMAL ST-T, Other (No acute ischemic changes on today's twelve-lead EKG) Ordered Tests: Active Orders 24 hr Category Date Time Status Senior Sales Consultant STAT Care 09/16/22 17:55 Active EKG-ER Only STAT Care 09/16/22 17:55 Active IV Insertion STAT Care 09/16/22 17:55 Active POCT Glucose Check STAT Care 09/16/22 17:55 Active Pulse Oximetry (ED) STAT Care 09/16/22 17:55 Active CBC W DIFF Stat Lab 09/16/22 18:25 Completed CMP Stat Lab 09/16/22 18:25 Completed Lactic Acid Stat Lab 09/16/22 18:25 Completed MONO SCREEN Stat Lab 09/16/22 18:25 Completed POCT GLUCOSE Stat Lab 09/16/22 18:05 Completed PT INR [PROTIME WITH INR] Stat Lab 09/16/22 18:25 Completed TROPONIN Q4H Lab 09/16/22 18:25 Completed TROPONIN Q4H Lab 09/16/22 22:00 Ordered TROPONIN Q4H Lab 09/17/22 02:00 Ordered UA W/RFX UR CULTURE Stat Lab 09/16/22 19:45 Completed Medication Summary Generic Name Dose Route Start Last Admin Trade Name Juanita PRN Reason Stop Dose Admin Pramipexole Dihydrochloride 1 mg 09/16/22 22:00 09/16/22 19:14 Pramipexole Di-Hcl 0.5 Mg Tab PO 10/16/22 21:59 1 mg HS MELITA Administration Discontinued Medications Generic Name Dose Route Start Last Admin Trade Name Juanita PRN Reason Stop Dose Admin Sodium Chloride 1,000 mls @ 999 mls/hr 09/16/22 17:55 09/16/22 19:10 Sodium Chloride 0.9% 1000 Ml IV 09/16/22 18:55 Infused .Q1H1M STA Infusion Sodium Chloride Confirm 09/16/22 18:08 Sodium Chloride 0.9% 1000 Ml Administered 09/16/22 18:09 Dose 1,000 mls @ ud .ROUTE .K-MED ONE Lab/Rad Data: Laboratory Result Diagrams 09/16/22 18:25 09/16/22 18:25 Laboratory Results 09/16/22 09/16/22 09/16/22 Range/Units 19:45 18:25 18:25 WBC (4.0-10.5) x10^3/uL RBC (4.1-5.6) x10^6/uL Hgb (12.5-18.0) g/dL Hct (42-50) % MCV (78-100) fL MCH (26-32) pg MCHC (32-36) g/dL RDW (11.5-14.0) % Plt Count (150-450) x10^3/uL MPV (7.5-11.0) fL Gran % (36.0-66.0) % Immature Gran % (Auto) (0.00-0.4) % Nucleat RBC Rel Count (0.00-0.1) % Eos # (Auto) (0-0.5) x10^3/uL Immature Gran # (Auto) (0.00-0.03) x10^3u/L Absolute Lymphs (auto) (1.0-4.6) x10^3/uL Absolute Monos (auto) (0.0-1.3) x10^3/uL Absolute Nucleated RBC (0.00-0.01) x10^3u/L Lymphocytes % (24.0-44.0) % Monocytes % (0.0-12.0) % Eosinophils % (0.00-5.0) % Basophils % (0.0-0.4) % Absolute Granulocytes (1.4-6.9) x10^3/uL Basophils # (0-0.4) x10^3/uL PT 29.6 H (9.4-12.5) SECONDS INR 2.94 (0.8-3.0) Sodium (137-145) mmol/L Potassium (3.5-5.1) mmol/L Chloride (98-107) mmol/L Carbon Dioxide (22-30) mmol/L Anion Gap (5-15) MEQ/L BUN (9-20) mg/dL Creatinine (0.66-1.25) mg/dL Estimated GFR ML/MIN Glucose (74-106) mg/dL POC Glucometer (74 to 106) mg/dL Lactic Acid (0.4-2.0) Calcium (8.4-10.2) mg/dL Total Bilirubin (0.2-1.3) mg/dL AST (17-59) U/L ALT (0-50) U/L Alkaline Phosphatase (38-126) U/L Troponin I (0.000-0.034) ng/mL Serum Total Protein (6.3-8.2) g/dL Albumin (3.5-5.0) g/dL Urine Color Yellow (Yellow) Urine Appearance Clear (Clear) Urine pH 5.0 (4.6-8.0) Ur Specific [place] 1.020 (1.005-1.030) Urine Protein 30 (Negative) Urine Glucose (UA) Negative (Negative) mg/dL Urine Ketones Negative (Negative) Urine Blood Negative (Negative) Urine Nitrite Negative (Negative) Urine Bilirubin Negative (Negative) Urine Urobilinogen 0.2 (0.2) mg/dL Ur Leukocyte Esterase Negative (Negative) U Hyaline Cast (Auto) NONE SEEN (0-2) /LPF Urine Microscopic RBC 0-2 (0-5) /HPF Urine Microscopic WBC 0-2 (0-5) /HPF Ur Epithelial Cells None Seen (None Seen) /HPF Urine Bacteria None Seen (None Seen) /HPF Urine Culture Reflexed NO (NO) Monoscreen (NEGATIVE) Influenza Type A Ag NEGATIVE (NEGATIVE) Influenza Type B Ag NEGATIVE (NEGATIVE) RSV (PCR) NEGATIVE (NEGATIVE) SARS-CoV-2 (PCR) NEGATIVE (NEGATIVE) 09/16/22 09/16/22 09/16/22 Range/Units 18:25 18:25 18:25 WBC (4.0-10.5) x10^3/uL RBC (4.1-5.6) x10^6/uL Hgb (12.5-18.0) g/dL Hct (42-50) % MCV (78-100) fL MCH (26-32) pg MCHC (32-36) g/dL RDW (11.5-14.0) % Plt Count (150-450) x10^3/uL MPV (7.5-11.0) fL Gran % (36.0-66.0) % Immature Gran % (Auto) (0.00-0.4) % Nucleat RBC Rel Count (0.00-0.1) % Eos # (Auto) (0-0.5) x10^3/uL Immature Gran # (Auto) (0.00-0.03) x10^3u/L Absolute Lymphs (auto) (1.0-4.6) x10^3/uL Absolute Monos (auto) (0.0-1.3) x10^3/uL Absolute Nucleated RBC (0.00-0.01) x10^3u/L Lymphocytes % (24.0-44.0) % Monocytes % (0.0-12.0) % Eosinophils % (0.00-5.0) % Basophils % (0.0-0.4) % Absolute Granulocytes (1.4-6.9) x10^3/uL Basophils # (0-0.4) x10^3/uL PT (9.4-12.5) SECONDS INR (0.8-3.0) Sodium 138 (137-145) mmol/L Potassium 4.1 (3.5-5.1) mmol/L Chloride 105 (98-107) mmol/L Carbon Dioxide 25 (22-30) mmol/L Anion Gap 12.6 (5-15) MEQ/L BUN 20 (9-20) mg/dL Creatinine 0.86 (0.66-1.25) mg/dL Estimated GFR > 60.0 ML/MIN Glucose 110 H (74-106) mg/dL POC Glucometer (74 to 106) mg/dL Lactic Acid (0.4-2.0) Calcium 8.2 L (8.4-10.2) mg/dL Total Bilirubin 0.50 (0.2-1.3) mg/dL AST 47 (17-59) U/L ALT 18 (0-50) U/L Alkaline Phosphatase 113 (38-126) U/L Troponin I 0.037 H* (0.000-0.034) ng/mL Serum Total Protein 6.9 (6.3-8.2) g/dL Albumin 3.6 (3.5-5.0) g/dL Urine Color (Yellow) Urine Appearance (Clear) Urine pH (4.6-8.0) Ur Specific [place] (1.005-1.030) Urine Protein (Negative) Urine Glucose (UA) (Negative) mg/dL Urine Ketones (Negative) Urine Blood (Negative) Urine Nitrite (Negative) Urine Bilirubin (Negative) Urine Urobilinogen (0.2) mg/dL Ur Leukocyte Esterase (Negative) U Hyaline Cast (Auto) (0-2) /LPF Urine Microscopic RBC (0-5) /HPF Urine Microscopic WBC (0-5) /HPF Ur Epithelial Cells (None Seen) /HPF Urine Bacteria (None Seen) /HPF Urine Culture Reflexed (NO) Monoscreen NEGATIVE (NEGATIVE) Influenza Type A Ag (NEGATIVE) Influenza Type B Ag (NEGATIVE) RSV (PCR) (NEGATIVE) SARS-CoV-2 (PCR) (NEGATIVE) 09/16/22 09/16/22 09/16/22 Range/Units 18:25 18:25 18:05 WBC 10.5 (4.0-10.5) x10^3/uL RBC 4.76 (4.1-5.6) x10^6/uL Hgb 12.4 L (12.5-18.0) g/dL Hct 39.1 L (42-50) % MCV 82.1 (78-100) fL MCH 26.1 (26-32) pg MCHC 31.7 L (32-36) g/dL RDW 16.8 H (11.5-14.0) % Plt Count 208 (150-450) x10^3/uL MPV 10.6 (7.5-11.0) fL Gran % 70.6 H (36.0-66.0) % Immature Gran % (Auto) 0.7 H (0.00-0.4) % Nucleat RBC Rel Count 0.0 (0.00-0.1) % Eos # (Auto) 0.21 (0-0.5) x10^3/uL Immature Gran # (Auto) 0.07 H (0.00-0.03) x10^3u/L Absolute Lymphs (auto) 1.55 (1.0-4.6) x10^3/uL Absolute Monos (auto) 1.20 (0.0-1.3) x10^3/uL Absolute Nucleated RBC 0.00 (0.00-0.01) x10^3u/L Lymphocytes % 14.7 L (24.0-44.0) % Monocytes % 11.4 (0.0-12.0) % Eosinophils % 2.0 (0.00-5.0) % Basophils % 0.6 (0.0-0.4) % Absolute Granulocytes 7.42 H (1.4-6.9) x10^3/uL Basophils # 0.06 (0-0.4) x10^3/uL PT (9.4-12.5) SECONDS INR (0.8-3.0) Sodium (137-145) mmol/L Potassium (3.5-5.1) mmol/L Chloride (98-107) mmol/L Carbon Dioxide (22-30) mmol/L Anion Gap (5-15) MEQ/L BUN (9-20) mg/dL Creatinine (0.66-1.25) mg/dL Estimated GFR ML/MIN Glucose (74-106) mg/dL POC Glucometer 127 H (74 to 106) mg/dL Lactic Acid 1.4 (0.4-2.0) Calcium (8.4-10.2) mg/dL Total Bilirubin (0.2-1.3) mg/dL AST (17-59) U/L ALT (0-50) U/L Alkaline Phosphatase (38-126) U/L Troponin I (0.000-0.034) ng/mL Serum Total Protein (6.3-8.2) g/dL Albumin (3.5-5.0) g/dL Urine Color (Yellow) Urine Appearance (Clear) Urine pH (4.6-8.0) Ur Specific [place] (1.005-1.030) Urine Protein (Negative) Urine Glucose (UA) (Negative) mg/dL Urine Ketones (Negative) Urine Blood (Negative) Urine Nitrite (Negative) Urine Bilirubin (Negative) Urine Urobilinogen (0.2) mg/dL Ur Leukocyte Esterase (Negative) U Hyaline Cast (Auto) (0-2) /LPF Urine Microscopic RBC (0-5) /HPF Urine Microscopic WBC (0-5) /HPF Ur Epithelial Cells (None Seen) /HPF Urine Bacteria (None Seen) /HPF Urine Culture Reflexed (NO) Monoscreen (NEGATIVE) Influenza Type A Ag (NEGATIVE) Influenza Type B Ag (NEGATIVE) RSV (PCR) (NEGATIVE) SARS-CoV-2 (PCR) (NEGATIVE) - Progress Progress: improved, re-examined Progress Note: 09/16/22 20:23 Patient's medical history is 1 of moderate complexity. Level of complexity in the work-up performed was based on review of the patient's past medical history, review of the patient's medication list, reviewed the patient's drug allergy list, history of present illness and physical findings on examination. The work-up performed included CT scan of his head, twelve-lead EKG, infusion of normal saline solution, urinalysis, CBC, CMP, troponin level. The work-up that was completed was reviewed by me. However, the patient stated he was feeling well and he needed to go home. Patient is aware that his troponin level is 0.037 and I explained to him what this meant. I told him that he could have a worsening condition and an evolving myocardial infarction or heart attack is possible. 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 Patient signed out AGAINST MEDICAL ADVICE. I advised him of the risks of leaving and the benefits of staying. He does not want to be admitted or transferred at this time. Counseled pt/family regarding: lab results, diagnosis, need for follow-up, rad results Medical Desision Making - Diagnostic Testing Radiological Interpretation: Reviewed by me, Teleradiologist Report - Risk of complications Low Risk: Low risk of morbidity from additional dx testing or treatment - Departure Departure Disposition: AMA Clinical Impression: Weakness, Elevated troponin Condition: Stable Critical Care Time: No Referrals: [facility]] - Follow up/PCP as directed Additional Instructions: Drink plenty of clear liquids. Return to the emergency department if symptoms recur.
[2022-09-16] MEDS ORDERED: Sodium Chloride 0.9% 1000 ML 1,000 ML IV STA (17:55)
[2022-09-16] MEDS ORDERED: Sodium Chloride 0.9% 1000 ML 1,000 ML ONE (18:08)
[2022-09-16 18:34] LABS: Absolute Neutrophil Ct (ANC) 7.42 x10^3/uL (1.4-6.9); BASOPHIL % 0.6 % (0.0-0.4); Basophil (Absolute #) 0.06 x10^3/uL (0-0.4); Eosinophil (Absolute #) 0.21 x10^3/uL (0-0.5); Hematocrit 39.1 % (42-50); Hemoglobin 12.4 g/dL (12.5-18.0); IMMATURE GRAN # 0.07 x10^3u/L (0.00-0.03); IMMATURE GRAN % 0.7 % (0.00-0.4); Lymphocyte (Absolute #) 1.55 x10^3/uL (1.0-4.6); Lymphocytes % 14.7 % (24.0-44.0); Mean Cell Volume 82.1 fL (78-100); Mean Corpuscular Hemoglobin 26.1 pg (26-32); Mean Corpuscular Hgb Concent. 31.7 g/dL (32-36); Mean Platelet Volume 10.6 fL (7.5-11.0); Monocytes % 11.4 % (0.0-12.0); Neutrophil % 70.6 % (36.0-66.0); Platelet Count 208 x10^3/uL (150-450); Red Blood Count 4.76 x10^6/uL (4.1-5.6); Red Cell Distribution Width 16.8 % (11.5-14.0); White Blood Count 10.5 x10^3/uL (4.0-10.5)
[2022-09-16 18:55] LABS: INR 2.94 (0.8-3.0); PROTIME 29.6 SECONDS (9.4-12.5)
[2022-09-16 19:01] LABS: ALBUMIN 3.6 g/dL (3.5-5.0); ALKALINE PHOSPHATASE 113 U/L (38-126); ANION GAP 12.6 MEQ/L (5-15); BLOOD UREA NITROGEN 20 mg/dL (9-20); CHLORIDE 105 mmol/L (98-107); Calcium 8.2 mg/dL (8.4-10.2); Carbon Dioxide 25 mmol/L (22-30); Creatinine 1 0.86 mg/dL (0.66-1.25); EST GLOMERULAR FILTRATION RATE > 60.0 ML/MIN; Glucose 110 mg/dL (74-106); Potassium 4.1 mmol/L (3.5-5.1); SGOT/AST 47 U/L (17-59); SGPT/ALT 18 U/L (0-50); SODIUM 138 mmol/L (137-145); Total Protein 6.9 g/dL (6.3-8.2)
[2022-09-16 19:04] VITALS: BP 118/81; PULSE 100; O2SAT 99
[2022-09-16] MEDS ORDERED: Mirapex 0.5 MG Tablet ONE (19:12)
[2022-09-16 19:16] LABS: INFLUENZA A NEGATIVE (NEGATIVE); INFLUENZA B NEGATIVE (NEGATIVE); RESPIRATORY SYNCTIAL VIRUS NEGATIVE (NEGATIVE); SARS-CoV-2 Xpert Express NEGATIVE (NEGATIVE)
[2022-09-16 20:06] LABS: Appearance Clear (Clear); Bacteria None Seen /HPF (None Seen); Bilirubin Negative (Negative); Blood Negative (Negative); Epithelial Cells None Seen /HPF (None Seen); Glucose, Urine Negative (Negative); Hyaline Casts NONE SEEN /LPF (0-2); Ketones Negative (Negative); Leukocyte Esterase Negative (Negative); Nitrite Negative (Negative); Protein,Urine Dip 30 (Negative); RBC 0-2 /HPF (0-5); Urobilinogen 0.2 mg/dL (0.2); WBC 0-2 /HPF (0-5)
[2022-09-16 20:11] LABS: ADD URINE CULTURE? NO (NO)
[2022-09-16] MEDS ORDERED: Mirapex 0.5 MG Tablet PO SCH (22:00)
== END 2022-09-16 20:21 | disposition left against medical advice (07) ==
LOC: ED 17:39
DX: R53.1 Weakness (principal); R77.8 Other specified abnormalities of plasma proteins; E11.9 Type 2 diabetes mellitus without complications; I10 Essential (primary) hypertension; Z79.01 Long term (current) use of anticoagulants; Z79.84 Long term (current) use of oral hypoglycemic drugs; Z79.899 Other long term (current) drug therapy; Z72.0 Tobacco use; Z20.828 Contact with and (suspected) exposure to other viral communicable diseases
CPT/HCPCS: 0241U; 36000; 36415; 80053; 81001; 82947; 83605; 84484; 85025; 85610; 86308; 93005; 93041; 94760; 96360; 99284; A9270-GY

== ENCOUNTER 2022-10-03 20:49 | Emergency (ER) | payer MEDICARE, OTHER ==
--- NOTE | 2022-10-03 21:03 | ERPHSYRPT ---
- History of Present Illness Time Seen by Provider: 10/03/22 21:00 Source: patient, EMS, old records Exam Limitations: no limitations Physician History: This is a 77-year-old white male patient who was brought into the emergency department by ambulance service for shortness of breath. Patient has a chronic shortness of breath but is worse today after his most recent, third chemotherapy treatment session for recently diagnosed lung cancer. Patient is a [id number] smoker. He has a history of diabetes, COPD, gastroesophageal reflux disease, hypertension and a history of atrial fibrillation on Coumadin and Cardizem. Patient currently denies chest pain. Patient is not oxygen dependent. Patient has decreased his smoking down to 1 to 2 cigarettes a day Timing/Duration: today Severity of Dyspnea-Max: mild (To moderate) Severity of Dyspnea-Current: mild Possible Cause: occasional episodes Modifying Factors: Improves With: activity, oxygen, rest (Proved), other (DuoNeb treatment in route to the hospital improve the patient's symptoms.) Associated Symptoms: denies symptoms Allergies/Adverse Reactions: pregabalin [From Lyrica] Allergy (Severe, Verified 10/03/22 20:53) Difficulty Breathing Home Medications: Glimepiride 2 mg [Amaryl 2 MG] 1 mg PO HS 02/17/21 [History] Metformin HCl [Metformin ER Osmotic] 1,000 mg PO HS 02/17/21 [History] Methocarbamol [Robaxin] 500 mg PO QID PRN PRN 12/10/21 [History] dilTIAZem HCL [Diltiazem 24Hr ER] 240 mg PO HS 12/10/21 [History] Warfarin Sodium 2.5 mg PO UD 08/16/22 [History] PANTOPRAZOLE 40 mg Tablet [Protonix 40MG Tablet] 40 mg PO HS 08/17/22 [History] Pramipexole Di-HCl [Pramipexole ER] 1.5 mg PO HS 09/25/22 [History] Warfarin Sodium 2 mg PO HS 09/25/22 [History] Magnesium Oxide [Mag-Oxide] 400 mg PO DAILY 10/03/22 [History] Prochlorperazine Maleate [Compazine] 10 mg PO BID PRN 10/03/22 [History] Hx Tetanus, Diphtheria Vaccination/Date Given: No Hx Influenza Vaccination/Date Given: No Hx Pneumococcal Vaccination/Date Given: No Travel Risk - International Travel Have you traveled outside of the country in past 3 weeks: No - Coronavirus Screening Are you exhibiting any of the following symptoms?: No Close contact with a COVID-19 positive Pt in past 14-21 Days: No - Vaccine Status Have you recieved a Covid-19 vaccination: Yes Supervisor Press Room: Moderna - Vaccination Dates Date of 2cond Vaccination (if applicable): 10/08 - Review of Systems Constitutional: No Symptoms Eyes: No Symptoms Ears, Nose, & Throat: No Symptoms Respiratory: Dyspnea on Exertion (SAENZ) Cardiac: No Symptoms, No Chest Pain Abdominal/Gastrointestinal: No Symptoms Genitourinary Symptoms: No Symptoms Musculoskeletal: No Symptoms Skin: No Symptoms Neurological: No Symptoms Psychological: No Symptoms Endocrine: No Symptoms Hematologic/Lymphatic: No Symptoms Immunological/Allergic: No Symptoms All Other Systems: Reviewed and Negative - Past Medical History Pertinent Past Medical History: Yes Neurological History: Other ENT History: Cataracts Cardiac History: Arrhythmia, Hypertension Respiratory History: COPD, Lung Cancer Endocrine Medical History: Diabetes Type II Musculoskeletal History: Other GI Medical History: No Pertinent History History: No Pertinent History Psycho-Social History: No Pertinent History Male Reproductive Disorders: Prostate Cancer Other Medical History: HX CARDIAC ABLATION; R EDWAR - Past Surgical History Past Surgical History: Yes Neuro Surgical History: No Pertinent History Cardiac: Cardiac Catheterization, Other Respiratory: No Pertinent History Gastrointestinal: No Pertinent History Genitourinary: No Pertinent History Musculoskeletal: Other Male Surgical History: No Pertinent History Other Surgical History: july states back surgery with cyst removal and spur shaved,heart caths and cardiac ablation 15-20yrs ago,BACK SURG 08/03, back surgery 2013, 09/29/16,09/30/16,10/01/16 back surgery r/t infection in surgical site. bilar rcr - Social History Smoking Status: Current every day smoker How long have you smoked: 55 Exposure to second hand smoke: No Alcohol Use: None Drug Use: none Patient Lives Alone: No Significant Family History: no pertinent family hx - Nursing Vital Signs Nursing Vital Signs: Initial Vital Signs Temperature 97.5 F 10/03/22 20:49 Pulse Rate 106 H 10/03/22 20:49 Respiratory Rate 18 10/03/22 20:49 Blood Pressure 105/60 10/03/22 20:49 O2 Sat by Pulse Oximetry 88 L 10/03/22 20:49 Pain Scale Pain Intensity 0 - Physical Exam General Appearance: mild distress, alert, anxiety Eye Exam: PERRL/EOMI, eyes nml inspection Ears, Nose, Throat Exam: hearing grossly normal, normal ENT inspection, normal pharynx Neck Exam: normal inspection, non-tender, supple, full range of motion Respiratory Exam: normal breath sounds, respiratory distress (Mild), airway intact, diminished breath sounds (Diffuse bilaterally), No chest tenderness Cardiovascular/Chest Exam: tachycardia, irregular Abdominal/Gastrointestinal Exam: soft, normal bowel sounds, No tenderness Rectal Exam: not done Extremity Exam: non-tender Neurologic Exam: alert, oriented x 3, cooperative, 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 Today's twelve- lead EKG is not significantly different than the twelve-lead EKG that was performed on 09/16/2022 which I reviewed.) Ordered Tests: Active Orders 24 hr Category Date Time Status EKG-ER Only STAT Care 10/03/22 21:06 Active Rosales [Catheter-Mcqueeney Rosales] STAT Care 10/04/22 00:27 Active IV Insertion STAT Care 10/03/22 21:06 Active Pulse Oximetry (ED) STAT Care 10/03/22 21:06 Active CHEST WITHOUT CONTRAST [CT] Stat Exams 10/03/22 21:06 Completed ABG [ARTERIAL BLOOD GASES] Stat Lab 10/03/22 21:38 Completed BLOOD CULTURE Stat Lab 10/03/22 21:14 Received CBC W DIFF Stat Lab 10/03/22 21:14 Completed CMP Stat Lab 10/03/22 21:14 Completed MAGNESIUM Stat Lab 10/03/22 21:14 Completed NT PRO BNPII Stat Lab 10/03/22 21:14 Completed PROTIME WITH INR Stat Lab 10/03/22 21:14 Completed TROPONIN Q4H Lab 10/03/22 21:14 Completed TROPONIN Q4H Lab 10/04/22 01:27 Completed TROPONIN Q4H Lab 10/04/22 05:15 Ordered Respiratory Therapy Assessment DAILY RT 10/03/22 21:04 Active Medication Summary Generic Name Dose Route Start Last Admin Trade Name Freq PRN Reason Stop Dose Admin Diltiazem HCl 100 mls @ 5 mls/hr 10/03/22 22:54 10/04/22 00:37 Cardizem Drip 100 Mg/100 Ml D5w IV 11/02/22 22:53 10 mg/hr .Q20H PRN 10 mls/hr HEART RATE/ A-FIB Titration Protocol 5 MG/HR Levofloxacin/Dextrose 500 mg in 100 mls @ 100 mls/hr 10/04/22 02:04 10/04/22 02:11 Levofloxacin 500mg/100ml D5w IV 10/04/22 03:03 100 mls/hr STAT STA 100 mls/hr Administration Discontinued Medications Generic Name Dose Route Start Last Admin Trade Name Freq PRN Reason Stop Dose Admin Diltiazem HCl 15 mg 10/03/22 21:06 10/03/22 21:15 Diltiazem Hcl Iv 5 Mg/Ml Vial IV 10/03/22 21:07 15 mg STAT ONE Administration Diltiazem HCl Confirm 10/03/22 21:12 Diltiazem Hcl Iv 5 Mg/Ml Vial Administered 10/03/22 21:13 Dose 50 mg IV .STK-MED ONE Diltiazem HCl 10 mg 10/03/22 22:54 10/03/22 22:56 Diltiazem Hcl Iv 5 Mg/Ml Vial IV 10/03/22 22:55 10 mg STAT ONE Administration Furosemide 40 mg 10/03/22 23:24 10/04/22 00:30 Furosemide 40 Mg/4 Ml Vial IV 10/03/22 23:25 40 mg STAT ONE Administration Furosemide Confirm 10/04/22 00:29 Furosemide 40 Mg/4 Ml Vial Administered 10/04/22 00:30 Dose 40 mg .ROUTE .STK-MED ONE Levofloxacin/Dextrose Confirm 10/04/22 02:10 Levofloxacin 500mg/100ml D5w Administered 10/04/22 02:11 Dose 500 mg in 100 mls @ ud IV .STK-MED ONE Lab/Rad Data: Laboratory Result Diagrams 10/03/22 21:14 10/03/22 21:14 Laboratory Results 10/04/22 10/03/22 10/03/22 Range/Units 01:27 21:38 21:14 WBC (4.0-10.5) x10^3/uL RBC (4.1-5.6) x10^6/uL Hgb (12.5-18.0) g/dL Hct (42-50) % MCV (78-100) fL MCH (26-32) pg MCHC (32-36) g/dL RDW (11.5-14.0) % Plt Count (150-450) x10^3/uL MPV (7.5-11.0) fL Gran % (36.0-66.0) % Immature Gran % (Auto) (0.00-0.4) % Nucleat RBC Rel Count (0.00-0.1) % Eos # (Auto) (0-0.5) x10^3/uL Immature Gran # (Auto) (0.00-0.03) x10^3u/L Absolute Lymphs (auto) (1.0-4.6) x10^3/uL Absolute Monos (auto) (0.0-1.3) x10^3/uL Absolute Nucleated RBC (0.00-0.01) x10^3u/L Lymphocytes % (24.0-44.0) % Monocytes % (0.0-12.0) % Eosinophils % (0.00-5.0) % Basophils % (0.0-0.4) % Absolute Granulocytes (1.4-6.9) x10^3/uL Basophils # (0-0.4) x10^3/uL PT (9.4-12.5) SECONDS INR (0.8-3.0) Puncture Site RIGHT RADIAL pCO2 36 (35-45) mmHg pO2 56 L (75-100) mmHg Base Excess -2.1 L (-2.0-2.0) O2 Saturation 86.6 L (94-100) g/dF ABG pH 7.40 (7.35-7.45) ABG HCO3 22.3 (22-28) ABG O2 Sat (Measured) 87.8 L (95-100) % Greg Test YES A-a Gradient 184 a/A Ratio 0.23 Hemoglobin 12.4 Carboxyhemoglobin 1.4 (0.0-6.9) % THgb Methemoglobin 0.0 L (1.4-1.5) % Temperature 37.0 C POC O2 Flow Rate 40 % Sodium (137-145) mmol/L Potassium 4.5 (3.5-5.1) mmol/L Chloride (98-107) mmol/L Carbon Dioxide (22-30) mmol/L Anion Gap (5-15) MEQ/L BUN (9-20) mg/dL Creatinine (0.66-1.25) mg/dL Estimated GFR ML/MIN Glucose (74-106) mg/dL Calcium (8.4-10.2) mg/dL Magnesium (1.6-2.3) mg/dL Total Bilirubin (0.2-1.3) mg/dL AST (17-59) U/L ALT (0-50) U/L Alkaline Phosphatase (38-126) U/L Troponin I 0.040 H* (0.000-0.034) ng/mL NT-Pro-B Natriuret Pep 3070 (<300) pg/mL Serum Total Protein (6.3-8.2) g/dL Albumin (3.5-5.0) g/dL Urine Color (Yellow) Urine Appearance (Clear) Urine pH (4.6-8.0) Ur Specific Rulo (1.005-1.030) Urine Protein (Negative) Urine Glucose (UA) (Negative) mg/dL Urine Ketones (Negative) Urine Blood (Negative) Urine Nitrite (Negative) Urine Bilirubin (Negative) Urine Urobilinogen (0.2) mg/dL Ur Leukocyte Esterase (Negative) U Hyaline Cast (Auto) (0-2) /LPF Urine Microscopic RBC (0-5) /HPF Urine Microscopic WBC (0-5) /HPF Ur Epithelial Cells (None Seen) /HPF Urine Bacteria (None Seen) /HPF Urine Culture Reflexed (NO) 10/03/22 10/03/22 10/03/22 Range/Units 21:14 21:14 21:14 WBC (4.0-10.5) x10^3/uL RBC (4.1-5.6) x10^6/uL Hgb (12.5-18.0) g/dL Hct (42-50) % MCV (78-100) fL MCH (26-32) pg MCHC (32-36) g/dL RDW (11.5-14.0) % Plt Count (150-450) x10^3/uL MPV (7.5-11.0) fL Gran % (36.0-66.0) % Immature Gran % (Auto) (0.00-0.4) % Nucleat RBC Rel Count (0.00-0.1) % Eos # (Auto) (0-0.5) x10^3/uL Immature Gran # (Auto) (0.00-0.03) x10^3u/L Absolute Lymphs (auto) (1.0-4.6) x10^3/uL Absolute Monos (auto) (0.0-1.3) x10^3/uL Absolute Nucleated RBC (0.00-0.01) x10^3u/L Lymphocytes % (24.0-44.0) % Monocytes % (0.0-12.0) % Eosinophils % (0.00-5.0) % Basophils % (0.0-0.4) % Absolute Granulocytes (1.4-6.9) x10^3/uL Basophils # (0-0.4) x10^3/uL PT 15.0 H (9.4-12.5) SECONDS INR 1.41 (0.8-3.0) Puncture Site pCO2 (35-45) mmHg pO2 (75-100) mmHg Base Excess (-2.0-2.0) O2 Saturation (94-100) g/dF ABG pH (7.35-7.45) ABG HCO3 (22-28) ABG O2 Sat (Measured) (95-100) % Greg Test A-a Gradient a/A Ratio Hemoglobin Carboxyhemoglobin (0.0-6.9) % THgb Methemoglobin (1.4-1.5) % Temperature C POC O2 Flow Rate % Sodium 136 L (137-145) mmol/L Potassium 4.4 (3.5-5.1) mmol/L Chloride 103 (98-107) mmol/L Carbon Dioxide 19 L (22-30) mmol/L Anion Gap 17.7 H (5-15) MEQ/L BUN 37 H (9-20) mg/dL Creatinine 0.89 (0.66-1.25) mg/dL Estimated GFR > 60.0 ML/MIN Glucose 190 H (74-106) mg/dL Calcium 8.3 L (8.4-10.2) mg/dL Magnesium 1.6 (1.6-2.3) mg/dL Total Bilirubin 0.60 (0.2-1.3) mg/dL AST 50 (17-59) U/L ALT 22 (0-50) U/L Alkaline Phosphatase 144 H (38-126) U/L Troponin I 0.027 (0.000-0.034) ng/mL NT-Pro-B Natriuret Pep (<300) pg/mL Serum Total Protein 7.2 (6.3-8.2) g/dL Albumin 3.8 (3.5-5.0) g/dL Urine Color (Yellow) Urine Appearance (Clear) Urine pH (4.6-8.0) Ur Specific Rulo (1.005-1.030) Urine Protein (Negative) Urine Glucose (UA) (Negative) mg/dL Urine Ketones (Negative) Urine Blood (Negative) Urine Nitrite (Negative) Urine Bilirubin (Negative) Urine Urobilinogen (0.2) mg/dL Ur Leukocyte Esterase (Negative) U Hyaline Cast (Auto) (0-2) /LPF Urine Microscopic RBC (0-5) /HPF Urine Microscopic WBC (0-5) /HPF Ur Epithelial Cells (None Seen) /HPF Urine Bacteria (None Seen) /HPF Urine Culture Reflexed (NO) 10/03/22 10/03/22 Range/Units 21:14 00:01 WBC 13.9 H (4.0-10.5) x10^3/uL RBC 4.67 (4.1-5.6) x10^6/uL Hgb 12.2 L (12.5-18.0) g/dL Hct 40.0 L (42-50) % MCV 85.7 (78-100) fL MCH 26.1 (26-32) pg MCHC 30.5 L (32-36) g/dL RDW 17.9 H (11.5-14.0) % Plt Count 228 (150-450) x10^3/uL MPV 10.5 (7.5-11.0) fL Gran % 82.8 H (36.0-66.0) % Immature Gran % (Auto) 0.5 H (0.00-0.4) % Nucleat RBC Rel Count 0.0 (0.00-0.1) % Eos # (Auto) 0.09 (0-0.5) x10^3/uL Immature Gran # (Auto) 0.07 H (0.00-0.03) x10^3u/L Absolute Lymphs (auto) 1.68 (1.0-4.6) x10^3/uL Absolute Monos (auto) 0.53 (0.0-1.3) x10^3/uL Absolute Nucleated RBC 0.00 (0.00-0.01) x10^3u/L Lymphocytes % 12.1 L (24.0-44.0) % Monocytes % 3.8 (0.0-12.0) % Eosinophils % 0.6 (0.00-5.0) % Basophils % 0.2 (0.0-0.4) % Absolute Granulocytes 11.51 H (1.4-6.9) x10^3/uL Basophils # 0.03 (0-0.4) x10^3/uL PT (9.4-12.5) SECONDS INR (0.8-3.0) Puncture Site pCO2 (35-45) mmHg pO2 (75-100) mmHg Base Excess (-2.0-2.0) O2 Saturation (94-100) g/dF ABG pH (7.35-7.45) ABG HCO3 (22-28) ABG O2 Sat (Measured) (95-100) % Greg Test A-a Gradient a/A Ratio Hemoglobin Carboxyhemoglobin (0.0-6.9) % THgb Methemoglobin (1.4-1.5) % Temperature C POC O2 Flow Rate % Sodium (137-145) mmol/L Potassium (3.5-5.1) mmol/L Chloride (98-107) mmol/L Carbon Dioxide (22-30) mmol/L Anion Gap (5-15) MEQ/L BUN (9-20) mg/dL Creatinine (0.66-1.25) mg/dL Estimated GFR ML/MIN Glucose (74-106) mg/dL Calcium (8.4-10.2) mg/dL Magnesium (1.6-2.3) mg/dL Total Bilirubin (0.2-1.3) mg/dL AST (17-59) U/L ALT (0-50) U/L Alkaline Phosphatase (38-126) U/L Troponin I (0.000-0.034) ng/mL NT-Pro-B Natriuret Pep (<300) pg/mL Serum Total Protein (6.3-8.2) g/dL Albumin (3.5-5.0) g/dL Urine Color Yellow (Yellow) Urine Appearance Clear (Clear) Urine pH 5.0 (4.6-8.0) Ur Specific Rulo 1.015 (1.005-1.030) Urine Protein 100 A (Negative) Urine Glucose (UA) Negative (Negative) mg/dL Urine Ketones Negative (Negative) Urine Blood Negative (Negative) Urine Nitrite Negative (Negative) Urine Bilirubin Negative (Negative) Urine Urobilinogen 0.2 (0.2) mg/dL Ur Leukocyte Esterase Negative (Negative) U Hyaline Cast (Auto) NONE SEEN (0-2) /LPF Urine Microscopic RBC 0-2 (0-5) /HPF Urine Microscopic WBC 0-2 (0-5) /HPF Ur Epithelial Cells None Seen (None Seen) /HPF Urine Bacteria None Seen (None Seen) /HPF Urine Culture Reflexed NO (NO) - Progress Progress: unchanged Air Movement: fair Progress Note: 10/03/22 23:48 CAT scan of the chest without contrast shows a right upper lobe lung mass that is unchanged. In addition there is persistent moderate, bilateral pleural effusions. 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 There is hepatic lesions likely metastatic lesions. Blood Culture(s) Obtained: Yes Counseled pt/family regarding: lab results, diagnosis, rad results - Departure Departure Disposition: Transfer Clinical Impression: Hypoxia, Shortness of breath, Bilateral pleural effusion, Lung cancer, Atrial fibrillation with rapid ventricular response, Elevated troponin level, Leukocytosis, unspecified Condition: Fair Critical Care Time: Yes Critical Care Time(excluding separately billable procedures): Critical 30-74 mins (50) Referrals: RACIEL ETIENNE, [Primary Care Provider] - Follow up/PCP as directed
[2022-10-03] MEDS ORDERED: Cardizem IV 50 MG/10 ML IV ONE ×3 (21:06→22:54)
[2022-10-03 21:16] LABS: Absolute Neutrophil Ct (ANC) 11.51 x10^3/uL (1.4-6.9); BASOPHIL % 0.2 % (0.0-0.4); Basophil (Absolute #) 0.03 x10^3/uL (0-0.4); Eosinophil % 0.6 % (0.00-5.0); Eosinophil (Absolute #) 0.09 x10^3/uL (0-0.5); Hemoglobin 12.2 g/dL (12.5-18.0); IMMATURE GRAN # 0.07 x10^3u/L (0.00-0.03); IMMATURE GRAN % 0.5 % (0.00-0.4); Lymphocyte (Absolute #) 1.68 x10^3/uL (1.0-4.6); Lymphocytes % 12.1 % (24.0-44.0); Mean Cell Volume 85.7 fL (78-100); Mean Corpuscular Hemoglobin 26.1 pg (26-32); Mean Corpuscular Hgb Concent. 30.5 g/dL (32-36); Mean Platelet Volume 10.5 fL (7.5-11.0); Monocyte (Absolute #) 0.53 x10^3/uL (0.0-1.3); Monocytes % 3.8 % (0.0-12.0); Neutrophil % 82.8 % (36.0-66.0); Platelet Count 228 x10^3/uL (150-450); Red Blood Count 4.67 x10^6/uL (4.1-5.6); Red Cell Distribution Width 17.9 % (11.5-14.0); White Blood Count 13.9 x10^3/uL (4.0-10.5)
[2022-10-03 21:34] LABS: ALBUMIN 3.8 g/dL (3.5-5.0); ALKALINE PHOSPHATASE 144 U/L (38-126); ANION GAP 17.7 MEQ/L (5-15); BLOOD UREA NITROGEN 37 mg/dL (9-20); CHLORIDE 103 mmol/L (98-107); Calcium 8.3 mg/dL (8.4-10.2); Carbon Dioxide 19 mmol/L (22-30); Creatinine 1 0.89 mg/dL (0.66-1.25); EST GLOMERULAR FILTRATION RATE > 60.0 ML/MIN; Glucose 190 mg/dL (74-106); INR 1.41 (0.8-3.0); MAGNESIUM 1.6 mg/dL (1.6-2.3); Potassium 4.4 mmol/L (3.5-5.1); SGOT/AST 50 U/L (17-59); SGPT/ALT 22 U/L (0-50); SODIUM 136 mmol/L (137-145); Total Protein 7.2 g/dL (6.3-8.2)
[2022-10-03 21:39] LABS: A-aADO2 184; ABG HEMOGLOBIN 12.4; ABG POTASSIUM 4.5 (3.5-5.1); ABG SITE RIGHT RADIAL; ALLEN TEST OK? YES; ARTERIAL BLD GAS O2 SATURATION 87.8 % (95-100); ARTERIAL BLOOD GAS BASE EXCESS -2.1 (-2.0-2.0); ARTERIAL BLOOD GAS FIO2 40 %; ARTERIAL BLOOD GAS PCO2 36 mmHg (35-45); ARTERIAL BLOOD GAS PO2 56 mmHg (75-100); CARBOXYHEMOGLOBIN 1.4 % THgb (0.0-6.9); HCO3- 22.3 (22-28); HGB O2 SAT 86.6 g/dF (94-100); paO2 pAO1 0.23
[2022-10-03] MEDS ORDERED: CARDIZEM DRIP 100 MG/100 ML D5W 100 ML IV PRN (22:54)
[2022-10-03] MEDS ORDERED: CARDIZEM DRIP 100 MG/100 ML D5W 100 ML IV ONE (22:57)
--- NOTE | 2022-10-03 23:18 | XRAY ---
CLINICAL HISTORY:Shortness of breath; COMPARISON:08/17/2022; TECHNIQUES:Contiguous 3.[address] images of the chest were acquired without administration of intravenous contrast. Coronal and sagittal reconstructions were obtained; FINDINGS: Redemonstration of soft tissue attenuation mass lesion in medial aspect of right upper lobe noted, measuring 2.4 x 3.8 cm in axial plane and 2.5 cm in craniocaudal dimension. No significant interval change in size noted since previous study. Persistent mild to moderate bilateral pleural effusion. Few thin atelectatic bands seen in bibasal regions. Few lymph nodes seen in the mediastinum the largest one is measuring about 0.5 cm in short axis noted in the pretracheal region. Calcification is noted in the coronary vessels. Mild left ventricular hypertrophy noted and there is no pericardial effusion. Multiple enlarged pretracheal, paratracheal, carinal, subcarinal nodes noted, largest measuring 32 x 22 mm. There is no definite mass lesion in the chest wall. Degenerative changes seen in the visualized spine no other bony abnormality is detected. The scanned upper abdomen shows multiple small hepatic lesions in both lobes, possibility of metastasis. No adrenal metastasis noted. IMPRESSION: 1. Redemonstration of soft tissue attenuation mass lesion in medial aspect of right upper lobe noted, measuring 2.4 x 3.8 cm in axial plane and 2.5 cm in craniocaudal dimension. No significant interval change in size noted since previous study. PET/CT is recommended for further evaluation. 2. Persistent moderate bilateral pleural effusion. 3. Redemonstration of metastatic mediastinal lymph nodes. 4. Visualized upper abdomen shows multiple small hepatic lesions in both lobes, probably metastatic lesions. No adrenal metastasis noted. Electronically Signed by: Isael Cabrera MD. (10/03/2022 22:12:16 [employer])
[2022-10-03] MEDS ORDERED: Lasix 40 MG/4 ML IV ONE (23:24)
[2022-10-04 00:29] LABS: Appearance Clear (Clear); Bacteria None Seen /HPF (None Seen); Bilirubin Negative (Negative); Blood Negative (Negative); Epithelial Cells None Seen /HPF (None Seen); Glucose, Urine Negative (Negative); Hyaline Casts NONE SEEN /LPF (0-2); Ketones Negative (Negative); Leukocyte Esterase Negative (Negative); Nitrite Negative (Negative); Protein,Urine Dip 100 (Negative); RBC 0-2 /HPF (0-5); Specific Gravity 1.015 (1.005-1.030); Urobilinogen 0.2 mg/dL (0.2); WBC 0-2 /HPF (0-5)
[2022-10-04] MEDS ORDERED: Lasix 40 MG/4 ML ONE (00:29)
[2022-10-04 00:30] LABS: ADD URINE CULTURE? NO (NO)
[2022-10-04] MEDS ORDERED: Levofloxacin 500MG/100ML D5W 500 MG/100 ML BAG IV STA (02:04)
[2022-10-04] MEDS ORDERED: Levofloxacin 500MG/100ML D5W 500 MG/100 ML BAG IV ONE (02:10)
[2022-10-04 03:11] VITALS: BP 144/81; PULSE 96; O2SAT 20
== END 2022-10-04 03:00 | disposition short-term general hospital (02) ==
LOC: ED 20:49
DX: C34.11 Malignant neoplasm of upper lobe, right bronchus or lung (principal); J90 Pleural effusion, not elsewhere classified; C77.1 Secondary and unspecified malignant neoplasm of intrathoracic lymph nodes; R09.02 Hypoxemia; R06.02 Shortness of breath; I48.20 Chronic atrial fibrillation, unspecified; R77.8 Other specified abnormalities of plasma proteins; D72.829 Elevated white blood cell count, unspecified; E11.9 Type 2 diabetes mellitus without complications; J44.9 Chronic obstructive pulmonary disease, unspecified; I10 Essential (primary) hypertension; Z79.84 Long term (current) use of oral hypoglycemic drugs; Z79.01 Long term (current) use of anticoagulants; Z79.899 Other long term (current) drug therapy; Z72.0 Tobacco use
CPT/HCPCS: 36000; 36415; 36600; 51702; 71250; 80053; 81001; 82375; 82803; 83735; 83880; 84484; 85025; 85610; 87040; 93005; 94760; 96365; 96366; 96367; 96374; 96375; 96376; 99285; 99291; J1940; J1956

== ENCOUNTER 2022-11-25 00:53 | Emergency (ER) | payer MEDICARE, OTHER ==
[2022-11-25 01:18] VITALS: TEMP 96.4
--- NOTE | 2022-11-25 01:27 | ERPHSYRPT ---
- History of Present Illness Time Seen by Provider: 11/25/22 01:05 Source: patient Exam Limitations: no limitations Patient Subjective Stated Complaint: pt states that approx 2 hours he was woken up by SOB without pain. states he just recently had 5th chemo treatment for lung cancer. pt does not wear oxygen at home. Triage Nursing Assessment: pt brought to room 2 per EMS stretcher and pulled over onto cot per 4 staff. pt is alert and oriented times three, able to move all extremities, speaks in 4-5 word sentences, with slightly labored fast deep respirations with use of accessory muscles. EMS had pt on 15L oxygen per NRB mask, RA oxygen saturation after arrival was 99%. placed pt on 2LPM per NC oxygen per pt request for comfort. pt states that he is still short of breath but not as bad as it was when he called the ambulance. denies fever, chills, n/v, chest pain, lightheadedness, difficulty with urination or bowel elimination. intermittent dry cough noted. heart sounds present and irregular. bilat radial and pedal pulses palpable and equal. 3+ pitting edema noted to bilat feet/ ankles and 2+ pitting edema noted to bilat lower legs from just above ankles to just below knees. Physician History: Patient is a 77-year-old white male who is presently undergoing chemotherapy for lung cancer who started with some shortness of breath yesterday afternoon. 2 hours before arrival in the ER he awoke with increased shortness of breath but denies any pain. He is on Coumadin he does have a history of atrial fibs. Timing/Duration: yesterday Activities at Onset: none Severity of Dyspnea-Max: moderate Severity of Dyspnea-Current: mild Possible Cause: unknown cause Modifying Factors: Improves With: coughing, oxygen Associated Symptoms: anxiety, cough, chest pain/discomfort, edema, ankle swelling Allergies/Adverse Reactions: pregabalin [From Lyrica] Allergy (Severe, Verified 11/25/22 00:54) Difficulty Breathing Home Medications: Glimepiride 2 mg [Amaryl 2 MG] 1 mg PO DAILY 02/17/21 [History] Metformin HCl [Metformin ER Osmotic] 1,000 mg PO DAILY 02/17/21 [History] dilTIAZem HCL [Diltiazem 24Hr ER] 240 mg PO DAILY 12/10/21 [History] PANTOPRAZOLE 40 mg Tablet [Protonix 40MG Tablet] 40 mg PO DAILY 08/17/22 [History] Pramipexole Di-HCl [Pramipexole ER] 1.5 mg PO DAILY 09/25/22 [History] Magnesium Oxide [Mag-Oxide] 400 mg PO BID 10/03/22 [History] Duloxetine HCl 60 mg PO DAILY 11/25/22 [History] Loratadine 10 mg [Claritin 10 mg] 10 mg PO HS 11/25/22 [History] Mirabegron [Myrbetriq] 50 mg PO DAILY 11/25/22 [History] Tamsulosin HCl 0.4 mg [Flomax 0.4 MG] 0.4 mg PO DAILY 11/25/22 [History] Warfarin Sodium 1 mg PO UD 11/25/22 [History] Hx Tetanus, Diphtheria Vaccination/Date Given: No (unknown) Hx Influenza Vaccination/Date Given: Yes Hx Pneumococcal Vaccination/Date Given: Yes Immunizations Up to Date: No Travel Risk - International Travel Have you traveled outside of the country in past 3 weeks: No - Coronavirus Screening Are you exhibiting any of the following symptoms?: No Close contact with a COVID-19 positive Pt in past 14-21 Days: No - Vaccine Status Have you recieved a Covid-19 vaccination: Yes 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 - Vaccination Dates Date of 2cond Vaccination (if applicable): 10/08 - Review of Systems Constitutional: No Fever, No Chills Eyes: No Symptoms Ears, Nose, & Throat: No Symptoms Respiratory: Cough, Dyspnea, Dyspnea on Exertion (SAENZ) Cardiac: Edema, No Chest Pain, No Syncope Abdominal/Gastrointestinal: No Abdominal Pain, No Nausea, No Vomiting, No Diarrhea Genitourinary Symptoms: No Dysuria Musculoskeletal: No Back Pain, No Neck Pain Skin: No Rash Neurological: No Dizziness, No Focal Weakness, No Sensory Changes Psychological: No Symptoms Endocrine: No Symptoms All Other Systems: Reviewed and Negative - Past Medical History Pertinent Past Medical History: Yes Neurological History: Other ENT History: Cataracts Cardiac History: Arrhythmia, Hypertension Respiratory History: COPD, Lung Cancer Endocrine Medical History: Diabetes Type II Musculoskeletal History: Other GI Medical History: No Pertinent History History: No Pertinent History Psycho-Social History: Depression Male Reproductive Disorders: Prostate Cancer Other Medical History: HX CARDIAC ABLATION; R EDWAR - Past Surgical History Past Surgical History: Yes Neuro Surgical History: No Pertinent History Cardiac: Cardiac Catheterization, Other Respiratory: No Pertinent History Gastrointestinal: No Pertinent History Genitourinary: No Pertinent History Musculoskeletal: Other Male Surgical History: No Pertinent History Other Surgical History: july states back surgery with cyst removal and spur shaved,heart caths and cardiac ablation 15-20yrs ago,BACK SURG 08/03, back surgery 2013, 09/29/16,09/30/16,10/01/16 back surgery r/t infection in surgical site. bilar rcr - Social History Smoking Status: Current every day smoker How long have you smoked: 55 Exposure to second hand smoke: Yes Alcohol Use: None Drug Use: none Patient Lives Alone: No Significant Family History: no pertinent family hx - Nursing Vital Signs Nursing Vital Signs: Initial Vital Signs Temperature 96.4 F 11/25/22 00:58 Pulse Rate 105 H 11/25/22 00:58 Respiratory Rate 25 H 11/25/22 00:58 Blood Pressure 95/65 11/25/22 00:58 O2 Sat by Pulse Oximetry 99 11/25/22 00:58 Pain Scale Pain Intensity 0 - Physical Exam General Appearance: mild distress, alert Eye Exam: PERRL/EOMI Neck Exam: normal inspection, supple, JVD (2 cm) Respiratory Exam: respiratory distress, airway intact, diminished breath sounds, crackles/rales Cardiovascular/Chest Exam: normal heart sounds, regular rate/rhythm Abdominal/Gastrointestinal Exam: soft, No tenderness, No distention, No mass Extremity Exam: non-tender, normal range of motion, normal inspection, no calf tenderness, no pedal edema Neurologic Exam: alert, oriented x 3, cooperative, jacquard loom heddles tier II-XII nml as tested, sensation nml, No motor deficits Skin Exam: normal color, warm, No dry SpO2 Interpretation: hypoxic, O2 applied (2 ) SpO2: 96 O2 Delivery: Nasal Cannula - Course Nursing assessment & vital signs reviewed: Yes EKG Interpreted by Me: RATE (108), A-fib, Right Bundle Branch Block - Radiology Exams Chest X-ray Interpretation: Interpreted by me, Other (Right lower lobe opacity) - CT Exams Chest CT Interpretation: Tele-radiologist Report Ordered Tests: Active Orders 24 hr Category Date Time Status EKG-ER Only STAT Care 11/25/22 01:22 Active IV Insertion STAT Care 11/25/22 01:22 Active CHEST 1 VIEW (PORTABLE) Stat Exams 11/25/22 01:23 Taken CHEST WITH CONTRAST [CT] Stat Exams 11/25/22 01:56 Completed CBC W DIFF Stat Lab 11/25/22 01:15 Completed CMP Stat Lab 11/25/22 01:15 Completed D-DIMER QUANTITATIVE Stat Lab 11/25/22 01:15 Completed Lactic Acid Stat Lab 11/25/22 01:22 Completed MAGNESIUM Stat Lab 11/25/22 01:15 Completed Manual Differential NC Stat Lab 11/25/22 01:15 Completed NT PRO BNPII Stat Lab 11/25/22 01:15 Completed PROTIME WITH INR Stat Lab 11/25/22 01:15 Completed PTT Stat Lab 11/25/22 01:15 Completed TROPONIN Q4H Lab 11/25/22 01:15 Completed TROPONIN Q4H Lab 11/25/22 05:30 Ordered TROPONIN Q4H Lab 11/25/22 09:30 Ordered UA W/RFX UR CULTURE Stat Lab 11/25/22 01:23 Completed Medication Summary Discontinued Medications Generic Name Dose Route Start Last Admin Trade Name Freq PRN Reason Stop Dose Admin Furosemide 40 mg 11/25/22 01:22 11/25/22 01:32 Furosemide 40 Mg/4 Ml Vial IV 11/25/22 01:23 40 mg STAT ONE Administration Furosemide Confirm 11/25/22 01:31 Furosemide 40 Mg/4 Ml Vial Administered 11/25/22 01:32 Dose 40 mg .ROUTE .STK-MED ONE Furosemide 40 mg 11/25/22 02:11 11/25/22 03:07 Furosemide 40 Mg/4 Ml Vial IV 11/25/22 02:12 40 mg STAT ONE Administration Furosemide Confirm 11/25/22 02:42 Furosemide 40 Mg/4 Ml Vial Administered 11/25/22 02:43 Dose 40 mg .ROUTE .STK-MED ONE Lab/Rad Data: Laboratory Result Diagrams 11/25/22 01:15 11/25/22 01:15 Laboratory Results 11/25/22 11/25/22 11/25/22 Range/Units 01:23 01:22 01:15 WBC (4.0-10.5) x10^3/uL RBC (4.1-5.6) x10^6/uL Hgb (12.5-18.0) g/dL Hct (42-50) % MCV (78-100) fL MCH (26-32) pg MCHC (32-36) g/dL RDW (11.5-14.0) % Plt Count (150-450) x10^3/uL MPV (7.5-11.0) fL Gran % (36.0-66.0) % Immature Gran % (Auto) (0.00-0.4) % Nucleat RBC Rel Count (0.00-0.1) % Eos # (Auto) (0-0.5) x10^3/uL Immature Gran # (Auto) (0.00-0.03) x10^3u/L Absolute Lymphs (auto) (1.0-4.6) x10^3/uL Absolute Monos (auto) (0.0-1.3) x10^3/uL Absolute Nucleated RBC (0.00-0.01) x10^3u/L Lymphocytes % (24.0-44.0) % Monocytes % (0.0-12.0) % Eosinophils % (0.00-5.0) % Basophils % (0.0-0.4) % Absolute Granulocytes (1.4-6.9) x10^3/uL Segmented Neutrophils (36.-66.) % Lymphocytes (Manual) (24-44) % Monocytes (Manual) (0.0-12.0) % Eosinophils (Manual) (0.00-3.0) % Basophils # (0-0.4) x10^3/uL Hypochromia Toxic Granulation Platelet Estimate (NORMAL) RBC Morphology Polychromasia Anisocytosis PT (9.4-12.5) SECONDS INR (0.8-3.0) APTT (25.1-36.5) SECONDS D-Dimer (0.0-0.50) mg/L Sodium (137-145) mmol/L Potassium (3.5-5.1) mmol/L Chloride (98-107) mmol/L Carbon Dioxide (22-30) mmol/L Anion Gap (5-15) MEQ/L BUN (9-20) mg/dL Creatinine (0.66-1.25) mg/dL Estimated GFR ML/MIN Glucose (74-106) mg/dL Lactic Acid 1.5 (0.4-2.0) Calcium (8.4-10.2) mg/dL Magnesium (1.6-2.3) mg/dL Total Bilirubin (0.2-1.3) mg/dL AST (17-59) U/L ALT (0-50) U/L Alkaline Phosphatase (38-126) U/L Troponin I 0.024 (0.000-0.034) ng/mL NT-Pro-B Natriuret Pep (<300) pg/mL Serum Total Protein (6.3-8.2) g/dL Albumin (3.5-5.0) g/dL Urine Color Yellow (Yellow) Urine Appearance Clear (Clear) Urine pH 5.5 (4.6-8.0) Ur Specific [place] 1.015 (1.005-1.030) Urine Protein 30 (Negative) Urine Glucose (UA) Negative (Negative) mg/dL Urine Ketones Negative (Negative) Urine Blood Negative (Negative) Urine Nitrite Negative (Negative) Urine Bilirubin Negative (Negative) Urine Urobilinogen 1.0 A (0.2) mg/dL Ur Leukocyte Esterase Negative (Negative) U Hyaline Cast (Auto) NONE SEEN (0-2) /LPF Urine Microscopic RBC 0-2 (0-5) /HPF Urine Microscopic WBC 3-5 (0-5) /HPF Ur Epithelial Cells None Seen (None Seen) /HPF Urine Bacteria None Seen (None Seen) /HPF Urine Culture Reflexed NO (NO) 11/25/22 11/25/22 11/25/22 Range/Units 01:15 01:15 01:15 WBC 12.8 H (4.0-10.5) x10^3/uL RBC 3.43 L (4.1-5.6) x10^6/uL Hgb 9.7 L (12.5-18.0) g/dL Hct 31.1 L (42-50) % MCV 90.7 (78-100) fL MCH 28.3 (26-32) pg MCHC 31.2 L (32-36) g/dL RDW 23.5 H (11.5-14.0) % Plt Count 168 (150-450) x10^3/uL MPV 11.7 H (7.5-11.0) fL Gran % 71.4 H (36.0-66.0) % Immature Gran % (Auto) 4.6 H (0.00-0.4) % Nucleat RBC Rel Count 0.0 (0.00-0.1) % Eos # (Auto) 0.13 (0-0.5) x10^3/uL Immature Gran # (Auto) 0.59 H (0.00-0.03) x10^3u/L Absolute Lymphs (auto) 1.61 (1.0-4.6) x10^3/uL Absolute Monos (auto) 1.22 (0.0-1.3) x10^3/uL Absolute Nucleated RBC 0.00 (0.00-0.01) x10^3u/L Lymphocytes % 12.6 L (24.0-44.0) % Monocytes % 9.6 (0.0-12.0) % Eosinophils % 1.0 (0.00-5.0) % Basophils % 0.8 (0.0-0.4) % Absolute Granulocytes 9.12 H (1.4-6.9) x10^3/uL Segmented Neutrophils 79 H (36.-66.) % Lymphocytes (Manual) 17 L (24-44) % Monocytes (Manual) 3 (0.0-12.0) % Eosinophils (Manual) 1 (0.00-3.0) % Basophils # 0.10 (0-0.4) x10^3/uL Hypochromia 1+ Toxic Granulation 1+ Platelet Estimate NORMAL (NORMAL) RBC Morphology ABNORMAL Polychromasia 1+ Anisocytosis 1+ PT 18.2 H (9.4-12.5) SECONDS INR 1.74 (0.8-3.0) APTT 34.3 (25.1-36.5) SECONDS D-Dimer 1.58 H* (0.0-0.50) mg/L Sodium 138 (137-145) mmol/L Potassium 4.3 (3.5-5.1) mmol/L Chloride 104 (98-107) mmol/L Carbon Dioxide 26 (22-30) mmol/L Anion Gap 12.7 (5-15) MEQ/L BUN 30 H (9-20) mg/dL Creatinine 1.25 (0.66-1.25) mg/dL Estimated GFR 59.4 ML/MIN Glucose 152 H (74-106) mg/dL Lactic Acid (0.4-2.0) Calcium 8.3 L (8.4-10.2) mg/dL Magnesium 1.7 (1.6-2.3) mg/dL Total Bilirubin 0.50 (0.2-1.3) mg/dL AST 30 (17-59) U/L ALT 19 (0-50) U/L Alkaline Phosphatase 177 H (38-126) U/L Troponin I (0.000-0.034) ng/mL NT-Pro-B Natriuret Pep 7140 (<300) pg/mL Serum Total Protein 6.3 (6.3-8.2) g/dL Albumin 3.3 L (3.5-5.0) g/dL Urine Color (Yellow) Urine Appearance (Clear) Urine pH (4.6-8.0) Ur Specific [place] (1.005-1.030) Urine Protein (Negative) Urine Glucose (UA) (Negative) mg/dL Urine Ketones (Negative) Urine Blood (Negative) Urine Nitrite (Negative) Urine Bilirubin (Negative) Urine Urobilinogen (0.2) mg/dL Ur Leukocyte Esterase (Negative) U Hyaline Cast (Auto) (0-2) /LPF Urine Microscopic RBC (0-5) /HPF Urine Microscopic WBC (0-5) /HPF Ur Epithelial Cells (None Seen) /HPF Urine Bacteria (None Seen) /HPF Urine Culture Reflexed (NO) - Progress Progress: improved Air Movement: fair Progress Note: 11/25/22 04:Patient was given 80 mg of Lasix total IV he had a tremendous response with 2 L of fluid being returned blood from the catheter. He is breathing much better. It is his desire since he has an appointment with his [facility] doctor tomorrow that he be put on oral Lasix to continue his diuresis and we will send a CT report with him and a disc. Medical Desision Making - Diagnostic Testing Diagnostic test were ordered, analyzed, and reviewed by me: Yes Radiological Interpretation: Interpreted by me, Reviewed by me - Risk of complications The pt has a mod risk of morbidity or mortality based on: Need for prescription drug management, Need for minor surgical intervention in patient with know risk factors - Departure Departure Disposition: Home Clinical Impression: Congestive heart failure, Bilateral pleural effusion Condition: Fair Critical Care Time: No Referrals: [facility] [Primary Care Provider] - Follow up/PCP as directed Instructions: Heart Failure, Heart Failure, Adult (DC) Prescriptions: Furosemide 20 mg [Lasix 20 mg] 20 mg PO BID 5 Days #10 tablet
[2022-11-25 01:30] LABS: Absolute Neutrophil Ct (ANC) 9.12 x10^3/uL (1.4-6.9); BASOPHIL % 0.8 % (0.0-0.4); Eosinophil (Absolute #) 0.13 x10^3/uL (0-0.5); Hematocrit 31.1 % (42-50); Hemoglobin 9.7 g/dL (12.5-18.0); IMMATURE GRAN # 0.59 x10^3u/L (0.00-0.03); IMMATURE GRAN % 4.6 % (0.00-0.4); Lymphocyte (Absolute #) 1.61 x10^3/uL (1.0-4.6); Lymphocytes % 12.6 % (24.0-44.0); Mean Cell Volume 90.7 fL (78-100); Mean Corpuscular Hemoglobin 28.3 pg (26-32); Mean Corpuscular Hgb Concent. 31.2 g/dL (32-36); Mean Platelet Volume 11.7 fL (7.5-11.0); Monocyte (Absolute #) 1.22 x10^3/uL (0.0-1.3); Monocytes % 9.6 % (0.0-12.0); Neutrophil % 71.4 % (36.0-66.0); Platelet Count 168 x10^3/uL (150-450); Red Blood Count 3.43 x10^6/uL (4.1-5.6); Red Cell Distribution Width 23.5 % (11.5-14.0); White Blood Count 12.8 x10^3/uL (4.0-10.5)
[2022-11-25] MEDS ORDERED: Lasix 40 MG/4 ML ONE ×2 (01:31→02:42)
[2022-11-25] MEDS: Lasix 40 MG/4 ML IV ONE ×2 (01:32→03:07)
[2022-11-25 01:51] LABS: INR 1.74 (0.8-3.0); PROTIME 18.2 SECONDS (9.4-12.5); PTT 34.3 SECONDS (25.1-36.5)
[2022-11-25 01:52] LABS: ALBUMIN 3.3 g/dL (3.5-5.0); ANION GAP 12.7 MEQ/L (5-15); BILIRUBIN,TOTAL 0.5 mg/dL (0.2-1.3); Calcium 8.3 mg/dL (8.4-10.2); Creatinine 1 1.25 mg/dL (0.66-1.25); EST GLOMERULAR FILTRATION RATE 59.4 ML/MIN; MAGNESIUM 1.7 mg/dL (1.6-2.3); Potassium 4.3 mmol/L (3.5-5.1); Total Protein 6.3 g/dL (6.3-8.2)
[2022-11-25 01:53] LABS: D-DIMER QUANTITATIVE 1.58 mg/L (0.0-0.50)
[2022-11-25 02:15] LABS: ANISOCYTOSIS 1+; Eosinophil 1 % (0.00-3.0); Hypochromia 1+; Lymphocytes 17 % (24-44); Monocyte 3 % (0.0-12.0); Neutrophils 79 % (36.-66.); Total Cells Counted 100
[2022-11-25 02:15] LABS: ADD URINE CULTURE? NO (NO); Appearance Clear (Clear); Bacteria None Seen /HPF (None Seen); Bilirubin Negative (Negative); Blood Negative (Negative); Epithelial Cells None Seen /HPF (None Seen); Glucose, Urine Negative (Negative); Hyaline Casts NONE SEEN /LPF (0-2); Ketones Negative (Negative); Leukocyte Esterase Negative (Negative); Nitrite Negative (Negative); Ph 5.5 (4.6-8.0); Protein,Urine Dip 30 (Negative); RBC 0-2 /HPF (0-5); Specific Gravity 1.015 (1.005-1.030)
[2022-11-25 02:16] LABS: Platelet Estimate NORMAL (NORMAL); Polychromasia 1+; Toxic Granulation 1+
--- NOTE | 2022-11-25 04:25 | XRAY ---
CLINICAL HISTORY:elevated D Dimer COMPARISON:08/16/2022. TECHNIQUE:Contiguous 3.[address] angiographic images of the chest were acquired with the administration of intravenous contrast 80 cc Isovue 370 with PE protocol. Coronal and sagittal reconstructions were obtained. FINDINGS: No evidence of any filling defect in the main pulmonary trunk, bilateral main pulmonary arteries, segmental arteries, and subsegmental arteries. There is collapse and consolidation of the anterior segment of the right upper lobe, medial segment of the middle lobe and medial segments of the right lower lobe. Consolidation is also seen within the posterior segmental left lower lobe. Moderate to gross right-sided pleural effusion is seen. Mild to moderate left-sided pleural effusion is seen. Minimal to mild pericardial effusion is seen. Degenerative spondylitic changes are seen within the visualized thoracolumbar spine and skeleton. Atherosclerotic calcifications are seen in the aorta and its branches. When compared with the previous CT dated 08/16/2022, interval progression in bilateral pleural effusion is seen with interval development of bilateral consolidations and pericardial effusion. Redemonstration of mediastinal lymphadenopathy noted slight interval regression . The largest lymph node measured 0.9 cm in the short axis on the present CT while in the last CT, the largest lymph node measured 1.4 cm in the short axis. No pulmonary embolism was depicted on the previous CT as well. IMPRESSION: 1. No evidence of any filling defect in the main pulmonary trunk, bilateral main pulmonary arteries, segmental arteries, and subsegmental arteries to suggest acute or chronic pulmonary embolism. 2. Collapse and consolidation of the anterior segment of the right upper lobe, medial segment of the middle lobe medial segments of the right lower lobe, and posterior segmental left lower lobe. 3. Bilateral pleural effusion is moderate to gross on the right side and mild to moderate on the left. 4. Minimal to mild pericardial effusion. 5. When compared with the previous CT dated 08/16/2022, interval progression in bilateral pleural effusion is seen with interval development of bilateral consolidations and pericardial effusion. Redemonstration of mediastinal lymphadenopathy noted slight interval regression. Electronically Signed by: Isael Cabrera MD. (11/25/2022 03:23:44 [employer] SAL[employer] ASSIST[employer])
[2022-11-25 05:04] VITALS: BP 116/78; PULSE 116; RESP 31; O2SAT 95
--- NOTE | 2022-11-25 08:53 | XRAY ---
Indication: Short of breath. Current chemotherapy for lung cancer. Comparison: August 16, 2022 Portable chest demonstrates new moderate right and small left pleural effusions. Also new right mid to lower lung infiltrate/atelectasis. Heart is now borderline enlarged with new left Port-A-Cath. Bony thorax intact again with osteopenia and mild degenerative changes. Impression: New borderline cardiomegaly with bilateral effusions. Rule out cardiac decompensation/CHF versus fluid overload. New right mid to lower lung infiltrate/atelectasis.
== END 2022-11-25 05:23 | disposition home or self-care (01) ==
LOC: ED 00:53
DX: I11.0 Hypertensive heart disease with heart failure (principal); I50.9 Heart failure, unspecified; J90 Pleural effusion, not elsewhere classified; R06.02 Shortness of breath; C34.90 Malignant neoplasm of unspecified part of unspecified bronchus or lung; E11.9 Type 2 diabetes mellitus without complications; Z79.01 Long term (current) use of anticoagulants; Z79.84 Long term (current) use of oral hypoglycemic drugs; Z79.899 Other long term (current) drug therapy; Z72.0 Tobacco use
CPT/HCPCS: 36000; 36415; 51702; 71045; 71260; 80053; 81001; 83605; 83735; 83880; 84484; 85025; 85379; 85610; 85730; 93005; 93041; 94760; 96374; 96376; 99285; J1940

== ENCOUNTER 2022-11-30 02:02 | Emergency (ER) | payer MEDICARE, OTHER ==
--- NOTE | 2022-11-30 02:28 | ERPHSYRPT ---
- History of Present Illness Time Seen by Provider: 11/30/22 02:20 Source: patient, family, old records Exam Limitations: no limitations Physician History: This is a 77-year-old white male patient who is undergoing chemotherapy for metastatic lung cancer and presents with shortness of breath and abdominal pressure. Patient was seen in our emergency department on 11/25/2022 and diagnosed with CHF and bilateral pleural effusions. Patient is diabetic, is taking diltiazem and is on Coumadin. He has a history of gastroesophageal reflux disease, COPD, cardiac ablation and hypertension. Patient took his last "water pill" at midnight. Patient was given a prescription for approximately 5 days of Lasix. During his last visit in the emergency department apartment, he was instructed to follow-up with his primary care doctor and can top setter. However, patient has stated that he did not want to follow-up until it is determined whether or not the chemotherapy was going to work or not work. Patient denies chest pain. Upon arrival to the emergency department, the p atient was found to be in rapid atrial fibrillation with heart rate in the 140s to 150s beats per minute range. He was maintaining a systolic blood pressure over 100. Timing/Duration: today Activities at Onset: none Quality: pressure (Abdominal pressure and not chest pressure) Severity of Pain-Max: mild Severity of Pain-Current: mild Nitro Today/Relief: no nitro taken today Aspirin Treatment Today: no aspirin today (Patient is on daily Coumadin) Associated Symptoms: abdominal pain (Scribed as a generalized pressure), shortness of breath, No chest pain Prior Chest Pain/Cardiac Workup: cardiac cath, recently seen/treated Allergies/Adverse Reactions: pregabalin [From Lyrica] Allergy (Severe, Verified 11/25/22 00:54) Difficulty Breathing Home Medications: Glimepiride 2 mg [Amaryl 2 MG] 1 mg PO DAILY 02/17/21 [History] Metformin HCl [Metformin ER Osmotic] 1,000 mg PO DAILY 02/17/21 [History] dilTIAZem HCL [Diltiazem 24Hr ER] 240 mg PO DAILY 12/10/21 [History] PANTOPRAZOLE 40 mg Tablet [Protonix 40MG Tablet] 40 mg PO DAILY 08/17/22 [History] Pramipexole Di-HCl [Pramipexole ER] 1.5 mg PO DAILY 09/25/22 [History] Magnesium Oxide [Mag-Oxide] 400 mg PO BID 10/03/22 [History] Duloxetine HCl 60 mg PO DAILY 11/25/22 [History] Loratadine 10 mg [Claritin 10 mg] 10 mg PO HS 11/25/22 [History] Mirabegron [Myrbetriq] 50 mg PO DAILY 11/25/22 [History] Tamsulosin HCl 0.4 mg [Flomax 0.4 MG] 0.4 mg PO DAILY 11/25/22 [History] Warfarin Sodium 1 mg PO UD 11/25/22 [History] Hx Tetanus, Diphtheria Vaccination/Date Given: No (unknown) Hx Influenza Vaccination/Date Given: Yes Hx Pneumococcal Vaccination/Date Given: Yes Travel Risk - International Travel Have you traveled outside of the country in past 3 weeks: No - Coronavirus Screening Are you exhibiting any of the following symptoms?: Yes Symptoms: Shortness of Breath Close contact with a COVID-19 positive Pt in past 14-21 Days: No - Vaccine Status Have you recieved a Covid-19 vaccination: Yes Textile Screen Maker: Moderna - Vaccination Dates Date of 2cond Vaccination (if applicable): 10/08 - Review of Systems Constitutional: No Symptoms Eyes: No Symptoms Ears, Nose, & Throat: No Symptoms Respiratory: Dyspnea Cardiac: No Symptoms Abdominal/Gastrointestinal: Abdominal Pain (Described as a generalized pressure) Genitourinary Symptoms: No Symptoms Musculoskeletal: No Symptoms Skin: No Symptoms Neurological: No Symptoms Psychological: No Symptoms Endocrine: No Symptoms Hematologic/Lymphatic: No Symptoms Immunological/Allergic: No Symptoms All Other Systems: Reviewed and Negative - Past Medical History Pertinent Past Medical History: Yes Neurological History: Other ENT History: Cataracts Cardiac History: Arrhythmia, Hypertension Respiratory History: COPD, Lung Cancer Endocrine Medical History: Diabetes Type II Musculoskeletal History: Other GI Medical History: No Pertinent History History: No Pertinent History Psycho-Social History: Depression Male Reproductive Disorders: Prostate Cancer Other Medical History: HX CARDIAC ABLATION; R EDWAR - Past Surgical History Past Surgical History: Yes Neuro Surgical History: No Pertinent History Cardiac: Cardiac Catheterization, Other Respiratory: No Pertinent History Gastrointestinal: No Pertinent History Genitourinary: No Pertinent History Musculoskeletal: Other Male Surgical History: No Pertinent History Other Surgical History: july states back surgery with cyst removal and spur shaved,heart caths and cardiac ablation 15-20yrs ago,BACK SURG 08/03, back surgery 2013, 09/29/16,09/30/16,10/01/16 back surgery r/t infection in surgical site. bilar rcr - Social History Smoking Status: Current every day smoker How long have you smoked: 55 Exposure to second hand smoke: Yes Alcohol Use: None Drug Use: none Patient Lives Alone: No Significant Family History: no pertinent family hx - Nursing Vital Signs Nursing Vital Signs: Initial Vital Signs Pulse Rate 146 H 11/30/22 02:07 Respiratory Rate 18 11/30/22 02:07 Blood Pressure 122/84 11/30/22 02:07 O2 Sat by Pulse Oximetry 97 11/30/22 02:07 Pain Scale Pain Intensity 6 - Physical Exam General Appearance: no apparent distress, alert, anxiety Eye Exam: PERRL/EOMI, eyes nml inspection Ears, Nose, Throat Exam: normal ENT inspection, moist mucous membranes Neck Exam: normal inspection, non-tender, supple, full range of motion Respiratory Exam: normal breath sounds, lungs clear, airway intact, No chest tenderness, No respiratory distress Cardiovascular Exam: tachycardia, irregular Gastrointestinal/Abdomen Exam: soft, normal bowel sounds, tenderness (Mild diffuse with palpation) Rectal Exam: not done Back Exam: normal inspection, normal range of motion, No CVA tenderness, No vertebral tenderness Extremity Exam: normal inspection, normal range of motion, No pelvis stable Neurologic Exam: alert, oriented x 3, cooperative, adoption manager II-XII nml as tested, normal mood/affect, nml cerebellar function, sensation nml Skin Exam: normal color, warm, dry Lymphatic Exam: No adenopathy SpO2 Interpretation: normal O2 Delivery: Room Air - Course Nursing assessment & vital signs reviewed: Yes EKG Interpreted by Me: RATE, A-fib Ordered Tests: Active Orders 24 hr Category Date Time Status Brake Operator Heavy Duty STAT Care 11/30/22 02:35 Active EKG-ER Only STAT Care 11/30/22 02:33 Active IV Insertion STAT Care 11/30/22 02:33 Active Pulse Oximetry (ED) STAT Care 11/30/22 02:33 Active ABDOMEN AND PELVIS W/0 CONTRAS [CT] Stat Exams 11/30/22 02:36 Taken CHEST WITHOUT CONTRAST [CT] Stat Exams 11/30/22 02:34 Taken CBC W DIFF Stat Lab 11/30/22 02:41 Completed CMP Stat Lab 11/30/22 02:41 Completed CULTURE,URINE Stat Lab 11/30/22 02:41 Received Lactic Acid Stat Lab 11/30/22 02:50 Completed Manual Differential NC Stat Lab 11/30/22 02:41 Completed NT PRO BNPII Stat Lab 11/30/22 02:41 Received PROTIME WITH INR Stat Lab 11/30/22 02:41 Completed TROPONIN Q4H Lab 11/30/22 02:41 Received TROPONIN Q4H Lab 11/30/22 06:45 Ordered TROPONIN Q4H Lab 11/30/22 10:45 Ordered UA W/RFX UR CULTURE Stat Lab 11/30/22 02:41 Completed Medication Summary Generic Name Dose Route Start Last Admin Trade Name Freq PRN Reason Stop Dose Admin Sodium Chloride 1,000 mls @ 100 mls/hr 11/30/22 02:45 11/30/22 02:45 Sodium Chloride 0.9% 1000 Ml IV 12/30/22 02:44 100 mls/hr .Q10H MELITA Administration Ceftriaxone Sodium/Dextrose 1 g in 50 mls @ 100 mls/hr 11/30/22 04:12 11/30/22 04:19 Rocephin 1 Gm-D5w 50 Ml Bag IV 11/30/22 04:41 100 mls/hr STAT STA 100 mls/hr Administration Discontinued Medications Generic Name Dose Route Start Last Admin Trade Name Freq PRN Reason Stop Dose Admin Diltiazem HCl 10 mg 11/30/22 02:42 11/30/22 02:45 Diltiazem Hcl Iv 5 Mg/Ml Vial IV 11/30/22 02:43 10 mg STAT ONE Administration Diltiazem HCl Confirm 11/30/22 02:44 Diltiazem Hcl Iv 5 Mg/Ml Vial Administered 11/30/22 02:45 Dose 50 mg IV .STK-MED ONE Diltiazem HCl 10 mg 11/30/22 02:58 11/30/22 02:59 Diltiazem Hcl Iv 5 Mg/Ml Vial IV 11/30/22 02:59 10 mg STAT ONE Administration Ceftriaxone Sodium/Dextrose Confirm 11/30/22 04:17 Rocephin 1 Gm-D5w 50 Ml Bag Administered 11/30/22 04:18 Dose 1 g in 50 mls @ ud IV .STK-MED ONE Lab/Rad Data: Laboratory Result Diagrams 11/30/22 02:41 11/30/22 02:41 Laboratory Results 11/30/22 11/30/22 11/30/22 Range/Units 02:50 02:41 02:41 WBC (4.0-10.5) x10^3/uL RBC (4.1-5.6) x10^6/uL Hgb (12.5-18.0) g/dL Hct (42-50) % MCV (78-100) fL MCH (26-32) pg MCHC (32-36) g/dL RDW (11.5-14.0) % Plt Count (150-450) x10^3/uL MPV (7.5-11.0) fL PT 26.9 H (9.4-12.5) SECONDS INR 2.65 (0.8-3.0) Sodium 139 (137-145) mmol/L Potassium 4.5 (3.5-5.1) mmol/L Chloride 101 (98-107) mmol/L Carbon Dioxide 29 (22-30) mmol/L Anion Gap 13.9 (5-15) MEQ/L BUN 33 H (9-20) mg/dL Creatinine 1.12 (0.66-1.25) mg/dL Estimated GFR > 60.0 ML/MIN Glucose 141 H (74-106) mg/dL Lactic Acid 1.8 (0.4-2.0) Calcium 8.5 (8.4-10.2) mg/dL Total Bilirubin 0.40 (0.2-1.3) mg/dL AST 28 (17-59) U/L ALT 18 (0-50) U/L Alkaline Phosphatase 146 H (38-126) U/L Serum Total Protein 6.6 (6.3-8.2) g/dL Albumin 3.6 (3.5-5.0) g/dL Urine Color (Yellow) Urine Appearance (Clear) Urine pH (4.6-8.0) Ur Specific Raven (1.005-1.030) Urine Protein (Negative) Urine Glucose (UA) (Negative) mg/dL Urine Ketones (Negative) Urine Blood (Negative) Urine Nitrite (Negative) Urine Bilirubin (Negative) Urine Urobilinogen (0.2) mg/dL Ur Leukocyte Esterase (Negative) U Hyaline Cast (Auto) (0-2) /LPF Urine Microscopic RBC (0-5) /HPF Urine Microscopic WBC (0-5) /HPF Ur Epithelial Cells (None Seen) /HPF Urine Bacteria (None Seen) /HPF Urine Culture Reflexed (NO) 11/30/22 11/30/22 Range/Units 02:41 02:41 WBC 25.2 H* (4.0-10.5) x10^3/uL RBC 3.63 L (4.1-5.6) x10^6/uL Hgb 10.2 L (12.5-18.0) g/dL Hct 32.9 L (42-50) % MCV 90.6 (78-100) fL MCH 28.1 (26-32) pg MCHC 31.0 L (32-36) g/dL RDW 23.0 H (11.5-14.0) % Plt Count 237 (150-450) x10^3/uL MPV 11.0 (7.5-11.0) fL PT (9.4-12.5) SECONDS INR (0.8-3.0) Sodium (137-145) mmol/L Potassium (3.5-5.1) mmol/L Chloride (98-107) mmol/L Carbon Dioxide (22-30) mmol/L Anion Gap (5-15) MEQ/L BUN (9-20) mg/dL Creatinine (0.66-1.25) mg/dL Estimated GFR ML/MIN Glucose (74-106) mg/dL Lactic Acid (0.4-2.0) Calcium (8.4-10.2) mg/dL Total Bilirubin (0.2-1.3) mg/dL AST (17-59) U/L ALT (0-50) U/L Alkaline Phosphatase (38-126) U/L Serum Total Protein (6.3-8.2) g/dL Albumin (3.5-5.0) g/dL Urine Color Yellow (Yellow) Urine Appearance Clear (Clear) Urine pH 6.0 (4.6-8.0) Ur Specific Raven 1.015 (1.005-1.030) Urine Protein 30 (Negative) Urine Glucose (UA) Negative (Negative) mg/dL Urine Ketones Negative (Negative) Urine Blood NHT (Negative) Urine Nitrite Negative (Negative) Urine Bilirubin Negative (Negative) Urine Urobilinogen 0.2 (0.2) mg/dL Ur Leukocyte Esterase Small A (Negative) U Hyaline Cast (Auto) NONE SEEN (0-2) /LPF Urine Microscopic RBC 6-10 A (0-5) /HPF Urine Microscopic WBC 21-50 A (0-5) /HPF Ur Epithelial Cells None Seen (None Seen) /HPF Urine Bacteria Few A (None Seen) /HPF Urine Culture Reflexed YES (NO) - Progress Progress: improved, re-examined Air Movement: good Progress Note: 11/30/22 04:26 This patient's medical issue is of at least moderate complexity and likely high complexity. Patient work-up is based on the review of the patient's past medical history, review the patient's medication list, review of the patient's drug allergy list, history of present illness and physical findings on examination. Work-up includes placement of intravenous line, infusion of intravenous Cardizem, twelve-lead EKG, CBC, CMP, BNP, urinalysis, CT scan of the chest, CT scan of the abdomen and pelvis. I do not have the entire work-up results yet. The troponin and BNP levels are pending. The results of the CAT scan of the chest and abdomen/pelvis are also pending. Patient is demanding to be discharged to home. He wants to leave AGAINST MEDICAL ADVICE. The nurse and I attempted to discourage him from going home. However, he wanted us to call his family so they can come get him. He states that he is ready to and be with his brother. He wants to be cremated with him. Patient reiterated that he has stage IV lung cancer. He understands, and repeated that phrase of underst anding several times. He stated he appreciated everything that we were doing form but he wants to leave. He is going to sign AGAINST MEDICAL ADVICE form. Blood Culture(s) Obtained: No Antibiotics given: Yes Counseled pt/family regarding: lab results, diagnosis, need for follow-up Medical Desision Making - Diagnostic Testing Diagnostic test were ordered, analyzed, and reviewed by me: Yes - Risk of complications The pt has a mod risk of morbidity or mortality based on: Need for prescription drug management - Departure Departure Disposition: AMA Clinical Impression: Atrial fibrillation with RVR, Urinary tract infection Condition: Fair Critical Care Time: Yes Critical Care Time(excluding separately billable procedures): Critical 30-74 mins (40 minutes) Referrals: [facility]LOCATION] - Follow up/PCP as directed Additional Instructions: Take your antibiotics as prescribed. Take all your medicine as prescribed. Return to the emergency department if your symptoms worsen. Call your primary care provider and your can top setter on 12/01/2022. Prescriptions: Cephalexin Mh 500 mg [Keflex 500 mg] 500 mg PO TID #21 cap
[2022-11-30 02:34] VITALS: TEMP 97.5
[2022-11-30] MEDS ORDERED: Cardizem IV 50 MG/10 ML IV ONE ×3 (02:42→02:58)
[2022-11-30] MEDS ORDERED: Sodium Chloride 0.9% 1000 ML 1,000 ML ONE (02:44)
[2022-11-30] MEDS ORDERED: Sodium Chloride 0.9% 1000 ML 1,000 ML IV SCH (02:45)
[2022-11-30 03:05] LABS: Hematocrit 32.9 % (42-50); Hemoglobin 10.2 g/dL (12.5-18.0); Mean Cell Volume 90.6 fL (78-100); Mean Corpuscular Hemoglobin 28.1 pg (26-32); Platelet Count 237 x10^3/uL (150-450); Red Blood Count 3.63 x10^6/uL (4.1-5.6)
[2022-11-30 03:10] LABS: Appearance Clear (Clear); Bacteria Few /HPF (None Seen); Bilirubin Negative (Negative); Blood NHT (Negative); Epithelial Cells None Seen /HPF (None Seen); Glucose, Urine Negative (Negative); Hyaline Casts NONE SEEN /LPF (0-2); Ketones Negative (Negative); Leukocyte Esterase Small (Negative); Nitrite Negative (Negative); Protein,Urine Dip 30 (Negative); Specific Gravity 1.015 (1.005-1.030); Urobilinogen 0.2 mg/dL (0.2); WBC 21-50 /HPF (0-5); White Blood Count 25.2 x10^3/uL (4.0-10.5)
[2022-11-30 03:11] LABS: ADD URINE CULTURE? YES (NO)
[2022-11-30 03:19] LABS: INR 2.65 (0.8-3.0); PROTIME 26.9 SECONDS (9.4-12.5)
[2022-11-30 03:25] LABS: Calcium 8.5 mg/dL (8.4-10.2); SODIUM 139 mmol/L (137-145)
[2022-11-30 04:07] LABS: ALBUMIN 3.6 g/dL (3.5-5.0); ALKALINE PHOSPHATASE 146 U/L (38-126); ANION GAP 13.9 MEQ/L (5-15); BLOOD UREA NITROGEN 33 mg/dL (9-20); CHLORIDE 101 mmol/L (98-107); Carbon Dioxide 29 mmol/L (22-30); Creatinine 1 1.12 mg/dL (0.66-1.25); EST GLOMERULAR FILTRATION RATE > 60.0 ML/MIN; Glucose 141 mg/dL (74-106); Potassium 4.5 mmol/L (3.5-5.1); SGOT/AST 28 U/L (17-59); SGPT/ALT 18 U/L (0-50); Total Protein 6.6 g/dL (6.3-8.2)
[2022-11-30 04:08] VITALS: RESP 20
[2022-11-30] MEDS ORDERED: ROCEPHIN 1 Gm-D5w 50 ml Bag** 1 G/50 ML IVPB IV STA (04:12)
[2022-11-30] MEDS ORDERED: ROCEPHIN 1 Gm-D5w 50 ml Bag** 1 G/50 ML IVPB IV ONE (04:17)
[2022-11-30 04:26] LABS: BAND 7 % (0.0-2.0); Lymphocytes 9 % (24-44); Monocyte 7 % (0.0-12.0); Neutrophils 77 % (36.-66.); Platelet Estimate NORMAL (NORMAL); Total Cells Counted 100
[2022-11-30 04:27] LABS: ANISOCYTOSIS 2+
[2022-11-30 04:46] VITALS: BP 122/83; PULSE 168; O2SAT 99
--- NOTE | 2022-12-02 16:17 | XRAY ---
CLINICAL HISTORY:Shortness of breath; COMPARISON:CT dated 11/25/2022 and 10/03/2022; TECHNIQUES:Axial sections of CT chest examination were obtained without administration of intravenous contrast. Reconstructed coronal and sagittal images were also acquired; FINDINGS: Interval improvement in the collapse/consolidation in the right middle lobe; Redemonstration of collapse in the medial segment of the right lower lobe; Redemonstration of small right upper lobe soft tissue opacity appearing unchanged from prior CT examination dated 11/25/2022 however, showing significant decrease in size from prior CT examination dated 10/03/2022. The nodular component of the lesion measures approximately 1.2 x 0.9 cm on current examination, previously measured 2.5 x 2 cm; Redemonstration of ground glass opacity in the posterior aspect of the posterior segment of the right upper lobe; Bibasilar atelectatic bands are noted; Moderate right and mild left pleural effusion with mild underlying atelectatic changes.Interval decrease in the left-sided pleural effusion in comparison to prior CT examination; Redemonstration of prominent mediastinal lymph nodes, largest seen in the right paratracheal location measuring 9.6 mm in short axis. Appearing grossly unchanged from prior CT examination; Trachea and bronchi are patent; No cardiomegaly. Calcification in the coronary vessels. A streak of pericardial effusion; No aneurysmal dilatation of the thoracic aorta. Atherosclerotic changes in the thoracic aorta; Port-A-Cath is visualized; Mild ascites in the upper perihepatic region; Status postcholecystectomy; Suggestion of small hiatal hernia; Mild nonspecific perinephric fat stranding; The inhomogeneous appearance of the spleen, may be secondary to phasing; Degenerative changes in the visualized spine; Evidence of rotator cuff repair in the left shoulder joint; IMPRESSION: 1. Interval improvement in the collapse/consolidation in the right middle lobe; 2. Redemonstration of moderate right-sided pleural effusion. Interval decrease in the left-sided pleural effusion in comparison to prior CT examination; 3. Redemonstration of right upper lobe soft tissue opacity/lesion appearing unchanged from prior CT examination dated 11/25/2022 however, showing significant decrease in size from prior CT examination dated 10/03/2022; 4. No significant change in the prominent mediastinal lymph nodes and ascites; 5. Rest of the findings remain unchanged from prior disease CT examination, and are detailed above; Electronically Signed by: Isael Cabrera MD. (11/30/2022 05:40:46 AIR EXPORT OPERATIONS AGENT)
--- NOTE | 2022-12-02 16:23 | XRAY ---
CLINICAL HISTORY:Abdominal pressure; COMPARISON:Prior CT chest examinations were reviewed; TECHNIQUES:Axial sections of CT abdomen and pelvis were obtained without administration of intravenous contrast. Reconstructed coronal and sagittal images were also acquired; FINDINGS: Previously seen scattered hypodense areas noted within the liver parenchyma and are not conspicuous on the current unenhanced CT examination. No definite evidence of intrahepatic biliary dilatation. Mild ascites is redemonstrated in the perihepatic location; Non-visualization of the gallbladder secondary to cholecystectomy as evidenced by surgical clips in the gallbladder fossa; Fatty infiltration of the pancreatic parenchyma; Bilateral adrenal glands appear unremarkable; The spleen is normal in size; Both kidneys are normal in size and shape. Calcific density measuring 2.8 mm in the upper pole of the right kidney, likely representing calculus. No evidence of obstructive uropathy. Non-specific bilateral perinephric fat stranding; The urinary bladder is partially distended. No definite intravesical abnormalities are noted; Bilateral hip prosthesis are noted producing artifacts resulting in limited evaluation of the bladder and prostate; The stomach is under-distended. Suggestion of small hiatal hernia; Visualized small bowel loops appear grossly unremarkable; No evidence of intestinal obstruction; No pneumoperitoneum; No significant abdominal or pelvic lymphadenopathy; Extensive atherosclerotic changes in the abdominal aorta and its branches; Degenerative changes in the visualized spine with mild retrolisthesis of L2 over L3 and spondylolisthesis of L3 over L4 vertebra. Posterior spinal implant at transverse process of the L5-S1 vertebra. Generalized reduced bone density; IMPRESSION: 1. No acute inraabdominal or pelvic pathology.No evidence of intestinal obstruction; 2. Previously seen scattered hypodense areas are noted within the liver parenchyma and are not conspicuous on the current unenhanced CT examination; 3. Non-obstructing right upper pole renal calculus; 4. Mild perihepatic ascites; 5. Rest of the findings are detailed above; Electronically Signed by: Isael Cabrera MD. (11/30/2022 06:11:01 POKER DEALER)
== END 2022-11-30 04:40 | disposition left against medical advice (07) ==
LOC: ED 02:02
DX: I48.20 Chronic atrial fibrillation, unspecified (principal); N39.0 Urinary tract infection, site not specified; R06.02 Shortness of breath; R10.9 Unspecified abdominal pain; I10 Essential (primary) hypertension; E11.9 Type 2 diabetes mellitus without complications; Z79.84 Long term (current) use of oral hypoglycemic drugs; Z79.01 Long term (current) use of anticoagulants; Z79.899 Other long term (current) drug therapy; Z72.0 Tobacco use
CPT/HCPCS: 36000; 36415; 71250; 74176; 80053; 81001; 83605; 83880; 84484; 85025; 85610; 87077; 87086; 87186; 93005; 93041; 94760; 96365; 96374; 96376; 99284; 99291; J0696

== ENCOUNTER 2022-12-05 12:35 | Emergency (ER) | payer MEDICARE, OTHER ==
--- NOTE | 2022-12-05 12:38 | ERPHSYRPT ---
- History of Present Illness Time Seen by Provider: 12/05/22 12:38 Historian: patient Exam Limitations: no limitations Physician History: This is a 77-year-old white male patient who was brought into the emergency department by ambulance/paramedics of chest pain that he was experiencing prior to arrival. Upon arrival to the emergency department, the patient states his chest pain has nearly completely resolved. Patient's primary care provider is Dr. Guillaume. Patient has a history of metastatic lung cancer. He also has a significant history of CHF with bilateral pleural effusions. He had been on chemotherapy but they had to hold the chemotherapy because of his significant CHF and pleural effusions. Patient is on Coumadin daily. Patient has a history of atrial fibrillation on Cardizem and warfarin. He does have a history of COPD. He has had cardiac ablations in the past he has a history of hyperlipidemia and hypertension. A CT scan was performed of the chest on 11/30/2022 and 11/25/2022. The most recent CT scan showed verified bilateral pleural effusions with the right side larger than the left than the left is decreasing. There also is improvement in the collapse/consolidation of the right middle lobe. Patient left AMA on his visit 11/30/2022 with a diagnosis of atrial fibrillation with RVR and a urinary tract infection. Timing/Duration: today Activities at Onset: none Quality: sharpness, stabbing Location: substernal, central Chest Pain Radiation: no radiation Severity of Pain-Max: moderate Severity of Pain-Current: mild Modifying Factors: Improves With: nothing Associated Symptoms: shortness of breath Prior Chest Pain/Cardiac Workup: cardiac cath, echocardiography, heart attack, recently seen/treated Nitro Today/Relief: no nitro taken today Aspirin Treatment Today: no aspirin today Allergies/Adverse Reactions: pregabalin [From Lyrica] Allergy (Severe, Verified 12/05/22 12:49) Difficulty Breathing Home Medications: Glimepiride 2 mg [Amaryl 2 MG] 1 mg PO DAILY 02/17/21 [History] Metformin HCl [Metformin ER Osmotic] 1,000 mg PO DAILY 02/17/21 [History] dilTIAZem HCL [Diltiazem 24Hr ER] 240 mg PO DAILY 12/10/21 [History] PANTOPRAZOLE 40 mg Tablet [Protonix 40MG Tablet] 40 mg PO DAILY 08/17/22 [History] Pramipexole Di-HCl [Pramipexole ER] 1.5 mg PO DAILY 09/25/22 [History] Magnesium Oxide [Mag-Oxide] 400 mg PO BID 10/03/22 [History] Duloxetine HCl 60 mg PO DAILY 11/25/22 [History] Loratadine 10 mg [Claritin 10 mg] 10 mg PO HS 11/25/22 [History] Mirabegron [Myrbetriq] 50 mg PO DAILY 11/25/22 [History] Tamsulosin HCl 0.4 mg [Flomax 0.4 MG] 0.4 mg PO DAILY 11/25/22 [History] Warfarin Sodium 1 mg PO UD 11/25/22 [History] Hx Tetanus, Diphtheria Vaccination/Date Given: No (unknown) Hx Influenza Vaccination/Date Given: Yes Hx Pneumococcal Vaccination/Date Given: Yes Travel Risk - International Travel Have you traveled outside of the country in past 3 weeks: No - Coronavirus Screening Are you exhibiting any of the following symptoms?: No Close contact with a COVID-19 positive Pt in past 14-21 Days: No - Vaccine Status Have you recieved a Covid-19 vaccination: Yes Brick Paver: Moderna - Vaccination Dates Date of 2cond Vaccination (if applicable): 10/08 - Review of Systems Constitutional: Night Sweats Eyes: No Symptoms Ears, Nose, & Throat: No Symptoms Respiratory: No Symptoms Cardiac: Chest Pain Abdominal/Gastrointestinal: No Symptoms Genitourinary Symptoms: No Symptoms Musculoskeletal: No Symptoms Skin: No Symptoms Neurological: No Symptoms Psychological: No Symptoms Endocrine: No Symptoms Hematologic/Lymphatic: No Symptoms Immunological/Allergic: No Symptoms All Other Systems: Reviewed and Negative - Past Medical History Pertinent Past Medical History: Yes Neurological History: Other ENT History: Cataracts Cardiac History: Arrhythmia, Hypertension Respiratory History: CHF, COPD, Lung Cancer Endocrine Medical History: Diabetes Type II Musculoskeletal History: Other GI Medical History: No Pertinent History History: No Pertinent History Psycho-Social History: Depression Male Reproductive Disorders: Prostate Cancer Other Medical History: HX CARDIAC ABLATION; R EDWAR - Past Surgical History Past Surgical History: Yes Neuro Surgical History: No Pertinent History Cardiac: Cardiac Catheterization, Other Respiratory: No Pertinent History Gastrointestinal: No Pertinent History Genitourinary: No Pertinent History Musculoskeletal: Other Male Surgical History: No Pertinent History Other Surgical History: july states back surgery with cyst removal and spur shaved,heart caths and cardiac ablation 15-20yrs ago,BACK SURG 08/03, back surgery 2013, 09/29/16,09/30/16,10/01/16 back surgery r/t infection in surgical site. bilar rcr - Social History Smoking Status: Current every day smoker How long have you smoked: 55 Exposure to second hand smoke: Yes Alcohol Use: None Drug Use: none Patient Lives Alone: No Significant Family History: no pertinent family hx - Nursing Vital Signs Nursing Vital Signs: Initial Vital Signs Temperature 97.3 F 12/05/22 12:38 Pulse Rate 81 12/05/22 12:38 Respiratory Rate 24 12/05/22 12:38 Blood Pressure 104/59 12/05/22 12:38 O2 Sat by Pulse Oximetry 96 12/05/22 12:38 Pain Scale Pain Intensity 3 - Physical Exam General Appearance: no apparent distress, alert, anxiety Eye Exam: PERRL/EOMI, eyes nml inspection Ears, Nose, Throat Exam: normal ENT inspection, moist mucous membranes Neck Exam: normal inspection, non-tender, supple, full range of motion Respiratory Exam: normal breath sounds, chest tenderness, lungs clear, airway intact, No respiratory distress Cardiovascular Exam: normal peripheral pulses, irregular Gastrointestinal/Abdomen Exam: soft, normal bowel sounds, tenderness Rectal Exam: not done Back Exam: normal inspection, normal range of motion, No CVA tenderness, No vertebral tenderness Extremity Exam: normal inspection Neurologic Exam: alert, oriented x 3, cooperative, 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 nml as tested, normal mood/affect, sensation nml Skin Exam: normal color, warm, dry Lymphatic Exam: No adenopathy SpO2 Interpretation: normal O2 Delivery: Room Air - Course Nursing assessment & vital signs reviewed: Yes EKG Interpreted by Me: RATE (82), A-fib, Right Bundle Branch Block, Non-specific ST Changes, Other (No acute ischemic changes on today's twelve-lead EKG.) Ordered Tests: Active Orders 24 hr Category Date Time Status EKG-ER Only STAT Care 12/05/22 12:49 Active IV Insertion STAT Care 12/05/22 12:49 Active Pulse Oximetry (ED) STAT Care 12/05/22 12:49 Active CBC W DIFF Stat Lab 12/05/22 13:05 Completed CMP Stat Lab 12/05/22 13:05 Completed NT PRO BNPII Stat Lab 12/05/22 13:05 Completed PROTIME WITH INR Stat Lab 12/05/22 13:05 Completed TROPONIN Q4H Lab 12/05/22 13:05 Completed TROPONIN Q4H Lab 12/05/22 16:05 Completed TROPONIN Q4H Lab 12/05/22 21:00 Ordered UA W/RFX UR CULTURE Stat Lab 12/05/22 14:08 Completed Medication Summary Generic Name Dose Route Start Last Admin Trade Name Freq PRN Reason Stop Dose Admin Sodium Chloride 1,000 mls @ 100 mls/hr 12/05/22 14:15 12/05/22 14:03 Sodium Chloride 0.9% 1000 Ml IV 01/04/23 14:14 100 mls/hr .Q10H MELITA Administration Sodium Chloride 1,000 mls @ 100 mls/hr 12/05/22 14:15 12/05/22 14:04 Sodium Chloride 0.9% 1000 Ml IV 01/04/23 14:14 Not Given .Q10H MELITA Discontinued Medications Generic Name Dose Route Start Last Admin Trade Name Freq PRN Reason Stop Dose Admin Furosemide 40 mg 12/05/22 14:32 12/05/22 15:02 Furosemide 40 Mg/4 Ml Vial IV 12/05/22 14:33 40 mg STAT ONE Administration Furosemide Confirm 12/05/22 14:58 Furosemide 40 Mg/4 Ml Vial Administered 12/05/22 14:59 Dose 40 mg .ROUTE .STK-MED ONE Ceftriaxone Sodium/Dextrose 1 g in 50 mls @ 100 mls/hr 12/05/22 14:46 12/05/22 16:54 Rocephin 1 Gm-D5w 50 Ml Bag IV 12/05/22 15:15 Infused STAT STA Infusion Ceftriaxone Sodium/Dextrose Confirm 12/05/22 14:58 Rocephin 1 Gm-D5w 50 Ml Bag Administered 12/05/22 14:59 Dose 1 g in 50 mls @ ud IV .STK-MED ONE Lab/Rad Data: Laboratory Result Diagrams 12/05/22 13:05 12/05/22 13:05 Laboratory Results 12/05/22 12/05/22 12/05/22 Range/Units 16:05 14:08 13:05 WBC (4.0-10.5) x10^3/uL RBC (4.1-5.6) x10^6/uL Hgb (12.5-18.0) g/dL Hct (42-50) % MCV (78-100) fL MCH (26-32) pg MCHC (32-36) g/dL RDW (11.5-14.0) % Plt Count (150-450) x10^3/uL MPV (7.5-11.0) fL Gran % (36.0-66.0) % Immature Gran % (Auto) (0.00-0.4) % Nucleat RBC Rel Count (0.00-0.1) % Eos # (Auto) (0-0.5) x10^3/uL Immature Gran # (Auto) (0.00-0.03) x10^3u/L Absolute Lymphs (auto) (1.0-4.6) x10^3/uL Absolute Monos (auto) (0.0-1.3) x10^3/uL Absolute Nucleated RBC (0.00-0.01) x10^3u/L Lymphocytes % (24.0-44.0) % Monocytes % (0.0-12.0) % Eosinophils % (0.00-5.0) % Basophils % (0.0-0.4) % Absolute Granulocytes (1.4-6.9) x10^3/uL Basophils # (0-0.4) x10^3/uL PT 28.1 H (9.4-12.5) SECONDS INR 2.78 (0.8-3.0) Sodium (137-145) mmol/L Potassium (3.5-5.1) mmol/L Chloride (98-107) mmol/L Carbon Dioxide (22-30) mmol/L Anion Gap (5-15) MEQ/L BUN (9-20) mg/dL Creatinine (0.66-1.25) mg/dL Estimated GFR ML/MIN Glucose (74-106) mg/dL Calcium (8.4-10.2) mg/dL Total Bilirubin (0.2-1.3) mg/dL AST (17-59) U/L ALT (0-50) U/L Alkaline Phosphatase (38-126) U/L Troponin I 0.029 (0.000-0.034) ng/mL NT-Pro-B Natriuret Pep (<300) pg/mL Serum Total Protein (6.3-8.2) g/dL Albumin (3.5-5.0) g/dL Urine Color Yellow (Yellow) Urine Appearance Clear (Clear) Urine pH 5.5 (4.6-8.0) Ur Specific [place] 1.020 (1.005-1.030) Urine Protein 100 A (Negative) Urine Glucose (UA) Negative (Negative) mg/dL Urine Ketones Negative (Negative) Urine Blood Negative (Negative) Urine Nitrite Negative (Negative) Urine Bilirubin Negative (Negative) Urine Urobilinogen 0.2 (0.2) mg/dL Ur Leukocyte Esterase Trace A (Negative) U Hyaline Cast (Auto) 3-5 A (0-2) /LPF Urine Microscopic RBC 0-2 (0-5) /HPF Urine Microscopic WBC 6-10 A (0-5) /HPF Ur Epithelial Cells None Seen (None Seen) /HPF Urine Bacteria None Seen (None Seen) /HPF Urine Culture Reflexed NO (NO) 12/05/22 12/05/22 12/05/22 Range/Units 13:05 13:05 13:05 WBC 15.7 H (4.0-10.5) x10^3/uL RBC 3.51 L (4.1-5.6) x10^6/uL Hgb 9.8 L (12.5-18.0) g/dL Hct 31.2 L (42-50) % MCV 88.9 (78-100) fL MCH 27.9 (26-32) pg MCHC 31.4 L (32-36) g/dL RDW 21.3 H (11.5-14.0) % Plt Count 238 (150-450) x10^3/uL MPV 10.0 (7.5-11.0) fL Gran % 79.8 H (36.0-66.0) % Immature Gran % (Auto) 1.5 H (0.00-0.4) % Nucleat RBC Rel Count 0.0 (0.00-0.1) % Eos # (Auto) 0.05 (0-0.5) x10^3/uL Immature Gran # (Auto) 0.24 H (0.00-0.03) x10^3u/L Absolute Lymphs (auto) 1.27 (1.0-4.6) x10^3/uL Absolute Monos (auto) 1.49 H (0.0-1.3) x10^3/uL Absolute Nucleated RBC 0.00 (0.00-0.01) x10^3u/L Lymphocytes % 8.1 L (24.0-44.0) % Monocytes % 9.5 (0.0-12.0) % Eosinophils % 0.3 (0.00-5.0) % Basophils % 0.8 (0.0-0.4) % Absolute Granulocytes 12.54 H (1.4-6.9) x10^3/uL Basophils # 0.12 (0-0.4) x10^3/uL PT (9.4-12.5) SECONDS INR (0.8-3.0) Sodium 136 L (137-145) mmol/L Potassium 4.8 (3.5-5.1) mmol/L Chloride 99 (98-107) mmol/L Carbon Dioxide 24 (22-30) mmol/L Anion Gap 17.1 H (5-15) MEQ/L BUN 38 H (9-20) mg/dL Creatinine 1.02 (0.66-1.25) mg/dL Estimated GFR > 60.0 ML/MIN Glucose 171 H (74-106) mg/dL Calcium 8.5 (8.4-10.2) mg/dL Total Bilirubin 0.70 (0.2-1.3) mg/dL AST 30 (17-59) U/L ALT 21 (0-50) U/L Alkaline Phosphatase 127 H (38-126) U/L Troponin I 0.025 (0.000-0.034) ng/mL NT-Pro-B Natriuret Pep 91559 (<300) pg/mL Serum Total Protein 6.6 (6.3-8.2) g/dL Albumin 3.6 (3.5-5.0) g/dL Urine Color (Yellow) Urine Appearance (Clear) Urine pH (4.6-8.0) Ur Specific [place] (1.005-1.030) Urine Protein (Negative) Urine Glucose (UA) (Negative) mg/dL Urine Ketones (Negative) Urine Blood (Negative) Urine Nitrite (Negative) Urine Bilirubin (Negative) Urine Urobilinogen (0.2) mg/dL Ur Leukocyte Esterase (Negative) U Hyaline Cast (Auto) (0-2) /LPF Urine Microscopic RBC (0-5) /HPF Urine Microscopic WBC (0-5) /HPF Ur Epithelial Cells (None Seen) /HPF Urine Bacteria (None Seen) /HPF Urine Culture Reflexed (NO) - Progress Progress: improved, re-examined Air Movement: fair Progress Note: 12/05/22 13:03 This is a 77-year-old white male patient who medical issue is of at least moderate complexity. Patient was brought into the emergency department by paramedics who provided independent medical history on this patient. The work- up in this patient and the complexity of the medical issues are based on review of the patient's past medical history, review of the patient's medication list, review the patient's drug allergy list, history present illness and physical findings on examination. Work-up includes CBC, CMP, intravenous line placement, BNP, troponin level, twelve-lead EKG. We will hold off on chest x-ray at this time. We may repeat the CT scan of the chest. 12/05/22 17:07 This patient's initial and 3-hour troponin level are normal. Patient's twelve- lead EKG does not show any acute ischemic changes. Clinically, the patient is feeling much better. Patient has a systolic blood pressure over 110 and his heart rate is in the 80s. Patient wants to go home. He does have a mild urinary tract infection which has improved on his current antibiotics that he is taking at home. He still has a few days left of that prescription that he will take. We did provide him with 1 g Rocephin intravenously. Patient wanted to be DNR and so we filled out the papers for him in case he was to be admitted. However, I believe he is stable to be discharged to home. Blood Culture(s) Obtained: No Antibiotics given: Yes Counseled pt/family regarding: lab results, diagnosis, need for follow-up Medical Desision Making - Independent Historian Additional History obtained from: Telemarketing Supervisor/EMT - External Record(s) Reviewed Records reviewed as a part of evaluation & management: Discharge Summary - Diagnostic Testing Diagnostic test were ordered, analyzed, and reviewed by me: Yes - Departure Departure Disposition: Home Clinical Impression: UTI (urinary tract infection), Anxiety about health, Chest pain Condition: Stable Critical Care Time: No Referrals: RACIEL ETIENNE DO [Primary Care Provider] - Follow up/PCP as directed Additional Instructions: Take all your medications as prescribed. Follow-up with your security compliance engineer on 12/08/2022. Follow-up with your oncologist on 12/08/2022. Follow-up with your primary care provider on 12/08/2022. Return to the emergency department if symptoms worsen.
[2022-12-05 12:48] VITALS: TEMP 97.3
[2022-12-05 13:07] LABS: Absolute Neutrophil Ct (ANC) 12.54 x10^3/uL (1.4-6.9); BASOPHIL % 0.8 % (0.0-0.4); Basophil (Absolute #) 0.12 x10^3/uL (0-0.4); Eosinophil % 0.3 % (0.00-5.0); Eosinophil (Absolute #) 0.05 x10^3/uL (0-0.5); Hematocrit 31.2 % (42-50); Hemoglobin 9.8 g/dL (12.5-18.0); IMMATURE GRAN # 0.24 x10^3u/L (0.00-0.03); IMMATURE GRAN % 1.5 % (0.00-0.4); Lymphocyte (Absolute #) 1.27 x10^3/uL (1.0-4.6); Lymphocytes % 8.1 % (24.0-44.0); Mean Cell Volume 88.9 fL (78-100); Mean Corpuscular Hemoglobin 27.9 pg (26-32); Mean Corpuscular Hgb Concent. 31.4 g/dL (32-36); Monocyte (Absolute #) 1.49 x10^3/uL (0.0-1.3); Monocytes % 9.5 % (0.0-12.0); Neutrophil % 79.8 % (36.0-66.0); Platelet Count 238 x10^3/uL (150-450); Red Blood Count 3.51 x10^6/uL (4.1-5.6); Red Cell Distribution Width 21.3 % (11.5-14.0); White Blood Count 15.7 x10^3/uL (4.0-10.5)
[2022-12-05 13:29] LABS: ALBUMIN 3.6 g/dL (3.5-5.0); ALKALINE PHOSPHATASE 127 U/L (38-126); ANION GAP 17.1 MEQ/L (5-15); BLOOD UREA NITROGEN 38 mg/dL (9-20); CHLORIDE 99 mmol/L (98-107); Calcium 8.5 mg/dL (8.4-10.2); Carbon Dioxide 24 mmol/L (22-30); Creatinine 1 1.02 mg/dL (0.66-1.25); EST GLOMERULAR FILTRATION RATE > 60.0 ML/MIN; Glucose 171 mg/dL (74-106); Potassium 4.8 mmol/L (3.5-5.1); SGOT/AST 30 U/L (17-59); SGPT/ALT 21 U/L (0-50); SODIUM 136 mmol/L (137-145); Total Protein 6.6 g/dL (6.3-8.2)
[2022-12-05 13:42] LABS: TROPONIN 0.025 ng/mL (0.000-0.034)
[2022-12-05] MEDS ORDERED: Sodium Chloride 0.9% 1000 ML 1,000 ML ONE (14:02)
[2022-12-05] MEDS ORDERED: Sodium Chloride 0.9% 1000 ML 1,000 ML IV SCH ×2 (14:15)
[2022-12-05 14:23] LABS: Appearance Clear (Clear); Bacteria None Seen /HPF (None Seen); Bilirubin Negative (Negative); Blood Negative (Negative); Epithelial Cells None Seen /HPF (None Seen); Glucose, Urine Negative (Negative); Ketones Negative (Negative); Leukocyte Esterase Trace (Negative); Nitrite Negative (Negative); Ph 5.5 (4.6-8.0); Protein,Urine Dip 100 (Negative); RBC 0-2 /HPF (0-5); Urobilinogen 0.2 mg/dL (0.2)
[2022-12-05 14:24] LABS: ADD URINE CULTURE? NO (NO)
[2022-12-05] MEDS ORDERED: Lasix 40 MG/4 ML IV ONE (14:32)
[2022-12-05] MEDS ORDERED: ROCEPHIN 1 Gm-D5w 50 ml Bag** 1 G/50 ML IVPB IV STA (14:46)
[2022-12-05 14:52] LABS: INR 2.78 (0.8-3.0); PROTIME 28.1 SECONDS (9.4-12.5)
[2022-12-05] MEDS ORDERED: Lasix 40 MG/4 ML ONE (14:58)
[2022-12-05] MEDS ORDERED: ROCEPHIN 1 Gm-D5w 50 ml Bag** 1 G/50 ML IVPB IV ONE (14:58)
[2022-12-05 17:28] VITALS: BP 93/62; PULSE 96; RESP 20; O2SAT 92
== END 2022-12-05 17:54 | disposition home or self-care (01) ==
LOC: ED 12:35
DX: N39.0 Urinary tract infection, site not specified (principal); F45.9 Somatoform disorder, unspecified; R07.9 Chest pain, unspecified; I11.0 Hypertensive heart disease with heart failure; I50.9 Heart failure, unspecified; E11.9 Type 2 diabetes mellitus without complications; E78.5 Hyperlipidemia, unspecified; Z79.01 Long term (current) use of anticoagulants; Z79.84 Long term (current) use of oral hypoglycemic drugs; Z79.899 Other long term (current) drug therapy; Z72.0 Tobacco use
CPT/HCPCS: 36000; 36415; 80053; 81001; 83880; 84484; 85025; 85610; 93005; 94760; 96365; 96374; 99285; J0696; J1940